=== PATIENT | female | born 1955 | race Caucasian/White ===

== ENCOUNTER → 2017-04-29 09:49 | Outpatient (CLI) | payer OTHER, SELFPAY ==
[2017-04-29 12:02] LABS: Absolute Lymphocyte Count 0.89 X10^3/ul (0.83-4.51); Absolute Neutrophil Count 3.4 X10^3/uL (2.0-7.7); Basophil# 0.03 X10^3/uL; Basophil% 0.6 % (0-1); Eosinophil# 0.04 X10^3/uL; Eosinophils% 0.8 % (0-5); Hematocrit 39.6 % (37-47); Hemoglobin 13.1 g/dl (12.0-15.0); Lymphocyte # 0.89 X10^3/ul (4.0); Lymphocyte % 18.7 % (19-41); Mean Corp Hgb Conc 33.1 g/gl (32-36); Mean Corpuscular Hgb 31.3 pg (27.0-32.0); Mean Corpuscular Volume 94.7 fL (81-99); Mean Platelet Vol. 10.7 fl (6.2-12.0); Monocyte# 0.43 X10^3/uL; Neutrophil # 3.36 X10^3/uL (2.7-7.7); Neutrophil % 70.7 % (47-70); Platelet Count 262 K/mm3 (150-450); Red Blood Count 4.18 M/mm3 (4.2-5.4); White Blood Count 4.8 K/mm3 (4.4-11.0)
[2017-04-29 12:04] LABS: POSITIVE COUNT NO; POSITIVE DIFFERENTIAL NO; POSITIVE MORPHOLOGY NO
[2017-04-29 12:38] LABS: Erythrocyte Sedimentation Rate < 1 mm/hr (0-30)
[2017-04-29 12:41] LABS: ALB/GLOB Ratio 1.3 RATIO (0.9-2.4); AST(SGOT) 13 U/L (15-37); Alanine Aminotransfer ALT/SGPT 24 U/L (13-56); Albumin, Serum 3.9 g/dL (3.2-5.0); Alkaline Phosphatase 55 U/L (45-117); Anion Gap 9 (5-15); BUN 13 mg/dL (7-18); BUN/Creat Ratio 20.6 RATIO (10-20); CRP < 2.90 mg/L (0.0-3.0); Calcium,Total 8.9 mg/dL (8.5-10.1); Chloride 104 mmol/L (98-107); Creatinine, Serum 0.63 mg/dL (0.55-1.02); EST Glomerular Filtration Rate 102 mL/min (>60); Est Glom Filt Rate - Afr Amer 124 mL/min (>60); Glucose 90 mg/dL (70-110); Potassium 3.7 mmol/L (3.5-5.1); Protein, Total 6.9 g/dL (6.4-8.2); Rheumatoid Factor < 10.0 IU/mL (<15); Sodium Level 139 mmol/L (136-145)
[2017-04-30 16:19] LABS: ANTINUCLEAR ANTIBODIES DIRECT Negative (Negative)
[2017-05-03 16:09] LABS: Cytoplasmic Ab (C-ANCA) <1:20 titer (Neg:<1:20); Immunoglobulin E 30 IU/mL (0-100); Immunoglobulin G 732 mg/dL (700-1600)
[2017-05-04 08:59] LABS: CCP IgG Antibodies 2 units (0-19); HEPATITIS B SURFACE AG Negative (Negative); HLA B27 Negative (.); Hep B Surface Antibodies Reactive (.); Hep C Antibodies <0.1 s/co ratio (0.0-0.9); Perinuclear Ab (P-ANCA) <1:20 titer (Neg:<1:20)
== END ==
PROVIDERS: Family Provider Family Medicine; PCP Family Medicine; Visit Provider Internal Medicine Rheumatology
DX: D72.1 Eosinophilia (principal)
CPT/HCPCS: 36415; 80053; 81374; 82784; 82785; 85025; 85652; 86038; 86140; 86200; 86256; 86431; 86706; 86803; 87340

== ENCOUNTER → 2017-06-04 09:55 | Outpatient (CLI) | payer OTHER, SELFPAY ==
--- NOTE | 2017-06-04 09:56 | HPBI_ITS ---
MAMMOGRAPHY - BILATERAL SCREENING REASON FOR EXAM: Female, 61 years old. Routine annual screening examination. PERTINENT HISTORY: Non-contributory. Bilateral nipple inversion. TECHNIQUE: Digital bilateral breast noble (3D mammographic acquisition) in the CC and MLO projections. 2-D mediolateral oblique (MLO) and craniocaudad (CC) views of both breasts were obtained. CAD: Full Field Digital Mammography with Computer Added Detection was performed. COMPARISON: Comparison is made with prior examination dated November 23, 2015. FINDINGS: Breast Composition: The breasts are extremely dense, which lowers the sensitivity of mammography. There are no dominant masses or suspicious calcifications. No other significant abnormalities are identified. There has been no significant change since the prior study. HPBI/SCREENING MAMM (CAD), BILAT IMPRESSION: Stable bilateral screening mammogram. Yearly follow-up mammogram recommended. (A) ASSESSMENT CATEGORY: BIRADS Category 1: Negative. A letter regarding these results will be sent to the patient by the facility within 30 days. Approximately 10% of breast cancers are not detected by mammography. A normal mammogram should not delay biopsy of a clinically suspicious abnormality. [id number] Electronically Signed: Haroon Miller MD at 11:09 EST Tel [phone], Service support ,
== END ==
PROVIDERS: Family Provider Family Medicine; PCP Family Medicine; Visit Provider Nurse Practitioner Women's Health
DX: Z12.31 Encounter for screening mammogram for malignant neoplasm of breast (principal)
CPT/HCPCS: 77063; 77067

== ENCOUNTER → 2018-03-19 08:03 | Outpatient (CLI) | payer OTHER, SELFPAY ==
[2017-05-13 09:57] VITALS: BMI 22.1
[2018-03-19 10:36] LABS: Anion Gap 6 (5-15); BUN 14 mg/dL (7-18); BUN/Creat Ratio 23.2 RATIO (10-20); Calcium,Total 8.7 mg/dL (8.5-10.1); Chloride 107 mmol/L (98-107); Cholesterol 246 mg/dL (200); EST Glomerular Filtration Rate 108 mL/min (>60); Est Glom Filt Rate - Afr Amer 130 mL/min (>60); Glucose 96 mg/dL (74-106); High Density Lipoprotein 120 mg/dL; Potassium 3.8 mmol/L (3.5-5.1); Sodium Level 140 mmol/L (136-145); Triglycerides 80 mg/dL; Very Low Density Lipoprotein 16 mg/dL (5-40)
--- OUTSIDE RECORDS SUMMARY | 2018-06-20 08:33 | XMS RPT_ITS | Summary of Care ---
:1955 Author Organization [facility] Address [address] [place] [address] Phone Care Team Providers Name Role Phone Helena Brantley MD Primary Care Provider Reason for Visit Reason Comments Post Op Visit 12 weeks s/p right knee arthroscopy, PMM, microfracture. The knee is feeling good, no problems or concerns at this time, states she has a bump on the back of her right knee which is not painful today. Still continues to exercsie at home on her own. Encounter Details Date Type Department Care Team Description 03/13/2018 Office Visit Megha Sauer, S/P right knee Orthopedics [employer] [place] arthroscopy ([address] [place] [address] [place] [id number] Allergies Active Allergy Reactions Severity Noted Date Comments Glucosamine Rash High 11/27/2017 Glucosamine and chondroitin as of this encounter Medications Prescription Sig. Disp. Refills Start Date End Date Status meloxicam 15 MG Tab Take 7.5 mg by Active tablet mouth daily. predniSONE 20 MG Tab Take 3 tablets by 15 tablet 0 11/27/2017 Active tabletIndications: mouth daily. Right knee pain, unspecified chronicity CALCIUM PO Take by mouth. 06/11/2005 Active HERBAL PRODUCT 1 drop. CBD herbal Active supplement for anxiety and joint pain hydroCODone-acetamino 1-2 tabs PO q4-6 60 tablet 0 12/19/2017 Active phen 5-325 MG Tab hours PRN pain tabletIndications: S/P arthroscopy of knee Misc Natural Products Take by mouth. Active (TURMERIC CURCUMIN) Cap as of this encounter Active Problems Problem Noted Date Other tear of medial meniscus, current injury, right knee, subsequent 01/02/2018 encounter Chondral lesion 01/02/2018 Social History Tobacco Use Types Packs/Day Years Used Date Never Smoker Smokeless Tobacco: Never Used Alcohol Use Drinks/Week oz/Week Comments Yes wine and beer weekly Sex Assigned at Date Recorded Not on file as of this encounter Last Filed Vital Signs Vital Sign Reading Time Taken Blood Pressure - - Pulse - - Temperature 36.8 ??C (98.2 ??F) 03/13/2018 9:55 AM EST Respiratory Rate - - Oxygen Saturation - - Inhaled Oxygen Concentration - - Weight 57.7 kg (127 lb 2 oz) 03/13/2018 9:55 AM EST Height 157.5 cm (5' 2) 03/13/2018 9:55 AM EST Body Mass Index 23.25 03/13/2018 9:55 AM EST in this encounter Progress Notes Megha Guidry, [facility] - 03/13/2018 10:00 AM ESTFormatting of this note may be different from the original. Chief Complaint Patient presents with ??? Post Op Visit 12 weeks s/p right knee arthroscopy, PMM, microfracture. The knee is feeling good, no problems orconcerns at this time, states she has a bump on the back of her right knee which is not painful today. Still continues to exercsie at home on her own. HPI: She is doing well. She states that the knee feels good. She states that she has minimal pain. Statesthat she has some swelling at the posterior aspect of the knee is painful and some days but today itis not. He continues therapy exercises at home. She states that her knee has improved since last visit. Denies any other issues or concerns. She is happy with her progress overall. PMH: Past medical history, family history, social history, allergies and medications have been reviewed and are documented in the electronic record. ROS: Review of Systems System Neg/Pos Details Constitutional Negative Chills, fatigue, fever and night sweats. ENMT Negative Dysphagia, hearing loss, nasal congestion and vertigo. Eyes Negative Blurred vision and vision loss. Respiratory Negative Chest pain, cough, dyspnea, known TB exposure and wheezing. Cardio Negative Chest pain, cyanosis, heart murmur, irregular heartbeat/palpitations and syncope. GI Negative Abdominal pain, black tarry stools, constipation, diarrhea, heartburn, nausea and vomiting. Negative Dysuria, frequent urination, hematuria, nocturia and urinary incontinence. Endocrine Negative Weight gain and weight loss. Neuro Negative Difficulty walking, headache, paresthesia, poor coordination and seizures. Psych Negative Anxiety, depression and insomnia. Integumentary Negative Frequent skin infections, itching skin, rash and skin lesion. MS Negative Except as noted in HPI and chief complaint and muscle weakness. Ricki/Lymph Negative Bruising and easy bleeding. Allergic/Immuno Negative Contact dermatitis, environmental allergies, food allergies, infections andseasonal allergies. Vitals: 03/13/18 0955 Temp: 98.2 degrees F (36.8 degrees C) Weight: 57.7 kg (127 lb 2 oz) Height: 1.575 m (5' 2) Physical Exam: Exam Findings Details Constitutional Normal No acute distress. Well developed. Head/Face Comments normal cephallic/ Atraumatic, negative spurling's maneuver Head/Face Normal Facial features - Normal. Skull - Normal. Hair and scalp - Normal. Respiratory Normal Cough - Absent. Effort - Normal. Skin * Detailed inspection - Visual lesions: none. Skin Comments other than as noted otherwise below in extremity exam Skin Normal Palpation/texture - Normal. Nails - Normal. Hair - Normal. Psychiatric Normal Orientation - Oriented to time, place, person & situation. Involved Lower Extremity: ROM: 0-140. Quad tone good. Calf supple and non tender. Minimal effusion. Minimal effusion to posterior aspect of knee as well. Nontender with palpation. Incisions healing nicely. No erythema. No drainage. Distally neurovascularly intact with 2+ DP pulse and full sensation in the DP/SP/Tibial nerve distribution. Assessment: 1. S/P right knee arthroscopy Plan: At this time, she is doing well. She is progressing as expected. She'll continue physical therapy exercises to work on strengthening. She'll use meloxicam for pain. We discussed that swelling to the posterior aspect of her knee is a popliteal cyst. We discussed various treatment options. We discussed that if the swelling increases and becomes painful she can possibly have that aspirated under ultrasound in the future. She voices understanding. She'll call the office with any questions or concerns otherwise follow-up as needed for the right knee. We discussed left knee pain today which is likely related to osteoarthritis. She'll make an appointment for 3 weeks from now with Dr. Hurt.in this encounter Plan of Treatment Upcoming Encounters Date Type Specialty Care Team Description 04/07/2018 Office Visit Orthopaedics Roberto Hurt MD [address] [id number] [phone] Health Maintenance Due Date Last Done Comments HEPATITIS C VIRUS SCREENING 1955 HIV SCREENING DISCUSSION 1970 TETANUS 09/26/1975 TDAP (ADULT) 1976 PAP SMEAR DISCUSSION 1978 LIPID SCREENING 1997 MAMMOGRAM SCREENING DISCUSSION 1997 COLON CANCER SCREENING DISCUSSION 09/26/2007 INFLUENZA VACCINE (#1) 2017 as of this encounter Visit Diagnoses Diagnosis S/P right knee arthroscopy - Primary Other postprocedural status
--- OUTSIDE RECORDS SUMMARY | 2018-06-20 08:33 | XMS RPT_ITS ---
:1955 Author Organization OHIP Care Team Providers Name Role Phone Parish Cardoza Attending Unavailable Parish Cardoza Referring Unavailable Helena Brantley Primary Care Unavailable Brittany Means Attending Unavailable HELENA SUAZO Referring Unavailable Helena Brantley Primary Care Unavailable Shasha Manzano Attending Unavailable Fercho Helena Referring Unavailable Jolliff, Helena Primary Care Unavailable Shasha Manzano Attending Unavailable Ramilalliff, Helena Primary Care Unavailable MARY MORE Attending Unavailable MARY MORE Referring Unavailable MARY MORE Attending Unavailable MARY MORE Referring Unavailable ELENA LIAO Attending Unavailable RIEHM, ELENA L Referring Unavailable RIEHM, ELNEA L Attending Unavailable RIEHM, ELENA L Referring Unavailable RIEHM, ELENA L Attending Unavailable RIEHM, ELENA L Referring Unavailable RIEHM, ELENA L Attending Unavailable SELF, SELF Referring Unavailable RIEHM, ELENA L Attending Unavailable RIEHM, ELENA L Referring Unavailable RIEHM, ELENA L Attending Unavailable RIEHM, ELENA L Referring Unavailable MALISSA, LORELEI L Admitting Unavailable MALISSA, LORELEI L Attending Unavailable MALISSA, LORELEI L Referring Unavailable MALISSA, LORELEI L Attending Unavailable MALISSA, LORELEI L Referring Unavailable MALISSA, LORELEI L Attending Unavailable MALISSA, LORELEI L Referring Unavailable MARY MORE Attending Unavailable MALISSA, LORELEI L Referring Unavailable Dr. Shasha Simpson Admitting Unavailable Calvin, Dr. Shasha Thomas Attending Unavailable UNKNOWN Primary Care Unavailable Rubén, Dr. Trang Salguero Attending Unavailable *SELF, REFERRED Referring Unavailable UNKNOWN Primary Care Unavailable PROBLEMS PROBLEMS DATE TYPE CONDITION / CODE ATTENDING STATUS SOURCE 03/13/2018 Admitting Post Op Visit / [facility] 554() [facility] ([place] 12/19/2017 Admitting Other specified LORELEI LEONARDO [facility] postprocedural [place] states / Repository Z98.890(ICD-10) 12/11/2017 Admitting Encounter for other LORELEI LEONARDO [facility] preprocedural [place] examination / Repository Z01.818(ICD-10) 12/11/2017 Admitting Knee Pain / [id number]() LORELEI LEONARDO [facility] [place] 11/27/2017 Admitting Pain in right knee / RIEHM, ELENA [facility] M25.561(ICD-10) [place] 07/01/2017 Admitting Pain in left knee / RIEHM, ELENA [facility] Diagnosis M25.562(ICD-10) [place] 05/13/2017 Unknown Z12.31 - Encounter Freedom Manzano for screening [facility] mammogram for Hospital malignant neoplasm Repository of breast / Z12.31(ICD-10) 05/07/2017 Final diagnosis Eosinophilia / Dr. Calvin [facility] (discharge) D72.1(ICD-10) [facility] Repository 05/10/2017 Unknown D72.1 - Eosinophilia Freedom Means [place] / D72.1(ICD-10) [facility] Repository PROCEDURES PROCEDURES No Procedure Records FoundRESULTS RESULTS BASIC METABOLIC Collected: 03/19/2018 Status: F Source: [place] PROFILE (BMP) 8:08 AM [facility] REPOSITORY TYPE CODE TESTS RESULT OUT OF RANGE REFERENCE UNITS LAB L501.0100 74-106 mg/dL Normal GLU 96 Result Comment: Please note revised GLUCOSE reference range effective 2017. LAB L501.1000 7-18 mg/dL Normal BUN 14 LAB L501.1100 0.55-1.02 mg/dL Normal CREAT,SERUM 0.60 Result Comment: The validity of the calculated GFR AND GFRAA in patients over 70 years has not been determined. Clinical correlation is essential. LAB L501.1110 >60 mL/min Normal EST GFR 108 Result Comment: Non- GFR Calc LAB L501.1115 >60 mL/min Normal EST GFR - AA 130 Result Comment: GFR Calc LAB L501.1300 10-20 RATIO High BUN/CRE 23.2 LAB L501.2200 8.5-10.1 mg/dL CA Normal 8.7 LAB L501.5300 136-145 mmol/L NA Normal 140 LAB L501.5600 3.5-5.1 mmol/L K Normal 3.8 LAB L501.5900 98-107 mmol/L CL Normal 107 LAB L501.6100 21.0-32.0 mmol/L Normal CO2 27.0 LAB L501.6200 5-15 Normal GAP 6 Performed By: #### L500.2500, L500.4100 #### [facility] [address] [place], [place], [id number] LIPID PROFILE Collected: 03/19/2018 Status: F Source: [place] 8:08 AM [facility] REPOSITORY TYPE CODE TESTS RESULT OUT OF RANGE REFERENCE UNITS LAB L501.4900 200 mg/dL High CHOL 246 Result Comment: <200 mg/dL Desirable 200-240 mg/dL Borderline >240 mg/dL High Risk LAB L501.5000 mg/dL Normal TRIG 80 Result Comment: The drugs N-Acetylcysteine and Metamizole may falsely depress this assay. Serum Triglycerides Reference Interval Normal <150 mg/dL Borderline high 150 - 199 mg/dL High 200 - 499 mg/dL Very High > or = 500 mg/dL LAB L501.6400 mg/dL Normal HDL 120 Result Comment: The drugs N-Acetylcysteine and Metamizole may falsely depress this assay. Reference Range HDL <40 mg/dL Low HDL Cholesterol HDL >or= 60 mg/dL High HDL Cholesterol LAB L501.6500 0-130 mg/dL Normal LDL 110 LAB L501.6600 5-40 mg/dL Normal VLDL 16 Performed By: #### L500.2500, L500.4100 #### [facility] [address] [place], [address] SALES AND MERCHANDISING REPRESENTATIVE OFFICE VISIT Observed: 03/05/2018 Status: F Source: [place] REPORT 1:07 PM [facility] REPOSITORY [facility] [address] [place] [address] OFFICE VISIT Date of Service: 05/13/17 MR#: [id number] Acct: [id number] Name: MIRYAM DEMARCO Rep #: [id number] : 1955 Provider: MILO Manzano Age/Sex: 61/F Location: [facility] Status: Signed with Addenda ADDENDUM by MILO Manzano on 03/05/18 at 1307 Addendum entered and electronically signed by CHIQUI Deleon 03/05/18 13:07: Rectal exam was deferred. No masses palpated Assessment AND Plan Problems 1. Encounter for gynecological examination without abnormal finding Z01.419 2. Encounter for screening mammogram for malignant neoplasm of breast Z12.31 Plan - CHIQUI Deleon Completed breast and pelvic exam Reviewed diet and exercise Pap NA Mammogram ordered Contraception NA Colonoscopy up to date RTO 1 year, prn with problems Shasha Manzano DEEP SUBMERGENCE VEHICLE OPERATOR Orders Orders: 03/05/18 1307 <Electronically signed by Shasha FLORIAN> Date Shasha Manzano JANITOR CARETAKER-C cc: * Signed Intake Vital Signs05/13/17 Height 5 ft 3 in 05/13/17 Weight: 125 lb 6 oz 05/13/17 Body Mass Index (BMI) 22.1 05/13/17 Blood Pressure 128/77 Intake Visit Reasons: ANNUAL Chief Complaint: Est annual Retail Worker Required: No Is patient in pain?: No Allergies glucosamine chondroitin Allergy (Mild, Uncoded 05/13/17 09:58) Other Is last menstrual period known: No Post menopausal: Yes Patient : No : No PFSH Surgical History H/O rotator cuff surgery (Acute) History of LAVH (Acute) Family History Mother Hypertension Social History Smoking Status: Never smoker alcohol intake: current details: social substance use type: does not use caffeine: Yes frequency: daily seatbelt use: always do you feel safe at home: Yes 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 DateName GA/Weeks Outcome Route Bth WeighInfant GeLabor LgtAnesthesiDel LocatProvider FOB t n h a n HPI ANNUAL: Details: MIRYAM DEMARCO is a 61 year old who presents for annual exam. Denies concerns History of abnormal PAP: no Last mammogram: 2015 History of abnormal mammogram: no Colon cancer screenin ROS Const Constitutional: Denies fatigue, weight gain or weight loss Cardio Card: Denies chest pain Resp Resp: Denies cough or shortness of breath with activity GI GI: Denies abdominal pain, constipation, change in stools, vomiting or bloating : Reports as per HPI; denies urinary frequency, pelvic pain, urinary urgency, vaginal discharge, vaginal itching, urinary incontinence or difficulty urinating Exam Const General: cooperative, healthy appearing, no acute distress, well developed Orientation: alert, oriented to person, oriented to place HENOK Head: normal to inspection Neck Neck: normal visual inspection Thyroid: thyroid normal Lymphatic: no lymphadenopathy noted Chest Breast inspection: normal inspection of the breasts, normal inspection of the axillae Breast palpation: normal palpation of the breasts, normal palpation of the axillae, no axillary lymphadenopathy Resp Effort AND Inspection: normal respiratory effort Auscultation: clear to auscultation bilaterally Cardio Rate: regular rate Rhythm: regular rhythm GI Palpation: soft, nontender, no masses Rectal Exam: mass, deferred External Female Exam: normal external appearance, normal appearance of the urethra Urethra: normal appearance of the urethra, normal palpation Speculum Exam - Vagina: normal appearance of the vagina, normal vaginal discharge Speculum Exam - Cervix: cervix absent Bimanual Exam- Vagina AND Uterus: normal bimanual exam, uterus absent Bimanual Exam- Adnexa, other: normal adnexae, no adnexal masses, adnexae non-tender, pelvic support normal Pelvic Support: normal Neuro General: alert, oriented x3 Psych Affect: normal affect Assessment AND Plan Problems 1. Encounter for gynecological examination without abnormal finding Z01.419 2. Encounter for screening mammogram for malignant neoplasm of breast Z12.31 Plan Completed breast and pelvic exam Reviewed diet and exercise Pap NA Mammogram ordered Contraception NA Colonoscopy up to date RTO 1 year, prn with problems Shasha Manzano DEEP SUBMERGENCE VEHICLE OPERATOR Orders Orders: Coding Level of Care Code Off vis,est,prev 40-64yrs Diagnoses Encounter for gynecological examination without abnormal finding Z01.419 Gynecological examination findings: abnormal findings ABSENT Encounter for screening mammogram for malignant neoplasm of breast Z12.31 05/13/17 1043 <Electronically signed by Shasha FLORIAN> Date Shasha FLORIAN Cosigner Signature: Date (if applicable) CC: BMP FASTING Collected: 12/11/2017 Status: F Source: [place] 11:35 AM [place] ([place] REPOSITORY TYPE CODE TESTS RESULT OUT OF REFERENCE UNITS RANGE LAB GLF 70-100 MG/DL High GLUCOSE 113 FASTING Result Comment: NORMAL <100 mg/dL PREDIABETES 101-126 mg/dL DIABETES 126 mg/dL or higher LAB BUN 7-20 MG/DL BLOOD UREA 13 NITROGEN LAB CRET 0.52-1.04 MG/DL CREATININE Low SERUM 0.5 LAB NA 136-145 MMOL/L SODIUM 140 LAB K 3.5-5.1 MMOL/L POTASSIUM 4.0 LAB CL 98-107 MMOL/L CHLORIDE 105 LAB CO2 22-30 MMOL/L CO2 26 LAB AGAP 8-16 MMOL/L ANION GAP 9 LAB CA 8.4-10.2 MG/DL CALCIUM 9.3 LAB GFR ml/min/1.73 sq.m EST. GFR,Non >60 LAB GFRB ml/min/1.73 sq.m EST. GFR, >60 [place] LAB GFRCOM GFR Information Average GFR for 60-69 years old = 85. Result Comment: Chronic Kidney disease, GFR = <60. Kidney failure, GFR = <15. The GFR estimate is not adjusted for extreme body surface area or acute process, nor has it been validated for women or ethnic groups other than and . Performed By: #### BMPF #### Testing performed at [facility] [address] [place] [address] MRI KNEE RIGHT Observed: 11/21/2017 Status: F Source: [place] WITHOUT CONTRAST 12:53 PM [facility] [place] REPOSITORY MRI OF THE RIGHT KNEE HISTORY: Knee pain, medial sided after twisting injury 6 weeks ago. TECHNIQUE: Axial STIR, coronal, and sagittal fat-saturated PD, sagittal T1, sagittal T2 sequences of the knee without IV contrast. FINDINGS: There is a large complex radial tear of the posterior horn medial meniscus with tear extending to the undersurface of the body with moderate extrusion. There is a superimposed stress/insufficiency fracture in the medial femoral condyle with intense bone marrow edema throughout the entire medial femoral condyle. The fracture line measures 1.1 cm transversely. Reactive soft tissue edema around the MCL is shown. Superimposed mild medial compartment arthrosis shown. Large joint effusion with a large leaking popliteal cyst with fluid tracking towards the medial calf. There is mild lateral compartment arthrosis without evidence of lateral meniscal tear. The LCL complex is intact. Mild patellofemoral compartment arthrosis is noted. 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 IMPRESSION: 1. There is a large complex radial tear of the posterior horn medial meniscus with tear extending to the undersurface of the body with moderate extrusion. There is a superimposed stress/insufficiency fracture in the medial femoral condyle with intense bone marrow edema throughout the entire medial femoral condyle. The fracture line measures 1.1 cm transversely. Reactive soft tissue edema around the MCL is shown. Superimposed mild medial compartment arthrosis shown. 2. Large joint effusion with a large leaking popliteal cyst tracking into the medial calf. 3. Mild patellofemoral and lateral compartment arthrosis. SCREENING MAMM (CAD), Observed: 06/04/2017 Status: F Source: [place] BIL 9:56 AM [facility] REPOSITORY [facility] Imaging Services [address] [place] [address] SCREENING MAMM (CAD), BILAT MR#: [id number] Acct: [id number] Name: MIRYAM DEMARCO Rep #: [id number] : 1955 F 61 From: Haroon Miller MD PCP: Helena Brantley MD Status: REG CLI Study: SCREENING MAMM (CAD), BILAT Date of Exam: 06/04/17 Exam# [id number] Ordering Dr: Shasha Manzano JANITOR CARETAKER-Liv MAMMOGRAPHY - BILATERAL SCREENING REASON FOR EXAM: Female, 61 years old. Routine annual screening examination. PERTINENT HISTORY: Non-contributory. Bilateral nipple inversion. TECHNIQUE: Digital bilateral breast noble (3D mammographic acquisition) in the CC and MLO projections. 2-D mediolateral oblique (MLO) and craniocaudad (CC) views of both breasts were obtained. CAD: Full Field Digital Mammography with Computer Added Detection was performed. COMPARISON: Comparison is made with prior examination dated November 23, 2015. FINDINGS: Breast Composition: The breasts are extremely dense, which lowers the sensitivity of mammography. There are no dominant masses or suspicious calcifications. No other significant abnormalities are identified. There has been no significant change since the prior study. HPBI/SCREENING MAMM (CAD), BILAT IMPRESSION: Stable bilateral screening mammogram. Yearly follow-up mammogram recommended. (A) ASSESSMENT CATEGORY: BIRADS Category 1: Negative. A letter regarding these results will be sent to the patient by the facility within 30 days. Approximately 10% of breast cancers are not detected by mammography. A normal mammogram should not delay biopsy of a clinically suspicious abnormality. [id number] Electronically Signed: Haroon Miller MD at 11:09 EST Tel [phone], Service support , CC: MILO Manzano; Helena Brantley MD Financial Planning Advisor: Signed CBC W/DIFF, AUTOMATED Collected: 04/29/2017 Status: F Source: [place] 9:58 AM [facility] REPOSITORY TYPE CODE TESTS RESULT OUT OF RANGE REFERENCE UNITS LAB L100.1000 4.4-11.0 K/mm3 Normal WBC 4.8 LAB L100.1200 4.2-5.4 M/mm3 Low RBC 4.18 LAB L100.1300 12.0-15.0 g/dl Normal HGB 13.1 LAB L100.1400 37-47 % Normal HCT 39.6 LAB L100.1500 81-99 fL Normal MCV 94.7 LAB L100.1600 27.0-32.0 pg Normal MCH 31.3 LAB L100.1700 32-36 g/gl Normal MCHC 33.1 LAB L100.1810 11.6-14.6 % Normal RDW CV 13.0 LAB L100.1820 35.1-43.9 fl High RDW SD 44.0 LAB L100.1900 150-450 K/mm3 Normal PLT 262 LAB L100.2000 6.2-12.0 fl Normal MPV 10.7 LAB L100.2100 47-70 % High NEUT% 70.7 LAB L100.2200 19-41 % Low LY% 18.7 LAB L100.2300 0-10 % Normal MONO% 9.0 LAB L100.2400 0-5 % Normal EO% 0.8 LAB L100.2500 0-1 % Normal BASO% 0.6 LAB L100.2550 0.0-0.9 % Normal IM GRAN % 0.200 Result Comment: IG% - Immature Granulocytes (promyelocytes, myelocytes and metamyelocytes) > 1% indicates that a LEFT SHIFT is Present. LAB L100.2620 2.0-7.7 X10 3/uL Normal Absolute Neut 3.4 LAB L100.2720 0.83-4.51 X10 3/ul Normal Absolute Lymph 0.89 Performed By: #### L100.0100, L101.9900 #### [facility] [address] [place], [address] ERYTHROCYTE SED RATE Collected: 04/29/2017 Status: F Source: [place] 9:58 AM [facility] REPOSITORY TYPE CODE TESTS RESULT OUT OF RANGE REFERENCE UNITS LAB L102.0000 0-30 mm/hr Normal SED RATE < 1 Performed By: #### L100.0100, L101.9900 #### [facility] [address] [place], [place], [address] COMPREHENSIVE METABOLIC Collected: 04/29/2017 Status: F Source: [place] PROFIL 9:58 AM [facility] REPOSITORY Order Comment: ORDERED CMP,CBCD,SED,CRP,HEBSAB,HEBSAG,RUSS,RF,CCP,JAGDISH,HLAB,PR3,MPO ORDERED IGG,IGE,ANCA,CMP,CBCD FAX PUT IN FOR TYPE CODE TESTS RESULT OUT OF RANGE REFERENCE UNITS LAB L501.0100 70-110 mg/dL Normal GLU 90 LAB L501.1000 7-18 mg/dL Normal BUN 13 LAB L501.1100 0.55-1.02 mg/dL Normal 0.63 CREAT,SERUM Result Comment: The validity of the calculated GFR AND GFRAA in patients over 70 years has not been determined. Clinical correlation is essential. LAB L501.1110 >60 mL/min Normal EST GFR 102 Result Comment: Non- GFR Calc LAB L501.1115 >60 mL/min Normal EST GFR - AA 124 Result Comment: GFR Calc LAB L501.1300 10-20 RATIO High BUN/CRE 20.6 LAB L501.1500 6.4-8.2 g/dL T Normal PROT 6.9 LAB L501.1800 3.2-5.0 g/dL Normal ALB 3.9 LAB L501.1950 2.2-4.2 g/dL Normal GLOB 3.0 LAB L501.2000 0.9-2.4 RATIO Normal A/G 1.3 LAB L501.2200 8.5-10.1 mg/dL CA Normal 8.9 LAB L501.4100 15-37 U/L Low AST 13 LAB L501.4305 45-117 U/L Normal ALK P 55 LAB L501.4405 13-56 U/L Normal ALT 24 Result Comment: Please note revised ALT reference range effective 2017. LAB L501.4600 0.20-1.00 mg/dL Normal T BILI 0.80 LAB L501.5300 136-145 mmol/L Normal NA 139 LAB L501.5600 3.5-5.1 mmol/L Normal K 3.7 LAB L501.5900 98-107 mmol/L Normal CL 104 LAB L501.6100 21.0-32.0 mmol/L Normal CO2 26.0 LAB L501.6200 5-15 Normal GAP 9 Performed By: #### L500.4050, L501.6710, L505.7010 #### [facility] [address] [place], [place], [id number] CRP Collected: 04/29/2017 Status: F Source: [place] 9:58 AM [facility] REPOSITORY Order Comment: ORDERED CMP,CBCD,SED,CRP,HEBSAB,HEBSAG,RUSS,RF,CCP,JAGDISH,HLAB,PR3,MPO ORDERED IGG,IGE,ANCA,CMP,CBCD FAX PUT IN FOR TYPE CODE TESTS RESULT OUT OF RANGE REFERENCE UNITS LAB L501.6710 0.0-3.0 mg/L Normal < 2.90 C-REACTIVE PROT Result Comment: C-Reactive Protein (CRP) provides useful information for the diagnosis, therapy and monitoring of inflammatory processes and associated diseases. For the evaluation of Relative Risk for Cardiovascular Disease, a High Sensitivity CRP (HSCRP) should be ordered. Performed By: #### L500.4050, L501.6710, L505.7010 #### [facility] [address] [place], [place], [address] RHEUMATOID FACTOR Collected: 04/29/2017 Status: F Source: [place] 9:58 AM [facility] REPOSITORY Order Comment: ORDERED CMP,CBCD,SED,CRP,HEBSAB,HEBSAG,RUSS,RF,CCP,JAGDISH,HLAB,PR3,MPO ORDERED IGG,IGE,ANCA,CMP,CBCD FAX PUT IN FOR TYPE CODE TESTS RESULT OUT OF RANGE REFERENCE UNITS LAB L505.7010 <15 IU/mL Normal RHEUMATOID FAC < 10.0 Performed By: #### L500.4050, L501.6710, L505.7010 #### [facility] [address] [place], [place], [address] ANTINUCLEAR ANTIBODIES Collected: 04/29/2017 Status: F Source: [place] DIRECT 9:58 AM [facility] REPOSITORY TYPE CODE TESTS RESULT OUT OF RANGE REFERENCE UNITS LAB L3100.5475 Negative Normal Negative JAGDISH-DIRECT Result Comment: Performed at: [address] [id number] Asbestos Wire Finisher: Patrick Heaton PhD, Phone: [phone] Performed By: #### L3100.5475 #### [facility] (refer to report for specific site) refer to report for address and phone number MISCELLANEOUS LAB Collected: 04/29/2017 Status: F Source: [place] PROCEDURE 9:58 AM [facility] REPOSITORY Order Comment: Test(s) Ordered: #[id number] PR3 SERUM RT TYPE CODE TESTS RESULT OUT OF RANGE REFERENCE UNITS LAB L801.[address] [facility] LAB TEST Result Comment: TEST RESULT LIMITS Antiproteinase 3 (HI-3) Abs <3.5 U/mL 0.0 - 3.5 TESTING PERFORMED AT [facility]. ORIGINAL REPORT ON FILE IN LAB CONTAINS ADDITIONAL TEST SITE INFORMATION. Performed By: #### L801.1541 #### [facility] [address], [address] MISCELLANEOUS LAB Collected: 04/29/2017 Status: F Source: [place] PROCEDURE 2 9:58 AM [facility] REPOSITORY Order Comment: List Test(s) Ordered by Physician: ISABELL#[id number] MPO SERUM RT TYPE CODE TESTS RESULT OUT OF RANGE REFERENCE UNITS LAB L801.[address] [facility] LAB TEST 2 Result Comment: TEST RESULT LIMITS Antimyeloperoxidase (MPO) Abs <9.0 U/mL 0.0 - 9.0 TESTING PERFORMED AT [facility]. ORIGINAL REPORT ON FILE IN LAB CONTAINS ADDITIONAL TEST SITE INFORMATION. Performed By: #### L801.1543 #### [facility] [address] [place], [place] [address] [place], [place], [address] HEPATITIS B SURFACE Collected: 04/29/2017 Status: F Source: [place] AG 9:58 AM [facility] REPOSITORY TYPE CODE TESTS RESULT OUT OF RANGE REFERENCE UNITS LAB L3100.0400 Negative Normal HB Negative SURF AG Result Comment: Performed at: - [address] [id number] Asbestos Wire Finisher: Patrick Heaton PhD, Phone: [phone] Performed at: - [address] [id number] Asbestos Wire Finisher: Gaetano Koenig MD, Phone: [phone] Performed at: [address] [place] [id number] Asbestos Wire Finisher: Neymar Nelson PhD, Phone: [phone] Performed By: #### L3100.0390, L3100.0528, L3100.0625, L3200.1300, L3200.1600, L3300.1200, L3410.1400, L4600.0100 #### [facility] (refer to report for specific site) refer to report for address and phone number HEP B SURFACE Collected: 04/29/2017 Status: F Source: [place] ANTIBODIES 9:58 AM [facility] REPOSITORY TYPE CODE TESTS RESULT OUT OF RANGE REFERENCE UNITS LAB L3100.0528 . Normal Hep B Reactive [place] AB Result Comment: Non Reactive: Inconsistent with immunity, less than 10 mIU/mL Reactive: Consistent with immunity, greater than 9.9 mIU/mL Performed By: #### L3100.0390, L3100.0528, L3100.0625, L3200.1300, L3200.1600, L3300.1200, L3410.1400, L4600.0100 #### [facility] (refer to report for specific site) refer to report for address and phone number HEPATITIS C ANTIBODIES Collected: 04/29/2017 Status: F Source: [place] 9:58 AM [facility] REPOSITORY TYPE CODE TESTS RESULT OUT OF RANGE REFERENCE UNITS LAB L3100.0650 0.0-0.9 s/co ratio Normal HEP C AB <0.1 Result Comment: Negative: < 0.8 Indeterminate: 0.8 - 0.9 Positive: > 0.9 The CDC recommends that a positive HCV antibody result be followed up with a HCV Nucleic Acid Amplification test ([id number]). Performed By: #### L3100.0390, L3100.0528, L3100.0625, L3200.1300, L3200.1600, L3300.1200, L3410.1400, L4600.0100 #### [facility] (refer to report for specific site) refer to report for address and phone number IMMUNOGLOBULIN G Collected: 04/29/2017 Status: F Source: [place] 9:58 AM [facility] REPOSITORY TYPE CODE TESTS RESULT OUT OF RANGE REFERENCE UNITS LAB L3200.7051 613-5269 mg/dL Normal IMMUNO G 732 Performed By: #### L3100.0390, L3100.0528, L3100.0625, L3200.1300, L3200.1600, L3300.1200, L3410.1400, L4600.0100 #### [facility] (refer to report for specific site) refer to report for address and phone number IMMUNOGLOBULIN E Collected: 04/29/2017 Status: F Source: [place] 9:58 AM [facility] REPOSITORY TYPE CODE TESTS RESULT OUT OF RANGE REFERENCE UNITS LAB L3200.1600 0-100 IU/mL Normal IMMUNO E 30 Performed By: #### L3100.0390, L3100.0528, L3100.0625, L3200.1300, L3200.1600, L3300.1200, L3410.1400, L4600.0100 #### [facility] (refer to report for specific site) refer to report for address and phone number ANCA Collected: 04/29/2017 Status: F Source: [place] 9:58 AM [facility] REPOSITORY TYPE CODE TESTS RESULT OUT OF RANGE REFERENCE UNITS LAB L3300.1225 Neg:<1:20 titer CYTOPLASMIC Normal Ab <1:20 LAB L3300.1250 Neg:<1:20 titer PERINUCLEAR Normal Ab <1:20 Result Comment: The presence of positive fluorescence exhibiting P-ANCA or C-ANCA patterns alone is not specific for the diagnosis of Pasquale's Granulomatosis (WG) or microscopic polyangiitis. Decisions about treatment should not be based solely on ANCA IFA results. The International ANCA Group Consensus recommends follow up testing of positive sera with both HI- 3 and MPO-ANCA enzyme immunoassays. As many as 5% serum samples are positive only by EIA. Ref. AM J Clin Pathol 1999;111:507-513. LAB L3300.1285 Neg:<1:20 titer Normal Atypical pANCA <1:20 Result Comment: The atypical pANCA pattern has been observed in a significant percentage of patients with ulcerative colitis, primary sclerosing cholangitis and autoimmune hepatitis. Performed By: #### L3100.0390, L3100.0528, L3100.0625, L3200.1300, L3200.1600, L3300.1200, L3410.1400, L4600.0100 #### [facility] (refer to report for specific site) refer to report for address and phone number HLA B27 Collected: 04/29/2017 Status: F Source: SARMAD 9:58 AM [facility] REPOSITORY TYPE CODE TESTS RESULT OUT OF RANGE REFERENCE UNITS LAB L3410.1500 . Normal HLA Negative B27 Result Comment: HLA-B*27 Negative B27 allele interpretation for all loci based on IMGT/HLA database version 3.27 This test was developed and its performance characteristics determined by [facility]. It has not been cleared or approved by the Food and Drug Administration. HLA Lab CLIA ID Number [id number] This test was performed using PCR (Polymerase Chain Reaction)/SSOP (Sequence Specific Oligonucleotide Probes) technique. SBT (Sequence Based Typing) and/or SSP (Sequence Specific Primers) may be used as supplemental methods when necessary. Please contact HLA Customer Service at if you have any questions. Director of HLA Laboratory Dr Neymar Nelson, PhD Performed By: #### L3100.0390, L3100.0528, L3100.0625, L3200.1300, L3200.1600, L3300.1200, L3410.1400, L4600.0100 #### [facility] (refer to report for specific site) refer to report for address and phone number CCP IGG ANTIBODIES Collected: 04/29/2017 Status: F Source: DAMASCUS 9:58 [facility] REPOSITORY TYPE CODE TESTS RESULT OUT OF RANGE REFERENCE UNITS LAB L4600.0100 0-19 units Normal ANTI-CCP 2 [id number] Result Comment: Negative <20 Weak positive 20 - 39 Moderate positive 40 - 59 Strong positive >59 Performed By: #### L3100.0390, L3100.0528, L3100.0625, L3200.1300, L3200.1600, L3300.1200, L3410.1400, L4600.0100 #### [facility] (refer to report for specific site) refer to report for address and phone number ALLERGIES ALLERGIES DATE TYPE / CODE NAME / CODE REACTION SEVERITY SOURCE 05/13/2017 Miscellaneous glucosamine Other [facility] Allergy/[id number]( [facility]) Hospital Repository ENCOUNTERS ENCOUNTERS ADMIT/DISCHARGE ACCOUNT NUMBER ADMITTING ENCOUNTER LOCATION SOURCE CLASS 03/19/[id number] [facility] ding:MTLAB Repository 03/13/2018 [id number] Ambulatory [address] [place] [address]) Repository 01/30/2018 [id number] Ambulatory [facility] ([place] 01/02/2018 [id number] [facility] [place] 12/19/2017/12/20/19 [id number] MALISSA Ambulatory [facility] LORELEI L [facility]oom: [facility] ([place] Repository 12/11/2017 [id number] [facility] [place] 12/11/2017 [id number] [facility] [place] 11/27/2017 [id number] [facility] [place] 11/21/2017 [id number] Ambulatory [facility]in [facility] [place] 11/18/2017 [id number] [facility] [place] 11/11/2017 [id number] Ambulatory [facility] [place] 11/11/2017 [id number] [facility] [place] 07/01/2017 [id number] [facility] [place] 06/04/[id number] [facility] ding:BI Repository 05/13/2017/05/13/19 [id number] Ambulatory BMSBuilding: [place] [facility] Repository 05/10/2017 [id number] Ambulatory [address] [place] [address] Repository 05/07/[id number] Calvin Ambulatory [facility] Repository 04/29/[id number] [facility] ding:MTLAB Repository PAYERS PAYERS ENCOUNTER GUARANTOR PAYER SUBSCRIBER SOURCE 03/19/2018 MIA Dewitt Primary Insurance:MED KAISER Bañuelos [id number] [facility] RUN Number: [id number] [id number] Repository [address]Prs: (330) Date:[phone] () [place], [place] [phone]: CHECK WEBSITE 03/19/2018 Secondary NOT GIVENUNK Sarmad Insurance:SELF PAY [facility] Number: Effective Repository Date:2018-03-19 06/04/2017 Mia Dewitt Primary Insurance:MED KAISER Dewitt [place] [id number] Critical access hospital CALLDOB: [facility] [place] Number: [id number] [place], [place] [id number] Repository [address]Cje: (330) Date:3662-00-66[phone] () [address]FH[place], [place] [address]FK: CHECK WEBSITE 06/04/2017 Secondary NOT GIVENUNK Sarmad Insurance:SELF PAY [facility] Number: Effective Repository Date:2017-05-13 05/13/2017 Mia Dewitt Primary Insurance:MED KAISER Dewitt Sarmad [id number] Critical access hospital CALLDOB: [facility] Number: [id number] [place], [place] [id number] Repository [address]Bxk: (330) Date:5898-81-92[phone] () [place], [place] [address]LZ: CHECK WEBSITE 05/13/2017 Secondary NOT GIVENUNK Sarmad Insurance:SELF PAY [facility] Number: Effective Repository Date:2017-03-04 05/10/2017 MIRYAM CALLDOB: Primary MIRYAM CALLDOB: [place] [id number] Insurance:Medical [id number] [facility] 1 [facility] Repository [place] Number: [place] [address]Zyv: [phone]) [id number] [phone]: () Date:Plan Name:[id number] () 05/07/2017 MIRYAM CALLDOB: Primary MIRYAM CALLDOB: [place] [id number] Insurance:Medical [id number] [facility] 1 [facility] Repository [place] Number: [place] [address]Ryj: (891) [id number] [id number]: () Date:Plan Name:[facility] [phone] () 04/29/2017 Mia Dewitt Primary Insurance:ANA Bañuelos [id number] Critical access hospital CALLDOB: [facility] Number: [id number] [place], [place] [id number] Repository [address]Ihe: (330) Date:9104-04-09ET [phone] () [address], [place] [address]MV: CHECK WEBSITE 04/29/2017 Secondary NOT GIVENKRISTIAN Bañuelos Insurance:SELF PAY [facility] Number: Effective Repository Date:2017-04-29
== END ==
PROVIDERS: Family Provider Family Medicine; PCP Family Medicine; Referring Provider Nurse Practitioner Family; Visit Provider Nurse Practitioner Family
DX: Z00.00 Encounter for general adult medical examination without abnormal findings (principal)
CPT/HCPCS: 36415; 80048; 80061

== ENCOUNTER → 2018-06-05 13:16 | Outpatient (CLI) | payer OTHER, SELFPAY ==
[2018-05-26 09:34] VITALS: BMI 22.1
--- NOTE | 2018-06-05 13:22 | BI_ITS ---
MAMMOGRAPHY - BILATERAL SCREENING REASON FOR EXAM: Female, 62 years old. Routine annual screening examination. PERTINENT HISTORY: Non-contributory. TECHNIQUE: Digital bilateral breast yao (3D mammographic acquisition) in the CC and MLO projections. 2-D mediolateral oblique (MLO) and craniocaudad (CC) views of both breasts were obtained. CAD: Full Field Digital Mammography with Computer Added Detection was performed. COMPARISON: Comparison is made with prior study of June 04, 2017. FINDINGS: Breast Composition: The breasts are extremely dense, which lowers the sensitivity of mammography. There are no dominant masses or suspicious calcifications. No other significant abnormalities are identified. There has been no significant change since the prior study. BI/SCREEN MAMM (CAD) W/YAO BILAT IMPRESSION: Stable bilateral screening mammogram. Yearly follow-up mammogram recommended. (A) ASSESSMENT CATEGORY: BIRADS Category 1: Negative. A letter regarding these results will be sent to the patient by the facility within 30 days. Approximately 10% of breast cancers are not detected by mammography. A normal mammogram should not delay biopsy of a clinically suspicious abnormality. [id number] Electronically Signed: Haroon Miller, at 15:20 EST , Service support ,
== END ==
PROVIDERS: Family Provider Family Medicine; PCP Family Medicine; Visit Provider Nurse Practitioner Women's Health
DX: Z12.31 Encounter for screening mammogram for malignant neoplasm of breast (principal)
CPT/HCPCS: 77063; 77067

== ENCOUNTER → 2018-09-01 | Outpatient (CLI) | payer OTHER, SELFPAY ==
[2018-05-26 09:34] VITALS: BMI 22.1
--- NOTE | 2018-09-01 12:10 | RAD_ITS ---
STUDY: X-RAY - LEFT KNEE REASON FOR EXAM: Female, 62 years old. Pain x a few months, worsening in last month with swelling. No known injury. TECHNIQUE: 4 view(s) of the knee on 5 images. COMPARISON: 4 images of the left knee April 18, 2017. FINDINGS: Now evident is a mild, lobulated/irregular cortical defect in the articular surface of the medial femoral condyle with surrounding sclerotic change. Mild increased subarticular sclerosis of the medial tibial plateau. Stable very early periarticular spurring of the medial tibial plateau as well as the tibial spines. Normal visualized proximal fibula. Stable mild periarticular spurring at the base of the toe as well as cortical spurring at the patellar insertion of the quadriceps tendon. 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 Normal lateral femorotibial compartment. Normal patellofemoral articulation. Normal proximal tibiofibular articulation. There is a soft tissue prominence in the suprapatellar region suggesting a small volume joint effusion. The soft tissue structures are unremarkable. RAD/Knee 4 or More Views IMPRESSION: Articular defect with surrounding sclerotic change down the medial femoral condyle as well as mild subarticular sclerosis of the medial tibial plateau. Moderate narrowing of the medial femorotibial compartment and a joint effusion are now present as well. Electronically Signed: Sen Figueroa MD at 13:33 EDT , Service support ,
== END | disposition home or self-care (01) ==
LOC: MTRAD 12:07
PROVIDERS: Family Provider Family Medicine; PCP Family Medicine; Referring Provider Family Medicine; Visit Provider Family Medicine
DX: M25.562 Pain in left knee (principal)
CPT/HCPCS: 73564

== ENCOUNTER → 2019-02-13 12:31 | Outpatient (CLI) | payer OTHER, SELFPAY ==
[2018-05-26 09:34] VITALS: BMI 22.1
[2019-02-13 14:26] LABS: Absolute Lymphocyte Count 1.37 X10^3/uL (0.83-4.51); Absolute Neutrophil Count 2.9 X10^3/uL (2.0-7.7); Basophil# 0.05 X10^3/uL; Basophil% 1.1 % (0-1); Eosinophil# 0.05 X10^3/uL; Eosinophils% 1.1 % (0-5); Hematocrit 38.8 % (37-47); Hemoglobin 12.5 g/dL (12.0-15.0); Lymphocyte # 1.37 X10^3/ul (4.0); Lymphocyte % 29.1 % (19-41); Mean Corp Hgb Conc 32.2 g/dL (32-36); Mean Corpuscular Hgb 31.5 pg (27.0-32.0); Mean Corpuscular Volume 97.7 fL (81-99); Mean Platelet Vol. 10.9 fl (6.2-12.0); Monocyte# 0.35 X10^3/uL; Monocyte% 7.4 % (0-10); NRBC Flagged by Analyzer 0 % (0-5); Neutrophil # 2.87 X10^3/uL (2.7-7.7); Neutrophil % 61.1 % (47-70); Platelet Count 222 K/mm3 (150-450); RBC Distribution Width SD 50.3 fl (35.1-43.9); Red Blood Count 3.97 M/mm3 (4.2-5.4); White Blood Count 4.7 K/mm3 (4.4-11.0)
== END ==
PROVIDERS: Family Provider Family Medicine; PCP Family Medicine; Referring Provider Family Medicine; Visit Provider Family Medicine
DX: R10.9 Unspecified abdominal pain (principal)
CPT/HCPCS: 36415; 85025

== ENCOUNTER → 2019-02-13 16:25 | Outpatient (CLI) | payer OTHER, SELFPAY ==
[2018-05-26 09:34] VITALS: BMI 22.1
--- NOTE | 2019-02-13 16:30 | US_ITS ---
STUDY: ABDOMINAL ULTRASOUND - RIGHT UPPER QUADRANT REASON FOR VISIT: Female, 63 years old abdominal pain TECHNIQUE: Ultrasound evaluation of the right upper quadrant was performed with real-time and static mcclain-scale imaging. TECHNICAL QUALITY: Adequate. COMPARISON: None. FINDINGS: Liver: The liver measures 13.5 cm. There is normal echogenicity of the liver. The bile ducts are within normal limits. There is hepatic color flow. The direction of portal flow is hepatopetal. There is no demonstrated mass lesion. Gallbladder: Normal distended gallbladder. The gallbladder wall measures 1.5 mm. There is a negative sonographic Lopez's sign. There is no pericholecystic fluid. There are no gallstones. Common Bile Duct (C.B.D.): The common bile duct measures 4.3 mm. Pancreas: Normal size of the head, body and tail of the pancreas. There is normal echogenicity of the pancreas. There is no demonstrated pancreatic mass or cyst. Right Kidney: Normal size of the right kidney. The right kidney measures 9.5 x 5.4 x 4.5 cm. Normal renal cortex. The right cortex measures 1.8 cm. There is no demonstrated renal mass or cyst. There is no right hydronephrosis. US/Abdomen Limited IMPRESSION: Normal right upper quadrant ultrasound examination. Electronically Signed: Delores Dowling MD at 17:08 EST , Service support ,
== END ==
PROVIDERS: Family Provider Family Medicine; PCP Family Medicine; Referring Provider Family Medicine; Visit Provider Family Medicine
DX: R10.9 Unspecified abdominal pain (principal)
CPT/HCPCS: 76705

== ENCOUNTER → 2019-06-08 11:59 | Outpatient (CLI) | payer OTHER, SELFPAY ==
[2018-05-26 09:34] VITALS: BMI 22.1
--- NOTE | 2019-06-08 12:02 | BI_ITS ---
MAMMOGRAPHY - BILATERAL SCREENING REASON FOR EXAM: Female, 63 years old. Routine annual screening examination. PERTINENT HISTORY: Non-contributory. TECHNIQUE: Digital bilateral breast yao (3D mammographic acquisition) in the CC and MLO projections. 2-D mediolateral oblique (MLO) and craniocaudad (CC) views of both breasts were obtained. CAD: Full Field Digital Mammography with Computer Added Detection was performed. COMPARISON: Comparison is made with prior study of June 05, 2018. FINDINGS: Breast Composition: The breasts are extremely dense, which lowers the sensitivity of mammography. There are no dominant masses or suspicious calcifications. No other significant abnormalities are identified. There has been no significant change since the prior study. BI/SCREEN MAMM (CAD) W/YAO BILAT IMPRESSION: Stable bilateral screening mammogram. Yearly follow-up mammogram recommended. (A) ASSESSMENT CATEGORY: BIRADS Category 1: Negative. A letter regarding these results will be sent to the patient by the facility within 30 days. Approximately 10% of breast cancers are not detected by mammography. A normal mammogram should not delay biopsy of a clinically suspicious abnormality. [id number] Electronically Signed: Haroon Miller, at 13:02 EDT , Service support ,
== END ==
PROVIDERS: PCP Family Medicine; Referring Provider Family Medicine; Visit Provider Family Medicine
DX: Z12.31 Encounter for screening mammogram for malignant neoplasm of breast (principal)
CPT/HCPCS: 77063; 77067

== ENCOUNTER → 2020-06-07 09:42 | Outpatient (CLI) | payer OTHER, SELFPAY ==
[2020-02-29 15:19] VITALS: BMI 23.5
[2020-06-07 12:32] LABS: Vitamin D,25 Hydroxy 21.4 ng/mL
== END ==
LOC: MTLAB 09:43
PROVIDERS: PCP Family Medicine; Referring Provider Family Medicine; Visit Provider Family Medicine
DX: M81.0 Age-related osteoporosis without current pathological fracture (principal)
CPT/HCPCS: 36415; 82306

== ENCOUNTER → 2020-07-04 10:17 | Outpatient (CLI) | payer OTHER, SELFPAY ==
[2020-02-29 15:19] VITALS: BMI 23.5
--- NOTE | 2020-07-04 10:19 | BI_ITS ---
MAMMOGRAPHY - BILATERAL SCREENING 3-D TOMOSYNTHESIS REASON FOR EXAM: Female, 64 years old. screening PERTINENT HISTORY: No significant family history. TECHNIQUE: 2-D mammograms and 3-D Tomosynthesis of the breast (s) were performed. CAD was performed. COMPARISON: None. FINDINGS: The breasts are heterogeneously dense, which may obscure small masses. Scattered benign calcifications are seen. No dense spiculated masses or suspicious microcalcifications are identified. No architectural distortion is identified. There is no skin thickening or retraction. There has been no significant change since the prior study. BI/SCRN MAMM (CAD)W/YAO BILAT IMPRESSION: No mammographic signs of malignancy. Routine yearly mammograms recommended. ASSESSMENT CATEGORY: BIRADS Category 1: Negative. A letter regarding these results will be sent to the patient by the facility within 30 days. FOLLOW UP RECOMMENDATION: Yearly follow up mammogram recommended. (A) Approximately 10% of breast cancers are not detected by mammography. A normal mammogram should not delay biopsy of a clinically suspicious abnormality. Electronically Signed: Dequan Mcpherson MD at 14:08 EDT Tel , Service support ,
== END ==
PROVIDERS: PCP Family Medicine; Referring Provider Nurse Practitioner Women's Health; Visit Provider Nurse Practitioner Women's Health
DX: Z12.31 Encounter for screening mammogram for malignant neoplasm of breast (principal)
CPT/HCPCS: 77063; 77067

== ENCOUNTER → 2020-10-07 09:40 | Outpatient (CLI) | payer OTHER, SELFPAY ==
[2020-09-13 14:47] VITALS: BMI 23.5
--- NOTE | 2020-10-07 09:43 | RAD_ITS ---
STUDY: X-RAY - RIGHT TIBIA AND FIBULA REASON FOR EXAM: Female, 65 years old. PAIN IN RIGHT BUSTAMANTE TECHNIQUE: 2 view(s) of the tibia and fibula were obtained. COMPARISON: None. FINDINGS: Normal visualized tibia. Normal visualized fibula. The soft tissue structures are unremarkable. RAD/Tibia & Fibula 2 Views IMPRESSION: Normal x-ray examination of the tibia and fibula. Electronically Signed: Haroon Miller MD at 14:56 EDT , Service support ,
== END ==
PROVIDERS: PCP Family Medicine; Referring Provider Family Medicine; Visit Provider Family Medicine
DX: M79.661 Pain in right lower leg (principal)
CPT/HCPCS: 73590

== ENCOUNTER → 2021-08-07 | Outpatient (CLI) | payer OTHER, SELFPAY ==
[2021-08-07 18:05] LABS: Hemoglobin 13.3 g/dL (12.0-15.0); Mean Corp Hgb Conc 33.3 g/dL (32-36); Mean Corpuscular Hgb 32.6 pg (27.0-32.0); Mean Platelet Vol. 9.7 fl (6.2-12.0); Platelet Count 278 K/mm3 (150-450); RBC Distribution Width SD 50.9 fl (35.1-43.9); Red Blood Count 4.08 M/mm3 (4.2-5.4); White Blood Count 4.5 K/mm3 (4.4-11.0)
[2021-08-07 18:37] LABS: AST(SGOT) 19 U/L (15-37); Alanine Aminotransfer ALT/SGPT 37 U/L (13-56); Albumin, Serum 3.7 g/dL (3.2-5.0); Alkaline Phosphatase 36 U/L (45-117); Bilirubin, Direct 0.13 mg/dL (0.00-0.30); Globulin 2.9 g/dL (2.2-4.2); Protein, Total 6.6 g/dL (6.4-8.2)
[2021-08-08 08:25] LABS: HIV - WCH Non-Reactive (Nonreactive); Hepatitis B Surface Antibody Reactive; Hepatitis B Surface Antigen Non-Reactive (Nonreactive); Hepatitis C Antibody Non-Reactive (Nonreactive)
[2021-08-08 14:48] LABS: Absolute Lymphocyte Count 0.83 X10^3/uL (0.83-4.51); Basophil# 0.06 X10^3/uL; Basophil% 1.3 % (0-1); Eosinophil# 0.36 X10^3/uL; Eosinophils% 7.8 % (0-5); Lymphocyte # 0.83 X10^3/ul (0.83-4.51); Lymphocyte % 17.9 % (19-41); Monocyte% 8.6 % (0-10); NRBC Flagged by Analyzer 0 % (0-5); Neutrophil # 2.98 X10^3/uL (2.7-7.7); Neutrophil % 64.2 % (47-70)
[2021-08-10 10:09] LABS: QNTFERON TB Mitogen Value > 10.00 IU/mL (.); QNTFERON TB Nil Value 0 IU/mL (.); QNTFERON TB1+ Ag Value 0 IU/mL (.); QNTFERON TB2+ Ag Value 0.01 IU/mL (.)
[2021-08-10 12:07] LABS: Hepatitis B Core Ab Total Negative (Negative); QNTIFERON TB Positive Criteria Negative (Negative); t-Transglutaminase IgA <2 U/mL (0-3)
[2021-08-10 14:10] LABS: Endomysial Antibody IgA Negative (Negative); Immunoglobulin A 74 mg/dL (87-352)
[2021-08-10 16:03] LABS: t-Transglutaminase IgA <2 U/mL (0-3)
== END | disposition home or self-care (01) ==
LOC: MTLAB 14:39
PROVIDERS: PCP Family Medicine; Referring Provider Dermatology; Visit Provider Dermatology
DX: L40.0 Psoriasis vulgaris (principal); L30.9 Dermatitis, unspecified; Z79.899 Other long term (current) drug therapy
CPT/HCPCS: 36415; 80076; 82784; 83516; 85025; 85027; 86255; 86480; 86703; 86704; 86706; 86803; 87340

== ENCOUNTER → 2021-09-18 | Outpatient (CLI) | payer OTHER, SELFPAY ==
--- NOTE | 2021-09-18 10:22 | BI_ITS ---
MAMMOGRAPHY - BILATERAL SCREENING REASON FOR EXAM: Female, 65 years old. Routine annual screening examination. PERTINENT HISTORY: Non-contributory. TECHNIQUE: Digital bilateral breast yao (3D mammographic acquisition) in the CC and MLO projections. 2-D mediolateral oblique (MLO) and craniocaudad (CC) views of both breasts were obtained. CAD: Full Field Digital Mammography with Computer Added Detection was performed. COMPARISON: Screening mammogram from 07/04/2020, 06/08/2019, 06/05/2018, 06/04/2017 FINDINGS: Breast Composition: The breasts are extremely dense, which lowers the sensitivity of mammography. There are no dominant masses or suspicious calcifications. No other significant abnormalities are identified. There has been no significant change since the prior study. BI/SCRN MAMM (CAD)W/YAO BILAT IMPRESSION: Stable bilateral screening mammogram. Yearly follow-up mammogram recommended. (A) ASSESSMENT CATEGORY: BIRADS Category 1: Negative. A letter regarding these results will be sent to the patient by the facility within 30 days. Approximately 10% of breast cancers are not detected by mammography. A normal mammogram should not delay biopsy of a clinically suspicious abnormality. [id number] Electronically Signed: Timmy Schumacher, at 13:44 EDT ,
== END | disposition home or self-care (01) ==
LOC: OPBI 10:21
PROVIDERS: PCP Family Medicine; Visit Provider Nurse Practitioner Women's Health
DX: Z12.31 Encounter for screening mammogram for malignant neoplasm of breast (principal)
CPT/HCPCS: 77063; 77067

== ENCOUNTER → 2022-08-01 | Outpatient (CLI) | payer OTHER, SELFPAY ==
[2022-08-01 12:36] LABS: Cholesterol 276 mg/dL (200); High Density Lipoprotein 118 mg/dL; Triglycerides 126 mg/dL; Very Low Density Lipoprotein 25 mg/dL (5-40)
[2022-08-01 12:48] LABS: Vitamin D,25 Hydroxy 29.7 ng/mL
== END | disposition home or self-care (01) ==
LOC: MFPLAB 10:31
PROVIDERS: PCP Family Medicine; Visit Provider Family Medicine
DX: Z00.00 Encounter for general adult medical examination without abnormal findings (principal); M81.0 Age-related osteoporosis without current pathological fracture
CPT/HCPCS: 36415; 80061; 82306

== ENCOUNTER → 2022-09-19 | Outpatient (CLI) | payer MEDICARE, OTHER, SELFPAY ==
--- NOTE | 2022-09-19 08:26 | BI_ITS ---
MAMMOGRAPHY - BILATERAL SCREENING REASON FOR EXAM: Female, 66 years old. Routine annual screening examination. PERTINENT HISTORY: Non-contributory. TECHNIQUE: Digital bilateral breast yao (3D mammographic acquisition) in the CC and MLO projections. 2-D mediolateral oblique (MLO) and craniocaudad (CC) views of both breasts were obtained. CAD: Full Field Digital Mammography with Computer Added Detection was performed. COMPARISON: Mammogram from 09/18/2021, 07/04/2020. FINDINGS: Breast Composition: The breasts are extremely dense, which lowers the sensitivity of mammography. There are no dominant masses or suspicious calcifications. No other significant abnormalities are identified. There has been no significant change since the prior study. BI/SCRN MAMM (CAD)W/YAO BILAT IMPRESSION: Stable bilateral screening mammogram. Yearly follow-up mammogram recommended. (A) ASSESSMENT CATEGORY: BIRADS Category 1: Negative. A letter regarding these results will be sent to the patient by the facility within 30 days. Approximately 10% of breast cancers are not detected by mammography. A normal mammogram should not delay biopsy of a clinically suspicious abnormality. Electronically Signed: Timym Schumacher DO at 12:37 EDT ,
--- NOTE | 2022-09-19 08:32 | BD_ITS ---
STUDY: DUAL ENERGY X-RAY ABSORPTIOMETRY / DXA REASON FOR EXAM: Female, 66 years old. Postmenopausal osteoporosis screening. TECHNIQUE: Bone Mineral Density (BMD) measurements of lumbar spine and bilateral hips were obtained. COMPARISON: None. FINDINGS: Lumbar Spine (L1-L4): g/cm2 (0.841) / T-score (-1.9) / Z-score (-0.1) Left Femur Total: g/cm2 (0.783) / T-score (-1.3) / Z-score (-0.1) Left Femoral Neck: g/cm2 (0.610) / T-score (-2.2) / Z-score (-0.6) Right Femur Total: g/cm2 (0.793) / T-score (-1.2) / Z-score (0.0) Right Femoral Neck: g/cm2 (0.631) / T-score (-2.0) / Z-score (-0.5) Patient is considered osteopenic with a moderate fracture risk. Treatment is advised and a repeat DEXA study in 2 years recommended. BD/Dexa Bone Density Study IMPRESSION: The patient is considered osteopenic as outlined below according to World Yared Organization (WHO) criteria with a moderate fracture risk. Treatment is advised a repeat DEXA study in 2 years is recommended.. Reference Information: The T-score is the number of standard deviations above or below the standard which is normal for young adults at their peak bone mineral density. The World Health Organization (WHO) interprets the T-scores as follows: Above -1 Normal bone density Between -1 and -2.5 Osteopenia Equal to / or below -2.5 Osteoporosis As a practical clinical guideline, osteopenia may be graded as follows: Mild -1 through -1.5 Moderate -1.6 through -2.0 Severe -2.1 through -2.4 The Z-score is the number of standard deviations above or below age-matched controls. A Z-score of less than -1.5 would be considered abnormal. References: 1. NIH Osteoporosis and Related Bone Diseases http://www.osteo.org 2. International Society for Clinical Densitometry http://www.iscd.org 3. National Osteoporosis Foundation http://www.nof.org Electronically Signed: Kit Rodriguez MD at 16:01 EDT ,
== END | disposition home or self-care (01) ==
PROVIDERS: PCP Family Medicine; Referring Provider Family Medicine; Visit Provider Nurse Practitioner Women's Health
DX: Z12.31 Encounter for screening mammogram for malignant neoplasm of breast (principal); M81.0 Age-related osteoporosis without current pathological fracture
CPT/HCPCS: 77063; 77067; 77080

== ENCOUNTER → 2022-11-27 | Outpatient (CLI) | payer MEDICARE, SELFPAY | END | disposition home or self-care (01) | LOC: LABSPEC 11:25 | PROVIDERS: PCP Family Medicine; Referring Provider Nurse Practitioner Women's Health; Visit Provider Nurse Practitioner Women's Health | DX: N89.8 Other specified noninflammatory disorders of vagina (principal) | CPT/HCPCS: 87070; 87186; 87205 ==

== ENCOUNTER → 2022-12-20 | Outpatient (CLI) | payer MEDICARE, SELFPAY ==
[2022-12-20 12:13] LABS: Thyroid Stim Hormone (TSH) 1.29 uIU/mL (0.358-3.74)
== END | disposition home or self-care (01) ==
LOC: LAB 11:24
PROVIDERS: PCP Family Medicine; Referring Provider Obstetrics & Gynecology; Visit Provider Obstetrics & Gynecology
DX: Z00.00 Encounter for general adult medical examination without abnormal findings (principal); R61 Generalized hyperhidrosis; M81.0 Age-related osteoporosis without current pathological fracture
CPT/HCPCS: 36415; 84439; 84443

== ENCOUNTER → 2022-12-28 | Outpatient (CLI) | payer MEDICARE, SELFPAY ==
[2022-12-28 12:19] LABS: Erythrocyte Sedimentation Rate < 1 mm/hr (0-30)
[2022-12-28 12:23] LABS: Absolute Lymphocyte Count 1.07 X10^3/uL (0.83-4.51); Absolute Neutrophil Count 3.9 X10^3/uL (2.0-7.7); Basophil# 0.06 X10^3/uL; Basophil% 1.1 % (0-1); Eosinophil# 0.09 X10^3/uL; Eosinophils% 1.7 % (0-5); Hematocrit 41.4 % (37-47); Hemoglobin 13.5 g/dL (12.0-15.0); Lymphocyte # 1.07 X10^3/ul (0.83-4.51); Lymphocyte % 19.7 % (19-41); Mean Corp Hgb Conc 32.6 g/dL (32-36); Mean Corpuscular Volume 98.1 fL (81-99); Mean Platelet Vol. 10.1 fl (6.2-12.0); Monocyte# 0.27 X10^3/uL; NRBC Flagged by Analyzer 0 % (0-5); Neutrophil # 3.92 X10^3/uL (2.7-7.7); Neutrophil % 72.3 % (47-70); Platelet Count 283 K/mm3 (150-450); RBC Distribution Width CV 13.9 % (11.6-14.6); RBC Distribution Width SD 50.1 fl (35.1-43.9); Red Blood Count 4.22 M/mm3 (4.2-5.4); White Blood Count 5.4 K/mm3 (4.4-11.0)
[2022-12-28 12:41] LABS: Vitamin B12 515 pg/mL (211-911)
[2022-12-28 13:02] LABS: ALB/GLOB Ratio 1.3 RATIO (0.9-2.4); AST(SGOT) 16 U/L (15-37); Alanine Aminotransfer ALT/SGPT 23 U/L (13-56); Albumin, Serum 3.6 g/dL (3.2-5.0); Alkaline Phosphatase 42 U/L (45-117); Anion Gap 5 (5-15); BUN 15 mg/dL (7-18); BUN/Creat Ratio 21.3 RATIO (10-20); Calcium,Total 8.5 mg/dL (8.5-10.1); Chloride 110 mmol/L (98-107); EST Glomerular Filtration Rate 89 mL/min (>60); Est Glom Filt Rate - Afr Amer 107 mL/min (>60); Globulin 2.8 g/dL (2.2-4.2); Glucose 95 mg/dL (74-106); Protein, Total 6.4 g/dL (6.4-8.2); Sodium Level 141 mmol/L (136-145)
== END | disposition home or self-care (01) ==
PROVIDERS: PCP Family Medicine; Referring Provider Family Medicine; Visit Provider Family Medicine
DX: R55 Syncope and collapse (principal)
CPT/HCPCS: 36415; 80053; 82607; 85025; 85652

== ENCOUNTER → 2023-01-30 | Outpatient (CLI) | payer MEDICARE, SELFPAY ==
[2023-01-30 11:17] LABS: Color, Urine Yellow (Yellow); Glucose, Dipstick Normal (Normal); Ketone-Dipstick 5 mg/dl (Negative); Leukocyte Esterase-Dipstick 500 /ul (Negative); Nitrite-Dipstick Negative (Negative); Occult Blood-Urine 10 /ul (Negative); Protein-Dipstick 30 mg/dl (Negative); Specific Gravity, Urine 1.015 (1.002-1.030); Urine Clarity Sl. Cloudy (Clear); Urine Urobilinogen 1 mg/dl (Normal)
[2023-01-30 11:26] LABS: Urine Bilirubin Dipstick 1 mg/dL (Negative)
== END | disposition home or self-care (01) ==
LOC: LAB 10:03
PROVIDERS: PCP Family Medicine; Visit Provider Nurse Practitioner Women's Health
DX: R39.15 Urgency of urination (principal)
CPT/HCPCS: 81002

== ENCOUNTER → 2023-03-01 | Outpatient (CLI) | payer MEDICARE, SELFPAY | END | disposition home or self-care (01) | LOC: LABSPEC 10:12 | PROVIDERS: PCP Family Medicine; Referring Provider Physician Assistant Surgical; Visit Provider Physician Assistant Surgical | DX: N39.0 Urinary tract infection, site not specified (principal) | CPT/HCPCS: 87086; 87088; 87186 ==

== ENCOUNTER → 2023-07-08 | Outpatient (CLI) | payer MEDICARE, SELFPAY ==
--- NOTE | 2023-07-08 12:34 | RAD_ITS ---
EXAM: XR RIGHT SHOULDER COMPLETE, 2 OR MORE VIEWS CLINICAL INDICATION: pain/ROTATOR CUFF TENDONITIS TECHNIQUE: Two or more views of the right shoulder. COMPARISON: No relevant prior studies available. FINDINGS: BONES/JOINTS: Minimal degenerative spurring noted about the inferior aspect of the right AC joint. No acute fracture, dislocation or AC joint widening. Preservation of the joint space. No sclerotic or destructive changes observed. SOFT TISSUES: Unremarkable. No soft tissue swelling or gas. No radiopaque foreign body. No soft tissue calcifications are seen to indicate calcific tendinitis/bursitis. OTHER: The visualized right ribs are intact. The visualized right lung is clear except for basilar atelectasis. RAD/Shoulder min 2 Views IMPRESSION: Degenerative spurring about the inferior aspect of the right AC joint, otherwise negative. Electronically Signed: Ted Saavedra MD at 5:14 EDT ,
== END | disposition home or self-care (01) ==
LOC: MTRAD 12:32
PROVIDERS: PCP Family Medicine; Referring Provider Family Medicine; Visit Provider Family Medicine
DX: M75.81 Other shoulder lesions, right shoulder (principal)
CPT/HCPCS: 73030

== ENCOUNTER → 2023-07-31 | Outpatient (CLI) | payer MEDICARE, SELFPAY | END | disposition home or self-care (01) | PROVIDERS: PCP Family Medicine; Referring Provider Physician Assistant; Visit Provider Physician Assistant | DX: R39.15 Urgency of urination (principal); N39.0 Urinary tract infection, site not specified | CPT/HCPCS: 87086; 87088; 87186 ==

== ENCOUNTER → 2023-09-23 | Outpatient (CLI) | payer MEDICARE, SELFPAY ==
--- NOTE | 2023-09-23 09:35 | BI_ITS ---
MAMMOGRAPHY - BILATERAL SCREENING REASON FOR EXAM: Female, 67 years old. Routine annual screening examination. PERTINENT HISTORY: Non-contributory. Chronic bilateral nipple inversion. TECHNIQUE: Digital bilateral breast yao (3D mammographic acquisition) in the CC and MLO projections. 2-D mediolateral oblique (MLO) and craniocaudad (CC) views of both breasts were obtained. CAD: Full Field Digital Mammography with Computer Added Detection was performed. COMPARISON: Comparison is made with prior study dated September 19, 2022 and September 18, 2021. FINDINGS: Breast Composition: The breasts are extremely dense, which lowers the sensitivity of mammography. There are no dominant masses or suspicious calcifications. No other significant abnormalities are identified. There has been no significant change since the prior study. BI/SCRN MAMM (CAD)W/YAO BILAT IMPRESSION: Stable bilateral screening mammogram. Yearly follow-up mammogram recommended. (A) ASSESSMENT CATEGORY: BIRADS Category 1: Negative. A letter regarding these results will be sent to the patient by the facility within 30 days. Approximately 10% of breast cancers are not detected by mammography. A normal mammogram should not delay biopsy of a clinically suspicious abnormality. [id number] Electronically Signed: Haroon Miller MD at 10:48 EDT ,
== END | disposition home or self-care (01) ==
LOC: OPBI 09:35
PROVIDERS: PCP Family Medicine; Referring Provider Nurse Practitioner Women's Health; Visit Provider Nurse Practitioner Women's Health
DX: Z12.31 Encounter for screening mammogram for malignant neoplasm of breast (principal)
CPT/HCPCS: 77063; 77067

== ENCOUNTER → 2023-10-23 | Outpatient (CLI) | payer MEDICARE, SELFPAY ==
[2023-10-23 15:38] LABS: CRP < 2.90 mg/L (0.0-3.0)
[2023-10-25 14:12] LABS: Endomysial Antibody IgA Negative (Negative); Immunoglobulin A 77 mg/dL (87-352); t-Transglutaminase IgA <2 U/mL (0-3)
== END | disposition home or self-care (01) ==
LOC: MTLAB 11:24
PROVIDERS: PCP Family Medicine; Referring Provider Internal Medicine Gastroenterology; Visit Provider Internal Medicine Gastroenterology
DX: R19.7 Diarrhea, unspecified (principal)
CPT/HCPCS: 36415; 82784; 83516; 86140; 86255

== ENCOUNTER → 2023-10-24 | Outpatient (CLI) | payer MEDICARE, SELFPAY ==
[2023-10-28 16:09] LABS: Calprotectin, Stool 39 ug/g (0-120)
== END | disposition home or self-care (01) ==
LOC: LABSPEC 09:23
PROVIDERS: PCP Family Medicine; Referring Provider Internal Medicine Gastroenterology; Visit Provider Internal Medicine Gastroenterology
DX: R19.7 Diarrhea, unspecified (principal)
CPT/HCPCS: 83993

== ENCOUNTER → 2023-11-08 | Outpatient (CLI) | payer MEDICARE, SELFPAY ==
--- NOTE | 2023-11-08 13:57 | US_ITS ---
HISTORY: Urinary tract infection. TECHNIQUE: Vasquez scale and color doppler images were obtained of the kidneys. 71 images. COMPARISON: 02/13/2019. FINDINGS: RIGHT KIDNEY: 8.8 cm in length with a cortical thickness of 1.2 cm. Contour and echogenicity unremarkable. No hydronephrosis. No gross renal mass demonstrated. LEFT KIDNEY: 9.5 cm in length with a cortical thickness of 1.5 cm. Contour and echogenicity unremarkable. No hydronephrosis. No gross renal mass demonstrated. URINARY BLADDER: Unremarkable at 403 cc with a 3 mm wall thickness. 20 mL post void residual. US/Kidney and Bladder IMPRESSION: Unremarkable examination of the kidneys. Mild post void residual in the bladder. Electronically Signed: Eli Harmon MD at 14:43 EDT ,
== END | disposition home or self-care (01) ==
PROVIDERS: PCP Family Medicine; Referring Provider Urology; Visit Provider Urology
DX: N39.0 Urinary tract infection, site not specified (principal)
CPT/HCPCS: 76770

== ENCOUNTER → 2023-12-06 | Outpatient (CLI) | payer MEDICARE, SELFPAY | END | disposition home or self-care (01) | LOC: LABSPEC 13:05 | PROVIDERS: PCP Family Medicine; Referring Provider Physician Assistant Surgical; Visit Provider Physician Assistant Surgical | DX: N39.0 Urinary tract infection, site not specified (principal) | CPT/HCPCS: 87086; 87088; 87186 ==

== ENCOUNTER → 2023-12-24 | Outpatient (CLI) | payer MEDICARE, SELFPAY ==
--- NOTE | 2023-12-24 11:07 | MRI_ITS ---
STUDY: MRI RIGHT SHOULDER REASON FOR EXAM: Female, 68 years old. Pain, assess cuff. TECHNIQUE: Standardized fat and water weighted pulse sequences were obtained in all 3 orthogonal planes. COMPARISON: Right shoulder radiographs dated 07/08/2023. FINDINGS: There is a suspected 4 x 4 mm full-thickness tear of the supraspinatus tendon (coronal T2 series 6 images 12-13). There is infraspinatus tendinosis. Normal subscapularis tendon. Normal teres minor tendon. Normal supraspinatus muscle. Normal infraspinatus muscle. Normal subscapularis muscle. Normal teres minor muscle. There is a nondisplaced avulsion fracture of the greater tuberosity of the humeral head, overall measuring 1.2 x 0.8 x 0.7 cm (axial PD series 3 image 10; sagittal T2 series 7 image 16), with surrounding marrow edema Normal glenohumeral articulation. Normal biceps labral complex. Normal intracapsular long biceps tendon. Normal labrum. Normal capsulo-ligamentous complex. Normal rotator interval. 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 There is a Type II morphology (curved), with a neutral orientation. There is a small amount of subacromial-subdeltoid bursal fluid. Normal visualized coracohumeral and coracoacromial ligaments. Normal quadrilateral space. Normal axillary space. Normal deltoid muscle. Normal trapezius muscle. MRI/Upper Ext Joint Only(Routine) IMPRESSION: Suspected 4 x 4 mm full-thickness tear of the supraspinatus tendon. Infraspinatus tendinosis. 1.2 x 0.8 x 0.7 cm nondisplaced avulsion fracture of the greater tuberosity of the humeral head. Hypertrophic acromioclavicular arthrosis, with inferior osteophyte formation, with mild effacement of the supraspinatus myotendinous junction. Small amount of subacromial-subdeltoid bursal fluid. Electronically Signed: Chad Caba MD at 14:11 EDT ,
== END | disposition home or self-care (01) ==
LOC: MRI 11:06
PROVIDERS: PCP Family Medicine; Referring Provider Orthopaedic Surgery Sports Medicine; Visit Provider Orthopaedic Surgery Sports Medicine
DX: M25.511 Pain in right shoulder (principal)
CPT/HCPCS: 73221

== ENCOUNTER 2024-04-05 08:03 | Emergency (ER) | payer MEDICARE, SELFPAY ==
[2024-04-05 08:04] VITALS: BP 129/81; PULSE 94; RESP 18; TEMP 37.1; O2SAT 100; BMI 22.1
--- NOTE | 2024-04-05 08:28 | RAD_ITS ---
STUDY: X-RAY CHEST REASON FOR EXAM: Female, 68 years old. Atypical chest pain TECHNIQUE: PA and lateral views of the chest. COMPARISON: None. FINDINGS: The lungs are clear and expanded. There is no demonstrated pleural abnormality. Normal size heart. Normal mediastinum and travis. Normal visualized pulmonary arteries. There is atherosclerotic calcification of the aortic arch with tortuosity. There are diffuse degenerative changes of the visualized thoracic spine. Normal visualized ribs, clavicles, and shoulders. There is no demonstrated abnormality of the visualized soft tissue structures of the upper abdomen. RAD/Chest PA and Lateral IMPRESSION: No acute pulmonary process Electronically Signed: Sen Catalan MD at 9:21 EST ,
--- NOTE | 2024-04-05 08:28 | EKG12_ITS ---
Test Reason : GENERAL Blood Pressure : */* mmHG Vent. Rate : 86 BPM Atrial Rate : 86 BPM P-R Int : 154 ms QRS Dur : 90 ms QT Int : 368 ms P-R-T Axes : 44 0 51 degrees QTcB Int : 440 ms Normal sinus rhythm Normal ECG Confirmed by Ziyad Feng ([id number]), television news video editor BOO MAGALLANES ([id number]) on 04/06/2024 9:50:27 AM Referred By: Confirmed By: Ziyad Feng
--- NOTE | 2024-04-05 08:29 | EDS_ITS ---
HPI History of Present Illness Chief Complaint: General Illness Informant: patient Narrative Narrative: Patient is a 68-year-old female with history of psoriasis and arthritis presenting with vague back discomfort. Seems to be localized around her left shoulder blade. She has a hard time describing the characteristic of the discomfort but states it is more of an annoyance than a pain. She states it has been intermittent lasting for about 15-20 minutes every hour since yesterday afternoon. She does not currently have any. She notes that she has had some associated fatigue with it. Has had some increased belching since eating cereal yesterday and had some nausea this morning. Has had a intermittent mild headache as well as mild congestion. Denies any fevers or chills. Denies any chest pain or shortness of breath. Has tried changing positions, stretching with no relief of her symptoms. Did not take any medications prior to arrival due to the mild nausea. Denies any recent travel. Denies any swelling of her legs, history of DVT or PE. Notes that she did do new workout on , 3 days ago that included exercises with upper and lower body was not sure if this is the cause of her discomfort. [facility] Medical History Wears contact lenses Post-menopausal Cancer Anxiety Alcohol use Anemia Easy bruising Non-smoker Leg cramps History of pain when walking History of edema Fracture of greater tuberosity of right humerus Right rotator cuff tear Right shoulder pain Chronic pruritus Arthritis Home Medications ?Medication ?Instructions ?Recorded ?Last Taken ?Type biotin 1 mg capsule 1 mg PO DAILY 09/10/19 Unknown History alendronate 70 mg tablet (Fosamax) 70 mg PO QWEEK 09/13/20 Unknown History cholecalciferol (vitamin D3) 50 50 mcg PO DAILY 09/13/20 Unknown History mcg (2,000 unit) capsule acetaminophen 650 mg 650 mg PO Q12H PRN PRN pain 09/18/21 Unknown History tablet,extended release duloxetine 60 mg capsule,delayed 60 mg PO DAILY 09/18/21 Unknown History release meloxicam 15 mg tablet 15 mg PO DAILY PRN pain 09/18/21 Unknown History dupilumab 300 mg/2 mL subcutaneous 300 mg subcut Q2W 09/19/22 Unknown History pen injector (Sequence Design) ascorbic acid (vitamin C) 500 mg 500 mg PO BID 02/06/24 Unknown History tablet (C-500) estradiol 0.01% (0.1 mg/gram) 1 appful vaginal .EVERY OTHER DAY 02/06/24 Unknown History vaginal cream oxyquinoline 0.025 %-sodium lauryl See Rx Instructions vaginal 02/24/24 Unknown Rx sulfate 0.01 % vaginal gel .COMPLEX #113.4 grams (Trimo-Gordon Jelly) pantoprazole 20 mg tablet,delayed 20 mg PO DAILY #30 tabs 04/05/24 Unknown Rx release Allergy/AdvReac Type Severity Reaction Status Date / Time glucosamine Allergy Mild NEEDS Verified 04/05/24 08:04 FOLLOW-UP Chondroitin Analogues Allergy NEEDS Verified 04/05/24 08:04 FOLLOW-UP Family History Mother Hypertension Grandmother Aneurysm Grandfather Aneurysm Surgical History History of vein stripping Hx of colonoscopy H/O removal of cyst S/P right knee surgery History of LAVH H/O rotator cuff surgery Social History Smoking Status: Never smoker alcohol intake: current details: social substance use type: does not use caffeine: Yes what type of physical activity do you participate in: walking and weight training frequency: 3-4 times per week seatbelt use: always do you feel safe at home: Yes 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 ROS ROS ED Constitutional Constitutional ED: Reports other Details: fatigue ; Denies chills or fever(s) ENT ENT ED: Reports other Details: nasal congestion ; Denies ear pain, rhinorrhea or sore throat Cardiovascular Cardiovascular: Denies chest pain or palpitations Respiratory/Chest Respiratory/Chest: Denies cough or dyspnea Gastrointestinal Gastrointestinal: Reports nausea; Denies abdominal pain, constipation, diarrhea or vomiting Musculoskeletal Musculoskeletal: Reports back pain; Denies arthralgias or myalgias Integumentary Denies rash Neurologic Neurologic: Reports headache(s); Denies paresthesias or weakness Psychiatric Psychiatric: Denies anxiety Hematologic/Lymphatic Hematologic/Lymphatic: Denies easy bleeding or easy bruising EXAM Physical Exam Const Vital Signs: 04/05/24 08:04 04/05/24 08:18 04/05/24 10:24 Temperature 98.8 F Temperature Source Oral Pulse Rate 94 81 Respiratory Rate 18 16 Respiratory Effort Normal Non-Labored Respiratory Pattern Normal Blood Pressure 129/81 H 137/68 H Blood Pressure Mean 97 91 Pulse Ox 100 98 Oxygen Delivery Method Room Air Room Air Positive well nourished and well developed General Appearance ED: well developed and NAD HEENT Reports TM's clear and moist mucous membranes HEENT Narrative: Normal oropharynx. Normal nasal mucosa Tympanic Membrane ED: Yes TM's clear Eyes PERRL Neck no lymphadenopathy, supple and no JVD Chest Wall inspection of chest normal and palpation of chest normal Resp normal respiratory effort and clear to auscultation bilaterally Auscultation: Negative for rales, rhonchi or wheezes Cardio regular rate, regular rhythm and no murmurs Cardio Narrative: 2+ radial and DP pulses present GI normal to inspection, nondistended, normoactive bowel sounds and non-tender Palpation: soft; Negative for tender or guarding Back/Spine no CVA tenderness Back/Spine Narrative: No reproducible tenderness on palpation of the back with special attention to the left shoulder blade Thoracic Spine / Upper Back: Negative for thoracic spinal tenderness or paraspinal muscle tenderness Lumbar Spine / Lower Back: Negative for lumbar spinal tenderness Neuro oriented x3 Sensorium / Orientation: alert Motor Exam: Negative for general weakness Psych mental status grossly normal Skin no rashes or lesions noted and no wounds MDM MDM MDM Narrative Medical decision making narrative: Patient is evaluated for left scapular/back pain. Vital signs are normal. She has had intermittent pain. She did a new exercise a couple days ago and I suspect is muscle skeletal but given her age I am concerned for possible atypical cardiac symptoms. workup including CBC, CMP, high-sensitivity troponin, lipase, EKG and chest x-ray as well as COVID, flu and RSV swab is obtained. Chest x-ray viewed by myself as well as radiology does not show any acute process. EKG is normal sinus rhythm with no ischemic changes. High sensitive troponin is 6 and I have a very low suspicion for ACS at this point. Patient is reevaluated she states she did start to have the pain again. She no jie is worse when she bends her head forward. This leads me to think that it is more muscle skeletal. She will be started on Tylenol. She does take meloxicam and last year had to stop it for a month due to GI bleeding. She is not on any antacid at this time and notes she has been belching more. Because of this we will also start her on omeprazole. Patient given 1 month supply instructed to kiki coffey-up with her primary care doctor, loss be given a referral to GI. Is given return precautions. Patient verbalized agreement or standing with this plan. Patient discharged home in stable condition. Instructed to use Tylenol and heat for her pain. Lab Data Attestation: I reviewed the patient's lab results. Labs: Laboratory Results - last 24 hr 04/05/24 08:56 WBC 6.8 RBC 4.06 L Hgb 12.9 Hct 38.6 MCV 95.1 MCH 31.8 MCHC 33.4 RDW Std Deviation 48.6 H RDW Coeff of Evangelina 13.8 Plt Count 225 MPV 9.7 Immature Gran % (Auto) 0.300 Neut % (Auto) 85.1 H Lymph % (Auto) 6.6 L Hampton % (Auto) 6.9 Eos % (Auto) 0.7 Baso % (Auto) 0.4 Absolute Neuts (auto) 5.8 Absolute Lymphs (auto) 0.45 L Nucleated RBC % 0 Sodium 139 Potassium 3.8 Chloride 110 H Carbon Dioxide 24.0 Anion Gap 5 BUN 15 Creatinine 0.62 Estim Creat Clear Calc 57.22 Est GFR (MDRD) Af Amer 124 Est GFR (MDRD) Non-Af 103 BUN/Creatinine Ratio 24.3 H Glucose 110 H Calcium 8.1 L Total Bilirubin 0.70 AST 20 ALT 25 Alkaline Phosphatase 41 L Troponin I High Sens 6 Total Protein 6.3 L Albumin 3.2 Globulin 3.1 Albumin/Globulin Ratio 1.0 Lipase 32 Radiography Diagnostic Testing: Clinical Impression(s) from Imaging Studies Chest X-Ray 04/05/24 08:28 IMPRESSION: No acute pulmonary process Electronically Signed: Sen Catalan MD at 9:21 EST , Rhythm Strip Rhythm Strip: Sinus Rhythm Rate: 86 Ectopy: None EKG Initial EKG: Attestation: I personally reviewed and interpreted this EKG as follows: Interpretation: Sinus Rhythm Comments: Normal sinus rhythm at a rate of 86 bpm Normal axis Normal intervals No ST segment Discharge Plan Triage Chief Complaint: General Illness ED Provider: Shelia Bourne Dx/Rx/DC Orders Clinical Impression: Strain of muscle and tendon of back wall of thorax, initial encounter Prescriptions: New pantoprazole 20 mg tablet,delayed release (DR/EC) 20 mg PO DAILY Qty: 30 0RF No Action meloxicam 15 mg tablet 15 mg PO DAILY PRN (Reason: pain) biotin 1 mg capsule 1 mg PO DAILY cholecalciferol (vitamin D3) 50 mcg (2,000 unit) capsule 50 mcg PO DAILY alendronate [Fosamax] 70 mg tablet 70 mg PO QWEEK duloxetine 60 mg capsule,delayed release(DR/EC) 60 mg PO DAILY acetaminophen 650 mg tablet extended release 650 mg PO Q12H PRN PRN (Reason: pain) Dupixent Pen 300 mg/2 mL pen injector 300 mg subcut Q2W ascorbic acid (vitamin C) [C-500] 500 mg tablet 500 mg PO BID estradiol 0.01 % (0.1 mg/gram) cream 1 appful VAGINAL .EVERY OTHER DAY Rx Instructions: use fingertip amount at vaginal opening every other night. Trimo-Gordon Jelly 0.025-0.01 % gel See Rx Instructions vaginal .COMPLEX Qty: 113.4 3RF Rx Instructions: 1 application VAGINAL once a week; Primary Care Provider: Helena Brantley Referrals: Helena Brantley MD [Primary Care Provider] - Friend,DO Dajuan [Med Staff - Active Staff] - As soon as possible Activity Restrictions/Additional Instructions: Take Tylenol for pain. Use heat and gentle stretching to your back. Follow-up with your primary care doctor. Your workup today overall is very reassuring and I suspect this is more muscular pain and not anything more serious such as having to do with your heart or your lungs. We have started you on an antacid given your increased belching and your use of meloxicam. If you develop black stools please come to the emergency room or follow-up with your primary care doctor for evaluation and stop taking the meloxicam. You have been given referral for GI doctor as well for this. Print Language: Mongolian Disposition Disposition: Home, Self Care
[2024-04-05 09:01] LABS: Absolute Lymphocyte Count 0.45 X10^3/uL (0.83-4.51); Absolute Neutrophil Count 5.8 X10^3/uL (2.0-7.7); Basophil# 0.03 X10^3/uL; Basophil% 0.4 % (0-1); Eosinophil# 0.05 X10^3/uL; Eosinophils% 0.7 % (0-5); Hematocrit 38.6 % (37-47); Hemoglobin 12.9 g/dL (12.0-15.0); Lymphocyte # 0.45 X10^3/ul (0.83-4.51); Lymphocyte % 6.6 % (19-41); Mean Corp Hgb Conc 33.4 g/dL (32-36); Mean Corpuscular Hgb 31.8 pg (27.0-32.0); Mean Corpuscular Volume 95.1 fL (81-99); Mean Platelet Vol. 9.7 fl (6.2-12.0); Monocyte# 0.47 X10^3/uL; Monocyte% 6.9 % (0-10); NRBC Flagged by Analyzer 0 % (0-5); Neutrophil # 5.77 X10^3/uL (2.7-7.7); Neutrophil % 85.1 % (47-70); POSITIVE DIFFERENTIAL YES; Platelet Count 225 K/mm3 (150-450); RBC Distribution Width CV 13.8 % (11.6-14.6); RBC Distribution Width SD 48.6 fl (35.1-43.9); Red Blood Count 4.06 M/mm3 (4.2-5.4); White Blood Count 6.8 K/mm3 (4.4-11.0)
[2024-04-05 09:19] LABS: AST(SGOT) 20 U/L (15-37); Alanine Aminotransfer ALT/SGPT 25 U/L (13-56); Albumin, Serum 3.2 g/dL (3.2-5.0); Alkaline Phosphatase 41 U/L (45-117); Anion Gap 5 (5-15); BUN 15 mg/dL (7-18); BUN/Creat Ratio 24.3 RATIO (10-20); Calcium,Total 8.1 mg/dL (8.5-10.1); Chloride 110 mmol/L (98-107); Creatinine, Serum 0.62 mg/dL (0.55-1.02); EST Glomerular Filtration Rate 103 mL/min (>60); Est Glom Filt Rate - Afr Amer 124 mL/min (>60); Estimated Creatinine Clearance 57.22 ml/min; Globulin 3.1 g/dL (2.2-4.2); Glucose 110 mg/dL (74-106); Lipase 32 U/L (13-75); Potassium 3.8 mmol/L (3.5-5.1); Protein, Total 6.3 g/dL (6.4-8.2); Sodium Level 139 mmol/L (136-145); Troponin-I HS 6 pg/mL (3.0-54.0)
[2024-04-05 10:24] VITALS: BP 137/68; PULSE 81; RESP 16; O2SAT 98
[2024-04-05] MEDS: Pantoprazole Sodium 20 MG Tablet PO (11:26)
[2024-04-05] MEDS: Acetaminophen 325 MG Tablet 650 MG PO (11:26)
[2024-04-05 11:30] VITALS: BP 127/85; PULSE 76; RESP 15; TEMP 36.2; O2SAT 99
== END 2024-04-05 11:31 | disposition home or self-care (01) ==
PROVIDERS: Emergency Provider Emergency Medicine; PCP Family Medicine; Visit Provider Emergency Medicine
DX: S29.012A Strain of muscle and tendon of back wall of thorax, initial encounter (principal); R14.2 Eructation; F41.9 Anxiety disorder, unspecified; Z79.899 Other long term (current) drug therapy
CPT/HCPCS: 71046; 80053; 83690; 84484; 85025; 87631; 93005; 99284; A4216

== ENCOUNTER → 2024-05-25 | Outpatient (CLI) | payer MEDICARE, SELFPAY | END | disposition home or self-care (01) | LOC: LABSPEC 12:51 | PROVIDERS: PCP Family Medicine; Visit Provider Nurse Practitioner Family | DX: R82.90 Unspecified abnormal findings in urine (principal) | CPT/HCPCS: 87086; 87088; 87186 ==

== ENCOUNTER → 2024-08-20 | Outpatient (CLI) | payer MEDICARE, SELFPAY ==
[2024-08-20 12:41] LABS: Cholesterol 278 mg/dL (<=200); High Density Lipoprotein 114 mg/dL; Low Density Lipoprotein Calc. 151 mg/dL; Triglycerides 64 mg/dL; Very Low Density Lipoprotein 13 mg/dL (5-40); cholesterol:hdl ratio screen 2.44
[2024-08-20 12:57] LABS: Hemoglobin A1c 5.9 % (<=5.6)
== END | disposition home or self-care (01) ==
LOC: MTLAB 10:12
PROVIDERS: PCP Family Medicine
DX: Z13.1 Encounter for screening for diabetes mellitus (principal); Z13.220 Encounter for screening for lipoid disorders
CPT/HCPCS: 36415; 80061; 83036

== ENCOUNTER → 2024-09-10 | Outpatient (CLI) | payer MEDICARE, SELFPAY ==
--- OUTSIDE RECORDS SUMMARY | 2024-09-10 21:26 | XMS RPT_ITS | CCD ---
Author Organization [facility] Care Team Providers Care Solar Panel Technician Name Role Phone UNKNOWN, PROVIDER Unavailable Unavailable UNKNOWN Unavailable Unavailable Nedorost, Omar Jose M Unavailable Unavailable *SELF, REFERRED Unavailable Unavailable UNKNOWN Unavailable Unavailable Nedorost, Omar Jose M Unavailable Unavailable *SELF, REFERRED Unavailable Unavailable UNKNOWN Unavailable Unavailable *SELF, REFERRED Unavailable Unavailable UNKNOWN Unavailable Unavailable TOMAS FORD Unavailable Unavailable Nedorost, Omar Jose M Unavailable Unavailable *SELF, REFERRED Unavailable Unavailable UNKNOWN Unavailable Unavailable Honda, Kord Shuji Unavailable Unavailable Nedorost, Omar Jose M Unavailable Unavailable UNKNOWN Unavailable Unavailable Herve Boss Unavailable Unavailable Nannette Marjelda Beal Unavailable Unavailable UNKNOWN Unavailable Unavailable UNKNOWN Unavailable Unavailable Nedorost, Omar Jose M Unavailable Unavailable UNKNOWN, PCP Unavailable Unavailable UNKNOWN Unavailable Unavailable Nedorost, Omar Jose M Unavailable Unavailable *SELF, REFERRED Unavailable Unavailable UNKNOWN Unavailable Unavailable Simpson, Rey Martha Unavailable Unavailable UNKNOWN Unavailable Unavailable Simpson, Rey Martha Unavailable Unavailable Simpson, Rey Martha Unavailable Unavailable Simpson, Rey Martha Unavailable Unavailable UNKNOWN Unavailable Unavailable Simpson, Rey Martha Unavailable Unavailable Simpson, Rey Martha Unavailable Unavailable Simpson, Rey Martha Unavailable Unavailable UNKNOWN Unavailable Unavailable Nedorost, Omar Jose M Unavailable Unavailable *SELF, REFERRED Unavailable Unavailable UNKNOWN Unavailable Unavailable Honda, Kord Shuji Unavailable Unavailable Herve Boss Unavailable Unavailable UNKNOWN Unavailable Unavailable MOROCCO, GATITO Unavailable Unavailable RIEHM, ELENA L Unavailable Unavailable RIEHM, ELENA L Unavailable Unavailable RIEHM, ELENA Admitting Unavailable RIEHM, ELENA Attending Unavailable NONE, NONE Primary Care Unavailable Workman [phone], [place] [phone] Consult ing Unavailable NONE, NONE Consulting Unavailable KESHAWN, ELENA Consulting Unavailable Helena Brantley MD Primary Care Provider Dr. Helena Brantley Primary Care Provider Dr. Helena Brantley Referring Provider [place] WELDING MACHINE OPERATOR THERMIT, WELDING MACHINE OPERATOR THERMIT-C Rey Attending Provider Dr. Helena Brantley Primary Care Provider Dr. Helena Brantley Referring Provider Natacha WELDING MACHINE OPERATOR THERMIT, WELDING MACHINE OPERATOR THERMIT-C Rey Attending Provider Dr. Helena Brantley Primary Care Provider Dr. Helena Brantley Referring Provider Natacha WELDING MACHINE OPERATOR THERMIT, WELDING MACHINE OPERATOR THERMIT-C Rey Attending Provider BUBBA Singh Attending Provider Dr. Helena Brantley Primary Care Provider Dr. Helena Brantely Referring Provider BUBBA Woody Attending Provider Dr. Helena Brantley MD Primary Care Provider Dr. Shelia Bourne DO Attending Provider Dr. Shelia Bourne DO Emergency Provider Dr. Helena Brantley MD Referring Provider Roof WELDING MACHINE OPERATOR THERMIT-C, Nando Lamar Attending Provider Natacha WELDING MACHINE OPERATOR THERMIT-C, Rey Attending Provider Dr. Helena Brantley MD Primary Care Provider Dr. Helena Brantley MD Referring Provider Roof WELDING MACHINE OPERATOR THERMIT-C, Nando Lamar Attending Provider Natacha WELDING MACHINE OPERATOR THERMIT-C, Rey Attending Provider Heladio Swanson MD Attending Provider [place] WELDING MACHINE OPERATOR THERMIT-C, Rey Referring Provider McMorrow WELDING MACHINE OPERATOR THERMIT-CFabiano Attending Provider [place] WELDING MACHINE OPERATOR THERMIT-CFabiano Referring Provider Jolliff, Helena S Referring Unavailable [place], Rey Attending Unavailable Jolliff, Helena S Primary Care Unavailable Jolliff, Helena S Referring Unavailable Roof WELDING MACHINE OPERATOR THERMIT, Nando Lamar Attending Unavailable Jolliff, Helena S Primary Care Unavailable Jolliff, Helena S Referring Unavailable [place], Rey Attending Unavailable Jolliff, Helena S Primary Care Unavailable Heladio Swanson Attending Unavailable Jolliff, Helena S Primary Care Unavailable Jolliff, Helena S Referring Unavailable Jolliff, Helena S Referring Unavailable Frankie Singh Attending Unavailable Jolliff, Helena S Primary Care Unavailable Jolliff, Helena S Referring Unavailable Jolliff, Helena S Primary Care Unavailable Heladio Swanson Attending Unavailable Jolliff, Helena S Referring Unavailable Jolliff, Helena S Primary Care Unavailable Heladio Swanson Attending Unavailable Jolliff, Helena S Referring Unavailable [place], Rey Attending Unavailable Jolliff, Helena S Primary Care Unavailable Ulysses MAC, Frankie Referring Unavailable Ulysses MAC, Frankie Attending Unavailable Jolliff, Helena S Primary Care Unavailable Roof WELDING MACHINE OPERATOR THERMIT, Nando Lamar Attending Unavailable Jolliff, Helena S Primary Care Unavailable WyneskiTracy Attending Unavailable Jolliff, Helena S Primary Care Unavailable Jabour, Vincent Referring Unavailable Jabour, Patrick Attending Unavailable Jolliff, Helena S Primary Care Unavailable Natacha, Rey Referring Unavailable [place], Rey Attending Unavailable Jolliff, Helena S Primary Care Unavailable Jabour, Vincent Referring Unavailable Jabour, Vincent Attending Unavailable Jolliff, Helena S Primary Care Unavailable [place] WELDING MACHINE OPERATOR THERMIT, Fabiano Referring Unavailable [place] WELDING MACHINE OPERATOR THERMIT, Fabiano Attending Unavailable Jolliff, Helena S Primary Care Unavailable Shelia Bourne Attending Unavailable Jolliff, Helena S Primary Care Unavailable WyneskiTracy Referring Unavailable WyneskiTracy Attending Unavailable Jolliff, Helena S Primary Care Unavailable Natacha, Rey Referring Unavailable [place], Rey Attending Unavailable Jolliff, Helena S Primary Care Unavailable Heladio Swanson Referring Unavailable Jolliff, Helena S Primary Care Unavailable Heladio Swanson Attending Unavailable [place] WELDING MACHINE OPERATOR THERMIT-CeRy Referring Provider Frankie Singh Attending Provider [phone] Allergies Allergy Classification Reported Allergen(s) Allergy Type Date of Onset Reaction(s) Facility (12 sources) Glucosamine Drug Allergy 8 [facility] (2 sources) mosquito allergenic extract Drug Allergy 1 Swelling [facility] (10 sources) Chondroitin Analogues Allergy to substance 3 NEEDS FOLLOW-UP [facility] (1 source) Glucosamine Drug Allergy 5 [facility] (1 source) Chondroitin Analogues Drug allergy (disorder) 5 [facility] Medications Current Medications Medication Drug Class(es) Dates Sig (Normalized) Sig (Original) 8 hr acetaminophen 650 mg extended release oral tablet (10 sources) Start: 09-18-2021 take 1 tablet by mouth every twelve hours as needed for pain Acetaminophen 650 mg tablet extended release Active 650 mg PO EVERY 12 HOURS NEEDED as needed for pain September 18, 2021 12:00am acetaminophen 325 mg / HYDROcodone bitartrate 5 mg oral tablet (1 source) Opioid Agonist Start: 12-19-2017 take 1-2 tablets by mouth every four to six hours as needed for pain hydroCODone-acetami nophen 5-325 MG Tab tablet Indications: S/P arthroscopy of knee 1-2 tabs PO q4-6 hours PRN pain 60 tablet 0 12/19/2017 Active alendronic acid 70 mg oral tablet (13 sources) Bisphosphonate Start: 09-13-2020 take 1 tablet by mouth every week Alendronate (Fosamax) 70 mg tablet Active 70 mg PO EVERY WEEK September 13, 2020 12:00am ascorbic acid 500 mg oral tablet (3 sources) Vitamin C Start: 02-06-2024 take 1 tablet by mouth twice daily Ascorbic Acid (Vitamin C) (C-500) 500 mg tablet Active 500 mg PO TWICE A DAY February 06, 2024 1:00am biotin 1 mg oral capsule (11 sources) Start: 09-10-2019 take 1 capsule by mouth once daily Biotin 1 mg capsule Active 1 mg PO DAILY September 10, 2019 12:00am Calcium (2 sources) Phosphate Binder, Calcium Start: 06-11-2005 CALCIUM PO Take by mouth. 0 06/11/2005 Active cholecalciferol 0.05 mg oral capsule (11 sources) Vitamin D Start: 09-13-2020 take 1 capsule by mouth once daily Cholecalciferol (Vitamin D3) 50 mcg (2,000 unit) capsule Active 50 ug PO DAILY September 13, 2020 12:00am clobetasol propionate 0.5 mg/ml topical cream (2 sources) Corticosteroid Start: 10-17-2020 clobetasol 0.05 % Cream oxyquinoline sulfate 0.14715 mg/mg / sodium dodecyl sulfate 0.0001 mg/mg vaginal gel (12 sources) Start: 10-03-2022 End: 02-24-2024 Oxyquinoline-Sod.La uryl Sulfat (Trimo-Gordon Jelly) 0.025-0.01 % gel Active 0 VAGINAL .COMPLEX 113.4 February 24, 2024 8:20pm 1 application VAGINAL once a week; Start: 10-03-2022 Oxyquinoline-S od.Lauryl Sulfat (Trimo-Gordon Jelly) 0.025-0.01 % gel Active 0 VAGINAL .COMPLEX 113.4 October 03, 2022 12:00am 1 application VAGINAL once a week; DULoxetine 60 mg delayed release oral capsule (10 sources) Serotonin and Norepinephrine Reuptake Inhibitor Start: 09-18-2021 take 1 capsule by mouth once daily Duloxetine 60 mg capsule,delayed release(DR/EC) Active 60 mg PO DAILY September 18, 2021 12:00am 2 ml dupilumab 150 mg/ml auto-injector (10 sources) Interleukin-4 Receptor alpha Antagonist Start: 09-19-2022 Dupilumab (Dupixent Pen) 300 mg/2 mL pen injector Active 300 mg SC every 2 weeks September 19, 2022 12:00am estradiol 0.1 mg/ml vaginal cream (20 sources) Estrogen Start: 02-06-2024 Estradiol 0.01 % (0.1 mg/gram) cream Active 1 NMA VAGINAL .EVERY OTHER DAY February 06, 2024 1:00am use fingertip amount at vaginal opening every other night. Start: 03-06-2023 End: 02-06-2024 Estradiol 0.01 % (0.1 mg/gra m) cream Discontinued 0 VAGINAL .COMPLEX 42.5 March 06, 2023 10:05am February 06, 2024 9:50am use fingertip amount at vaginal opening every other night. Start: 03-06-2023 Estradiol Acti ve 0 VAGINAL .COMPLEX 42.5 March 06, 2023 10:05am use fingertip amount at vaginal opening every other night. Start: 09-18-2021 End: 03-06-2023 Estradiol 0.01 % (0.1 mg/gra m) cream Discontinued 0 VAGINAL .COMPLEX 42.5 September 18, 2021 11:18am March 06, 2023 10:06am small amount as directed vaginal then twice a week; Start: 09-18-2021 End: 03-06-2023 Estradiol Discontinued 0 VAG INAL .COMPLEX 42.5 September 18, 2021 11:18am March 06, 2023 10:06am small amount as directed vaginal then twice a week; Start: 03-02-2020 End: 09-18-2021 Estradiol 0.01 % (0.1 mg/gra m) cream Discontinued 0 VAGINAL .COMPLEX 42.5 March 02, 2020 1:00am September 18, 2021 11:19am small amount as directed vaginal every other day X 4 weeks then twice a week; Start: 03-02-2020 End: 09-18-2021 Estradiol Discontinued 0 VAG INAL .COMPLEX 42.5 March 02, 2020 1:00am September 18, 2021 11:19am small amount as directed vaginal every other day X 4 weeks then twice a week; HERBAL PRODUCT (2 sources) HERBAL PRODUCT 1 drop. CBD herbal supplement for anxiety and joint pain 0 Active meloxicam 15 mg oral tablet (20 sources) Nonsteroidal Anti-inflammatory Drug Start: 05-26-2018 End: 09-18-2021 take 1 tablet by mouth once daily as needed for pain Meloxicam 15 mg tablet Active 15 mg PO DAILY as needed for pain September 18, 2021 11:04am take 7.5 mg by mouth once daily meloxicam 15 MG Tab tablet Take 7.5 mg by mouth daily. 0 Active Misc Natural Products (TURMERIC CURCUMIN) Cap (2 sources) Misc Natural Pro ducts (TURMERIC CURCUMIN) Cap Take by mouth. 0 Active pantoprazole 20 mg delayed release oral tablet (3 sources) Proton Pump Inhibitor Start: 5 take 1 tablet by mouth once daily Pantoprazole 20 mg tablet,delayed release (DR/EC) Active 20 mg PO DAILY April 05, 2024 1:00am predniSONE 20 mg oral tablet (2 sources) Start: 8 take 3 tablets by mouth once daily predniSONE 20 MG Tab tablet Indications: Right knee pain, unspecified chronicity Take 3 tablets by mouth daily. 15 tablet 0 11/27/2017 Active same (11 sources) Start: same Active PO September 13, 2020 2:47pm Start: 09-13-2020 End: 09-18-2021 same Discontinued PO September 122020 11:00pm September 18, 2021 10:04am Start: 09-13-2020 End: 09-18-2021 same Discontinued PO September 132020 12:00am September 18, 2021 11:04am Completed/Discontinued Medications Medication Drug Class(es) Dates Sig (Normalized) Sig (Original) amoxicillin 875 mg / clavulanate 125 mg oral tablet (10 sources) Penicillin-class Antibacterial Start: 09-24-2021 End: 09-19-2022 Amoxicillin-Pot Clavulanate 875-125 mg tablet Discontinued 1 {tbl} PO TWICE A DAY September 24, 2021 12:00am September 19, 2022 10:08am take with food Start: 09-24-2021 End: 09-19-2022 take 1 tablet by mouth twice daily at mealtime Amoxicillin-Pot Clavulanate Discontinued 1 TABLET PO TWICE A DAY September 24, 2021 12:00am September 19, 2022 10:08am take with food cefdinir 300 mg oral capsule (9 sources) Cephalosporin Antibacterial Start: 10-16-2022 End: 01-30-2023 take 1 capsule by mouth twice daily Cefdinir 300 mg capsule Discontinued 300 mg PO TWICE A DAY October 16, 2022 12:00am January 30, 2023 12:18pm [id number] for ear ache fluconazole 150 mg oral tablet (9 sources) Azole Antifungal Start: 12-03-2022 End: 09-23-2023 Fluconazole 150 mg tablet Discontinued 150 mg PO .COMPLEX 2 December 03, 2022 12:00am September 23, 2023 9:38am 150 mg PO take one po now and repeat in 3 days 1 ml guselkumab 100 mg/ml auto-injector (10 sources) Interleukin-23 Antagonist Start: 09-18-2021 End: 09-19-2022 Guselkumab (Tremfya) 100 mg/mL auto-injector Discontinued 100 mg SC every 8 weeks September 18, 2021 12:00am September 19, 2022 10:08am metroNIDAZOLE (6 sources) Nitroimidazole Antimicrobial Start: 06-02-2024 End: 06-07-2024 Metronidazole 0.75 % (37.5mg/5 gram) gel Discontinued 1 NMA VAGINAL DAILY 70 5 June 02, 2024 1:00am June 06, 2024 1:00am June 07, 2024 1:14am Start: 06-02-2024 Metronidazole 0.75 % (37.5mg/5 gram) gel Active 1 NMA VAGINAL DAILY 70 June 02, 2024 12:00am June 06, 2024 12:00am Start: 09-23-2023 End: 09-28-2023 Metronidazole 0.75 % (37.5mg /5 gram) gel Discontinued 1 NMA VAGINAL DAILY 70 5 September 23, 2023 12:00am September 27, 2023 12:00am September 28, 2023 12:12am Start: 09-23-2023 End: 09-28-2023 Metronidazole 0.75 % (37.5mg /5 gram) gel Discontinued 1 NMA VAGINAL DAILY 70 5 September 22, 2023 11:00pm September 26, 2023 11:00pm September 27, 2023 11:12pm nitrofurantoin, macrocrystals 25 mg / nitrofurantoin, monohydrate 75 mg oral capsule (20 sources) Nitrofuran Antibacterial Start: 05-24-2024 End: 05-31-2024 take 1 capsule by mouth every twelve hours at mealtime Nitrofurantoin Monohyd/M-Cryst 100 mg capsule Discontinued 1 NMA PO Q12H 14 7 May 24, 2024 9:46am May 30, 2024 1:00am May 31, 2024 1:13am administer with a meal/food; swallow whole; do not open, crush, dissolve , or chew Start: 12-06-2023 End: 12-13-2023 take 1 capsule by mouth every twelve hours at mealtime Nitrofurantoin Monohyd/M-Cryst 100 mg capsule Discontinued 1 NMA PO Q12H 14 7 December 06, 2023 12:00am December 12, 2023 12:00am December 13, 2023 12:05am administer with a meal/food; swallow whole; do not open, crush, dissolve , or chew Start: 07-31-2023 End: 05-06-2024 take 1 capsule by mouth every twelve hours at mealtime Nitrofurantoin Monohyd/M-Cryst (Macrobid) 100 mg capsule Discontinued 100 mg PO Q12H 10 July 31, 2023 12:00am August 04, 2023 12:00am August 05, 2023 12:05am must administer with a meal/food Start: 03-01-2023 End: 03-08-2023 take 1 capsule by mouth every twelve hours at mealtime Nitrofurantoin Monohyd/M-Cryst 100 mg capsule Discontinued 1 NMA PO Q12H 14 March 01, 2023 1:00am March 07, 2023 1:00am March 08, 2023 1:05am administer with a meal/food; swallow whole; do not open, crush, dissolve , or chew Start: 01-30-2023 End: 02-06-2023 take 1 capsule by mouth twice daily at mealtime Nitrofurantoin Monohyd/M-Cryst (Macrobid) 100 mg capsule Discontinued 100 mg PO TWICE A DAY 14 January 30, 2023 12:00am February 05, 2023 1:00am February 06, 2023 1:04am must administer with a meal/food Problems Active Problems Problem Classification Problem Date Documented Da te Episodic/Chronic Abdominal hernia (20 sources) Vaginal enterocele; Translations: [Unspecified abdominal hernia without obstruction or gangrene] 09-19-2022 Episodic Fracture of upper limb (6 sources) Fracture of greater tuberosity of humerus; Translations: [Displaced fracture of greater tuberosity of right humerus, initial encounter for closed fracture] Onset: 06-22-2024 01-02-2024 Episodic Menopausal disorders (20 sources) Atrophic vaginitis; Translations: [Postmenopausal atrophic vaginitis] 09-19-2022 Chronic Osteoarthritis (11 sources) Arthritis; Translations: [Unspecified osteoarthritis, unspecified site] 05-26-2018 Chronic Other connective tissue disease (5 sources) Tear of right rotator cuff; Translations: [Unspecified rotator cuff tear or rupture of right shoulder, not specified as traumatic] 01-02-2024 Episodic Other connective tissue disease (1 source) Unspecified rotator cuff tear or rupture of right shoulder, not specified as traumatic; Translations: [Unspecified rotator cuff tear or rupture of right shoulder, not specified as traumatic] Onset: 06-22-2024 Episodic Other inflammatory condition of skin (10 sources) Psoriasis; Translations: [Psoriasis, unspecified] 09-18-2021 Chronic Comment on above: manage per Dr Dhaliwal Other injuries and conditions due to external causes (2 sources) Unspecified injury of right lower leg, initial encounter; Translations: [UNS INJURY RT LOWER LEG INITIAL ENC] Onset: 11-15-2020 Episodic Other injuries and conditions due to external causes (3 sources) Excoriation of skin; Translations: [Other injury of unspecified body region, initial encounter] 06-02-2024 Episodic Other non-traumatic joint disorders (2 sources) Pain in right knee; Translations: [Pain in right knee] Onset: 11-21-2017 Episodic Other non-traumatic joint disorders (6 sources) Pain in right shoulder; Translations: [Right shoulder pain] Onset: 06-22-2024 11-28-2023 Episodic Other screening for suspected conditions (not mental disorders or infectious disease) (2 sources) Encounter for screening for diabetes mellitus; Translations: [Encounter for screening mammogram for malignant neoplasm of breast] Onset: 10-02-2023 Episodic Prolapse of female genital organs (20 sources) Cystocele; Translations: [Cystocele, unspecified] Onset: 06-02-2024 09-13-2020 Chronic Comment on above: #4 ring with support pessary. Rx estradiol cream and trimosan gel Rehabilitation care; fitting of prostheses; and adjustment of devices (20 sources) Patient encounter status; Translations: [Encounter for fitting and adjustment of other specified devices] 10-16-2022 Chronic Residual codes; unclassified (7 sources) Acute pain; Translations: [Pain, unspecified] 09-24-2021 Episodic Skin and subcutaneous tissue infections (10 sources) Cellulitis of finger; Translations: [Cellulitis of left finger] 09-24-2021 Episodic Sprains and strains (4 sources) Strain of muscle of chest wall; Translations: [Strain of muscle and tendon of back wall of thorax, initial encounter] Onset: 04-30-2024 04-13-2024 Episodic Unclassified (1 source) Eosinophilia / D72.1(ICD-10) Onset: 05-07-2017 Unclassified (2 sources) Cystocele with rectocele; Translations: [N81.10 - Cystocele, unspecified,N81.6 - Rectocele] Urinary tract infections (16 sources) Recurrent urinary tract infection; Translations: [Urinary tract infection, site not specified] Onset: 12-26-2023 03-06-2023 Episodic Comment on above: Vaginal estrogen to urethra, kegels, PFPT Past or Other Problems Problem Classification Problem Date Documented Da te Episodic/Chronic Genitourinary symptoms and ill-defined conditions (2 sources) Unspecified abnormal findings in urine; Translations: [Urgency of urination] Onset: 05-24-2024 Episodic Joint disorders and dislocations; trauma-related (2 sources) Tear of medial meniscus of knee; Translations: [Other tear of medial meniscus, current injury, right knee, subsequent encounter] Onset: 01-02-2018 01-02-2018 Episodic Other bone disease and musculoskeletal deformities (2 sources) Cartilage disorder; Translations: [Disorder of cartilage, unspecified] Onset: 01-02-2018 01-02-2018 Episodic Other connective tissue disease (2 sources) Pain in right lower limb; Translations: [Pain in right leg] Episodic Other gastrointestinal disorders (1 source) Diarrhea, unspecified; Translations: [Diarrhea, unspecified] Onset: 11-15-2023 Episodic Results Test Name Value Interpretation Reference Range Facility Calculated very low density lipoprotein (VLDL) cholesterol measurementOrdered By: Fabiano Reese on 08-20-2024 Calculated very low density lipoprotein (VLDL) cholesterol measurement 13 mg/dL 5-40 [facility] Hemoglobin A1con 08-20-2024 HbA1c (Bld) [Mass fraction] 5.9 % High <=5.6 [facility] Comment on above: Order Comment: Order Date: 08/17/24 Order Info: [id number] - A1C Result Comment: Norm al < 5.7 % Prediabetic 5.7 - 6.4 % Diabetic >or= 6.5 % Please note range changes. Performed By: #### L 501.9984 #### [facility] [place], [address] Hemoglobin A1c percentageOrd ered By: Fabiano Reese on 08-20-2024 HbA1c (Bld) [Mass fraction] 5.9 % High <5.7 [facility] Comment on above: Normal < 5.7 % Predi abetic 5.7 - 6.4 % Diabetic >or= 6.5 % Please note range changes. LDL calc ser/plasOrdered By: Fabiano Reese on 08-20-2024 Cholesterol in LDL [Mass/Vol] 151 mg/dL [facility] Comment on above: Denltywbca=864-383 m g/dL & Higher Mmpx=952 mg/dL or greater Lipid Profileon 08-20-2024 CHOL:HDL 2.44 Normal [facility] Comment on above: Order Comment: Order Date: 08/17/24Order Info: [id number] - LIPID Performed By: #### L 500.4100 ####[facility] [address] [place], [place], [id number] Cholesterol [Mass/Vol] 278 mg/dL High <=200 [facility] Comment on above: Order Comment: Order Date: 08/17/24Order Info: [id number] - LIPID Result Comment: Chol esterol level, Desirable <200 mg/dL Borderline high cholesterol 200-239 mg/dL High cholesterol >=240 mg/dL Recommendations of the NCEP Adult Treatment Panel for the following risk-cutoff thresholds for the [place] population. Performed By: #### L 500.4100 ####[facility] [address] [place], [place], [phone] Cholesterol in HDL [Mass/Vol] 114 mg/dL Normal [facility] Comment on above: Order Comment: Order Date: 08/17/24Order Info: [id number] - LIPID Result Comment: [place]ley onal Cholesterol Education Program (NCEP) guidelines: <40 mg/dL: Low HDL-cholesterol (major risk factor for CHD) >= 60 mg/dL: High HDL-cholesterol (negative risk factor for CHD) HDL-cholesterol is affected by a number of factors, e.g. smoking, exercise, hormones, sex and age. Performed By: #### L 500.4100 ####[facility] [address] [place], [place], [phone] Cholesterol in LDL [Mass/Vol] 151 mg/dL Normal [facility] Comment on above: Order Comment: Order Date: 08/17/24Order Info: [id number] - LIPID Result Comment: Bord yyyehx=960-507 mg/dL Higher Haun=072 mg/dL or greater Performed By: #### L 500.4100 ####[facility] [address] [place], [place], [address] Cholesterol in VLDL [Mass/Vol] 13 mg/dL Normal 5-40 [facility] Comment on above: Order Comment: Order Date: 08/17/24Order Info: [id number] - LIPID Performed By: #### L 500.4100 ####[facility] [address] [place], [place], [address] Triglyceride [Mass/Vol] 64 mg/dL Normal [facility] Comment on above: Order Comment: Order Date: 08/17/24Order Info: [id number] - LIPID Result Comment: The drugs N-Acetylcysteine and Metamizole may falsely depress this assay. Normal range: <150 mg/dL Borderline High: 150-199 mg/dL High: 200-499 mg/dL Very High: >500 mg/dL Performed By: #### L 500.4100 ####[facility] [address] [place], [place], [address] Screening total cholesterol/ high density lipoprotein (HDL) cholesterol ratioOrdered By: Fabiano Reese on 08-20-2024 Cholesterol.total/Chol esterol in HDL [Mass ratio] 2.44 {ratio} [facility] Serum or plasma cholesterol in HDL measurement (mass/volume)Ordered By: Fabinao Reese on 08-20-2024 Cholesterol in HDL [Mass/Vol] 114 mg/dL >40 [facility] Comment on above: National Cholesterol Education Program (NCEP) guidelines:<40 mg/dL: Low HDL-cholesterol (major risk factor for CHD)>= 60 mg/dL: High HDL-cholesterol (negative risk factor for CHD)HDL-cholesterol is affected by a number of factors, e.g. smoking, exercise, hormones, sex and age. Serum or plasma cholesterol measurement (mass/volume)Ordered By: Fabiano Reese on 08-20-2024 Cholesterol [Mass/Vol] 278 mg/dL High <201 [facility] Comment on above: Cholesterol level, D esirable <200 mg/dLBorderline high cholesterol 200-239 mg/dLHigh cholesterol >=240 mg/dLRecommendations of the NCEP Adult Treatment Panel for the following risk-cutoff thresholds for the [place] population. Triglycerides measurementOrd ered By: Fabiano Reese on 08-20-2024 Triglyceride [Mass/Vol] 64 mg/dL <199 [facility] Comment on above: The drugs N-Acetylcy steine and Metamizole may falsely depress this assay. Normal range: <150 mg/dLBorderline High: 150-199 mg/dLHigh: 200-499 mg/dLVery High: >500 mg/dL Inital Evaluation (1) - PTon 07-16-2024 Inital Evaluation (1) - PT [facility] Physical Therapy [facility] [place] [address] / REHABILITATION SERVICES INITIAL EVALUATION MR#: [id number] Acct: [id number] Name: JEN DEMARCO Rep #: [id number] : 1955 68 From: Aundrea Robbins Referring Dr.: CHIQUI Deleon Status: REG RCR Insurance: O MEDICARE SELF PAY INSURANCE Patient's Visit Information Visit Information Visit Information: JEN DEMARCO is a 68 year old F referred to Physical Therapy by CHIQUI Deleon with a diagnosis of Uterovaginal Prolapse, Unspecified. Date of Evaluation: 07/16/24 Physical Therapist: Aundrea Robbins Visit Plan Frequency: 1x/Week Duration: 2 Months Plan: Will continue pelvic floor releases another 1-2 sessions to address mild tightness, Add week 2 (she is currently doing quick flicks, holding kegel 5 seconds and working on breathing into her belly). Subjective Subjective: She is coming in for a prolapse. She has had this prolapse for 2 years this summer. She has used a pessary for a couple of years. She uses estrogen cream 3 x week. She has been doing kegels on the alicia provided by her insurance company. She is doing the exercises 4 x week. She saw Dr. Lopez and they did a lot of bladder testing. She had US on bladder and kidneys and everything was fine. She doesn't want to do surgery at this point as she is concerned that she won't be able to really limit her activities or lifestyle after with lifting especially. Pessary doesn't bother her. She never had UTIs before the pessary She had 3-4 UTIs this past year. Occasional bleeding. Her goal is to address the urine leakage and would be nice to not have to use the pessary. She feels ok for a while without the pessary. She gets bulgy and uncomfortable eventually though later in the day if she doesn't have it in. She has leaking more with urgency. Not as much leaking with a cough or sneeze. Song in the door, running water is a trigger. She hasn't had to wear pads much for leaking lately. At night she wakes up 1-2 x night to urinate. No low back pain or complaints. No pain with intercourse. No pelvic pain. Bike, hike for exercise. She is not working. 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 Objective Objective: Rectocele 2 Cystocele 1 LAYCOCK 06/04/2/3 Mild pelvic floor tightness layer 2-3 - especially left side Breathing not as much into her belly but more in her chest- clenches abdominals Incontinence impact questionnaire 4, Urogenital distress inventory 10 Did not evaluate low back today Goals Goal 1:: Jen will be able to delay using the restroom by 5 minutes when she experiences urgency to avoid any incontinence episodes. Goal Time Frame: 6-8 Weeks Goal 2:: Jen will be have her hands under running water with doing dishes without leaking/urgency. Goal Time Frame: 6-8 Weeks Goal 3:: Jen will only need to get up at most 1 x night to urinate. Goal Time Frame: 6-8 Weeks Goal 4:: Improve her urogenital distress inventory score to less than 5 to allow for less disruption during day to day activities regarding her leaking. Rehabilitation Potential Physical Therapy Diagnosis: Urge incontinence, Rectocele, Cystocele Rehabilitation Potential: Good Anticipated Interventions Patient/Client Instruction: Educate patient on: Condition and Plan of Care For the Purpose of:: To improve health and function Therapeutic Exercise to Include: Strength training, Coordination, Neuromotor development and Relaxation training For the Purpose of:: To improve health and function Manual Therapy Techniques to Include: Trigger point massage and Soft tissue mobilization For the Purpose of:: To improve muscle performance and motor function and To decrease soft tissue restriction Text: Thank you for the opportunity to evaluate your patient. For Medicare and Medicare HMO plans, please review the plan of care and approve it. It will need to be FAXED BACK to us at [phone] for Medicare purposes. For Medicare only, by signing this I certify the plan of care. Please let me know if there are questions or concerns regarding this plan of care. Physician Signature: Date: ____ 07/16/24 1133 CC: CHIQUI Manzano; Dr. Helena Brantley MD MG Signed [facility] Orthopedic Visit Reporton Orthopedic Visit Report [facility] [address] [place] [id number] OFFICE VISIT Date of Service: 06/22/24 MR#: [id number] Acct: [id number] Name: JEN DEMARCO Rep #: [id number] : 1955 Provider: Dr. Heladio ford MD Age/Sex: 68/F Location: [facility] Status: Signed with Addenda ADDENDUM by Suni Wilks on 06/22/24 at 1041 Office Procedure Documentation entered by Suni Wilks 06/22/24 10:41: Ortho Injections Injections Is this a patient provided medication?: No Details: Obtained consent for injection. Under sterile conditions, injected the patients right shoulder with 2mL Kenalog and 4mL of Bupivacaine. The patient tolerated the injection well without any noted complication. Patient should call our office if redness develops, pain worsens or if they have any concerns. Office Meds Kenalog 40 mg/mL suspension for injection Performing Provider: Heladio Swanson MD Performing Location: [facility] Administered by: Heladio Swanson MD on 06/22/24 10:38 Dose Route Admin Location Dispensed Lot Number Expiration Date [facility] Edmundo ufacturer 80 mg intra-articular Right shoulder 2 mL [id number] 06/30/25 6771-3261-40 [facility] Comments: Bupivacaine 0.25% lot # [id number] exp 02/28/2025 [facility] 8557-7921-39 Date cc: * Signed Intake Vital Signs 06/08/24 11:42 Height 5 ft 3 in Intake Visit Reasons: RIGHT SHOULDER Allergies glucosamine Allergy (Mild, Verified 06/22/24 09:43) NEEDS FOLLOW-UP Chondroitin Analogues Allergy (Verified 06/22/24 09:43) NEEDS FOLLOW-UP Medications ???Medication ???Instructions ???Recorded ???Confirmed ???Type biotin 1 mg capsule 1 mg PO DAILY 09/10/19 06/22/24 Hi story alendronate 70 mg tablet (Fosamax) 70 mg PO QWEEK 09/13/20 06/22/24 History cholecalciferol (vitamin D3) 50 50 mcg PO DAILY 09/13/20 06/22/24 History mcg (2,000 unit) capsule acetaminophen 650 mg 650 mg PO Q12H PRN PRN pain 06/22/24 History tablet,extended release duloxetine 60 mg capsule,delayed 60 mg PO DAILY 09/18/21 06/22/24 H istory release meloxicam 15 mg tablet 15 mg PO DAILY PRN pain 09/18/21 0 06/22/24 History dupilumab 300 mg/2 mL subcutaneous 300 mg subcut Q2W 09/19/2206/22 History pen injector (Dupixent) ascorbic acid (vitamin C) 500 mg 500 mg PO BID 02/06/24 06/22/24 Hi story tablet (C-500) estradiol 0.01% (0.1 mg/gram) 1 appful vaginal .EVERY OTHER DAY 02/06/24 06/22/24 History vaginal cream oxyquinoline 0.025 %-sodium lauryl See Rx Instructions vaginal 01/3106/22/24 Rx sulfate 0.01 % vaginal gel .COMPLEX #113.4 grams (Trimo-Gordon Jelly) pantoprazole 20 mg tablet,delayed 20 mg PO DAILY #30 tabs 04/05/24 06/22/24 Rx release Have you fallen in the past year?: No PFSH Medical History Wears contact lenses Post-menopausal Cancer Anxiety Alcohol use Anemia Easy bruising Non-smoker Leg cramps History of pain when walking History of edema Fracture of greater tuberosity of right humerus Right rotator cuff tear Right shoulder pain Chronic pruritus Arthritis Surgical History History of vein stripping Hx of colonoscopy H/O removal of cyst S/P right knee surgery History of LAVH H/O rotator cuff surgery Family History Mother Hypertension Grandmother Aneurysm Grandfather Aneurysm Social History Smoking Status: Never smoker alcohol intake: current details: social substance use type: does not use caffeine: Yes what type of physical activity do you participate in: walking and weight training frequency: 3-4 times per week seatbelt use: always do you feel safe at home: Yes 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 Heladio Swanson MD 06/22/24 0922. Part of today???s visit was documented by [ ], acting as scribe. JEN DEMARCO is a 68 year old F here today for 6 months follow-up right shoulder pain nondisplaced greater tuberosity avulsion fracture and small 4 x 4 millimeter supraspinatus tendon tear. Patient also had a cortisone injection at last visit. They are desiring a repeat steroid shot Last injection was effective. It wore off about a month ago. The patient has laterally based shoulder pain and worse at night. Supplemental Info STUDY: MRI RIGHT SHOULDER REASON FOR EXAM: Female, 68 years old. Pain, assess cuff. TECHNIQUE: Standardized fat and water (more content not included)... [facility] Bath Tester Office Visit Reporton 06-08-2024 Bath Tester Office Visit Report [facility] [address], [address] [place] [address] OFFICE VISIT Date of Service: 06/08/24 MR#: [id number] Acct: [id number] Name: JEN DEMARCO Rep #: [id number] : 1955 Provider: CHIQUI sunshine Age/Sex: 68/F Location: [facility] Status: Signed Intake Vital Signs 06/02/24 11:44 06/08/24 11:38 06/08/24 11:42 Height 5 ft 3 in 5 ft 3 in 5 ft 3 in Weight: 134 lb 8 oz BMI 23.8 BP 130/78 H Intake Visit Reasons: Pessary Check Chief Complaint: pessary check Director Fixed Income Required: No Is patient in pain?: No Allergies glucosamine Allergy (Mild, Verified 06/08/24 11:37) NEEDS FOLLOW-UP Chondroitin Analogues Allergy (Verified 06/08/24 11:37) NEEDS FOLLOW-UP Medications ???Medication ???Instructions ???Recorded ???Confirmed ???Type biotin 1 mg capsule 1 mg PO DAILY 09/10/19 06/08/24 Hi story alendronate 70 mg tablet (Fosamax) 70 mg PO QWEEK 09/13/20 06/08/24 History cholecalciferol (vitamin D3) 50 50 mcg PO DAILY 09/13/20 06/08/24 History mcg (2,000 unit) capsule acetaminophen 650 mg 650 mg PO Q12H PRN PRN pain 06/08/24 History tablet,extended release duloxetine 60 mg capsule,delayed 60 mg PO DAILY 09/18/21 06/08/24 H istory release meloxicam 15 mg tablet 15 mg PO DAILY PRN pain 09/18/21 0 06/08/24 History dupilumab 300 mg/2 mL subcutaneous 300 mg subcut Q2W 09/19/2206/08 History pen injector (Dupixent) ascorbic acid (vitamin C) 500 mg 500 mg PO BID 02/06/24 06/08/24 Hi story tablet (C-500) estradiol 0.01% (0.1 mg/gram) 1 appful vaginal .EVERY OTHER DAY 02/06/24 06/08/24 History vaginal cream oxyquinoline 0.025 %-sodium lauryl See Rx Instructions vaginal 01/3106/08/24 Rx sulfate 0.01 % vaginal gel .COMPLEX #113.4 grams (Trimo-Gordon Darshanlly) pantoprazole 20 mg tablet,delayed 20 mg PO DAILY #30 tabs 04/05/24 06/08/24 Rx release Is last menstrual period known: No Post menopausal: Yes Patient : No : No PFSH Medical History Wears contact lenses Post-menopausal Cancer Anxiety Alcohol use Anemia Easy bruising Non-smoker Leg cramps History of pain when walking History of edema Fracture of greater tuberosity of right humerus Right rotator cuff tear Right shoulder pain Chronic pruritus Arthritis Surgical History History of vein stripping Hx of colonoscopy H/O removal of cyst S/P right knee surgery History of LAVH H/O rotator cuff surgery Family History Mother Hypertension Grandmother Aneurysm Grandfather Aneurysm Social History Smoking Status: Never smoker alcohol intake: current details: social substance use type: does not use caffeine: Yes what type of physical activity do you participate in: walking and weight training frequency: 3-4 times per week seatbelt use: always do you feel safe at home: Yes 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 Was noted last week, used metronidazole gel. No further bleeding. History 4 Elective abortions Hx Para 3 Spontaneous abortions Hx # Term Pregnancies Ectopic pregnancies Hx # Pregnancies Multiple births # of living children Past Pregnancies Del. Date Name GA/Weeks Outcome Route Bth Weight Gen Labor Lgth Anesthesia Del Locatn Provider FOB Unknown 1984 Gume Unknown 1987 Mike Unknown 1989 Amanuel CHAVIRA Const Constitutional: Reports system reviewed and no additional complaints, except as documented Eyes Eyes: Reports system reviewed and no additional complaints, except as documented GI GI: Denies abdominal pain or change in bowel habits : Reports as per HPI Exam Const General: cooperative, healthy appearing, no acute distress and well groomed Nutritional Appearance: well nourished Orientation: oriented x3 Resp Effort Inspection: normal respiratory effort External Female Exam: other (pale, atrophy around urethra) Urethra: other (slightly dilated) Speculum Exam - Vagina: abnormal vaginal discharge bloody and vagina atrophic Speculum Exam - Cervix: absent Bimanual Exam- Vagina Uterus: uterus absent Bimanual Exam- Adnexa, other: enterocele and cystocele Pelvic Support: cystocele and enterocele Other: Vaginal excoriation now healed. Pessary replaced with trimosan gel Coding Level of Care Code Off vis,est,level 3 Diagnoses Pessary maintenance Z46.89 Atrophic v (more content not included)... [facility] Bath Tester Office Visit Reporton 06-02-2024 Bath Tester Office Visit Report [facility] [address] [place] [address], [address] [place] [address] OFFICE VISIT Date of Service: 06/02/24 MR#: [id number] Acct: [id number] Name: JEN DEMARCO Rep #: [id number] : 1955 Provider: CHIQUI sunshine Age/Sex: 68/F Location: [facility] Status: Signed Intake Vital Signs 04/05/24 08:04 06/02/24 11:40 06/02/24 11:44 Height 5 ft 3 in 5 ft 3 in 5 ft 3 in Weight: 135 lb 2 oz BMI 23.9 BP 122/82 H Intake Visit Reasons: recurrent UTI Chief Complaint: Recurrent UTI Director Fixed Income Required: No Is patient in pain?: No Allergies glucosamine Allergy (Mild, Verified 06/02/24 12:10) NEEDS FOLLOW-UP Chondroitin Analogues Allergy (Verified 06/02/24 12:10) NEEDS FOLLOW-UP Medications ???Medication ???Instructions ???Recorded ???Confirmed ???Type biotin 1 mg capsule 1 mg PO DAILY 09/10/19 06/02/24 Hi story alendronate 70 mg tablet (Fosamax) 70 mg PO QWEEK 09/13/20 06/02/24 History cholecalciferol (vitamin D3) 50 50 mcg PO DAILY 09/13/20 06/02/24 History mcg (2,000 unit) capsule acetaminophen 650 mg 650 mg PO Q12H PRN PRN pain 06/02/24 History tablet,extended release duloxetine 60 mg capsule,delayed 60 mg PO DAILY 09/18/21 06/02/24 H istory release meloxicam 15 mg tablet 15 mg PO DAILY PRN pain 09/18/21 0 06/02/24 History dupilumab 300 mg/2 mL subcutaneous 300 mg subcut Q2W 09/19/2206/02 History pen injector (Dupixent) ascorbic acid (vitamin C) 500 mg 500 mg PO BID 02/06/24 06/02/24 Hi story tablet (C-500) estradiol 0.01% (0.1 mg/gram) 1 appful vaginal .EVERY OTHER DAY 02/06/24 06/02/24 History vaginal cream oxyquinoline 0.025 %-sodium lauryl See Rx Instructions vaginal 01/3106/02/24 Rx sulfate 0.01 % vaginal gel .COMPLEX #113.4 grams (Trimo-Gordon Jelly) pantoprazole 20 mg tablet,delayed 20 mg PO DAILY #30 tabs 04/05/24 06/02/24 Rx release metronidazole 0.75 % (37.5 mg/5 1 appful vaginal DAILY 5 days #70 06/02/24 06/02/24 Rx gram) vaginal gel grams Is last menstrual period known: No Post menopausal: Yes Patient : No : No PFSH Medical History Wears contact lenses Post-menopausal Cancer Anxiety Alcohol use Anemia Easy bruising Non-smoker Leg cramps History of pain when walking History of edema Fracture of greater tuberosity of right humerus Right rotator cuff tear Right shoulder pain Chronic pruritus Arthritis Surgical History History of vein stripping Hx of colonoscopy H/O removal of cyst S/P right knee surgery History of LAVH H/O rotator cuff surgery Family History Mother Hypertension Grandmother Aneurysm Grandfather Aneurysm Social History Smoking Status: Never smoker alcohol intake: current details: social substance use type: does not use caffeine: Yes what type of physical activity do you participate in: walking and weight training frequency: 3-4 times per week seatbelt use: always do you feel safe at home: Yes 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 States she seems to get them every 3 months. She has a pessary. Is noting increased discharge that is sometimes bloody. She removes and cleans pessary once a week. Inserts with trimosan gel and does use vaginal estrogen 3 nights per week. She has had hysterectomy. She has consulted with Dr Lopez for prolapse surgical options but prefers to continue with pessary currently. History 4 Elective abortions Hx Para 3 Spontaneous abortions Hx # Term Pregnancies Ectopic pregnancies Hx # Pregnancies Multiple births # of living children Past Pregnancies Del. Date Name GA/Weeks Outcome Route Bth Weight Gen Labor Lgth Anesthesia Del Locatn Provider FOB Unknown 1984 Gume Unknown 1987 Mike Unknown 1989 Amanuel ROS Const Constitutional: Reports system reviewed and no additional complaints, except as documented Eyes Eyes: Reports system reviewed and no additional complaints, except as documented GI GI: Denies abdominal pain or change in bowel habits : Reports as per HPI Exam Const General: cooperative, healthy appearing, no acute distress and well groomed Nutritional Appearance: well nourished Orientation: oriented x3 Resp Effort Inspection: normal respiratory effort External Female Exam: other (pale, atrophy around urethra) Urethra: other (slightly dilated) Speculum Exam (more content not included)... [facility] Urine Cultureon 05-27-2024 [facility] Presumptive E. coli [place] Count 11,000-25,000 Presumptive E. coli: REACTION Ampicillin Islt EDD >=32 Ampicillin+Sulbac Islt EDD 16 I Cefepime Islt EDD <=0.12 S cefTRIAXone Islt EDD <=0.25 S Ciprofloxacin Islt EDD <=0.06 S B-Lactamase Extended Susc Islt NEG Gentamicin Islt EDD <=1 S levoFLOXacin Islt EDD <=0.12 S Meropenem Islt EDD <=0.25 S Nitrofurantoin Islt EDD <=16 S Pip+Tazo Islt EDD <=4 S TMP SMX Islt EDD <=20 S Normal [facility] Comment on above: Performed By: #### M [id number] ####[facility] [id number] [place], [address] Urine cultureOrdered By: Eduardo Granda on 05-25-2024 Bacteria identified Cx Nom (U) Presumptive E. coli Abnormal [facility] Bacteria identified Cx Nom (U) Presumptive E. coli Abnormal [facility] Urgent Care Visit Reporton 0 05-24-2024 Urgent Care Visit Report [facility] [address], [address] [place] [address] OFFICE VISIT Date of Service: 05/24/24 MR#: [id number] Acct: [id number] Name: JEN DEMARCO Rep #: [id number] : 1955 Provider: CHIQUI swanson Age/Sex: 68/F Location: [facility] Status: Signed Intake Vital Signs 04/05/24 08:04 05/24/24 08:18 Height 5 ft 3 in BP 124/74 H Blood Pressure Location Lt brachial Position Sitting Respiration 15 Pulse 89 Pulse Source NIBP Temp 98.9 F Temp Source Oral Pulse Oximetry (%) 98 Oxygen Delivery Method room air Intake Visit Reasons: Urinary tract infection Chief Complaint: urinary urgency and decreased output Director Fixed Income Required: No Is patient in pain?: No Allergies glucosamine Allergy (Mild, Verified 05/24/24 08:19) NEEDS FOLLOW-UP Chondroitin Analogues Allergy (Verified 05/24/24 08:19) NEEDS FOLLOW-UP Is last menstrual period known: No Post menopausal: Yes Patient : No Have you fallen in the past year?: No Nurse's Note: urinary urgency and decreased output x 2 days. denies abd pain/ back pain/ fever. concern for UTI PFSH Medical History Wears contact lenses Post-menopausal Cancer Anxiety Alcohol use Anemia Easy bruising Non-smoker Leg cramps History of pain when walking History of edema Fracture of greater tuberosity of right humerus Right rotator cuff tear Right shoulder pain Chronic pruritus Arthritis Surgical History History of vein stripping Hx of colonoscopy H/O removal of cyst S/P right knee surgery History of LAVH H/O rotator cuff surgery Family History Mother Hypertension Grandmother Aneurysm Grandfather Aneurysm Social History Smoking Status: Never smoker alcohol intake: current details: social substance use type: does not use caffeine: Yes what type of physical activity do you participate in: walking and weight training frequency: 3-4 times per week seatbelt use: always do you feel safe at home: Yes 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 She states urinary urgency and decrease urinary output. She denies dysuria. ROS Const Constitutional: No body ache, chills, fatigue, fever(s) (no fever greater than 99.9 F), malaise, night sweats or other (rigors) Resp Respiratory: No shortness of breath Cardio Cardiology: No chest pain at rest or chest pain with exertion Gastro GI: No abdominal pain Genitourinary-Female: Positive for urinary urgency and other (decreased output); No burning urination, painful urination, urinary frequency, blood in urine, suprapubic fullness or side pain Endo Endocrine: No fatigue Exam Const General: cooperative, healthy appearing, comfortable and no acute distress Orientation: alert, awake and oriented x3 Chest Chest palpation inspection: normal inspection of the chest Resp Effort Inspection: normal respiratory effort Auscultation: Bilateral: Clear to Auscultation Cardio Rhythm: other (Normal) Heart Sounds: S1 normal, S2 normal and no murmurs GI Inspection: normal to inspection and non-distended Auscultation: normal bowel sounds Palpation: soft and nontender General: No CVA tenderness Skin General: no rashes or lesions noted Coding Level of Care Code Off vis,est,level 3 Diagnoses Acute cystitis with hematuria N30.01 Urinary tract infection type: acute cystitis Hematuria presence: with hematuria Assessment and Plan Assessment and Plan (1) Urinary tract infection: Qualifiers: Urinary tract infection type: acute cystitis Hematuria presence: with hematuria Qualified Code(s): N30.01 - Acute cystitis with hematuria Plan: Based on urine dip will treat. She has appointment with OBGYN to rediscuss reoccurring UTI. Encouraged to get plenty of rest, drink lots of clear liquids, and use Tylenol or Ibuprofen (unless contraindicated) for fever and comfort. Patient also educated on other symptomatic management techniques. To be seen in 7-10 days if no improvement; sooner if worsening of symptoms.??? Patient advised of potential red flags and when appropriate to report to the ED.??? Patient verbalized understanding and agreement with all the above. Orders: Orders POC Urinalysis Dip (Clinic) Today R39.15 - Urgency of urination Culture, Urine Today R82.90 - Unspecified abnormal findings in urine Medications: Refilled nitrofurantoin mo (more content not included)... Normal [facility] 12 Lead EKGon 04-05-2024 12 Lead EKG [facility] Cardiovascular Services [address] [place] [address] 12 Lead EKG 04/05/24 0838 MR#: [id number] Acct: [id number] Name: JEN DEMRACO Rep #: [id number] : 1955 68 From: Ziyad Feng MD Attending Dr: Status: DEP ER Ordering Dr: Shelia Bourne DO Date: 04/05/24 Location: ED Sex: F C Admitted: Test Reason : GENERAL Blood Pressure : */* mmHG Vent. Rate : 86 BPM Atrial Rate : 86 BPM P-R Int : 154 ms QRS Dur : 90 ms QT Int : 368 ms P-R-T Axes : 44 0 51 degrees QTcB Int : 440 ms Normal sinus rhythm Normal ECG Confirmed by Ziyad Feng ([id number]), editor city [place] ([id number]) on 04/06/2024 9:50:27 AM Referred By: Confirmed By: Ziyad Feng 04/06/24 0950 Date Ziyad Feng MD CC: Dr. Helena Brantley MD; Dr. Shelia Bourne DO Signed Normal [facility] Absolute neutrophil countOrd ered By: Shelia Bourne on 04-05-2024 Neutrophils (Bld) [#/Vol] 5.8 10*3/uL 2.0-7.7 [facility] Albumin to globulin ratioOrd ered By: Shelia Bourne on 04-05-2024 Albumin/Globulin [Mass ratio] 1.0 {ratio} 0.9-2.4 [facility] Basophil percentageOrdered B y: Shelia Bourne on 04-05-2024 Basophils/100 WBC (Bld) 0.4 % 0-1 [facility] Bilirubin, totalOrdered By: Shelia Bourne on 04-05-2024 Bilirubin [Mass/Vol] 0.70 mg/dL 0.20-1.00 [facility] Comment on above: For patients on eltr ombopag therapy, use of Dimension [place] TBIL is not recommended. Blood urea nitrogen (BUN)/cr eatinine ratioOrdered By: Shelia Bourne on 04-05-2024 Urea nitrogen/Creatinine [Mass ratio] 24.3 mg/mg High 10-20 [facility] CBC W/Diff, Automatedon Absolute Lymph 0.45 X10 3/uL Low 0.83-4.51 [facility] Comment on above: Performed By: #### L 100.0100, L500.4050, L501.2450, L501.4020 ####[facility] [address] [place], [address] Absolute Neut 5.8 X10 3/uL Normal 2.0-7.7 [facility] Comment on above: Performed By: #### L 100.0100, L500.4050, L501.2450, L501.4020 ####[facility] [address] [place], [address] Basophils/100 WBC (Bld) 0.4 % Normal 0-1 [facility] Comment on above: Performed By: #### L 100.0100, L500.4050, L501.2450, L501.4020 ####[facility] [address] [place], [address] Eosinophils/100 WBC (Bld) 0.7 % Normal 0-5 [facility] Comment on above: Performed By: #### L 100.0100, L500.4050, L501.2450, L501.4020 ####[facility] [address] [place], [address] Erythrocyte distribution width (RBC) [Ratio] 13.8 % Normal 11.6-14.6 [facility] Comment on above: Performed By: #### L 100.0100, L500.4050, L501.2450, L501.4020 ####[facility] [address] [place], [address] Hematocrit (Bld) [Volume fraction] 38.6 % Normal 37-47 [facility] Comment on above: Performed By: #### L 100.0100, L500.4050, L501.2450, L501.4020 ####[facility] [address] [place], [address] Hemoglobin (Bld) [Mass/Vol] 12.9 g/dL Normal 12.0-15.0 [facility] Comment on above: Performed By: #### L 100.0100, L500.4050, L501.2450, L501.4020 ####[facility] [address] [place], [address] IG% 0.300 Normal 0.0-0.9 [facility] Comment on above: Result Comment: IG% - Immature Granulocytes (promyelocytes, myelocytes and metamyelocytes) > 1% indicates that a LEFT SHIFT is Present. Performed By: #### L 100.0100, L500.4050, L501.2450, L501.4020 ####[facility] [address] [place], [address] Lymphocytes/100 WBC (Bld) 6.6 % Low 19-41 [facility] Comment on above: Performed By: #### L 100.0100, L500.4050, L501.2450, L501.4020 ####[facility] [address] [place], [address] MCH (RBC) [Entitic mass] 31.8 pg Normal 27.0-32.0 [facility] Comment on above: Performed By: #### L 100.0100, L500.4050, L501.2450, L501.4020 ####[facility] [address] [place], [address] MCHC (RBC) [Mass/Vol] 33.4 g/dL Normal 32-36 [facility] Comment on above: Performed By: #### L 100.0100, L500.4050, L501.2450, L501.4020 ####[facility] [address] [place], [address] MCV (RBC) [Entitic vol] 95.1 fL Normal 81-99 [facility] Comment on above: Performed By: #### L 100.0100, L500.4050, L501.2450, L501.4020 ####[facility] [address] [place], [address] Monocytes/100 WBC (Bld) 6.9 % Normal 0-10 [facility] Comment on above: Performed By: #### L 100.0100, L500.4050, L501.2450, L501.4020 ####[facility] [address] [place], [address] Neutrophils/100 WBC (Bld) 85.1 % High 47-70 [facility] Comment on above: Performed By: #### L 100.0100, L500.4050, L501.2450, L501.4020 ####[facility] [address] [place], [address] Nucleated RBC (Bld) [#/Vol] 0 10*3/uL Normal 0-5 [facility] Comment on above: Performed By: #### L 100.0100, L500.4050, L501.2450, L501.4020 ####[facility] [address] [place], [address] Platelet mean volume (Bld) [Entitic vol] 9.7 fL Normal 6.2-12.0 [facility] Comment on above: Performed By: #### L 100.0100, L500.4050, L501.2450, L501.4020 ####[facility] [address] [place], [address] Platelets (Bld) [#/Vol] 225 10*3/uL Normal 150-450 [facility] Comment on above: Performed By: #### L 100.0100, L500.4050, L501.2450, L501.4020 ####[facility] [address] [place], [address] RBC (Bld) [#/Vol] 4.06 10*6/uL Low 4.2-5.4 [facility] Comment on above: Performed By: #### L 100.0100, L500.4050, L501.2450, L501.4020 ####[facility] [address] [place], [address] RDW SD 48.6 fl High 35.1-43.9 [facility] Comment on above: Performed By: #### L 100.0100, L500.4050, L501.2450, L501.4020 ####[facility] [address] [place], [address] WBC (Bld) [#/Vol] 6.8 10*3/uL Normal 4.4-11.0 [facility] Comment on above: Performed By: #### L 100.0100, L500.4050, L501.2450, L501.4020 ####[facility] [address] [place], [address] Carbon dioxide measurementOr dered By: Shelia Bourne on 04-05-2024 CO2 [Moles/Vol] 24.0 mmol/L 21.0-32.0 [facility] Chest PA and Lateralon 04-05 Chest PA and Lateral [facility] Imaging Services [address] [place] [address] Chest PA and Lateral MR#: [id number] Acct: [id number] Name: JEN DEMARCO Rep #: [id number] : 1955 F 68 From: Abdoulaye Catalan MD PCP: Dr. Helena Brantley MD Status: REG ER Study: Chest PA and Lateral Date of Exam: 04/05/24 Exam# [id number] Ordering Dr: Shelia Bourne DO [id number] STUDY: X-RAY CHEST REASON FOR EXAM: Female, 68 years old. Atypical chest pain TECHNIQUE: PA and lateral views of the chest. COMPARISON: None. FINDINGS: The lungs are clear and expanded. There is no demonstrated pleural abnormality. Normal size heart. Normal mediastinum and travis. Normal visualized pulmonary arteries. There is atherosclerotic calcification of the aortic arch with tortuosity. There are diffuse degenerative changes of the visualized thoracic spine. Normal visualized ribs, clavicles, and shoulders. There is no demonstrated abnormality of the visualized soft tissue structures of the upper abdomen. RAD/Chest PA and Lateral IMPRESSION: No acute pulmonary process Electronically Signed: Sen Catalan MD at 9:21 EST , CC: Dr. Helena Brantley MD; Dr. Shelia Bourne DO [employer]: Signed Normal [facility] Chloride measurementOrdered By: Shelia Bourne on 04-05-2024 Chloride [Moles/Vol] 110 mmol/L High 98-107 [facility] Comprehensive Metabolic Prof ilon 04-05-2024 Albumin [Mass/Vol] 3.2 g/dL Normal 3.2-5.0 [facility] Comment on above: Order Comment: 'TROP ' Serial specimen #1, #2 or #3: 1 Performed By: #### L 100.0100, L500.4050, L501.2450, L501.4020 ####[facility] [address] [place], [address] Albumin/Globulin [Mass ratio] 1.0 {ratio} Normal 0.9-2.4 [facility] Comment on above: Order Comment: 'TROP ' Serial specimen #1, #2 or #3: 1 Performed By: #### L 100.0100, L500.4050, L501.2450, L501.4020 ####[facility] [address] [place], [address] ALK P 41 U/L Low 45-117 [facility] Comment on above: Order Comment: 'TROP ' Serial specimen #1, #2 or #3: 1 Performed By: #### L 100.0100, L500.4050, L501.2450, L501.4020 ####[facility] [address] [place], [address] ALT [Catalytic activity/Vol] 25 U/L Normal 13-56 [facility] Comment on above: Order Comment: 'TROP ' Serial specimen #1, #2 or #3: 1 Performed By: #### L 100.0100, L500.4050, L501.2450, L501.4020 ####[facility] [address] [place], [address] AST [Catalytic activity/Vol] 20 U/L Normal 15-37 [facility] Comment on above: Order Comment: 'TROP ' Serial specimen #1, #2 or #3: 1 Performed By: #### L 100.0100, L500.4050, L501.2450, L501.4020 ####[facility] [address] [place], [address] Bilirubin [Mass/Vol] 0.70 mg/dL Normal 0.20-1.00 [facility] Comment on above: Order Comment: 'TROP ' Serial specimen #1, #2 or #3: 1 Result Comment: For patients on eltrombopag therapy, use of Dimension [place] TBIL is not recommended. Performed By: #### L 100.0100, L500.4050, L501.2450, L501.4020 ####[facility] [address] [place], [address] BUN/CRE 24.3 RATIO High 10-20 [facility] Comment on above: Order Comment: 'TROP ' Serial specimen #1, #2 or #3: 1 Performed By: #### L 100.0100, L500.4050, L501.2450, L501.4020 ####[facility] [address] [place], [address] CA,Total 8.1 mg/dL Low 8.5-10.1 [facility] Comment on above: Order Comment: 'TROP ' Serial specimen #1, #2 or #3: 1 Performed By: #### L 100.0100, L500.4050, L501.2450, L501.4020 ####[facility] [address] [place], [address] Chloride [Moles/Vol] 110 mmol/L High 98-107 [facility] Comment on above: Order Comment: 'TROP ' Serial specimen #1, #2 or #3: 1 Performed By: #### L 100.0100, L500.4050, L501.2450, L501.4020 ####[facility] [address] [place], [address] CO2 [Moles/Vol] 24.0 mmol/L Normal 21.0-32.0 [facility] Comment on above: Order Comment: 'TROP ' Serial specimen #1, #2 or #3: 1 Performed By: #### L 100.0100, L500.4050, L501.2450, L501.4020 ####[facility] [address] [place], [address] Creatinine [Mass/Vol] 0.62 mg/dL Normal 0.55-1.02 [facility] Comment on above: Order Comment: 'TROP ' Serial specimen #1, #2 or #3: 1 Result Comment: The validity of the calculated GFR GFRAA in patients over 70 years has not been determined. Clinical correlation is essential. Performed By: #### L 100.0100, L500.4050, L501.2450, L501.4020 ####[facility] [address] [place], [address] ECRCL 57.22 ml/min Normal [facility] Comment on above: Order Comment: 'TROP ' Serial specimen #1, #2 or #3: 1 Performed By: #### L 100.0100, L500.4050, L501.2450, L501.4020 ####[facility] [address] [place], [address] EST GFR - AA 124 mL/min Normal >60 [facility] Comment on above: Order Comment: 'TROP ' Serial specimen #1, #2 or #3: 1 Result Comment: Afri can [place] GFR Calc Performed By: #### L 100.0100, L500.4050, L501.2450, L501.4020 ####[facility] [address] [place], [address] GAP 5 Normal 5-15 [facility] Comment on above: Order Comment: 'TROP ' Serial specimen #1, #2 or #3: 1 Performed By: #### L 100.0100, L500.4050, L501.2450, L501.4020 ####[facility] [address] [place], [address] GFR/1.73 sq M.predicted among non-blacks MDRD (S/P/Bld) [Vol rate/Area] 103 mL/min/{1.73_m2} Normal >60 [facility] Comment on above: Order Comment: 'TROP ' Serial specimen #1, #2 or #3: 1 Result Comment: Non- GFR Calc Performed By: #### L 100.0100, L500.4050, L501.2450, L501.4020 ####[facility] [address] [place], [address] Globulin (S) [Mass/Vol] 3.1 g/dL Normal 2.2-4.2 [facility] Comment on above: Order Comment: 'TROP ' Serial specimen #1, #2 or #3: 1 Performed By: #### L 100.0100, L500.4050, L501.2450, L501.4020 ####[facility] [address] [place], [address] Glucose [Mass/Vol] 110 mg/dL High 74-106 [facility] Comment on above: Order Comment: 'TROP ' Serial specimen #1, #2 or #3: 1 Result Comment: Fast ing Glucose result from 100 to 125 mg/dL suggests IMPAIRED HOMEOSTASIS per A.D.A. criteria. Performed By: #### L 100.0100, L500.4050, L501.2450, L501.4020 ####[facility] [address] [place], [address] Potassium [Moles/Vol] 3.8 mmol/L Normal 3.5-5.1 [facility] Comment on above: Order Comment: 'TROP ' Serial specimen #1, #2 or #3: 1 Performed By: #### L 100.0100, L500.4050, L501.2450, L501.4020 ####[facility] [address] [place], [address] Sodium [Moles/Vol] 139 mmol/L Normal 136-145 [facility] Comment on above: Order Comment: 'TROP ' Serial specimen #1, #2 or #3: 1 Performed By: #### L 100.0100, L500.4050, L501.2450, L501.4020 ####[facility] [address] [place], [address] T PROT 6.3 g/dL Low 6.4-8.2 [facility] Comment on above: Order Comment: 'TROP ' Serial specimen #1, #2 or #3: 1 Performed By: #### L 100.0100, L500.4050, L501.2450, L501.4020 ####[facility] [address] [place], [address] Urea nitrogen [Mass/Vol] 15 mg/dL Normal 7-18 [facility] Comment on above: Order Comment: 'TROP ' Serial specimen #1, #2 or #3: 1 Performed By: #### L 100.0100, L500.4050, L501.2450, L501.4020 ####[facility] [address] [place], [address] Emergency Department Summary on 04-05-2024 Emergency Department Summary [facility] Medical Records Department [address] [place] [address] Emergency Department Summary 04/05/24 MR#: [id number] Acct: [id number] Name: JEN DEMARCO Rep #: [id number] : 1955 68 From: Shelia Bourne DO PCP: Dr. Helena Brantley MD Status:REG ER Location: ED HPI History of Present Illness Chief Complaint: General Illness Informant: patient Narrative Narrative: Patient is a 68-year-old female with history of psoriasis and arthritis presenting with vague back discomfort. Seems to be localized around her left shoulder blade. She has a hard time describing the characteristic of the discomfort but states it is more of an annoyance than a pain. She states it has been intermittent lasting for about 15-20 minutes every hour since yesterday afternoon. She does not currently have any. She notes that she has had some associated fatigue with it. Has had some increased belching since eating cereal yesterday and had some nausea this morning. Has had a intermittent mild headache as well as mild congestion. Denies any fevers or chills. Denies any chest pain or shortness of breath. Has tried changing positions, stretching with no relief of her symptoms. Did not take any medications prior to arrival due to the mild nausea. Denies any recent travel. Denies any swelling of her legs, history of DVT or PE. Notes that she did do new workout on , 3 days ago that included exercises with upper and lower body was not sure if this is the cause of her discomfort. [facility] Medical History Wears contact lenses Post-menopausal Cancer Anxiety Alcohol use Anemia Easy bruising Non-smoker Leg cramps History of pain when walking History of edema Fracture of greater tuberosity of right humerus Right rotator cuff tear Right shoulder pain Chronic pruritus Arthritis Home Medications ???Medication ???Instructions ???Recorded ???Last Taken ???Type biotin 1 mg capsule 1 mg PO DAILY 09/10/19 Unknown History alendronate 70 mg tablet (Fosamax) 70 mg PO QWEEK 09/13/20 Unknown History cholecalciferol (vitamin D3) 50 50 mcg PO DAILY 09/13/20 Unknown History mcg (2,000 unit) capsule acetaminophen 650 mg 650 mg PO Q12H PRN PRN pain 09/18/21 Unknown History tablet,extended release duloxetine 60 mg capsule,delayed 60 mg PO DAILY 09/18/21 Unknown History release meloxicam 15 mg tablet 15 mg PO DAILY PRN pain 09/18/21 Unknown History dupilumab 300 mg/2 mL subcutaneous 300 mg subcut Q2W 09/19/22 Unknown History pen injector (Dupixent) ascorbic acid (vitamin C) 500 mg 500 mg PO BID 02/06/24 Unknown History tablet (C-500) estradiol 0.01% (0.1 mg/gram) 1 appful vaginal .EVERY OTHER DAY 02/06/24 Unknown History vaginal cream oxyquinoline 0.025 %-sodium lauryl See Rx Instructions vaginal 02/24/24 Unknown Rx sulfate 0.01 % vaginal gel .COMPLEX #113.4 grams (Trimo-Gordon Jelly) pantoprazole 20 mg tablet,delayed 20 mg PO DAILY #30 tabs 04/05/24 Unknown Rx release Allergy/AdvReac Type Severity Reaction Status Date / Time glucosamine Allergy Mild NEEDS Verified 04/05/24 08:04 FOLLOW-UP Chondroitin Analogues Allergy NEEDS Verified 04/05/24 08:04 FOLLOW-UP Family History Mother Hypertension Grandmother Aneurysm Grandfather Aneurysm Surgical History History of vein stripping Hx of colonoscopy H/O removal of cyst S/P right knee surgery History of LAVH H/O rotator cuff surgery Social History Smoking Status: Never smoker alcohol intake: current details: social substance use type: does not use caffeine: Yes what type of physical activity do you participate in: walking and weight training frequency: 3-4 times per week seatbelt use: always do you feel safe at home: Yes 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 ROS ROS ED Constitutional Constitutional ED: Reports other Details: fatigue ; Denies chills or fever(s) ENT ENT ED: Reports other Details: nasal congestion ; Denies ear pain, rhinorrhea or sore throat Cardiovascular Cardiovascular: Denies chest pain or palpitations Respiratory/Chest Respiratory/Chest: Denies cough or dyspnea Gastrointestinal Gastrointestinal: Reports nausea; Denies abdominal pain, constipation, diarrhea or vomiting Musculoskeletal Musculoskeletal: Reports back pain; Denies arthralgias or myalgias Integumentary Denies rash Neurologic Neurologic: Reports headache(s); Denies paresthesias or weakness Psychiatric Psychiatric: Denies anxiety Hematologic/Lymphatic Hematologic/Lymphatic: Denies easy bleeding or easy bruising E (more content not included)... Normal [facility] Eosinophil percentageOrdered By: Shelia Bourne on 04-05-2024 Eosinophils/100 WBC (Bld) 0.7 % 0-5 [facility] Erythrocyte distribution wid th ratioOrdered By: Shelia Bourne on 04-05-2024 Erythrocyte distribution width (RBC) [Ratio] 13.8 % 11.6-14.6 [facility] Erythrocyte distribution wid th standard deviationOrdered By: Shelia Bourne on 04-05-2024 Erythrocyte distribution width (RBC) [Entitic vol] 48.6 fL High 35.1-43.9 [facility] Estimated glomerular filtrat ion rate (GFR) AmericanOrdered By: Shelia Bourne on 04-05-2024 Estimated GFR (MDRD) Amer 124 mL/min >60 [facility] Comment on above: GFR Calc Estimation of creatinine bettye aranceOrdered By: Shelia Bourne on 04-05-2024 Estimated Creatinine Clearance Calc 57.22 ml/min [facility] Glomerular filtration rate ( GFR) estimationOrdered By: Shelia Bourne on 04-05-2024 Estimated GFR (MDRD) Non-Af Amer 103 mL/min >60 [facility] Comment on above: Non- GFR Calc Glucose measurementOrdered B y: Shelia Bourne on 04-05-2024 Glucose [Mass/Vol] 110 mg/dL High 74-106 [facility] Comment on above: Fasting Glucose resu lt from 100 to 125 mg/dL suggests IMPAIRED HOMEOSTASIS per A.D.A. criteria. Hematocrit Auto (Bld) [Volum e fraction]Ordered By: Shelia Bourne on 04-05-2024 Hematocrit (Bld) [Volume fraction] 38.6 % 37-47 [facility] Hemoglobin measurementOrdere d By: Shelia Bourne on 04-05-2024 Hemoglobin (Bld) [Mass/Vol] 12.9 g/dL 12.0-15.0 [facility] Immature granulocytes/100 WB C Auto (Bld)Ordered By: Shelia Bourne on 04-05-2024 Immature granulocytes/100 WBC (Bld) 0.300 % 0.0-0.9 [facility] Comment on above: IG% - Immature Granu locytes (promyelocytes, myelocytes and metamyelocytes) > 1% indicates that a LEFT SHIFT is Present. Influenza virus A and B and SARS-CoV-2 (COVID-19) and Respiratory syncytial virus RNAOrdered By: Shelia Bourne on 04-05-2024 SARS-CoV-2 (COVID-19) RNA VARSHA+probe Ql (Unsp spec) [facility] L501.4020on 04-05-2024 TROPONIN-I HS 6 pg/mL Normal 3.0-54.0 [facility] Comment on above: Order Comment: 'TROP ' Serial specimen #1, #2 or #3: 1 Result Comment: Plea se Note: New Test Units and Gender Specific Reference Ranges. For more information see Policy Stat Procedure [place] High Sensitivity Troponin (TNIH) and attachments. Performed By: #### L 100.0100, L500.4050, L501.2450, L501.4020 ####[facility] [address] [place], [place], [id number] Laboratory - Chemistry and C hemistry - challengeOrdered By: Shelia Bourne on 04-05-2024 AST [Catalytic activity/Vol] 20 U/L 15-37 [facility] Lipaseon 04-05-2024 Lipase [Catalytic activity/Vol] 32 U/L Normal 13-75 [facility] Comment on above: Order Comment: 'TROP ' Serial specimen #1, #2 or #3: 1 Result Comment: Plea se note: LIPASE revised reference range effective 22. New Lipase methodology. Expected to produce lower values than the previous assay method. NEW Reference Range: 13 - 75 U/L Performed By: #### L 100.0100, L500.4050, L501.2450, L501.4020 ####[facility] [address] [place], [address] Lipase measurementOrdered By : Shelia Bourne on 04-05-2024 Lipase [Catalytic activity/Vol] 32 U/L 13-75 [facility] Comment on above: Please note:LIPASE r evised reference range effective 22. New Lipase methodology. Expected to produce lower values than the previous assay method. NEW Reference Range: 13 - 75 U/L Lymphocytes Auto (Unsp spec) [#/Vol]Ordered By: Shelia Bourne on 04-05-2024 Lymphocytes (Bld) [#/Vol] 0.45 10*3/uL Low 0.83-4.51 [facility] Lymphocytes/100 WBC Auto (Un sp spec)Ordered By: Shelia Bourne on 04-05-2024 Lymphocytes/100 WBC (Bld) 6.6 % Low 19-41 [facility] M100.678on 04-05-2024 M100.678 Pending SARS-CoV-2 (COVID 19) Negative INFLUENZA A Negative INFLUENZA B Negative RSV PCR Negative Normal [facility] Comment on above: Performed By: #### M 100.678 #### [facility] [address] [place], [address] MCV (mean corpuscular volume ) determinationOrdered By: Shelia Bourne on 04-05-2024 MCV (RBC) [Entitic vol] 95.1 fL 81-99 [facility] Mean corpuscular hemoglobin (MCH) determinationOrdered By: Shelia Bourne on 04-05-2024 MCH (RBC) [Entitic mass] 31.8 pg 27.0-32.0 [facility] Mean corpuscular hemoglobin concentration (MCHC) determinationOrdered By: Shelia Bourne on 04-05-2024 MCHC (RBC) [Mass/Vol] 33.4 g/dL 32-36 [facility] Mean platelet volume determi nationOrdered By: Shelia Bourne on 04-05-2024 Platelet mean volume (Bld) [Entitic vol] 9.7 fL 6.2-12.0 [facility] Monocyte percentageOrdered B y: Shelia Bourne on 04-05-2024 Monocytes/100 WBC (Bld) 6.9 % 0-10 [facility] Neutrophil percentageOrdered By: Shelia Bourne on 04-05-2024 Neutrophils/100 WBC (Bld) 85.1 % High 47-70 [facility] Nucleated red blood cell per centageOrdered By: Shelia Bourne on 04-05-2024 Nucleated RBC/100 WBC (Bld) [Ratio] 0 % 0-5 [facility] Platelet countOrdered By: Regis oBurne on 04-05-2024 Platelets (Bld) [#/Vol] 225 10*3/uL 150-450 [facility] Potassium measurementOrdered By: Shelia Bourne on 04-05-2024 Potassium [Moles/Vol] 3.8 mmol/L 3.5-5.1 [facility] RBC Auto (Bld) [#/Vol]Ordere d By: Shelia Bourne on 04-05-2024 RBC (Bld) [#/Vol] 4.06 10*6/uL Low 4.2-5.4 [facility] Serum anion gap measurementO rdered By: Shelia Bourne on 04-05-2024 Anion gap [Moles/Vol] 5 mmol/L 5-15 [facility] Serum globulin measurementOr dered By: Shelia Bourne on 04-05-2024 Globulin (S) [Mass/Vol] 3.1 g/dL 2.2-4.2 [facility] Serum or plasma alanine chance otransferase (ALT) measurementOrdered By: Shelia Bourne on 04-05-2024 ALT [Catalytic activity/Vol] 25 U/L 13-56 [facility] Serum or plasma albumin perdo urement (mass/volume)Ordered By: Shelia Bourne on 04-05-2024 Albumin [Mass/Vol] 3.2 g/dL 3.2-5.0 [facility] Serum or plasma alkaline isaac sphatase measurementOrdered By: Shelia Bourne on 04-05-2024 ALP [Catalytic activity/Vol] 41 U/L Low 45-117 [facility] Serum or plasma calcium pedro urement (mass/volume)Ordered By: Shelia Bourne on 04-05-2024 Calcium [Mass/Vol] 8.1 mg/dL Low 8.5-10.1 [facility] Serum or plasma creatinine m easurement (mass/volume)Ordered By: Shelia Bourne on 04-05-2024 Creatinine [Mass/Vol] 0.62 mg/dL 0.55-1.02 [facility] Comment on above: The validity of the calculated GFR & GFRAA in patients over 70 years has not been determined. Clinical correlation is essential. Serum or plasma urea nitroge n measurement (mass/volume)Ordered By: Shelia Bourne on 04-05-2024 Urea nitrogen [Mass/Vol] 15 mg/dL 7-18 [facility] Sodium levelOrdered By: Jaron Bourne on 04-05-2024 Sodium [Moles/Vol] 139 mmol/L 136-145 [facility] Total proteinOrdered By: Eva Bourne on 04-05-2024 Protein [Mass/Vol] 6.3 g/dL Low 6.4-8.2 [facility] Troponin IOrdered By: Shelia Bourne on 04-05-2024 Troponin I High Sensitivity 6 pg/mL 3.0-54.0 [facility] Comment on above: Please Note: New Anabel t Units and Gender Specific Reference Ranges. For more information see Policy Stat Procedure [place] High Sensitivity Troponin (TNIH) and attachments. White blood cell (WBC) count Ordered By: Shelia Bourne on 04-05-2024 WBC (Bld) [#/Vol] 6.8 10*3/uL 4.4-11.0 [facility] Orthopedic Visit Reporton Orthopedic Visit Report [facility] [address] [place] [address] OFFICE VISIT Date of Service: 01/02/24 MR#: [id number] Acct: [id number] Name: JEN DEMARCO Rep #: [id number] : 1955 Provider: Dr. Heladio ford MD Age/Sex: 68/F Location: [facility] Status: Signed Intake Vital Signs 11/28/23 13:30 Height 5 ft 3 in Intake Visit Reasons: RIGHT SHOULDER Accompanied by: Self Is patient in pain?: No Allergies glucosamine Allergy (Mild, Verified 01/02/24 10:10) NEEDS FOLLOW-UP Chondroitin Analogues Allergy (Verified 01/02/24 10:10) NEEDS FOLLOW-UP Medications ???Medication ???Instructions ???Recorded ???Confirmed ???Type biotin 1 mg capsule 1 mg PO DAILY 09/10/19 01/02/24 History alendronate 70 mg tablet (Fosamax) 70 mg PO QWEEK 09/13/20 01/02/24 History cholecalciferol (vitamin D3) 50 50 mcg PO DAILY 09/13/20 01/02/24 History mcg (2,000 unit) capsule acetaminophen 650 mg 650 mg PO Q12H 09/18/21 01/02/24 History tablet,extended release duloxetine 60 mg capsule,delayed 60 mg PO DAILY 09/18/21 01/02/24 History release meloxicam 15 mg tablet 15 mg PO DAILY PRN 09/18/21 01/02/24 History dupilumab 300 mg/2 mL subcutaneous 300 mg subcut Q2W 09/19/22 01/02/24 History pen injector ([facility] [employer]) oxyquinoline 0.025 %-sodium lauryl See Rx Instructions vaginal 10/03/22 01/02/24 Rx sulfate 0.01 % vaginal gel .COMPLEX #113.4 grams (Trimo-Gordon Jelly) estradiol 0.01% (0.1 mg/gram) See Rx Instructions vaginal 03/06/23 01/02/24 Rx vaginal cream .COMPLEX #42.5 grams Have you fallen in the past year?: Yes PFSH Medical History (Updated 01/02/24 @ 10:27 by Heladio Swanson MD) Fracture of greater tuberosity of right humerus Right rotator cuff tear Right shoulder pain Chronic pruritus Arthritis Surgical History H/O removal of cyst S/P right knee surgery [facility] Family History Mother Hypertension Grandmother Aneurysm Grandfather Aneurysm Social History Smoking Status: Never smoker alcohol intake: current details: social substance use type: does not use caffeine: Yes what type of physical activity do you participate in: walking and weight training frequency: 3-4 times per week seatbelt use: always do you feel safe at home: Yes 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 Heladio Swanson MD 01/02/24 0836. Part of today???s visit was documented by [ ], acting as scribe. JEN DEMARCO is a 68 year old F here today for FU R shoulder MRI. Still painful, worse at night. Going to [facility] in a couple weeks to visit family. Office Procedures Ortho Injections Injections Yes Subacromial Injection Right Is this a patient provided medication?: No Details: Obtained consent for injection. Under sterile conditions, injected the patients Right Shoulder with 2ml Kenalog and 4ml Bupivacaine. The patient tolerated the injection well without any noted complication. Patient should call our office if redness develops, pain worsens or if they have any concerns. Office Meds Kenalog 40 mg/mL suspension for injection Performing Provider: Heladio Swanson MD Performing Location: [facility] Administered by: Heladio Swanson MD on 01/02/24 10:28 Dose Route Admin Location Dispensed Lot Number Expiration Date [facility] Man ufacturer 80 mg intra-articular Right Shoulder 2 mL [id number] 06/30/25 7443-5786-02 [facility] Supplemental Info [facility] Imaging Services [address] [place] [id number] Upper Ext Joint Only(Routine) MR#: [id number] Acct: [id number] Name: JEN DEMARCO Rep #: [id number] : 1955 F 68 From: Chad Caba MD PCP: Dr. Helena Brantley MD Status: REG CLI Study: Upper Ext Joint Only(Routine) Date of Exam: 12/24/23 Exam# [id number] Ordering Dr: Heladio Swanson MD [id number] STUDY: MRI RIGHT SHOULDER REASON FOR EXAM: Female, 68 years old. Pain, assess cuff. TECHNIQUE: Standardized fat and water weighted pulse sequences were obtained in all 3 orthogonal planes. COMPARISON: Right shoulder radiographs dated 07/08/2023. FINDINGS: There is a suspected 4 x 4 mm full-thickness tear of the supraspinatus tendon (coronal T2 series 6 images 12-13). There is i (more content not included)... Normal [facility] Upper Ext Joint Only(Routine )on 12-24-2023 Upper Ext Joint Only(Routine) [facility] Imaging Services [address] [place] [address] Upper Ext Joint Only(Routine) MR#: [id number] Acct: [id number] Name: JEN DEMARCO Rep #: [id number] : 1955 F 68 From: Chad Caba MD PCP: Dr. Helena Brantley MD Status: REG CLI Study: Upper Ext Joint Only(Routine) Date of Exam: 0 12/24/23 Exam# [id number] Ordering Dr: Heladio Swanson MD [id number] STUDY: MRI RIGHT SHOULDER REASON FOR EXAM: Female, 68 years old. Pain, assess cuff. TECHNIQUE: Standardized fat and water weighted pulse sequences were obtained in all 3 orthogonal planes. COMPARISON: Right shoulder radiographs dated 07/08/2023. FINDINGS: There is a suspected 4 x 4 mm full-thickness tear of the supraspinatus tendon (coronal T2 series 6 images 12-13). There is infraspinatus tendinosis. Normal subscapularis tendon. Normal teres minor tendon. Normal supraspinatus muscle. Normal infraspinatus muscle. Normal subscapularis muscle. Normal teres minor muscle. There is a nondisplaced avulsion fracture of the greater tuberosity of the humeral head, overall measuring 1.2 x 0.8 x 0.7 cm (axial PD series 3 image 10; sagittal T2 series 7 image 16), with surrounding marrow edema Normal glenohumeral articulation. Normal biceps labral complex. Normal intracapsular long biceps tendon. Normal labrum. Normal capsulo-ligamentous complex. Normal rotator interval. 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 There is a Type II morphology (curved), with a neutral orientation. There is a small amount of subacromial-subdeltoid bursal fluid. Normal visualized coracohumeral and coracoacromial ligaments. Normal quadrilateral space. Normal axillary space. Normal deltoid muscle. Normal trapezius muscle. MRI/Upper Ext Joint Only(Routine) IMPRESSION: Suspected 4 x 4 mm full-thickness tear of the supraspinatus tendon. Infraspinatus tendinosis. 1.2 x 0.8 x 0.7 cm nondisplaced avulsion fracture of the greater tuberosity of the humeral head. Hypertrophic acromioclavicular arthrosis, with inferior osteophyte formation, with mild effacement of the supraspinatus myotendinous junction. Small amount of subacromial-subdeltoid bursal fluid. Electronically Signed: Chad Caba MD at 14:11 EDT , CC: Dr. Helena Brantley MD; Dr. Heladio Swanson MD [employer] Roboticist: Signed Normal [facility] Urine Cultureon 12-08-2023 [facility] Presumptive E. coli [place] Count >100,000 Presumptive E. coli: REACTION Ampicillin Islt EDD >=32 R Ampicillin+Sulbac Islt EDD 16 I ceFAZolin Islt EDD <=4 S Cefepime Islt EDD <=0.12 S cefTRIAXone Islt EDD <=0.25 S Ciprofloxacin Islt EDD <=0.25 S Ertapenem Islt EDD <=0.12 S B-Lactamase Extended Susc Islt NEG Gentamicin Islt EDD <=1 S Imipenem Islt EDD <=0.25 S levoFLOXacin Islt EDD <=0.12 S Nitrofurantoin Islt EDD <=16 S Pip+Tazo Islt EDD <=4 S Tobramycin Islt EDD <=1 S TMP SMX Islt EDD <=20 S Normal [facility] Comment on above: Performed By: #### M 100.2678 #### [facility] [address] [place], [address] Urgent Care Visit Reporton 0 12-06-2023 Urgent Care Visit Report [facility] [address] , [address] [place] [address] OFFICE VISIT Date of Service: 12/06/23 MR#: [id number] Acct: [id number] Name: JEN DEMARCO Rep #: [id number] : 1955 Provider: BUBBA Brock Age/Sex: 68/F Location: [facility] Status: Signed Intake Vital Signs 11/28/23 13:30 12/06/23 10:07 Height 5 ft 3 in Weight: 125 lb BMI 22.1 BP 152/78 H Blood Pressure Location Rt brachial Position Sitting Respiration 16 Pulse 48 L Pulse Source NIBP Temp 98.0 F Temp Source Temporal Pulse Oximetry (%) 97 Oxygen Delivery Method room air Intake Visit Reasons: Urinary tract infection Chief Complaint: urinary urgency and decreased output Director Fixed Income Required: No Is patient in pain?: No Allergies glucosamine Allergy (Mild, Verified 12/06/23 10:08) NEEDS FOLLOW-UP Chondroitin Analogues Allergy (Verified 12/06/23 10:08) NEEDS FOLLOW-UP Is last menstrual period known: No Post menopausal: Yes Patient : No Have you fallen in the past year?: No Nurse's Note: urinary urgency and decreased output x 3-[address] Lopez for frequent UTI but testing has not been completed at this time. denies abd pain/back pain/fever. 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 Patient denies fever, chills, sweats. No nausea, vomiting or diarrhea. No pelvic or abdominal pain. No other associated symptoms or alleviating/aggravating factors. ROS Const Constitutional: Positive for other (see HPI, otherwise normal ROS) Exam Const General: cooperative and healthy appearing Resp Effort Inspection: normal respiratory effort Auscultation: Bilateral: Clear to Auscultation Cardio Rate: regular rate Rhythm: regular rhythm GI Auscultation: normal bowel sounds General: No CVA tenderness Psych Appearance: grossly normal Mental Status: mental status grossly normal Results POC Urinalysis Dip (Clinic) Office Urine Color Dk Yellow Last Edit by Romy Lawrence on 12/06/23 10:21 Office Urine Clarity Cloudy Last Edit by Romy Lawrence on 12/06/23 10:21 Office Urine Glucose Negative Last Edit by Romy Lawrence on 12/06/23 10:21 Office Urine Ketones Negative Last Edit by Romy Lawrence on 12/06/23 10:21 Off Ur Spec [place] 1.015 Last Edit by Romy Lawrence on 12/06/23 10:21 Office Urine pH 7.0 Last Edit by Romy Lawrence on 12/06/23 10:21 Office Urine Bilirubin Last Edit by Romy Lawrence on 12/06/23 10:21 Office Urine Urobilinogen Negative Last Edit by Romy Lawrence on 12/06/23 10:21 Office Urine Blood Moderate Last Edit by Romy Lawrence on 12/06/23 10:21 Office Urine Blood Hemolyzed NA Last Edit by Romy Lawrence on 12/06/23 10:21 Office Urine Protein 3+ Last Edit by Romy Lawrence on 12/06/23 10:21 Office Urine Nitrate Negative Last Edit by Romy Lawrence on 12/06/23 10:21 Off Ur Leukocytes Positive Last Edit by Romy Lawrence on 12/06/23 10:21 Coding Level of Care Code Off vis,est,level 3 Diagnoses Urinary tract infection N39.0 Assessment and Plan Assessment and Plan (1) Urinary tract infection: Plan: Macrobid as prescribed today. Encouraged to get plenty of rest, drink lots of clear liquids, and use Tylenol or Ibuprofen (unless contraindicated) for fever and comfort. Patient also educated on other symptomatic management techniques. To be seen in 7-10 days if no improvement; sooner if worsening of symptoms. Patient advised of potential red flags and when appropriate to report to the ED. Patient verbalized understanding and agreement with all the above. Orders: Orders POC Urinalysis Dip (Clinic) Today R39.15 - Urgency of urination Medications: New nitrofurantoin monohyd/m-cryst 100 mg administer with a m (more content not included)... Normal [facility] Orthopedic Visit Reporton Orthopedic Visit Report [facility] [address] [place] [address] OFFICE VISIT Date of Service: 11/28/23 MR#: [id number] Acct: [id number] Name: JEN DEMARCO Rep #: [id number] : 1955 Provider: Dr. Heladio ford MD Age/Sex: 68/F Location: [facility] Status: Signed Intake Vital Signs 09/23/23 09:09 11/28/23 13:30 Height 5 ft 3 in 5 ft 3 in Weight: 125 lb BMI 22.1 Intake Visit Reasons: RIGHT SHOULDER Accompanied by: Self Is patient in pain?: Yes Pain scale (1-10): 7 Allergies glucosamine Allergy (Mild, Verified 11/28/23 13:31) NEEDS FOLLOW-UP Chondroitin Analogues Allergy (Verified 11/28/23 13:31) NEEDS FOLLOW-UP Medications ???Medication ???Instructions ???Recorded ???Confirmed ???Type biotin 1 mg capsule 1 mg PO DAILY 09/10/19 11/28/23 History alendronate 70 mg tablet (Fosamax) 70 mg PO QWEEK 09/13/20 11/28/23 History cholecalciferol (vitamin D3) 50 50 mcg PO DAILY 09/13/20 11/28/23 History mcg (2,000 unit) capsule acetaminophen 650 mg 650 mg PO Q12H 09/18/21 11/28/23 History tablet,extended release duloxetine 60 mg capsule,delayed 60 mg PO DAILY 09/18/21 11/28/23 History release meloxicam 15 mg tablet 15 mg PO DAILY PRN 09/18/21 11/28/23 History dupilumab 300 mg/2 mL subcutaneous 300 mg subcut Q2W 09/19/22 11/28/23 History pen injector (Dupixent) oxyquinoline 0.025 %-sodium lauryl See Rx Instructions vaginal 10/03/22 11/28/23 Rx sulfate 0.01 % vaginal gel .COMPLEX #113.4 grams (Trimo-Gordon Jelly) estradiol 0.01% (0.1 mg/gram) See Rx Instructions vaginal 03/06/23 11/28/23 Rx vaginal cream .COMPLEX #42.5 grams Have you fallen in the past year?: Yes PFSH Medical History Right shoulder pain Chronic pruritus Arthritis Surgical History H/O removal of cyst S/P right knee surgery History of [facility] H/O rotator cuff surgery Family History Mother Hypertension Grandmother Aneurysm Grandfather Aneurysm Social History Smoking Status: Never smoker alcohol intake: current details: social substance use type: does not use caffeine: Yes what type of physical activity do you participate in: walking and weight training frequency: 3-4 times per week seatbelt use: always do you feel safe at home: Yes 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 Heladio Swanson MD 11/28/23 0844. Part of today???s visit was documented by [ ], acting as scribe. JEN DEMARCO is a 68 year old F here today for R shoulder pain. vipin lateral, six months, at rest no pain, worse with doing activities, lifting or at night, level of the pain 7-8/10. RHD. no injury. had it before in the other shoulder. had a surgery. long time ago. [place] - PT at [facility] july and august. ice. taking meloxicam. no cortisone injection or surgery. Supplemental Info [facility] Imaging Services [address] [place] [address] Shoulder min 2 Views MR#: [id number] Acct: [id number] Name: JEN DEMARCO Rep #: [id number] : 1955 F 67 From: Ted Saavedra MD PCP: Dr. Helena Brantley MD Status: REG CLI Study: Shoulder min 2 Views Date of Exam: 07/08/23 Exam# [id number] Ordering Dr: Helena Brantley MD [id number] EXAM: XR RIGHT SHOULDER COMPLETE, 2 OR MORE VIEWS CLINICAL INDICATION: pain/ROTATOR CUFF TENDONITIS TECHNIQUE: Two or more views of the right shoulder. COMPARISON: No relevant prior studies available. FINDINGS: BONES/JOINTS: Minimal degenerative spurring noted about the inferior aspect of the right AC joint. No acute fracture, dislocation or AC joint widening. Preservation of the joint space. No sclerotic or destructive changes observed. SOFT TISSUES: Unremarkable. No soft tissue swelling or gas. No radiopaque foreign body. No soft tissue calcifications are seen to indicate calcific tendinitis/bursitis. OTHER: The visualized right ribs are intact. The visualized right lung is clear except for basilar atelectasis. RAD/Shoulder min 2 Views IMPRESSION: Degenerative spurring about the inferior aspect of the right AC joint, otherwise negative. Electronically Signed: Ted Saavedra MD at 5:14 EDT Reading Location ID and State: [id number] / [place] Tel , Service russo (more content not included)... Normal [facility] Kidney and Bladderon 024 Kidney and Bladder [facility] Imaging Services [address] [place], [place] [address] Kidney and Bladder MR#: [id number] Acct: [id number] Name: JEN DEMARCO Rep #: [id number] : 1955 F 68 From: Eli blum MD PCP: Dr. Helena Brantley MD Status: REG CLI Study: Kidney and Bladder Date of Exam: 11/08/23 Exam# [id number] Ordering Dr: Tracy Lopez MD [id number] HISTORY: Urinary tract infection. TECHNIQUE: Vasquez scale and color doppler images were obtained of the kidneys. 71 images. COMPARISON: 02/13/2019. FINDINGS: RIGHT KIDNEY: 8.8 cm in length with a cortical thickness of 1.2 cm. Contour and echogenicity unremarkable. No hydronephrosis. No gross renal mass demonstrated. LEFT KIDNEY: 9.5 cm in length with a cortical thickness of 1.5 cm. Contour and echogenicity unremarkable. No hydronephrosis. No gross renal mass demonstrated. URINARY BLADDER: Unremarkable at 403 cc with a 3 mm wall thickness. 20 mL post void residual. US/Kidney and Bladder IMPRESSION: Unremarkable examination of the kidneys. Mild post void residual in the bladder. Electronically Signed: Eli Harmon MD at 14:43 EDT , CC: Dr. Helena Brantley MD; Dr. Tracy Lopez MD [employer] Rob[employer]ist: Signed Normal [facility] Calprotectin, Stoolon [address] 39 ug/g Normal 0-120 [facility] Comment on above: Result Comment: Conc entration Interpretation Follow-Up < 5 - 50 ug/g Normal None >50 -120 ug/g Borderline Re-evaluate in 4-6 weeks >120 ug/g Abnormal Repeat as clinically indicated Performed at: [facility] [address] [id number] Ball Warper Tender: Alex Martinez MD, Phone: [phone] Performed By: #### L 7000.0700 #### [facility] [address] [place], [place], [address] Celiac Disease Profileon ENDOMYSIAL IGA Negative Normal Negative [facility] Comment on above: Performed By: #### L 3410.2400, L501.6710 #### [facility] [address] [place], [address] IMMUNOGLOB A QN 77 mg/dL Low 87-352 [facility] Comment on above: Performed By: #### L 3410.2400, L501.6710 #### [facility] [address] [place], [place], [id number] tTG IGA <2 Normal 0-3 [facility] Comment on above: Result Comment: Nega tive 0 - 3 Weak Positive 4 - 10 Positive >10 Tissue Transglutaminase (tTG) has been identified as the endomysial antigen. Studies have demonstr- ated that endomysial IgA antibodies have over 99% specificity for gluten sensitive enteropathy. Performed By: #### L 3410.2400, L501.6710 #### [facility] [address] [place], [place], [id number] tTG IGG 2 U/mL Normal 0-5 [facility] Comment on above: Result Comment: Nega tive 0 - 5 Weak Positive 6 - 9 Positive >9 Performed at: [facility] [address] [id number] Ball Warper Tender: Patrick Heaton PhD, Phone: [phone] Performed By: #### L 3410.2400, L501.6710 #### [facility] [address] [place], [place], [id number] CRPon 10-23-2023 C-REACTIVE PROT < 2.90 Normal 0.0-3.0 [facility] Comment on above: Result Comment: C-Re active Protein (CRP) provides useful information for the diagnosis, therapy and monitoring of inflammatory processes and associated diseases. For the evaluation of Relative Risk for Cardiovascular Disease, a High Sensitivity CRP (HSCRP) should be ordered. Performed By: #### L 3410.2400, L501.6710 #### [facility] [address] [place], [address] Bath Tester Office Visit Reporton 09-23-2023 Bath Tester Office Visit Report [facility] [address] [place] [address] OFFICE VISIT Date of Service: 09/23/23 MR#: [id number] Acct: [id number] Name: JEN DEMARCO Rep #: [id number] : 1955 Provider: CHIQUI sunshine Age/Sex: 67/F Location: [facility] Status: Signed Intake Vital Signs 03/06/23 08:37 09/23/23 09:00 09/23/23 09:09 Height 5 ft 3 in 5 ft 3 in 5 ft 3 in Weight: 128 lb 6 oz BMI 22.7 BP 124/78 H Intake Visit Reasons: Annual (TIPPLE BOSS) Chief Complaint: Annual Director Fixed Income Required: No Is patient in pain?: No Allergies glucosamine Allergy (Mild, Verified 09/23/23 09:00) NEEDS FOLLOW-UP Chondroitin Analogues Allergy (Verified 09/23/23 09:00) NEEDS FOLLOW-UP Medications ???Medication ???Instructions ???Recorded ???Confirmed ???Type biotin 1 mg capsule 1 mg PO DAILY 09/10/19 09/23/23 History alendronate 70 mg tablet (Fosamax) 70 mg PO QWEEK 09/13/20 09/23/23 History cholecalciferol (vitamin D3) 50 50 mcg PO DAILY 09/13/20 09/23/23 History mcg (2,000 unit) capsule acetaminophen 650 mg 650 mg PO Q12H 09/18/21 09/23/23 History tablet,extended release duloxetine 60 mg capsule,delayed 60 mg PO DAILY 09/18/21 09/23/23 History release meloxicam 15 mg tablet 15 mg PO DAILY PRN 09/18/21 09/23/23 History dupilumab 300 mg/2 mL subcutaneous 300 mg subcut Q2W 09/19/22 09/23/23 History pen injector (Dupixent) oxyquinoline 0.025 %-sodium lauryl See Rx Instructions vaginal 10/03/22 09/23/23 Rx sulfate 0.01 % vaginal gel .COMPLEX #113.4 grams (Trimo-Gordon Jelly) estradiol 0.01% (0.1 mg/gram) See Rx Instructions vaginal 03/06/23 09/23/23 Rx vaginal cream .COMPLEX #42.5 grams metronidazole 0.75 % (37.5 mg/5 1 appful vaginal DAILY 5 days #70 09/23/23 09/23/23 Rx gram) vaginal gel grams Is last menstrual period known: No Post menopausal: Yes Patient : No : No PFSH Medical History Chronic pruritus Arthritis Surgical History H/O removal of cyst S/P right knee surgery History of LAVH H/O rotator cuff surgery Family History Mother Hypertension Grandmother Aneurysm Grandfather Aneurysm Social History Smoking Status: Never smoker alcohol intake: current details: social substance use type: does not use caffeine: Yes what type of physical activity do you participate in: walking and weight training frequency: 3-4 times per week seatbelt use: always do you feel safe at home: Yes 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 Date Name GA/Weeks Outcome Route Bth Weight Infant Gen Labor Lgth Anesthesia Del Locatn Provider FOB Unknown 1984 Gume Unknown 1987 Mike Unknown 1989 [facility] Encounter for routine gynecological examination Details: JEN DEMARCO is a 67 year old who presents for annual exam. Off and on vaginal odor and sometimes noting blood with pessary removal X 6 months. Cleans pessary weekly, using trimosan gel with pessary insertion and not every week, estradiol cream 3 nights Last PAP: LAVH History of abnormal PAP: no Last mammogram: 08/2022 History of abnormal mammogram: no Colon cancer screenin Other preventative health care screenings: [facility] Female Reproductive History Questions: metorrhagia: No, sexually active: Yes, dyspareunia: No and PCB: No ROS Const Constitutional: Denies fatigue, weight gain or weight loss Cardio Card: Denies chest pain Resp Resp: Denies cough or dyspnea on exertion GI GI: Denies abdominal pain, bloating, change in stool character, constipation or vomiting : Reports as per HPI; Denies difficulty voiding, pelvic pain, urinary frequency, urinary incontinence, urinary urgency, vaginal discharge or vaginal pruritus Exam Const General: cooperative, healthy appearing, no acute distress and well developed Orientation: alert, oriented to person and oriented to place HENSD Head: normal to inspection Neck Neck: normal visual inspection Thyroid: thyroid normal Lymphatic: no lymphadenopathy noted Chest Breast inspection: normal inspection of the breasts and normal inspection of the axillae Breast palpation: normal palpation of the breasts, normal palpation of the axillae and no axillary lymphadenopathy Resp Effort Inspection: normal respiratory effort GI Palpation: soft, no masses (more content not included)... Normal [facility] SCRN MAMM (CAD)W/YAO BILATo n 09-23-2023 SCRN MAMM (CAD)W/YAO BILAT [facility] Imaging Services [address] [place] [address] SCRN MAMM (CAD)W/YAO BILAT MR#: [id number] Acct: [id number] Name: JEN DEMARCO Rep #: [id number] : 1955 F 67 From: Haroon worrell MD PCP: Dr. Helena Brantley MD Status: REG CLI Study: SCRN MAMM (CAD)W/YAO BILAT Date of Exam: 08/31 07/23 Exam# [id number] Ordering Dr: Rey Manzano WELDING MACHINE OPERATOR THERMIT WELDING MACHINE OPERATOR THERMIT -[id number] MAMMOGRAPHY - BILATERAL SCREENING REASON FOR EXAM: Female, 67 years old. Routine annual screening examination. PERTINENT HISTORY: Non-contributory. Chronic bilateral nipple inversion. TECHNIQUE: Digital bilateral breast yao (3D mammographic acquisition) in the CC and MLO projections. 2-D mediolateral oblique (MLO) and craniocaudad (CC) views of both breasts were obtained. CAD: Full Field Digital Mammography with Computer Added Detection was performed. COMPARISON: Comparison is made with prior study dated September 19, 2022 and September 18, 2021. FINDINGS: Breast Composition: The breasts are extremely dense, which lowers the sensitivity of mammography. There are no dominant masses or suspicious calcifications. No other significant abnormalities are identified. There has been no significant change since the prior study. BI/SCRN MAMM (CAD)W/YAO BILAT IMPRESSION: Stable bilateral screening mammogram. Yearly follow-up mammogram recommended. (A) ASSESSMENT CATEGORY: BIRADS Category 1: Negative. A letter regarding these results will be sent to the patient by the facility within 30 days. Approximately 10% of breast cancers are not detected by mammography. A normal mammogram should not delay biopsy of a clinically suspicious abnormality. [id number] Electronically Signed: Haroon Miller MD at 10:48 EDT , CC: CHIQUI Manzano; Dr. Helena Brantley MD [employer]: Signed Normal [facility] Culture, urineOrdered By: St agapito Salgado on 07-31-2023 Bacteria identified Cx Nom (U) Escherichia coli [facility] Laboratory - Chemistry and C hemistry - challengeon 07-31-2023 Bilirubin Ql (U) Negative [facility] Glucose Ql (U) Negative [facility] Ketones Ql (U) Negative [facility] pH (U) 6.5 [pH] [facility] Specific gravity (U) [Rel density] 1.020 [facility] Urobilinogen (U) [Mass/Vol] Negative [facility] Laboratory - Hematology and Cell countson 07-31-2023 Hemoglobin Ql (U) Large [facility] - Specimen inform ationon 07-31-2023 Clarity (U) Cloudy [facility] Color (U) Yellow [facility] Laboratory - Urinalysison Nitrite Ql (U) Negative [facility] Protein Ql (U) 2+ [facility] No Panel Informationon 07-30 Urine Leukocytes Positive [facility] Urine Non-Hemolyzed Blood [facility] Culture, urineOrdered By: Nely Arora on 03-01-2023 Bacteria identified Cx Nom (U) Presumptive E. coli [facility] Laboratory - Chemistry and C hemistry - challengeon 03-01-2023 Bilirubin Ql (U) Negative [facility] Glucose Ql (U) Negative [facility] Ketones Ql (U) Trace (5) [facility] pH (U) 6.0 [pH] [facility] Specific gravity (U) [Rel density] 1.030 [facility] Urobilinogen (U) [Mass/Vol] Negative [facility] Laboratory - Hematology and Cell countson 03-01-2023 Hemoglobin Ql (U) Large [facility] - Specimen inform ationon 03-01-2023 Clarity (U) Cloudy [facility] Color (U) Red [facility] Laboratory - Urinalysison Nitrite Ql (U) Negative [facility] Protein Ql (U) Negative [facility] No Panel Informationon 03-01 Urine Leukocytes Positive [facility] Urine Non-Hemolyzed Blood [facility] Bilirubin Test strip Ql (U)O rdered By: Rey Manzano on 01-30-2023 Bilirubin Ql (U) 1 mg/dL Negative [facility] Comment on above: COLOR OF URINE MAY A FFECT DIPSTICK RESULTS. Ketones Test strip Ql (U)Ord ered By: Rey Manzano on 01-30-2023 Ketones Ql (U) 5 mg/dl Negative [facility] Nitrite Test strip Ql (U)Ord ered By: Rey Manzano on 01-30-2023 Nitrite Ql (U) Negative Negative [facility] Protein Test strip Ql (U)Ord ered By: Rey Manzano on 01-30-2023 Protein Ql (U) 30 mg/dl Negative [facility] Urine blood detectionOrdered By: Rey Manzano on 01-30-2023 RBC Ql (U) 10 /ul Negative [facility] Urine clarityOrdered By: Jeana Manzano on 01-30-2023 Clarity (U) Sl. Cloudy Clear [facility] Urine color determinationOrd ered By: Rey Manzano on 01-30-2023 Color (U) Yellow Yellow [facility] Urine glucose detectionOrder ed By: Rey Manzano on 01-30-2023 Glucose Ql (U) Normal mg/dl Normal [facility] Urine leukocyte esterase det ection by dipstickOrdered By: Rey Manzano on 01-30-2023 Leukocyte esterase Test strip Ql (U) 500 /ul Negative [facility] Urine pHOrdered By: Rey rivero on 01-30-2023 pH (U) 6.0 [pH] 5.0 - 8.0 [facility] Urine specific gravity measu rementOrdered By: Rey Maznano on 01-30-2023 Specific gravity (U) [Rel density] 1.015 1.002-1.030 [facility] Urobilinogen Auto test strip Ql (U)Ordered By: Rey Manzano on 01-30-2023 Urobilinogen Ql (U) 1 mg/dl Normal [facility] Absolute lymphocyte countOrd ered By: Helena Brantley on 12-28-2022 Lymphocytes Auto (Unsp spec) [#/Vol] 1.07 10*3/uL 0.83-4.51 [facility] Basophil percentageOrdered B y: Helena Brantley on 12-28-2022 Basophils/100 WBC (Bld) 1.1 % 0-1 [facility] Bilirubin [Mass/Vol] 0.80 mg/dL 0.20-1.00 [facility] Comment on above: For patients on eltr ombopag therapy, use of Dimension [place] TBIL is not recommended. Chloride [Moles/Vol] 110 mmol/L 98-107 [facility] Eosinophils/100 WBC (Bld) 1.7 % 0-5 [facility] Glucose [Mass/Vol] 95 mg/dL 74-106 [facility] Neutrophils (Bld) [#/Vol] 3.9 10*3/uL 2.0-7.7 [facility] Neutrophils/100 WBC (Bld) 72.3 % 47-70 [facility] Potassium [Moles/Vol] 4.0 mmol/L 3.5-5.1 [facility] Protein [Mass/Vol] 6.4 g/dL 6.4-8.2 [facility] Sodium [Moles/Vol] 141 mmol/L 136-145 [facility] WBC (Bld) [#/Vol] 5.4 10*3/uL 4.4-11.0 [facility] Blood erythrocytes count (nu mber/volume)Ordered By: Helena Brantley on 12-28-2022 RBC (Bld) [#/Vol] 4.22 10*6/uL 4.2-5.4 [facility] Blood hemoglobin measurement (mass/volume)Ordered By: Helena Brantley on 12-28-2022 Hemoglobin (Bld) [Mass/Vol] 13.5 g/dL 12.0-15.0 [facility] Blood lymphocytes/100 leukoc ytesOrdered By: Helena Brantley on 12-28-2022 Lymphocytes/100 WBC (Bld) 19.7 % 19-41 [facility] Blood monocytes/100 leukocyt esOrdered By: Helena Brantley on 12-28-2022 Monocytes/100 WBC (Bld) 5.0 % 0-10 [facility] Blood platelet mean volumeOr dered By: Helena Brantley on 12-28-2022 Platelet mean volume (Bld) [Entitic vol] 10.1 fL 6.2-12.0 [facility] Determination of erythrocyte mean corpuscular volume (MCV)Ordered By: Helena Brantley on 12-28-2022 MCV (RBC) [Entitic vol] 98.1 fL 81-99 [facility] Erythrocyte sedimentation ra teOrdered By: Helena Brantley on 12-28-2022 ESR (Bld) [Velocity] mm/h 0-30 [facility] Hematocrit Auto (Bld) [Volum e fraction]Ordered By: Helena Brantley on 12-28-2022 Hematocrit (Bld) [Volume fraction] 41.4 % 37-47 [facility] Laboratory - Chemistry and C hemistry - challengeOrdered By: Helena Brantley on 12-28-2022 ALP [Catalytic activity/Vol] 42 U/L 45-117 [facility] ALT [Catalytic activity/Vol] 23 U/L 13-56 [facility] CO2 [Moles/Vol] 26.0 mmol/L 21.0-32.0 [facility] Cobalamin (Vitamin B12) [Mass/Vol] 515 pg/mL 211-911 [facility] Globulin (S) [Mass/Vol] 2.8 g/dL 2.2-4.2 [facility] Urea nitrogen/Creatinine [Mass ratio] 21.3 mg/mg 10-20 [facility] Laboratory - Hematology and Cell countsOrdered By: Helena Brantley on 12-28-2022 Erythrocyte distribution width (RBC) [Entitic vol] 50.1 fL 35.1-43.9 [facility] Erythrocyte distribution width (RBC) [Ratio] 13.9 % 11.6-14.6 [facility] Immature granulocytes/100 WBC (Bld) 0.200 % 0.0-0.9 [facility] Comment on above: IG% - Immature Granu locytes (promyelocytes, myelocytes and metamyelocytes) > 1% indicates that a LEFT SHIFT is Present. MCH (RBC) [Entitic mass] 32.0 pg 27.0-32.0 [facility] Nucleated RBC/100 WBC (Bld) [Ratio] 0 % 0-5 [facility] MCHC Auto (RBC) [Mass/Vol]Or dered By: Helena Brantley on 12-28-2022 MCHC (RBC) [Mass/Vol] 32.6 g/dL 32-36 [facility] No Panel InformationOrdered By: Helena Brantley on 12-28-2022 Estimated GFR (MDRD) Amer 107 mL/min >60 [facility] Comment on above: GFR Calc Estimated GFR (MDRD) Non-Af Amer 89 mL/min >60 [facility] Comment on above: Non- GFR Calc Platelets bldOrdered By: Helena Brantley on 12-28-2022 Platelets (Bld) [#/Vol] 283 10*3/uL 150-450 [facility] Serum or plasma albumin pedro urement (mass/volume)Ordered By: Helena Brantley on 12-28-2022 Albumin [Mass/Vol] 3.6 g/dL 3.2-5.0 [facility] Serum or plasma albumin/glob ulin mass ratioOrdered By: Helena Brantley on 12-28-2022 Albumin/Globulin [Mass ratio] 1.3 {ratio} 0.9-2.4 [facility] Serum or plasma calcium pedro urement (mass/volume)Ordered By: Helena Brantley on 12-28-2022 Calcium [Mass/Vol] 8.5 mg/dL 8.5-10.1 [facility] Serum or plasma creatinine m easurement (mass/volume)Ordered By: Helena Brantley on 12-28-2022 Creatinine [Mass/Vol] 0.70 mg/dL 0.55-1.02 [facility] Comment on above: The validity of the calculated GFR & GFRAA in patients over 70 years has not been determined. Clinical correlation is essential. Serum or plasma urea nitroge n measurement (mass/volume)Ordered By: Helena Brantley on 12-28-2022 Urea nitrogen [Mass/Vol] 15 mg/dL 7-18 [facility] Thin prep Papanicolaou smear with manual screeningOrdered By: Helena Brantley on 12-28-2022 Thin prep Papanicolaou smear with manual screening 16 U/L 15-37 [facility] Thin prep Papanicolaou smear with manual screening 5 5-15 [facility] Laboratory - Chemistry and C hemistry - challengeOrdered By: Janine Chin on 12-20-2022 Free T4 [Mass/Vol] 0.70 ng/dL 0.76-1.46 [facility] No Panel InformationOrdered By: Janine Chin on 09-21-2023 Thyroid Stimulating Hormone (TSH) 1.29 uIU/mL 0.358-3.74 [facility] Gram stain for investigation of transfusion reactionOrdered By: Rey Manzano on 11-27-2022 Microscopic observation Gram stain Nom (Unsp spec) [facility] Microscopic observation Gram stain Nom (Unsp spec) [facility] Thin prep Papanicolaou smear with manual screeningOrdered By: Rey Manzano on 11-27-2022 Genital Culture Presumptive E. coli [facility] Genital Culture Yeast [facility] Genital Culture Presumptive E. coli [facility] Genital Culture Yeast [facility] Basophil percentageOrdered B y: Dr. Brantley on 08-01-2022 Cholesterol [Mass/Vol] 276 mg/dL <200 [facility] Comment on above: <200 mg/dL Desirable 200-240 mg/dL Borderline >240 mg/dL High Risk Triglyceride [Mass/Vol] 126 mg/dL <199 [facility] Comment on above: The drugs N-Acetylcy steine and Metamizole may falsely depress this assay.Serum Triglycerides Reference Interval Normal <150 mg/dL Borderline high 150 - 199 mg/dL High 200 - 499 mg/dL Very High > or = 500 mg/dL No Panel InformationOrdered By: Dr. Brantley on 08-01-2022 Vitamin D 25-Hydroxy 29.7 ng/mL [facility] Comment on above: Vitamin D 25(OH) Sta tus Range Deficiency <20 ng/mL (50nmol/L) Insufficiency 20 - 30 ng/mL (50 - 75 nmol/L) Sufficiency 30 - 100 ng/mL (75 - 250 nmol/L) Toxicity >100 ng/mL (>250 nmol/L) Serum or plasma cholesterol in HDL measurement (mass/volume)Ordered By: Dr. Brantley on 08-01-2022 Cholesterol in HDL [Mass/Vol] 118 mg/dL >40 [facility] Comment on above: The drugs N-Acetylcy steine and Metamizole may falsely depress this assay. Reference Range HDL <40 mg/dL Low HDL Cholesterol HDL >or= 60 mg/dL High HDL Cholesterol Serum or plasma cholesterol in VLDL measurement (mass/volume)Ordered By: Dr. Brantley on 08-01-2022 Cholesterol in VLDL [Mass/Vol] 25 mg/dL 5-40 [facility] Serum or plasma low density lipoprotein (LDL) cholesterol measurement (mass/volume)Ordered By: Dr. Brantley on 08-01-2022 Cholesterol in LDL [Mass/Vol] 133 mg/dL 0-130 [facility] Absolute lymphocyte counton 08-07-2021 Lymphocytes Auto (Unsp spec) [#/Vol] 0.83 10*3/uL 0.83-4.51 [facility] Work Phone: Basophil percentageon 2021 Basophils/100 WBC (Bld) 1.3 % 0-1 [facility] Work Phone: Bilirubin [Mass/Vol] 0.70 mg/dL 0.20-1.00 [facility] Work Phone: Comment on above: For patients on eltr ombopag therapy, use of Dimension [place] TBIL is not recommended. Eosinophils/100 WBC (Bld) 7.8 % 0-5 [facility] Work Phone: Neutrophils (Bld) [#/Vol] 3.0 10*3/uL 2.0-7.7 [facility] Work Phone: Neutrophils/100 WBC (Bld) 64.2 % 47-70 [facility] Work Phone: Protein [Mass/Vol] 6.6 g/dL 6.4-8.2 [facility] Work Phone: WBC (Bld) [#/Vol] 4.5 10*3/uL 4.4-11.0 [facility] Work Phone: Blood erythrocytes count (nu mber/volume)on 08-07-2021 RBC (Bld) [#/Vol] 4.08 10*6/uL 4.2-5.4 [facility] Work Phone: Blood hemoglobin measurement (mass/volume)on 08-07-2021 Hemoglobin (Bld) [Mass/Vol] 13.3 g/dL 12.0-15.0 [facility] Work Phone: [phone] Blood lymphocytes/100 leukoc yteson 08-07-2021 Lymphocytes/100 WBC (Bld) 17.9 % 19-41 [facility] Work Phone: Blood monocytes/100 leukocyt eson 08-07-2021 Monocytes/100 WBC (Bld) 8.6 % 0-10 [facility] Work Phone: Blood platelet mean volumeon 08-07-2021 Platelet mean volume (Bld) [Entitic vol] 9.7 fL 6.2-12.0 [facility] Work Phone: Determination of erythrocyte mean corpuscular volume (MCV)on 08-07-2021 MCV (RBC) [Entitic vol] 98.0 fL 81-99 [facility] Work Phone: Direct bilirubinon 2 Bilirubin.direct [Mass/Vol] 0.13 mg/dL 0.00-0.30 [facility] Work Phone: HIV 1 and HIV-2 antibody ass ay with HIV-1 p24 antigen detectionon 08-07-2021 HIV 1+2 Ab+HIV1 p24 Ag IA Ql Non-Reactive Nonreactive [facility] Work Phone: Hematocrit Auto (Bld) [Volum e fraction]on 08-07-2021 Hematocrit (Bld) [Volume fraction] 40.0 % 37-47 [facility] Work Phone: Laboratory - Chemistry and C hemistry - challengeon 08-07-2021 ALP [Catalytic activity/Vol] 36 U/L 45-117 [facility] Work Phone: ALT [Catalytic activity/Vol] 37 U/L 13-56 [facility] Work Phone: Globulin (S) [Mass/Vol] 2.9 g/dL 2.2-4.2 [facility] Work Phone: Laboratory - Hematology and Cell countson 08-07-2021 Erythrocyte distribution width (RBC) [Entitic vol] 50.9 fL 35.1-43.9 [facility] Work Phone: Erythrocyte distribution width (RBC) [Ratio] 14.0 % 11.6-14.6 [facility] Work Phone: Immature granulocytes/100 WBC (Bld) 0.200 % 0.0-0.9 [facility] Work Phone: Comment on above: IG% - Immature Granu locytes (promyelocytes, myelocytes and metamyelocytes) > 1% indicates that a LEFT SHIFT is Present. MCH (RBC) [Entitic mass] 32.6 pg 27.0-32.0 [facility] Work Phone: Nucleated RBC/100 WBC (Bld) [Ratio] 0 % 0-5 [facility] Work Phone: MCHC Auto (RBC) [Mass/Vol]on 08-07-2021 MCHC (RBC) [Mass/Vol] 33.3 g/dL 32-36 [facility] Work Phone: No Panel Informationon 08-07 Endomysial IgA Antibody Negative Negative [facility] Work Phone: Hepatitis B Surface Antigen Non-Reactive Nonreactive [facility] Work Phone: Hepatitis C Antibody Non-Reactive Nonreactive [facility] Work Phone: Comment on above: Non Reactive: < 0.8 Equivocal: >/= 0.8 to < 1.0 Reactive: >/= 1.0The CDC recommends that a reactive/equivocal HCV antibody result be followed up by the HCV Nucleic Acid Amplificationtest (507336) Platelets bldon 08-07-2021 Platelets (Bld) [#/Vol] 278 10*3/uL 150-450 [facility] Work Phone: Qualitative QuantiFERON-TB g old in tube teston 08-07-2021 M. tuberculosis tuberculin stim IFN-g Ql (Bld) 0 IU/mL [facility] Work Phone: Serum hepatitis B virus core antibody detectionon 08-07-2021 HBV core Ab Ql (S) Negative Negative [facility] Work Phone: Comment on above: Performed at: [facility], [place] [id number] Director: Patrick Heaton PhD, Phone: [phone] Serum hepatitis B virus surf curt antibody IgG detectionon 08-07-2021 HBV surface IgG Ql (S) Reactive [facility] Work Phone: Comment on above: Non Reactive: Incons istent with immunity less than <10 mIU/mL Reactive: Consistent with immunity greater than or equal to 10 mIU/mL Serum or plasma IgA measurem ent (mass/volume)on 08-07-2021 IgA [Mass/Vol] 74 mg/dL [facility] Work Phone: Serum or plasma albumin pedro urement (mass/volume)on 08-07-2021 Albumin [Mass/Vol] 3.7 g/dL 3.2-5.0 [facility] Work Phone: Serum tissue transglutaminas e IgA antibody assay (units/volume)on 08-07-2021 tTG IgA Qn (S) <2 U/mL [facility] Work Phone: Comment on above: Negative 0 - 3 Weak Positive 4 - 10 Positive >10 Tissue Transglutaminase (tTG) has been identified as the endomysial antigen. Studies have demonstr- ated that endomysial IgA antibodies have over 99% specificity for gluten sensitive enteropathy. Thin prep Papanicolaou smear with manual screeningon 08-07-2021 Thin prep Papanicolaou smear with manual screening 19 U/L 15-37 [facility] Work Phone: Thin prep Papanicolaou smear with manual screening Comment [facility] Work Phone: Comment on above: The QuantiFERON-TB G old Plus result is determined bysubtracting the Nil value from either TB antigen (Ag) tube.The mitogen tube serves as a control for the test. Thin prep Papanicolaou smear with manual screening 0.01 IU/mL [facility] Work Phone: Thin prep Papanicolaou smear with manual screening 0 IU/mL [facility] Work Phone: Thin prep Papanicolaou smear with manual screening > 10.00 IU/mL [facility] Work Phone: Thin prep Papanicolaou smear with manual screening Negative Negative [facility] Work Phone: Comment on above: The specimen receive d for QuantiFERON testing was incubatedby the ordering institution. Specific procedures outlinedin our Directory of Services and in the package insert forthe QuantiFERON Gold (In Tube) test must be followed toenable for proper stimulation of cells for the productionof interferon gamma. Chemiluminescence immunoassaymethodology MRI LOWER EXTREMITY NO JOINT RT W/Oon 11-16-2020 MRI LOWER EXTREMITY NO JOINT RT W/O EXAM: MRI LOWER EXTREMITY NO JOINT RT W/O HISTORY: stress injury right tib/fib COMPARISON: None. TECHNIQUE: Multiplanar, multisequence MRI right tibia/fibula was performed without contrast. This included axial T1, axial STIR, coronal STIR, coronal T1 and sagittal STIR imaging. FINDINGS: There is a marker along the anteromedial aspect of the mid to distal tibial diaphysis, at the site of the patient's symptoms. There is intramedullary and periosteal edema along the mid to distal diaphysis of the tibia with patchy areas of decreased T1 signal change. A well-defined fracture line is not identified. The fibula is intact. Muscular structures of the lower leg are preserved. No signs of muscular strain or muscle herniation is identified. Tendons at the ankle appear preserved. Joint space narrowing marginal spur is prominent at the medial tibiofemoral compartment. IMPRESSION: 1. Grade 3 stress response involving the mid to distal tibial diaphysis at the site of the patient's symptoms. No fracture line is identified. 2. No signs of muscle strain. 2 Normal [facility] BONE DENSITY AXIAL (HIP, PEL VIS, SPINE)on 05-23-2020 BONE DENSITY AXIAL (HIP, PELVIS, SPINE) DEXA scan 05/23/2020 COMPARISON EXAMINATION: Baseline CLINICAL HISTORY: Postmenopausal EQUIPMENT: Modlar. RESULTS: LUMBAR SPINE: Average bone mineral density: 0.980 g/sq cm Bone mineral density as a result of young adult reference: 83% Bone mineral density percentage of age-matched reference population: 100% T score: -1.7 Z score: 0.0 Left HIP: Average bone mineral density: 0.761 g/sq cm Bone mineral density as a percentage of young adult reference population: 76% Bone mineral density as a percentage of age-matched reference population: 90% T score: -2.0 Z score: -0.7 Left Femoral neck T score: -2.5, Z score -1.0 CONCLUSION: The T score of the left femoral neck is consistent with osteoporosis. FOLLOWUP RECOMMENDED: Two years Normal [facility] MRI KNEE RIGHT WITHOUT CONTR Luis 11-21-2017 MRI KNEE RIGHT WITHOUT CONTRAST MRI OF THE RIGHT KNEEHISTORY: Knee pain, medial sided after twisting injury 6 weeks ago.TECHNIQUE: Axial STIR, coronal, and sagittal fat-saturated PD, sagittal T1, sagittal T2 sequences of the knee without IV contrast.FINDINGS: There is a large complex radial tear [...] is shown. Superimposed mild medial compartment arthrosis shown.Large joint effusion with a large leaking popliteal cyst with fluid tracking towards the medial calf.There is mild lateral compartment arthrosis without evidence of lateral meniscal tear. The LCL complex is intact.Mild patellofemoral compartment arthrosis is noted. Diffuse intermediate grade chondromalacia within the patella and portions of the central trochlea shown.IMPRESSION:1. There is a large complex radial tear [...] is shown. Superimposed mild medial compartment arthrosis shown.2. Large joint effusion with a large leaking popliteal cyst tracking into the medial calf.3. Mild patellofemoral and lateral compartment arthrosis. Normal [facility] SURF MARKERS >15,PATH REVon 04-19-2017 PATH REV. >15 MARKERS SANDY Normal [facility] Comment on above: Result Comment: By h er/his signature above, the Pathologist listed as making the final interpretation certifies that she/he has personally reviewed this case. Performed By: #### U A ####[facility] [place] [address] SURFACE MARKERS ACUTE PANELo n 04-19-2017 CD19 11 % of Lymph Normal [facility] Comment on above: Result Comment: Poly clonalKappa/Lambda= 7:5 Performed By: #### U A ####[facility] [place] [address] COMMENT see below Normal [facility] Comment on above: Result Comment: No i mmunophenotypic abnormality was detected. Performed By: #### U A ####[facility] [place] [address] DIAGNOSIS SEE BELOW Normal [facility] Comment on above: Result Comment: No i mmunophenotypic evidence of a lymphoproliferative disorder.No increased or abnormal blast population identified.No abnormality of red cells, granulocytes or monocytes noted. Performed By: #### U A ####[facility] [place] [address] NOTE SEE BELOW Normal [facility] Comment on above: Result Comment: Clin ical and morphologic correlation is suggested. Performed By: #### U A ####[facility] [place] [address] SURFACE MARKERS ACUTE PANELo n 04-17-2017 CD4 35 % of Lymph Normal [facility] Comment on above: Performed By: #### U A ####[facility] [place] [address] CD8 30 % of Lymph Normal [facility] Comment on above: Performed By: #### U A ####[facility] [place] [address] CELL COUNT 14.09 x10E9/L Normal [facility] Comment on above: Performed By: #### U A ####[facility] [place] [address] Granulocytes/100 WBC (Bld) 64 % Normal [facility] Comment on above: Performed By: #### U A ####[facility] [place] [address] Lymphocytes/100 leukocytes 7 % Normal [facility] Comment on above: Performed By: #### U A ####[facility] [place] [address] Monocytes/100 leukocytes 4 % Normal [facility] Comment on above: Performed By: #### U A ####[facility] [place] [address] MYELOBLAST CD34+CD117+ % 0.70 % Normal [facility] Comment on above: Performed By: #### U A ####[facility] [place] [address] NK 23 % of Lymph Normal [facility] Comment on above: Performed By: #### U A ####[facility] [place] [address] NUMBER OF CELLS COLLECTED 100,000 per tube Normal [facility] Comment on above: Performed By: #### U A ####[facility] [place] [address] SPECIMEN SITE Bone Marrow Normal [facility] Comment on above: Result Comment: 1972 Performed By: #### U A ####[facility] [place] [address] SURFACE MARKERS ACUTE PANELo n 04-16-2017 METHOD SEE BELOW Normal [facility] Comment on above: Result Comment: This test is a multicolor, whole blood lysis assay. It wasdeveloped and its performance characteristics determined by theDepartment of Pathology, [facility], andhas not been cleared or approved by the U.S. Food and DrugAdministration. The laboratory is regulated under CLIA asqualified to perform high complexity testing. This test is usedfor clinical purposes. It should not be regarded asinvestigational or for research.Immunophenotypic analysis was performed using the followingantibodies: CD45, CD71, CD1c, CD304, CD34, CD14, CD20, CD10,CD38, CD19, CD15, CD117, CD33, HLADR, CD8, CD7, CD4, CD3,CDC56, CD13, CD5, CD2, CD177, CD163, CD11b, CD16, [place],Lambda, CD9, CD22.Additional Antibodies:Glycophorin-A, CD105, CD36 Performed By: #### U A ####[facility] [place] [address] SPECIMEN VIABILITY Acceptable Normal [facility] Comment on above: Performed By: #### U A ####[facility] [place] [address] [facility] Surgical Pathology Depar tmenton 04-16-2017 [facility] Surgical Pathology Department Name JEN DEMARCO Pathologist: LUPE JUARES, MDDate of Procedure: 04/16/2017Date Received: 04/16/2017Date Reported 04/17/2017Submitting Physician: REY VILLAVICENCIO MDLocation: [facility] Other External # Addendum Present FINAL DIAGNOSISA AND B: BONE MARROW, ASPIRATE WITH CLOT AND CORE BIOPSY WITH TOUCH IMPRINT,RIGHT ILIAC CREST:--HYPOCELLULAR BONE MARROW (20%) WITH NORMAL TRILINEAGE HEMATOPOIESIS ANDSLIGHT EOSINOPHILIA (5%).--ABSENT IRON STORES.NOTE:Pending Genetic/Molecular testing per Hematopathology protocol: -Chromosome analysis-FISH: MDS FISH, PDGFRa, PDGFRb, and FGFR1 translocations, t(9;22)-Molecular: Myeloid NGS.The results will be reported separately.Differential: (Normal) % Promyelocytes (1-5) 4.5Myelocytes (5-10) 5.5Metamyelocytes (10-25) 5.5Bands (10-20) 11.0Segmented forms (5-30) 9.5Eosinophils (2-4) 5Basophils (0-1) 1.0 Lymphocytes (5-25) 12.0Monocytes (0-2) 3.5Plasma Cells (0-2) 3.5 Blasts (0-1) 1.0 Total Erythroid (17-35) 38.0 Number of cells counted: 200Cellularity: Cellular M:E Ratio: 1.2:1The gross and/or microscopic findings were reviewed in conjunction withpathology resident, Soto Geller MD. Electronically Signed Out By LUPE JUARES MD/Ham the signature on this report, the individual or group listed as making theFinal Interpretation/Diagnosis certifies that they have reviewed this case. Addendum/Procedures:Adde ndum Date Ordered: 04/19/2017 Status: Signed Out Date Complete: 04/19/2017 Date Reported: 04/28/2017 Addendum DiagnosisNo cytogenetic or molecular abmormality was identified. There is no evidence ofa clonal myeloid process.Addendum CommentNOTABLE CYTOGENETIC/MOLECULAR RESULTS: KARYOTYPE (See separate cytogenetic report for complete details): >46,XX[20] FISH (See separate cytogenetic report for complete details): >negative for CHIC2 deletion or 4q12 rearrangement, deletion 5q,monosomy 7, deletion 7q, FGFR1 rearrangement, trisomy 8 , t(9;22), deletion 17pand deletion 20q MOLECULAR (See molecular report addendum for details): >No pathogenic variants detected. Electronically Signed Out By LUPE JUARES MD/Ham the signature on this report, the individual or group listed as making theFinal Interpretation/Diagnosis certifies that they have reviewed this case. Special Oncology Report Date Ordered: 04/24/2017 Status: Signed Out Date Complete: 04/24/2017 Date Reported: 04/24/2017 Addendum DiagnosisTEST: Myeloid NGS AssaySPECIMEN: Bone MarrowDATE OF COLLECTION: 04/16/2017DATE OF RECEIVED: 04/18/2017REPORT DATE: 04/24/2017RESULT:No pathogenic variants detected.INTERPRETATION: No pathogenic variants are detected in the listed gene regions. This findingdoes not exclude the presence of genetic alterations present in gene regionsnot tested or occurring at a frequency below the limit of detection of 5%.DISCLAIMER: A negative result (mutation not identified) using this panel does not precludethe presence of a mutation below the sensitivity of this assay due to lowneoplastic cell content, tumor heterogeneity, or the presence of additionalmutations in the listed genes which are outside of the target regions in thisassay. Gene amplification, deletion, rearrangements, and structural variantsare not detected. Identification or absence of cancer-associated mutations doesnot necessarily indicate disease or a response to therapy. A small subset ofgene mutations associated with myeloid neoplasms have been detected inhematopoietic cells with advancing age in some individuals without evidence ofhematologic malignancy and these alterations may not be distinguishable fortumor-associated mutations. Correlation with clinical, histopathologic,cytogene tic, and other laboratory findings is required for final interpretationof these results and to adequately inform diagnosis and treatment. This assaydoes not distinguish between somatic and germ-line alterations in analyzedregions. The report includes information from public sources (scientific andmedical literature) to establish clinical significance of mutations detected. Variants of uncertain significance may be identified and may represent lowfrequency polymorphisms. The significance of these mutations on prognosis andtherapy is by its nature uncertain.The following regions showed coverage of less than 300X. A false negativeresult cannot be excluded in these regions, especially in samples of lowneoplastic cell content: TET2: Exon3,EZH2: Exon18,JAK2: Exon12,ETV6:Exon7,KRAS: Exon4,SRSF2: Exon1,ASXL1: Exon12,U2AF1: Exon2,PHF6: [id number]: DNA is extracted from the peripheral blood or bone marrow sample, followingamplicon library preparation, is subjected to next-generation sequencing usingMainstream Data sequencer with post-sequencing analysis of tumor-associatedmutation s using [employer] Variant Caller software.Performance characteristics of NGS Panel:Single base substitutions: accuracy >99%; reproducibility 98%; sensitivity 5%variant allele fraction with minimum depth of coverage of 300X.Insertion/deletion events: accuracy >99%; reproducibility >99%; sensitivity 10%variant allele fraction with minimum depth of coverage of 300X.Laboratory developed test: the assay performance characteristics were validatedby the [facility]. This test has not been cleared or approvedby the FDA; however, the FDA has determined that such approval is notnecessary. The [facility] is certified under the Clinical Laboratory ImprovementAmendments of 1988 (CLIA-88) as qualified to perform high complexity testing.PANEL GENE LIST: ASXL1(NM_015338) exons 11-12; BRAF(NM_004333) exon 15; CALR(NM_004343) exon 9;CBL(NM_005188) exon 7-9; CSF3R(NM_000760) exon 14-17; DNMT3A(NM_022552) exons8-11 and 18-23; ETV6(NM_001987) exons 2-8; EZH2(NM_004456) exons 15-19;FLT3(NM_004119) exons 14 and 20; GATA2(NM_032638) exons 3-6; IDH1(NM_005896)exon 4; IDH2(NM_002168) exon 4; JAK2(NM_004972) exon 12 and 14; JAK3(NM_000215)exons 4, 13 and 16; KIT(NM_000222) exon 17; KRAS(NM_033360) exon 2-3;MPL(NM_005373) exons 3 and 10; MYD88(NM_002468) exon 5; NPM1(NM_002520) exon12; NRAS(NM_002524) exons 2-3; PHF6(NM_001015877) exons 2-10; PTPN11(NM_002834)exons 3 and 13; RUNX1(NM_001001890) exons 4-9; SETBP1(NM_015559) exon 4;SF3B1(NM_012433) exons 14-16 and 18 ; SRSF2(NM_003016) exon 1;TET2(NM_001127208) exons 3-11; TP53(NM_000546) exons 2, 4-8, and 10;U2AF1(NM_001025203) exons 2 and 6; WT1(NM_024426) exons 7 and 9;ZRSR2(NM_005089) exons 1-4. Not all exons are not sequenced in their entirety.Genome assembly (hg19) was used for alignment and variant calling. Electronically Signed Out By FARNAZ HACKETT MD, PhD/NVSBy the signature on this report, the individual or group listed as making theFinal Interpretation/Diagnosis certifies that they have reviewed this case. Microscopic Description:CBC (03/22/2017): WBC 5.3 x 10E9/L, RBC 4.35 x 10E12/L, Hgb 13.9 g/dl, Hct42.3%, MCV 97 fL, RDW 12.8%, platelets 271 x 10E9/L.A 100 cell manual differential count reveals: polys 57%, bands 4%, iemtdrcjjbv94%, monocytes 8%, eosinophils 5%, basophils 1%.PERIPHERAL SMEAR: Submitted Red cells: Normal. White cells: Normal. Platelets: Normal, adequate.ASPIRATE SMEAR: Submitted Specimen: Spicular. Erythropoiesis: slight erythroid hyperplasia. Granulopoiesis: Normal. Megakaryocytes: Slightly increased. Morphology: Normal.TOUCH PREP: Submitted Specimen: Cellular. Comments: Similar to aspirate smear.ASPIRATE CLOT: Submitted Specimen: Spicular. Cellularity: 40%. Estimated M:E ratio: Consistent with aspirate smear. Megakaryocytes: Adequate. Morphology: Normal. Granulomas: Absent. Lymphoid aggregates: Absent. Comments: Similar to core biopsy.CORE BIOPSY: Submitted Specimen: Adequate. Cellularity: 20%. Estimated M:E ratio: Consistent with aspirate smear. Bony trabeculae: Normal. Megakaryocytes: Adequate. Morphology: Normal. Granulomas: Absent. Lymphoid aggregates: Absent.SPECIAL STAINS: Iron: Storage iron absent; no ring sideroblasts identified.IMMUNOHISTOCH EMISTRY: Not performed.FLOW CYTOMETRY: Performed, see separate report. Clinical History:Specimens Submitted As:A: BONE MARROW ASPIRATE RIGHT ILIAC CREST B: BONE MARROW BIOPSY RIGHT ILIAC CREST Gross Description:A: Received in formalin, labeled with the patient's name and hospital number,is an irregular fragment of blood clot measuring 1.7 x 0.5 x 0.2 cm. Thespecimen is submitted in toto in one cassette. AFMB: Received in B-plus fixative, labeled with the patient's name and hospitalnumber, is a cylindrical L-shaped segment of bone measuring 0.7 x 0.6 x 0.1 cm.The specimen also contains fragments of blood. The specimen is submitted intoto in one cassette following decalcification. AFMafm/04/16/2017 Normal [facility] Comment on above: Performed By: #### U A ####[facility] [place] [address] CBC AND DIFFERENTIALon 04-09 % AUTOMATED IMMATURE GRAN Canceled Normal 0.0 - 0.9 [facility] Comment on above: Order Comment: TEST CBC AND DIFFERENTIAL WAS CANCELLED, 04/09/2017 12:49 ?Cancel Reason:Cancelled. Result Comment: Perc ent differential counts (%) should be interpreted in the context of the absolute cell counts (cells/L). Performed By: #### U A ####[facility] [place] [address] % NEUTROPHIL Canceled Normal [facility] Comment on above: Order Comment: TEST CBC AND DIFFERENTIAL WAS CANCELLED, 04/09/2017 12:49 ?Cancel Reason:Cancelled. Performed By: #### U A ####[facility] [place] [address] AUTOMATED IMMATURE GRAN Canceled Normal 0.00 - 0.70 [facility] Comment on above: Order Comment: TEST CBC AND DIFFERENTIAL WAS CANCELLED, 04/09/2017 12:49 ?Cancel Reason:Cancelled. Performed By: #### U A ####[facility] [place] [address] Basophils/100 WBC Auto (Bld) Canceled Normal [facility] Comment on above: Order Comment: TEST CBC AND DIFFERENTIAL WAS CANCELLED, 04/09/2017 12:49 ?Cancel Reason:Cancelled. Performed By: #### U A ####[facility] [place] [address] DIFFERENTIAL Canceled Normal [facility] Comment on above: Order Comment: TEST CBC AND DIFFERENTIAL WAS CANCELLED, 04/09/2017 12:49 ?Cancel Reason:Cancelled. Performed By: #### U A ####[facility] [place] [address] Eosinophils Canceled Normal [facility] Comment on above: Order Comment: TEST CBC AND DIFFERENTIAL WAS CANCELLED, 04/09/2017 12:49 ?Cancel Reason:Cancelled. Performed By: #### U A ####[facility] [place] [address] Eosinophils/100 leukocytes Canceled Normal [facility] Comment on above: Order Comment: TEST CBC AND DIFFERENTIAL WAS CANCELLED, 04/09/2017 12:49 ?Cancel Reason:Cancelled. Performed By: #### U A ####[facility] [place] [address] Erythrocyte distribution width Auto Ratio (RBC) Canceled Normal [facility] Comment on above: Order Comment: TEST CBC AND DIFFERENTIAL WAS CANCELLED, 04/09/2017 12:49 ?Cancel Reason:Cancelled. Performed By: #### U A ####[facility] [place] [address] Erythrocytes (RBC) Canceled Normal [facility] Comment on above: Order Comment: TEST CBC AND DIFFERENTIAL WAS CANCELLED, 04/09/2017 12:49 ?Cancel Reason:Cancelled. Performed By: #### U A ####[facility] [place] [address] Hematocrit (HCT) Canceled Normal [facility] Comment on above: Order Comment: TEST CBC AND DIFFERENTIAL WAS CANCELLED, 04/09/2017 12:49 ?Cancel Reason:Cancelled. Performed By: #### U A ####[facility] [place] [address] Hemoglobin mass conc (Bld) Canceled Normal [facility] Comment on above: Order Comment: TEST CBC AND DIFFERENTIAL WAS CANCELLED, 04/09/2017 12:49 ?Cancel Reason:Cancelled. Performed By: #### U A ####[facility] [place] [address] Lymphocytes Canceled Normal [facility] Comment on above: Order Comment: TEST CBC AND DIFFERENTIAL WAS CANCELLED, 04/09/2017 12:49 ?Cancel Reason:Cancelled. Performed By: #### U A ####[facility] [place] [address] Lymphocytes/100 leukocytes Canceled Normal [facility] Comment on above: Order Comment: TEST CBC AND DIFFERENTIAL WAS CANCELLED, 04/09/2017 12:49 ?Cancel Reason:Cancelled. Performed By: #### U A ####[facility] [place] [address] MCHC mass conc (RBC) Canceled Normal [facility] Comment on above: Order Comment: TEST CBC AND DIFFERENTIAL WAS CANCELLED, 04/09/2017 12:49 ?Cancel Reason:Cancelled. Performed By: #### U A ####[facility] [place] [address] MCV Canceled Normal [facility] Comment on above: Order Comment: TEST CBC AND DIFFERENTIAL WAS CANCELLED, 04/09/2017 12:49 ?Cancel Reason:Cancelled. Performed By: #### U A ####[facility] [place] [address] Monocytes Canceled Normal [facility] Comment on above: Order Comment: TEST CBC AND DIFFERENTIAL WAS CANCELLED, 04/09/2017 12:49 ?Cancel Reason:Cancelled. Performed By: #### U A ####[facility] [place] [address] Neutrophils Canceled Normal [facility] Comment on above: Order Comment: TEST CBC AND DIFFERENTIAL WAS CANCELLED, 04/09/2017 12:49 ?Cancel Reason:Cancelled. Result Comment: Perc ent differential counts (%) should be interpreted in the context of the absolute cell counts (cells/L). Performed By: #### U A ####[facility] [place] [address] Platelets Canceled Normal [facility] Comment on above: Order Comment: TEST CBC AND DIFFERENTIAL WAS CANCELLED, 04/09/2017 12:49 ?Cancel Reason:Cancelled. Performed By: #### U A ####[facility] [place] [address] WBC (Leukocytes) Canceled Normal [facility] Comment on above: Order Comment: TEST CBC AND DIFFERENTIAL WAS CANCELLED, 04/09/2017 12:49 ?Cancel Reason:Cancelled. Performed By: #### U A ####[facility] [place] [address] COMPREHENSIVE PANELon 2017 Alanine aminotransferase (ALT) Canceled Normal [facility] Comment on above: Order Comment: TEST COMPREHENSIVE PANEL WAS CANCELLED, 04/09/2017 12:49 ?Cancel Reason:Cancelled. Result Comment: Lori ents treated with Sulfasalazine may generate falsely decreased results for ALT. Performed By: #### U A ####[facility] [place] [address] Albumin Canceled Normal [facility] Comment on above: Order Comment: TEST COMPREHENSIVE PANEL WAS CANCELLED, 04/09/2017 12:49 ?Cancel Reason:Cancelled. Performed By: #### U A ####[facility] [place] [address] Alkaline phosphatase (ALP) Canceled Normal [facility] Comment on above: Order Comment: TEST COMPREHENSIVE PANEL WAS CANCELLED, 04/09/2017 12:49 ?Cancel Reason:Cancelled. Performed By: #### U A ####[facility] [place] [address] Anion gap Canceled Normal [facility] Comment on above: Order Comment: TEST COMPREHENSIVE PANEL WAS CANCELLED, 04/09/2017 12:49 ?Cancel Reason:Cancelled. Performed By: #### U A ####[facility] [place] [address] Aspartate aminotransferase (AST) Canceled Normal [facility] Comment on above: Order Comment: TEST COMPREHENSIVE PANEL WAS CANCELLED, 04/09/2017 12:49 ?Cancel Reason:Cancelled. Performed By: #### U A ####[facility] [place] [address] Bicarbonate (HCO3) Canceled Normal [facility] Comment on above: Order Comment: TEST COMPREHENSIVE PANEL WAS CANCELLED, 04/09/2017 12:49 ?Cancel Reason:Cancelled. Performed By: #### U A ####[facility] [place] [address] Bilirubin (total) Canceled Normal [facility] Comment on above: Order Comment: TEST COMPREHENSIVE PANEL WAS CANCELLED, 04/09/2017 12:49 ?Cancel Reason:Cancelled. Performed By: #### U A ####[facility] [place] [address] Calcium Canceled Normal [facility] Comment on above: Order Comment: TEST COMPREHENSIVE PANEL WAS CANCELLED, 04/09/2017 12:49 ?Cancel Reason:Cancelled. Performed By: #### U A ####[facility] [place] [address] Chloride Canceled Normal [facility] Comment on above: Order Comment: TEST COMPREHENSIVE PANEL WAS CANCELLED, 04/09/2017 12:49 ?Cancel Reason:Cancelled. Performed By: #### U A ####[facility] [place] [address] Creatinine Canceled Normal [facility] Comment on above: Order Comment: TEST COMPREHENSIVE PANEL WAS CANCELLED, 04/09/2017 12:49 ?Cancel Reason:Cancelled. Performed By: #### U A ####[facility] [place] [address] eGFR (non-black) Canceled Normal [facility] Comment on above: Order Comment: TEST COMPREHENSIVE PANEL WAS CANCELLED, 04/09/2017 12:49 ?Cancel Reason:Cancelled. Performed By: #### U A ####[facility] [place] [address] Result Comment: CALC ULATIONS OF ESTIMATED GFR ARE PERFORMED USING THE MDRD STUDY EQUATION FOR THE IDMS-TRACEABLE CREATININE METHODS. CLIN CHEM 2007;53:766-72 Glucose mass conc Canceled Normal [facility] Comment on above: Order Comment: TEST COMPREHENSIVE PANEL WAS CANCELLED, 04/09/2017 12:49 ?Cancel Reason:Cancelled. Performed By: #### U A ####[facility] [place] [address] Potassium molar conc Canceled Normal [facility] Comment on above: Order Comment: TEST COMPREHENSIVE PANEL WAS CANCELLED, 04/09/2017 12:49 ?Cancel Reason:Cancelled. Performed By: #### U A ####[facility] [place] [address] Protein Canceled Normal [facility] Comment on above: Order Comment: TEST COMPREHENSIVE PANEL WAS CANCELLED, 04/09/2017 12:49 ?Cancel Reason:Cancelled. Performed By: #### U A ####[facility] [place] [address] Sodium Canceled Normal [facility] Comment on above: Order Comment: TEST COMPREHENSIVE PANEL WAS CANCELLED, 04/09/2017 12:49 ?Cancel Reason:Cancelled. Performed By: #### U A ####[facility] [place] [address] Urea nitrogen Canceled Normal [facility] Comment on above: Order Comment: TEST COMPREHENSIVE PANEL WAS CANCELLED, 04/09/2017 12:49 ?Cancel Reason:Cancelled. Performed By: #### U A ####[facility] [place] [address] IGEon 04-09-2017 IgE Canceled Normal [facility] Comment on above: Order Comment: TEST IGE WAS CANCELLED, 04/09/2017 12:49 ?Cancel Reason: Cancelled. Performed By: #### U A ####[facility] [place] [address] IGGon 04-09-2017 IgG Canceled Normal [facility] Comment on above: Order Comment: TEST IGG WAS CANCELLED, 04/09/2017 12:49 ?Cancel Reason: Cancelled. Result Comment: MONO CLONAL PROTEINS MAY CAUSE FALSELY LOWRESULTS IN THIS ASSAY. SERUM PROTEINELECTROPHORESIS SHOULD BE DONE THEFIRST TEST TO EVALUATE MONOCLONAL GAMMOPATHY. Performed By: #### U A ####[facility] [place] [address] TRYPTASEon 03-26-2017 TRYPTASE 3 ng/mL Normal <11 [facility] Comment on above: Result Comment: The Tryptase test, fluorescent enzyme immunoassay(FEIA), measures both the Alpha and Beta forms ofTryptase. Measuring both forms of Tryptase increasessensitivity for the diagnosis of mastocytosis, andmast cell degranulation as a cause of anaphylaxis. Performed By: #### C MP ####[facility] [place] [address] CBC AND DIFFERENTIALon 03-22 % AUTOMATED IMMATURE GRAN 0.8 % Normal 0.0 - 0.9 [facility] Comment on above: Result Comment: Perc ent differential counts (%) should be interpreted in the context of the absolute cell counts (cells/L). Performed By: #### C MP ####[facility] [place] [address] % NEUTROPHIL 58.0 % Normal 40.0 - 80.0 [facility] Comment on above: Performed By: #### C MP ####[facility] [place] [address] Basophils/100 WBC Auto (Bld) 0.11 x10E9/L High 0.00 - 0.10 [facility] Comment on above: Performed By: #### C MP ####[facility] [place] [address] Basophils/100 WBC Auto (Bld) 2.1 % High 0.0 - 2.0 [facility] Comment on above: Performed By: #### C MP ####[facility] [place] [address] Eosinophils 0.33 10*3/uL Normal 0.00 - 0.70 [facility] Comment on above: Performed By: #### C MP ####[facility] [place] [address] Eosinophils/100 leukocytes 6.2 % High 0.0 - 6.0 [facility] Comment on above: Performed By: #### C MP ####[facility] [place] [address] Erythrocyte distribution width Auto Ratio (RBC) 12.8 % Normal 11.5 - 14.5 [facility] Comment on above: Performed By: #### C MP ####[facility] [place] [address] Erythrocytes (RBC) 4.35 x10E12/L Normal 4.00 - 5.20 [facility] Comment on above: Performed By: #### C MP ####[facility] [place] [address] Hematocrit (HCT) 42.3 % Normal 36.0 - 46.0 [facility] Comment on above: Performed By: #### C MP ####[facility] [place] [address] Hemoglobin mass conc (Bld) 13.9 g/dL Normal 12.0 - 16.0 [facility] Comment on above: Performed By: #### C MP ####[facility] [place] [address] Lymphocytes 1.23 10*3/uL Normal 1.20 - 4.80 [facility] Comment on above: Performed By: #### C MP ####[facility] [place] [address] Lymphocytes/100 leukocytes 23.1 % Normal 13.0 - 44.0 [facility] Comment on above: Performed By: #### C MP ####[facility] [place] [address] MCHC mass conc (RBC) 32.9 g/dL Normal 32.0 - 36.0 [facility] Comment on above: Performed By: #### C MP ####[facility] [place] [address] MCV 97 fL Normal 80 - 100 [facility] Comment on above: Performed By: #### C MP ####[facility] [place] [address] Monocytes 0.52 10*3/uL Normal 0.10 - 1.00 [facility] Comment on above: Performed By: #### C MP ####[facility] [place] [address] Monocytes/100 leukocytes 9.8 % Normal 2.0 - 10.0 [facility] Comment on above: Performed By: #### C MP ####[facility] [place] [address] Neutrophils 3.10 10*3/uL Normal 1.20 - 7.70 [facility] Comment on above: Performed By: #### C MP ####[facility] [place] [address] Nucleated erythrocytes 0.0 /100 WBC Normal 0.0-0.0 [facility] Comment on above: Performed By: #### C MP ####[facility] [place] [address] Platelets 271 10*3/uL Normal 150 - 450 [facility] Comment on above: Performed By: #### C MP ####[facility] [place] [address] WBC (Leukocytes) 5.3 10*3/uL Normal 4.4 - 11.3 [facility] Comment on above: Performed By: #### C MP ####[facility] [place] [address] VITAMIN B12on 03-22-2017 Cobalamins (Vitamin B12) 625 pg/mL Normal 211 - 911 [facility] Comment on above: Performed By: #### C MP ####[facility] [place] [address] ANTINUCLEAR ANTIBODYon 03-11 ANTINUCLEAR ANTIBODY Negative Normal NEGATIVE [facility] Comment on above: Performed By: #### C MP ####[facility] [place] [address] KACI PANELon 03-11-2017 ANTI-CENTROMERE 0.2 AI Normal [facility] Comment on above: Result Comment: REF VALUES< 1.0 = NEGATIVE>=1.0 = POSITIVE Performed By: #### C MP ####[facility] [place] [address] ANTI-CHROMATIN <0.2 Normal [facility] Comment on above: Result Comment: REF VALUES< 1.0 = NEGATIVE>=1.0 = POSITIVE Performed By: #### C MP ####[facility] [place] [address] ANTI-DNA [DS] <1.0 Normal [facility] Comment on above: Result Comment: REF VALUESNEGATIVE: <= 4 IU/MLEQUIVOCAL: 5- 9 IU/MLPOSITIVE: >=10 IU/ML Performed By: #### C MP ####[facility] [place] [address] ANTI-MEL-1 <0.2 Normal [facility] Comment on above: Result Comment: REF VALUES< 1.0 = NEGATIVE>=1.0 = POSITIVE Performed By: #### C MP ####[facility] [place] [address] ANTI-RIBOSOMAL P <0.2 Normal [facility] Comment on above: Result Comment: REF VALUES< 1.0 = NEGATIVE>=1.0 = POSITIVE Performed By: #### C MP ####[facility] [place] [address] ANTI-USED CAR SALESPERSON <0.2 Normal [facility] Comment on above: Result Comment: REF VALUES< 1.0 = NEGATIVE>=1.0 = POSITIVE Performed By: #### C MP ####[facility] [place] [address] ANTI-SCL-70 <0.2 Normal [facility] Comment on above: Result Comment: REF VALUES< 1.0 = NEGATIVE>=1.0 = POSITIVE Performed By: #### C MP ####[facility] [place] [address] ANTI-SM <0.2 Normal [facility] Comment on above: Result Comment: REF VALUES< 1.0 = NEGATIVE>=1.0 = POSITIVE Performed By: #### C MP ####[facility] [place] [address] ANTI-SM/USED CAR SALESPERSON <0.2 Normal [facility] Comment on above: Result Comment: REF VALUES< 1.0 = NEGATIVE>=1.0 = POSITIVE Performed By: #### C MP ####[facility] [place] [address] ANTI-SSA <0.2 Normal [facility] Comment on above: Result Comment: REF VALUES< 1.0 = NEGATIVE>=1.0 = POSITIVE Performed By: #### C MP ####[facility] [place] [address] ANTI-SSB <0.2 Normal [facility] Comment on above: Result Comment: REF VALUES< 1.0 = NEGATIVE>=1.0 = POSITIVE Performed By: #### C MP ####[facility] [place] [address] ESR-WESTERGRENon 03-08-2017 ESR-WESTERGREN 3 mm/h Normal 0 - 30 [facility] Comment on above: Performed By: #### C MP ####[facility] [place] [address] Dermatopathologyon 7 Dermatopathology 90 Pathologist: ENDER SILVERMANate of Procedure: 02/15/2017Date Received: 02/18/2017Date Reported 02/19/2017Submitting Physician: OMAR MONTANA MDLocation: ADERM Copy To/Referring/Attending:Demetra SHAW MD FINAL DIAGNOSISSKIN, RIGHT POSTERIOR PARIETAL SCALP, PUNCH BIOPSY:MILD SPONGIOSIS AND A MILD SUPERFICIAL LYMPHOCYTIC INFILTRATE, SEE NOTE.Note: Microscopic examination reveals a specimen that extends into thesubcutaneous fat. There is patchy parakeratosis with mild spongiosis of theepidermis and a mild superficial perivascular lymphocytic infiltrate. 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 The differentialdiagnosis includes atopic dermatitis, nummular dermatitis, allergic contactdermatitis, id reaction, and eczematous drug reaction, and seborrheicdermatitis. Electronically Signed Out by LUCILA SMALL M.D. Electronically SignedOut By LUCILA SMALL MD/[facility] Clinical History:61 y/o female with pruritic scaly rash on the scalp and erythematous patches onthe upper extremities AND trunk. R/O dermatomyositis. Punch Biopsy. ([facility]) Specimens Submitted As:A: SKIN, RIGHT POSTERIOR PARIETAL SCALP Gross Description:Received in formalin is a can-yellow, cylindrical piece of skin [id number]. The specimen is inked and embedded in toto.ink/02/18/2017 Normal [facility] Comment on above: Performed By: #### C MP ####[facility] [place] [address] SURF MARKERS >15,PATH REVon 01-17-2017 PATH REV. >15 MARKERS CHANELLE Normal [facility] Comment on above: Result Comment: By h er/his signature above, the Pathologist listed as making the final interpretation certifies that she/he has personally reviewed this case. Performed By: #### C MP ####[facility] [place] [address] SURFACE MARKERS LOW GRADE PA NELon 01-17-2017 CD19 18 % of Lymph Normal [facility] Comment on above: Result Comment: The B-cells are polytypic. Performed By: #### C MP ####[facility] [place] [address] DIAGNOSIS SEE BELOW Normal [facility] Comment on above: Result Comment: - No immunophenotypic evidence of a monotypic B-cell or abnormal T-cellpopulation.- No discrete blast population identified. Performed By: #### C MP ####[facility] [place] [address] Granulocytes/100 WBC (Bld) 79 % Normal [facility] Comment on above: Performed By: #### C MP ####[facility] [place] [address] NOTE SEE BELOW Normal [facility] Comment on above: Result Comment: Thes e results should be correlated with the morphologic and other findings. Performed By: #### C MP ####[facility] [place] [address] FLOW CYTOMETRY TESTon 2016 FLOW TEST ORDERED LOW GRADE PANEL Normal [facility] Comment on above: Performed By: #### C MP ####[facility] [place] [address] SURFACE MARKERS LOW GRADE PA NELon 01-15-2017 CD4 45 % of Lymph Normal [facility] Comment on above: Performed By: #### C MP ####[facility] [place] [address] CD8 22 % of Lymph Normal [facility] Comment on above: Performed By: #### C MP ####[facility] [place] [address] CELL COUNT 10.2 x10E9/L Normal [facility] Comment on above: Performed By: #### C MP ####[facility] [place] [address] Lymphocytes/100 leukocytes 9 % Normal [facility] Comment on above: Performed By: #### C MP ####[facility] [place] [address] Monocytes/100 leukocytes 3 % Normal [facility] Comment on above: Performed By: #### C MP ####[facility] [place] [address] NK 13 % of Lymph Normal [facility] Comment on above: Performed By: #### C MP ####[facility] [place] [address] NUMBER OF CELLS COLLECTED 100,000 per tube Normal [facility] Comment on above: Performed By: #### C MP ####[facility] [place] [address] SPECIMEN SITE Peripheral Blood Normal [facility] Comment on above: Performed By: #### C MP ####[facility] [place] [address] CBC AND DIFFERENTIALon 01-11 % AUTOMATED IMMATURE GRAN 0.9 % Normal 0.0 - 0.9 [facility] Comment on above: Result Comment: Perc ent differential counts (%) should be interpreted in the context of the absolute cell counts (cells/L). Performed By: #### C BCDF ####[facility] [place] [address] % NEUTROPHIL 90.4 % Normal 40.0 - 80.0 [facility] Comment on above: Performed By: #### C BCDF ####[facility] [place] [address] Basophils/100 WBC Auto (Bld) 0.3 % Normal 0.0 - 2.0 [facility] Comment on above: Performed By: #### C BCDF ####[facility] [place] [address] Basophils/100 WBC Auto (Bld) 0.03 x10E9/L Normal 0.00 - 0.10 [facility] Comment on above: Performed By: #### C BCDF ####[facility] [place] [address] Eosinophils 0.07 10*3/uL Normal 0.00 - 0.70 [facility] Comment on above: Performed By: #### C BCDF ####[facility] [place] [address] Eosinophils/100 leukocytes 0.7 % Normal 0.0 - 6.0 [facility] Comment on above: Performed By: #### C BCDF ####[facility] [place] [address] Erythrocyte distribution width Auto Ratio (RBC) 14.3 % Normal 11.5 - 14.5 [facility] Comment on above: Performed By: #### C BCDF ####[facility] [place] [address] Erythrocytes (RBC) 4.34 x10E12/L Normal 4.00 - 5.20 [facility] Comment on above: Performed By: #### C BCDF ####[facility] [place] [address] Hematocrit (HCT) 44.1 % Normal 36.0 - 46.0 [facility] Comment on above: Performed By: #### C BCDF ####[facility] [place] [address] Hemoglobin mass conc (Bld) 14.3 g/dL Normal 12.0 - 16.0 [facility] Comment on above: Performed By: #### C BCDF ####[facility] [place] [address] Lymphocytes 0.47 10*3/uL Low 1.20 - 4.80 [facility] Comment on above: Performed By: #### C BCDF ####[facility] [place] [address] Lymphocytes/100 leukocytes 4.6 % Low 13.0 - 44.0 [facility] Comment on above: Performed By: #### C BCDF ####[facility] [place] [address] MCHC mass conc (RBC) 32.4 g/dL Normal 32.0 - 36.0 [facility] Comment on above: Performed By: #### C BCDF ####[facility] [place] [address] MCV 102 fL High 80 - 100 [facility] Comment on above: Performed By: #### C BCDF ####[facility] [place] [address] Monocytes 0.32 10*3/uL Normal 0.10 - 1.00 [facility] Comment on above: Performed By: #### C BCDF ####[facility] [place] [address] Monocytes/100 leukocytes 3.1 % Normal 2.0 - 10.0 [facility] Comment on above: Performed By: #### C BCDF ####[facility] [place] [address] Neutrophils 9.22 10*3/uL High 1.20 - 7.70 [facility] Comment on above: Performed By: #### C BCDF ####[facility] [place] [address] Nucleated erythrocytes 0.0 /100 WBC Normal 0.0-0.0 [facility] Comment on above: Performed By: #### C BCDF ####[facility] [place] [address] Platelets 256 10*3/uL Normal 150 - 450 [facility] Comment on above: Performed By: #### C BCDF ####[facility] [place] [address] WBC (Leukocytes) 10.2 10*3/uL Normal 4.4 - 11.3 [facility] Comment on above: Performed By: #### C BCDF ####[facility] [place] [address] CD4 AND CD8 (T4T8 SCREEN)on 01-11-2017 CD3+CD4+ % 34 % Normal 29 - 57 [facility] Comment on above: Performed By: #### C D4/8 ####[facility] [place] [address] CD3+CD4+ ABSOLUTE 0.160 X10E9/L Low 0.350 - 2.740 U [facility] Comment on above: Performed By: #### C D4/8 ####[facility] [place] [address] CD3+CD8+ % 29 % Normal 7 - 31 [facility] Comment on above: Performed By: #### C D4/8 ####[facility] [place] [address] CD3+CD8+ ABSOLUTE 0.136 X10E9/L Normal 0.080 - 1.490 U [facility] Comment on above: Performed By: #### C D4/8 ####[facility] [place] [address] CD4/CD8 RATIO 1.17 Normal 1.00 - 3.50 [facility] Comment on above: Performed By: #### C D4/8 ####[facility] [place] [address] CD45 % 100 % Normal [facility] Comment on above: Performed By: #### C D4/8 ####[facility] [place] [address] FLOW CYTOMETRY TESTon 2016 SOURCE WHOLE BLD-EDTA Normal [facility] Comment on above: Performed By: #### C MP ####[facility] [place] [address] FLOW TEST ORDERED Canceled Normal [facility] Comment on above: Order Comment: TEST FLOW CYTOMETRY TEST WAS CANCELLED, 01/11/2017 20:26 PRACTICAL NURSING FACULTY ERROR.. Performed By: #### F CTST ####[facility] [place] [address] SOURCE Canceled Normal [facility] Comment on above: Order Comment: TEST FLOW CYTOMETRY TEST WAS CANCELLED, 01/11/2017 20:26 PRACTICAL NURSING FACULTY ERROR.. Performed By: #### F CTST ####[facility] [place] [address] SURFACE MARKERS LOW GRADE PA NELon 01-11-2017 METHOD SEE BELOW Normal [facility] Comment on above: Result Comment: This test is a multicolor, whole blood lysis assay. It wasdeveloped and its performance characteristics determined by theDepartment of Pathology, [facility], andhas not been cleared or approved by the U.S. Food and DrugAdministration. The laboratory is regulated under CLIA asqualified to perform high complexity testing. This test is usedfor clinical purposes. It should not be regarded asinvestigational or for research.Immunophenotypic analysis was performed using the followingantibodies: CD45, CD71, CD13, CD200, CD14, HLADR, CD2, CD7,CD4, CD5, CD3, CD16, CD56, CD8, CD10, CD20, CD38, CD19, CD43,CD23, CD1c, CD25, CD180, CD11c, CD79b, [place], Lambda, IgD. Performed By: #### C MP ####[facility] [place] [address] SPECIMEN VIABILITY Acceptable Normal [facility] Comment on above: Performed By: #### C MP ####[facility] [place] [address] CD4 AND CD8 (T4T8 SCREEN)on 01-10-2017 METHOD SEE BELOW Normal [facility] Comment on above: Result Comment: This test is a multicolor, whole blood lysis assay. It wasdeveloped and its performance characteristics determined bythe Department of Pathology, [facility], and has not been cleared or approved by the U.S.Food and Drug Administration. The laboratory is regulatedunder CLIA as qualified to perform high complexity testing.This test is used for clinical purposes. It should not beregarded as investigational or for research. Performed By: #### C D4/8 ####[facility] [place] [address] SITE BLOOD Normal [facility] Comment on above: Performed By: #### C D4/8 ####[facility] [place] [address] FLOW CYTOMETRY TESTon 2016 Lab Specimen Source Normal [facility] Comment on above: Order Comment: TEST FLOW CYTOMETRY TEST WAS CANCELLED, 01/11/2017 20:26 PRACTICAL NURSING FACULTY ERROR.. Performed By: #### F CTST ####[facility] [place] [address] Performed By: #### C D4/8 ####[facility] [place] [address] CBC AND DIFFERENTIALon 12-19 % AUTOMATED IMMATURE GRAN 0.5 % Normal 0.0 - 0.9 [facility] Comment on above: Result Comment: Perc ent differential counts (%) should be interpreted in the context of the absolute cell counts (cells/L). Performed By: #### C BCDF ####[facility] [place] [address] % NEUTROPHIL 60.9 % Normal 40.0 - 80.0 [facility] Comment on above: Performed By: #### C BCDF ####[facility] [place] [address] Basophils/100 WBC Auto (Bld) 0.5 % Normal 0.0 - 2.0 [facility] Comment on above: Performed By: #### C BCDF ####[facility] [place] [address] Basophils/100 WBC Auto (Bld) 0.04 x10E9/L Normal 0.00 - 0.10 [facility] Comment on above: Performed By: #### C BCDF ####[facility] [place] [address] Eosinophils 1.91 10*3/uL High 0.00 - 0.70 [facility] Comment on above: Performed By: #### C BCDF ####[facility] [place] [address] Eosinophils/100 leukocytes 22.8 % High 0.0 - 6.0 [facility] Comment on above: Performed By: #### C BCDF ####[facility] [place] [address] Erythrocyte distribution width Auto Ratio (RBC) 14.2 % Normal 11.5 - 14.5 [facility] Comment on above: Performed By: #### C BCDF ####[facility] [place] [address] Erythrocytes (RBC) 4.19 x10E12/L Normal 4.00 - 5.20 [facility] Comment on above: Performed By: #### C BCDF ####[facility] [place] [address] Hematocrit (HCT) 41.3 % Normal 36.0 - 46.0 [facility] Comment on above: Performed By: #### C BCDF ####[facility] [place] [address] Hemoglobin mass conc (Bld) 13.6 g/dL Normal 12.0 - 16.0 [facility] Comment on above: Performed By: #### C BCDF ####[facility] [place] [address] Lymphocytes 0.68 10*3/uL Low 1.20 - 4.80 [facility] Comment on above: Performed By: #### C BCDF ####[facility] [place] [address] Lymphocytes/100 leukocytes 8.1 % Low 13.0 - 44.0 [facility] Comment on above: Performed By: #### C BCDF ####[facility] [place] [address] MCHC mass conc (RBC) 32.9 g/dL Normal 32.0 - 36.0 [facility] Comment on above: Performed By: #### C BCDF ####[facility] [place] [address] MCV 99 fL Normal 80 - 100 [facility] Comment on above: Performed By: #### C BCDF ####[facility] [place] [address] Monocytes 0.60 10*3/uL Normal 0.10 - 1.00 [facility] Comment on above: Performed By: #### C BCDF ####[facility] [place] [address] Monocytes/100 leukocytes 7.2 % Normal 2.0 - 10.0 [facility] Comment on above: Performed By: #### C BCDF ####[facility] [place] [address] Neutrophils 5.09 10*3/uL Normal 1.20 - 7.70 [facility] Comment on above: Performed By: #### C BCDF ####[facility] [place] [address] Nucleated erythrocytes 0.0 /100 WBC Normal 0.0-0.0 [facility] Comment on above: Performed By: #### C BCDF ####[facility] [place] [address] Platelets 253 10*3/uL Normal 150 - 450 [facility] Comment on above: Performed By: #### C BCDF ####[facility] [place] [address] WBC (Leukocytes) 8.4 10*3/uL Normal 4.4 - 11.3 [facility] Comment on above: Performed By: #### C BCDF ####[facility] [place] [address] COMPREHENSIVE PANELon 2016 Alanine aminotransferase (ALT) 22 U/L Normal 7 - 45 [facility] Comment on above: Result Comment: Lori ents treated with Sulfasalazine may generate falsely decreased results for ALT. Performed By: #### C MP ####[facility] [place] [address] Albumin 3.8 g/dL Normal 3.4 - 5.0 [facility] Comment on above: Performed By: #### C MP ####[facility] [place] [address] Alkaline phosphatase (ALP) 45 U/L Normal 33 - 110 [facility] Comment on above: Performed By: #### C MP ####[facility] [place] [address] Anion gap 10 mmol/L Normal 10 - 20 [facility] Comment on above: Performed By: #### C MP ####[facility] [place] [address] Aspartate aminotransferase (AST) 19 U/L Normal 9 - 39 [facility] Comment on above: Performed By: #### C MP ####[facility] [place] [address] Bicarbonate (HCO3) 29 mmol/L Normal 21 - 32 [facility] Comment on above: Performed By: #### C MP ####[facility] [place] [address] Bilirubin (total) 0.6 mg/dL Normal 0.0 - 1.2 [facility] Comment on above: Performed By: #### C MP ####[facility] [place] [address] Calcium 8.9 mg/dL Normal 8.6 - 10.6 [facility] Comment on above: Performed By: #### C MP ####[facility] [place] [address] Chloride 107 mmol/L Normal 98 - 107 [facility] Comment on above: Performed By: #### C MP ####[facility] [place] [address] Creatinine 0.56 mg/dL Normal 0.50 - 1.05 [facility] Comment on above: Performed By: #### C MP ####[facility] [place] [address] eGFR (non-black) mL/min/{1.73_m2} Normal >60 [facility] Comment on above: Result Comment: CALC ULATIONS OF ESTIMATED GFR ARE PERFORMED USING THE MDRD STUDY EQUATION FOR THE IDMS-TRACEABLE CREATININE METHODS. CLIN CHEM 2007;53:766-72 Performed By: #### C MP ####[facility] [place] [address] Result Comment: >60 Glucose mass conc 82 mg/dL Normal 74 - 99 [facility] Comment on above: Performed By: #### C MP ####[facility] [place] [address] Potassium molar conc 4.1 mmol/L Normal 3.5 - 5.3 [facility] Comment on above: Performed By: #### C MP ####[facility] [place] [address] Protein 6.0 g/dL Low 6.4 - 8.2 [facility] Comment on above: Performed By: #### C MP ####[facility] [place] [address] Sodium 142 mmol/L Normal 136 - 145 [facility] Comment on above: Performed By: #### C MP ####[facility] [place] [address] Urea nitrogen 14 mg/dL Normal 6 - 23 [facility] Comment on above: Performed By: #### C MP ####[facility] [place] [address] Dermatopathologyon 7 BMI (Body Mass Index) 5447 Pathologist: TOMAS FORD, MDDate of Procedure: 12/19/2016Date Received: 12/20/2016Date Reported Submitting Physician: HERVE BOSS MDLocation: ADERM Copy To/Referring/Attending:Esdras LEYVA MD FINAL DIAGNOSIS Addendum/Procedures:Immu nofluorescence Date Ordered: 12/19/2016 Status: Signed Out Date Complete: 12/25/2016 Date Reported: 12/25/2016 InterpretationNEGATIVE DIRECT IMMUNOFLUORESCENCE TO ALL REACTANTS USED.Results-CommentsMul tiple cryostat-cut sections are stained with FITC-conjugated antiseraspecific for IgG, IgM,IgA, C3, and fibrinogen. Electronically Signed Out By TOMAS FORD MD/Prosper the signature on this report, the individual or group listed as making theFinal Interpretation/Diagnosis certifies that they have reviewed this case. Clinical History:R/O BP. Fresh tissue. Specimens Submitted As:A: SKIN, LT. ABDOMEN Gross Description:{Not Entered}ink/12/25/2016 Normal [facility] Comment on above: Performed By: #### D ####Dermatopathology Dermatopathology 70 Pathologist: ENDER SILVERMANate of Procedure: 12/19/2016Date Received: 12/20/2016Date Reported 12/21/2016Submitting Physician: HERVE BOSS MDLocation: ADERM Copy To/Referring/Attending:Esdras LEYVA MD FINAL DIAGNOSISSKIN, R FOREARM, BIOPSY:EOSINOPHILIC SPONGIOSIS, SEE NOTE.Note: Microscopic examination reveals a specimen that extends into thesubcutaneous fat. There is orthokeratosis with intraepidermal vesicles withneutrophils and eosinophils and there is neutrophil and eosinophil exocytosiswith moderate spongiosis. There is moderate papillary dermal edema and there spencer superficial and mid infiltrate of lymphocytes, neutrophils and eosinophils. A PAS stain is negative for fungus. All control slides stain appropriately.These findings may be seen in an arthropod assault, an autoimmune blisteringdisease such as bullous pemphigoid, contact dermatitis or a drug eruption. Ifan autoimmune subepidermal blistering disease is suspected, a biopsy ofclinically normal adjacent skin for direct immunofluorescence is recommended. Electronically Signed Out by LUCILA SMALL M.D. Electronically SignedOut By LUCILA SMALL MD/[facility] Clinical History:Vesicle w/ erythematous base. Contact Derm vs. BP (urticarial). Biopsy.([facility]). Specimens Submitted As:A: SKIN, R FOREARM Gross Description:Received in formalin is a can, cylindrical piece of skin measuring [id number]. Thespecimen is inked and embedded in toto.dcp/12/20/2016 Normal [facility] Comment on above: Performed By: #### D ####Dermatopathology Dermatopathology 48 Pathologist: ENDER EVANSate of Procedure: 12/19/2016Date Received: 12/20/2016Date Reported Submitting Physician: HERVE BOSS MDLocation: ADERM Copy To/Referring/Attending:Esdras LEYVA MD FINAL DIAGNOSIS Addendum/Procedures:Immu nofluorescence Date Ordered: 12/19/2016 Status: Signed Out Date Complete: 12/28/2016 Date Reported: 12/28/2016 InterpretationNEGATIVE INDIRECT IMMUNOFLUORESCENCE OF SUBMITTED SERUM FOR BOTH IgG AND IgAANTIBODIES AT ALL DILUTIONS TESTED. Results-CommentsIndirect immunofluorescence studies were performed to search for the presenceof circulating IgG and IgA antibodies. The submitted serum, along with knownpositive-control bullous pemphigoid, mucous membrane pemphigoid, epidermolysisbullosa acquisita, and linear IgA disease sera, as well as normal human sera,were tested on one molar sodium chloride-split human epithelium at 1:2.5, 1:5,1:10, 1:20, 1:40, and 1:80 dilutions. Electronically Signed Out By NEILJ. LOGAN MD/Prosper the signature on this report, the individual or group listed as making theFinal Interpretation/Diagnosis certifies that they have reviewed this case. Clinical History:{Not Provided}Specimens Submitted As:A: BLOOD Gross Description:{Not Entered} Normal [facility] Comment on above: Performed By: #### D ####Dermatopathology UA MICROSCOPICon 12-19-2016 CA OXALATE CRYSTAL 1+ /HPF Normal [facility] Comment on above: Result Comment: 1+ Performed By: #### U AMIC ####[facility] [place] [address] Erythrocytes (RBC) 10*6/uL Normal 0-5 [facility] Comment on above: Result Comment: <1 Performed By: #### U AMIC ####[facility] [place] [address] SQUAMOUS EPITH. CELLS <1 Normal [facility] Comment on above: Result Comment: <1 Performed By: #### U AMIC ####[facility] [place] [address] TRANSITIONAL EPITH.CELLS <1 Normal [facility] Comment on above: Result Comment: <1 Performed By: #### U AMIC ####[facility] [place] [address] Urine, mucus presence in sediment 1+ /LPF Normal [facility] Comment on above: Result Comment: 1+ Performed By: #### U AMIC ####[facility] [place] [address] WBC (Leukocytes) 3 /HPF Normal 0-5 [facility] Comment on above: Performed By: #### U AMIC ####[facility] [place] [address] URINALYSISon 12-19-2016 Bilirubin (total) Negative Normal NEGATIVE [facility] Comment on above: Result Comment: NEGA TIVE Performed By: #### U A ####[facility] [place] [address] BLOOD Negative Normal NEGATIVE [facility] Comment on above: Result Comment: NEGA TIVE Performed By: #### U A ####[facility] [place] [address] Glucose mass conc Negative Normal NEGATIVE [facility] Comment on above: Result Comment: NEGA TIVE Performed By: #### U A ####[facility] [place] [address] pH of blood 5.0 [pH] Normal 5.0 - 8.0 [facility] Comment on above: Performed By: #### U A ####[facility] [place] [address] Protein Negative Normal NEGATIVE [facility] Comment on above: Result Comment: NEGA TIVE Performed By: #### U A ####[facility] [place] [address] Urine, appearance HAZY Normal CLEAR [facility] Comment on above: Result Comment: HAZY Performed By: #### U A ####[facility] [place] [address] Urine, color YELLOW Normal STRAW,YELLOW [facility] Comment on above: Result Comment: YELL OW Performed By: #### U A ####[facility] [place] [address] Urine, ketones presence 5 (TRACE) Abnormal NEGATIVE [facility] Comment on above: Result Comment: 5 (T RACE) Performed By: #### U A ####[facility] [place] [address] Urine, leukocyte esterase presence SMALL (1+) Abnormal NEGATIVE [facility] Comment on above: Result Comment: SMAL L (1+) Performed By: #### U A ####[facility] [place] [address] Urine, nitrite presence Negative Normal NEGATIVE [facility] Comment on above: Result Comment: NEGA TIVE Performed By: #### U A ####[facility] [place] [address] Urine, specific gravity 1.025 Normal 1.005 - 1.035 [facility] Comment on above: Performed By: #### U A ####[facility] [place] [address] Urine, urobilinogen <2.0 Normal 0.0 - 1.9 [facility] Comment on above: Result Comment: <2.0 Performed By: #### U A ####[facility] [place] [address] Vital Signs Date Time Vital Sign Value Performing Clinician Facility 09-10-2024 16:23-0400 Body temperature 98.2 [degF] Dr. Helena Brantley MD Work Phone: [facility] 09-10-2024 16:23-0400 Diastolic blood pressure 78 mm[Hg] Dr. Helena Brantley MD Work Phone: 6(255)390-610449 [place] [address] 09-10-2024 16:23-0400 Heart rate 84 /min Dr. Helena Brantley MD Work Phone: 5(552)545-117990 [place] [address] 09-10-2024 16:23-0400 Respiratory rate 16 /min Dr. Helena Brantley MD Work Phone: 4(253)786-710690 [place] [address] 09-10-2024 16:23-0400 SaO2% (BldA) [Mass fraction] 98 % Dr. Helena Brantley MD Work Phone: 4(363)302-493690 [place] [address] 09-10-2024 16:23-0400 Systolic blood pressure 150 mm[Hg] Dr. Helena Brantley MD Work Phone: 8(570)980-405890 [place] [address] 06-08-2024 11:42-0400 Body height 160.[address] Helena Brantley MD Work Phone: 9(795)661-287190 [place] [address] 06-08-2024 11:38-0400 Body mass index (BMI) [Ratio] 23.8 kg/m2 Dr. Helena Brantley MD Work Phone: 8(482)943-997290 [place] [address] 06-08-2024 11:38-0400 Body weight [address] Helena Brantley MD Work Phone: 4(688)373-556990 [place] [address] 06-08-2024 11:38-0400 Diastolic blood pressure 78 mm[Hg] Dr. Helena Brantley MD Work Phone: 6(855)902-822590 [place] [address] 06-08-2024 11:38-0400 Systolic blood pressure 130 mm[Hg] Dr. Helena Brantley MD Work Phone: 5(969)248-603490 [place] [address] 06-02-2024 11:44-0500 Body height 160.[address] Helena Brantley MD Work Phone: 7(909)618-749290 [place] [address] 06-02-2024 11:40-0500 Body mass index (BMI) [Ratio] 23.9 kg/m2 Dr. Helena Brantley MD Work Phone: 4(161)333-767890 [place] [address] 06-02-2024 11:40-0500 Body weight 61.[address] Helena Brantley MD Work Phone: 9(343)691-784949 [place] [address] 06-02-2024 11:40-0500 Diastolic blood pressure 82 mm[Hg] Dr. Helena Brantley MD Work Phone: 6(482)416-352590 [place] [address] 06-02-2024 11:40-0500 Systolic blood pressure 122 mm[Hg] Dr. Helena Brantley MD Work Phone: 0(085)163-166390 [place] [address] 05-24-2024 08:18-0500 Body temperature 98.9 [degF] Dr. Helena Brantley MD Work Phone: 7(082)097-122090 [place] [address] 05-24-2024 08:18-0500 Diastolic blood pressure 74 mm[Hg] Dr. Helena Brantley MD Work Phone: 5(631)919-378790 [place] [address] 05-24-2024 08:18-0500 Heart rate 89 /min Dr. Helena Brantley MD Work Phone: 3(658)004-776890 [place] [address] 05-24-2024 08:18-0500 Respiratory rate 15 /min Dr. Helena Brantley MD Work Phone: 9(657)384-056290 [place] [address] 05-24-2024 08:18-0500 SaO2% (BldA) [Mass fraction] 98 % Dr. Helena Brantley MD Work Phone: 3(895)196-708290 [place] [address] 05-24-2024 08:18-0500 Systolic blood pressure 124 mm[Hg] Dr. Helena Brantley MD Work Phone: 1(069)835-410949 [place] [address] 04-05-2024 11:30-0500 Body temperature 97.2 [degF] Dr. Helena Brantley MD Work Phone: 5(260)911-444790 [place] [address] 04-05-2024 11:30-0500 Diastolic blood pressure 85 mm[Hg] Dr. Helena Brantley MD Work Phone: 4(774)851-867586 [address] 04-05-2024 11:30-0500 Heart rate 76 /min Dr. Helena Brantley MD Work Phone: 2(952)702-371786 [address] 04-05-2024 11:30-0500 Respiratory rate 15 /min Dr. Helena Brantley MD Work Phone: [facility] 04-05-2024 11:30-0500 SaO2% (BldA) [Mass fraction] 99 % Dr. Helena Brantley MD Work Phone: [facility] 04-05-2024 11:30-0500 Systolic blood pressure 127 mm[Hg] Dr. Helena Brantley MD Work Phone: 3(927)695-506749 [place] [address] 04-05-2024 08:04-0500 Body mass index (BMI) [Ratio] 22.1 kg/m2 Dr. Helena Brantley MD Work Phone: 8(398)407-790790 [place] [address] 04-05-2024 08:04-0500 Body weight 56.[address] Helena Brantley MD Work Phone: 4(134)276-797586 [address] 07-31-2023 13:20-0400 Body temperature 98.3 [degF] Dr. Helena Brantley Work Phone: 4(028)882-696049 [place] [address] 07-31-2023 13:20-0400 Diastolic blood pressure 80 mm[Hg] Dr. Helena Brantley Work Phone: 6(402)466-224086 [address] 07-31-2023 13:20-0400 Heart rate 78 /min Dr. Helena Brantley Work Phone: 8(609)163-531849 [place] [address] 07-31-2023 13:20-0400 Respiratory rate 15 /min Dr. Helena Brantley Work Phone: 7(842)135-464349 [place] [address] 07-31-2023 13:20-0400 SaO2% (BldA) [Mass fraction] 98 % Dr. Helena Brantley Work Phone: 4(973)332-120249 [place] [address] 07-31-2023 13:20-0400 Systolic blood pressure 132 mm[Hg] Dr. Helena Brantley Work Phone: 9(481)120-361149 [place] [address] 03-06-2023 08:37-0500 Body height 160.[address] Helena Brantley Work Phone: 0(821)316-918449 [place] [address] 03-06-2023 08:33-0500 Body mass index (BMI) [Ratio] 22.7 kg/m2 Dr. Helena Brantley Work Phone: [facility] 03-06-2023 08:33-0500 Body weight 58.[address] Helena Brantley Work Phone: [facility] 03-06-2023 08:33-0500 Diastolic blood pressure 74 mm[Hg] Dr. Helena Brantley Work Phone: [facility] 03-06-2023 08:33-0500 Systolic blood pressure 122 mm[Hg] Dr. Helena Brantley Work Phone: [facility] 03-01-2023 09:08-0500 Body mass index (BMI) [Ratio] 5 kg/m2 Dr. Helena Brantley Work Phone: 6(702)876-125949 [place] [address] 03-01-2023 09:08-0500 Body temperature 98 [degF] Dr. Helena Brantley Work Phone: [facility] 03-01-2023 09:08-0500 Body weight 12.[address] Helena Brantley Work Phone: [facility] 03-01-2023 09:08-0500 Diastolic blood pressure 75 mm[Hg] Dr. Helena Brantley Work Phone: [facility] 03-01-2023 09:08-0500 Heart rate 86 /min Dr. Helena Brantley Work Phone: [facility] 03-01-2023 09:08-0500 Respiratory rate 17 /min Dr. Helena Brantley Work Phone: [facility] 03-01-2023 09:08-0500 SaO2% (BldA) [Mass fraction] 97 % Dr. Helena Brantley Work Phone: [facility] 03-01-2023 09:08-0500 Systolic blood pressure 163 mm[Hg] Dr. Helena Brantley Work Phone: [facility] 11-27-2022 08:36-0400 Body height 160.[address] Helena Brantley Work Phone: [facility] 11-27-2022 08:29-0400 Body mass index (BMI) [Ratio] 22.7 kg/m2 Dr. Helena Brantley Work Phone: [facility] 11-27-2022 08:29-0400 Body weight 58.[address] Helena Brantley Work Phone: [facility] 11-27-2022 08:29-0400 Diastolic blood pressure 84 mm[Hg] Dr. Helena Brantley Work Phone: [facility] 11-27-2022 08:29-0400 Systolic blood pressure 126 mm[Hg] Dr. Helena Brantley Work Phone: 6(164)207-861149 [place] [address] 10-16-2022 10:22-0400 Body mass index (BMI) [Ratio] 22.7 kg/m2 Dr. Helena Brantley Work Phone: [facility] 10-16-2022 10:22-0400 Body weight 58.[address] Helena Brantley Work Phone: [facility] 10-16-2022 10:22-0400 Diastolic blood pressure 78 mm[Hg] Dr. Helena Brantley Work Phone: [facility] 10-16-2022 10:22-0400 Systolic blood pressure 132 mm[Hg] Dr. Helena Brantley Work Phone: [facility] 10-03-2022 09:18-0400 Body mass index (BMI) [Ratio] 22.8 kg/m2 Dr. Helena Brantley Work Phone: [facility] 10-03-2022 09:18-0400 Body weight 58.[address] Helena Brantley Work Phone: [facility] 10-03-2022 09:18-0400 Diastolic blood pressure 72 mm[Hg] Dr. Helena Brantley Work Phone: [facility] 10-03-2022 09:18-0400 Systolic blood pressure 120 mm[Hg] Dr. Helena Brantley Work Phone: [facility] 09-19-2022 10:09-0400 Body height 160.[address] Helena Brantley Work Phone: [facility] 09-19-2022 10:02-0400 Body mass index (BMI) [Ratio] 22.7 kg/m2 Dr. Helena Brantley Work Phone: [facility] 09-19-2022 10:02-0400 Body weight 58.[address] Helena Brantley Work Phone: [facility] 09-19-2022 10:02-0400 Diastolic blood pressure 78 mm[Hg] Dr. Helena Brantley Work Phone: [facility] 09-19-2022 10:02-0400 Systolic blood pressure 140 mm[Hg] Dr. Helena Brantley Work Phone: [facility] 11-08-2020 13:22-0400 Body height 157.5 cm Elena Liao DO Work Phone: [facility] 11-08-2020 13:22-0400 Body mass index (BMI) [Ratio] 23.34 kg/m2 Elenamary ann Liao Work Phone: [facility] 11-08-2020 13:22-0400 Body temperature 98.49 [degF] Elena Liao DO Work Phone: [facility] 11-08-2020 13:22-0400 Body weight 57.88 kg Elena Liao DO Work Phone: [facility] Comment on above: wearing CAM walking boot. Encounters Encounter Date Encounter Type Care Provider Facility Start: 09-10-2024 End: 09-10-[address] Helena Brantley MD Work Phone: [facility] Work Phone: Start: 09-10-2024 End: 09-10-2024 Patient encounter procedure Frankie Ulysses [facility] -[facility] Work Phone: Start: 09-03-2024 ambulatory Rey Manzano Facility :[facility] Start: 09-03-2024 Registered Recurring Rey [place] WELDING MACHINE OPERATOR THERMIT-C -Physical Therapy Work Phone: Start: 08-20-2024 End: 08-20-[address] Helena Brantley MD Work Phone: [facility] Work Phone: Start: 08-20-2024 End: 08-20-2024 Patient encounter procedure Fabiano Omarnirmal WELDING MACHINE OPERATOR THERMIT-C -[facility] [place] Work Phone: Start: 08-20-2024 Registered Recurring Rey [place] WELDING MACHINE OPERATOR THERMIT-C -Physical Therapy Work Phone: Start: 08-20-2024 End: 08-20-2024 ambulatory Fabiano Loaizaleanne WELDING MACHINE OPERATOR THERMIT Facility:[facility] Start: 06-22-2024 End: 06-22-[address] Heladio Swanson MD -[facility] Work Phone: Start: 06-22-2024 End: 06-22-2024 ambulatory Heladio Swanson Facility:[facility] Start: 06-08-2024 End: 06-08-2024 Patient encounter procedure Rey Natacha WELDING MACHINE OPERATOR THERMIT-C -[facility] Work Phone: Start: 06-08-2024 End: 06-08-2024 ambulatory Helena Brantley Facility:[facility] Start: 06-02-2024 End: 06-02-2024 Patient encounter procedure Rey Manzano WELDING MACHINE OPERATOR THERMIT-C -[facility] Work Phone: Start: 06-02-2024 End: 06-02-2024 ambulatory Helena Brantley Facility:[facility] Start: 05-25-2024 End: 05-25-[address] Helena Brantley MD Work Phone: [facility] Work Phone: Start: 05-25-2024 End: 05-25-2024 Patient encounter procedure Nando Granda WELDING MACHINE OPERATOR THERMIT-C -[facility] Work Phone: Start: 05-24-2024 End: 05-24-2024 Patient encounter procedure Nando Brianda Kalee WELDING MACHINE OPERATOR THERMIT-C -[facility] Work Phone: Start: 05-24-2024 End: 05-25-2024 ambulatory Nando Granda WELDING MACHINE OPERATOR THERMIT Facility:[facility] Start: 04-05-2024 End: 04-05-2024 Emergency department patient visit Dr. Shelia Bourne DO -Emergency Department Work Phone: Start: 02-13-2024 Encounter for other preprocedural examination [facility] [facility] Start: 02-06-2024 ambulatory Tracyadam Lopez Facility: [facility] Start: 01-02-2024 End: 01-02-2024 ambulatory Helena Brantley Facility:[facility] Start: 12-24-2023 End: 12-24-2023 ambulatory Heladio Swanson Facility:[facility] Start: 12-06-2023 End: 12-06-2023 ambulatory Helena Brantley Facility:[facility] Start: 12-06-2023 End: 12-06-2023 ambulatory Frankie MAC Facility:[facility] Start: 11-28-2023 End: 11-28-2023 ambulatory Helena Brantley Facility:[facility] Start: 11-08-2023 End: 11-08-2023 ambulatory Tracyadam Lopez Facility:[facility] Start: 10-24-2023 End: 10-24-2023 [facility]ulatory [facility] Facility:[facility] Start: 10-23-2023 End: 10-23-2023 ambulatory Patrick Montesinos Facility:[facility] Start: 09-23-2023 End: 09-23-2023 ambulatory Helena S Fercho Facility:[facility] Start: 09-23-2023 End: 09-23-2023 ambulatory Rey Manzano Facility:[facility] Start: 07-31-2023 End: 07-31-[address] Helena Brantley Work Phone: [facility] Work Phone: Start: 07-31-2023 End: 07-31-[address] [facility] Work Phone: Start: 07-31-2023 End: 07-31-[address] Helena Brantley Work Phone: [facility] Work Phone: Start: 07-08-2023 End: 07-08-2023 ambulatory [facility] Work Phone: Start: 07-08-2023 End: 07-08-2023 Patient encounter procedure [facility] Work Phone: Start: 03-06-2023 End: 03-06-[address] Heelna Brantley Work Phone: [facility] Work Phone: Start: 03-01-2023 End: 03-01-[address] Helena Brantley Work Phone: [facility] Work Phone: Start: 03-01-2023 End: 03-01-[address] Hel[facility]ant[facility] Work [facility]: Start: 03-01-2023 End: 03-01-[address] Helena Brantley Work Phone: [facility] Work Phone: Start: 01-30-2023 End: 01-30-[address] Helena Brantley Work Phone: [facility] Work Phone: Start: 01-30-2023 End: 01-30-[address] Hel[facility] Start: 12-28-2022 End: 12-28-[address] Hel[facility] Brant[facility] [place] Work Phone: Start: 12-20-2022 End: 12-20-[address] Helena Brantley Work Phone: [facility] Work Phone: Start: 12-20-2022 End: 12-20-[address] Hel[facility]ant[facility] Start: 11-27-2022 End: 11-27-[address] Helena Brantley Work Phone: [facility] Work Phone: Start: 11-27-2022 End: 11-27-[address] Heelna Brantley Work Phone: [facility] Work Phone: Start: 11-27-2022 End: 11-27-[address] Helena Brantley Work Phone: [facility] Work Phone: Start: 10-16-2022 End: 10-16-[address] Helena Brantley Work Phone: [facility] Work Phone: Start: 10-03-2022 End: 10-03-[address] Helena Brantley Work Phone: [facility] Work Phone: Start: 09-19-2022 End: 09-19-[address] Helena Brantley Work Phone: [facility] Start: 09-19-2022 End: 09-19-[address] Helena Brantley Work Phone: [facility] Work Phone: Start: 09-19-2022 End: 09-19-[address] Helena Brantley Work Phone: [facility] Start: 08-01-2022 End: 08-01-[address] Helena Brantley Work Phone: [facility] Start: 08-07-2021 End: 08-07-2021 Patient encounter procedure [facility] Start: 11-15-2020 End: 11-16-2020 ambulatory ELENA LIAO Facility:[facility] Start: 11-08-2020 End: 11-08-2020 Subsequent hospital visit by physician Elena Liao DO Work Phone: [facility] Start: 11-08-2020 End: 11-08-2020 Office outpatient visit 25 minutes Elena Liao DO Work Phone: [facility] Comment on above: Right leg pain (Prim phillip Dx) Start: 11-21-2017 Patient encounter ELENA LIAO [facility] Start: 05-10-2017 Ambulatory Omar Montana Fac ility:[id number] Start: 05-07-2017 Ambulatory Reyadam Pateln Simpson Faci lity:[facility]rita Start: 04-16-2017 Ambulatory Rey Martha Simpson Faci lity:[facility] Amriat Start: 04-09-2017 Ambulatory Reyadam Pateln Simpson Faci lity:[facility]rit[facility] Start: 03-22-2017 Ambulatory Omar Quigleyrost Fac ility:[id number] Start: 02-26-2017 Ambulatory Omar Quigleyrost Fac ility:[id number] Start: 02-15-2017 Ambulatory Omar Quigleyrost Fac ility:[id number] Start: 02-15-2017 Ambulatory Lucila Small Facili ty:[id number] Start: 02-12-2017 Ambulatory REFERRED *SELF Facility :[id number] Start: 02-08-2017 Ambulatory Omar Montana Fac ility:[id number] Start: 01-25-2017 Ambulatory Omar Montana Fac ility:[id number] Start: 01-10-2017 Ambulatory PROVIDER UNKNOWN Facili ty:[facility] Start: 12-19-2016 Ambulatory UNKNOWN Facility:[facility] Start: 12-19-2016 Ambulatory Herve Boss Fac ility:[id number] Start: 12-19-2016 Ambulatory Lucila Small Facili ty:[id number] Start: 11-09-2016 Ambulatory [facility] Procedures Date Procedure Procedure Detail Performing Clinician Start: 05-25-[address] Helena alvarado MD Work Phone: Start: 04-05-2024 SARS-CoV-2, Influenz a & RSV (PCR) Dr. Helena Brantley MD Work Phone: Start: 04-05-2024 X-ray of chest, PA a nd lateral views Dr. Helena Brantley MD Work Phone: Start: 07-31-[address] Helena alvarado Work Phone: Start: 07-08-2023 Plain X-ray of shoulder Start: 03-01-[address] Helena alvarado Work Phone: Start: 11-27-2022 Cytopathology proced ure, preparation of smear, genital source Dr. Helena Brantley Work Phone: Start: 11-27-2022 Investigation of transfusion reaction Dr. Helena Brantley Work Phone: Start: 09-19-2022 Dual energy X-ray absorptiometry Dr. Helena Brantley Work Phone: Start: 09-19-2022 Screening mammography Nola Brantley Work Phone: Plan of Treatment Date Care Activity Detail Author Start: 06-02-2024 Patient referral [facility] Work Phone: Start: 04-05-2024 [facility] Start: 09-19-2022 Patient referral [facility] Work Phone: Start: 09-19-2022 Dual energy X-ray absorptiometry Dexa Bone Density Study [facility] Start: 12-20-2020 End: 12-20-2020 Patient encounter procedure 12/20/2020 Office Visit Orthopaedics Elena Liao DO [address] [id number] [facility] Start: 11-30-2020 Influenza vaccination INFLUENZA VACC INE (#1) [facility] Start: 09-26-2007 Zoster vaccine hzv l falguni for subcutaneous use ZOSTER (SHINGLES) VACCINE (1 of 2) [facility] Start: 2002 Colonoscopy COLORECTAL CAN CER SCREENING DISCUSSION [facility] Start: 1997 Fasting lipid profile LIPID SCREENIN G [facility] Start: 1997 Screening mammography MAMMOGRA M SCREENING DISCUSSION [facility] Start: 1978 Screening for malign ant neoplasm of cervix CERVICAL CANCER SCREENING DISCUSSION [facility] Start: 1976 Third diphtheria, tetanus and acellular pertussis (DTaP) vaccination TDAP (ADULT) [facility] Start: 09-26-1975 Tetanus vaccination TETANUS [facility] Start: 1972 HIV screening HIV SCREENING DISCUSSION [facility] Start: 1957 Hepatitis C antibody , confirmatory test HEPATITIS C VIRUS SCREENING [facility] Patient referral [facility] Work Phone: End: 11-08-2020 Tibia and/or fibula X-ray [facility] Work Phone: Comment on above: 1 Occurrences starti ng 11/08/2020 until 11/08/2020 [facility] Immunizations Immunization Date Immunization Notes Care Provider Bibiana nagy 06-06-2020 SARS-COV-2 (COVID-19 ), AD26, 0.5 ML Dose SOFIYA Liao DO Work Phone: [facility] Payers Date Payer Category Payer Self-pay [id number] 2023 Medicare [id number] 2017 Unknown [id number] 2017 Unknown [employer] [place] [employer] [id number] 2017-Present [address] [address] [place] [address] [id number] 2015 Unknown [id number] 1957 Unknown [id number] Medicare MEDICARE PART A B [id number] Unknown [id number] Unknown [id number] [id number] Unknown [id number] [id number] Unknown [id number] [id number] Unknown [id number] [id number] Unknown [id number] [id number] Unknown [id number] [id number] Unknown [id number] [id number] Unknown [id number] 2.16.840.1.267507.3.579.2.462 Unknown [id number] 2.16.840.1.189785.3.579.2.462 Unknown [id number] [id number] Unknown [id number] [id number] Unknown [id number] [id number] Unknown [id number] [id number] Unknown [id number] [id number] Unknown [id number] [id number] Unknown [id number] [id number] Unknown [id number] [id number] Unknown [id number] Social History Date Type Detail Facility Start: 07-01-2017 End: 04-05-2024 Tobacco smoking status NHIS Never smoker [facility] Start: 07-01-2017 Tobacco use and exposure Never used [facility] Start: 11-08-2020 Alcohol intake Current drinke r of alcohol (finding) [facility] Start: 12-11-2017 Alcohol Comment wine and beer weekly [facility] Start: 1955 Sex Assigned At Not on file A [facility] Start: 09-13-2020 End: 03-06-2023 Tobacco smoking status WIIS Unknown if ever smoked [facility] Start: 1955 Sex Assigned At Female [facility] Start: 06-04-2024 Sex Female (finding) [facility] Mental Status Date Assessment Result Facility 04-05-2024 Cognitive function Level Of Cons ciousness Awake;Alert;Appropriate;Follow s Commands [facility] Work Phone: Clinical Notes 11-08-2020 to 05-24-2024 Note Date & Type Note Facility 05-24-2024 Evaluation note Diagnosis Onset Date Resolution Urinary tract infection noneactive F ebruary 2024 8:07am Atrophic vaginitis acute June 02, 2024 11:37am Cystocele with rectocele acute June 02, 2024 11:37am Enterocele acute June 02 11:37am Pessary maintenance acute June 02, 2024 11:37am Recurrent UTI resolved June 02, 2024 11:37am Excoriation noneactive June 02 11:37am [facility] Work Phone: 1(395) 723-671502-23-2025 Evaluation note* Diagnosis Onset Date Resolution Status Admit Date Urinary tract infection noneactive F ebruary 2024 8:07am Atrophic vaginitis acute June 02, 2024 11:37am Cystocele with rectocele acute June 02, 2024 11:37am Enterocele acute June 02 11:37am Pessary maintenance acute June 02, 2024 11:37am Recurrent UTI resolved June 02, 2024 11:37am Excoriation noneactive June 02 11:37am Atrophic vaginitis acute June 08, 2024 11:34am Cystocele with rectocele acute June 08, 2024 11:34am Pessary maintenance acute June 08, 2024 11:34am Fracture of greater tuberosity of right humerus acute Stephen h 2024 9:39am Right rotator cuff tear acute M arch 2024 9:39am Right shoulder pain acute June 22, 2024 9:39am [facility] Work Phone: 1(285) 310-176008-10-2021 History of Present illness Narrative* Elena Liao DO - 11/08/2020 1:30 PM EDT (Incomplete)This note is in progress. Chief Complaint Patient presents with Right Lower Leg - Pain Pain Radiation To: lower leg near ankle Pain Duration: 1 mo. NKI Pain Frequency: frequent Pain Quality: shooting, throbbing Factors That Aggravate Pain: activity Factors That Relieve Pain: rest Dictation on: 11/08/2020 3:45 PM by: ELENA LIAO [[id number]] Bilateral foot and ankle examined today. INSPECTION: No swelling. No ecchymosis. No deformity. GAIT: Non-antalgic. PALPATION: Right anterior tibia tenderness. No other tenderness. ROM: Full AROM in DF, PF, eversion, inversion. STRENGTH: 5/5 Campos test: Neg. Anterior drawer: Neg. Talar tilt: Neg. Squeeze test: Neg. Klieger's test: Neg. Hop test: Pos.-RT Visit Vitals Temp 98.5 F (36.9 C) (Temporal) Ht 1.575 m (5' 2) Wt 57.9 kg (127 lb 9.6 oz) Comment: wearing CAM walking boot. BMI 23.34 kg/m *Portions of this note may have been created with [employer] or other software which leads to grammatical and typographical errors which are not airport representative of the intent with my spoken words. Clinical medical office assistant/AT/MA was acting as a scribe today for this note. I have performed all essentialcomponents of the history, and physical exam. I have confirmed the diagnosis and developed a plan of care at this visit. I have reviewed the note following the visit and have made edits as appropriate to my evaluation and plan of care. Elena Liao DO * Zoe Vanegas - 11/08/2020 1:30 PM EDT Chief Complaint Patient presents with Right Lower Leg - Pain Pain Radiation To: lower leg near ankle Pain Duration: 1 mo. NKI Pain Frequency: frequent Pain Quality: shooting, throbbing Factors That Aggravate Pain: activity Factors That Relieve Pain: rest Bilateral foot and ankle examined today. INSPECTION: No swelling. No ecchymosis. No deformity. GAIT: Non-antalgic. PALPATION: Right anterior tibia tenderness. No other tenderness. ROM: Full AROM in DF, PF, eversion, inversion. STRENGTH: 5/5 Campos test: Neg. Anterior drawer: Neg. Talar tilt: Neg. Squeeze test: Neg. Klieger's test: Neg. Hop test: Pos.-RT Visit Vitals Temp 98.5 F (36.9 C) (Temporal) Ht 1.575 m (5' 2) Wt 57.9 kg (127 lb 9.6 oz) Comment: wearing CAM walking boot. BMI 23.34 kg/m *Portions of this note may have been created with [employer] or other software which leads to grammatical and typographical errors which are not airport representative of the intent with my spoken words. [facility]* Diagnosis Right leg pain- Primary Pain in limb documented [facility] Diagnosis Right leg pain Pain in limb documented in this [facility] noteNo assessment information availableW[facility] Work Phone: Evaluation note* Diagnosis Onset Date Resolution Status Atrophic vaginitis acute Cystocele with rectocele acu te Enterocele acute Encounter for routine gynecological examination noneactive [facility] Work Phone: Evaluation note* Diagnosis Onset Date Resolution Status Atrophic vaginitis acute Cystocele with rectocele acu te Enterocele acute Encounter for routine gynecological examination noneactive Atrophic vaginitis acute Cystocele with rectocele acu te Enterocele acute Fitting and adjustment of pessary noneactive Atrophic vaginitis acute Cystocele with rectocele acu te Enterocele acute Pessary maintenance acute Atrophic vaginitis acute Cystocele with rectocele acu te Enterocele acute Pessary maintenance acute [facility] Work Phone: Evaluation note* Diagnosis Onset Date Resolution Status Atrophic vaginitis acute Cystocele with rectocele acu te Enterocele acute Pessary maintenance acute Atrophic vaginitis acute Cystocele with rectocele acu te Enterocele acute Pessary maintenance acute [facility] Work Phone: Evaluation note* Diagnosis Onset Date Resolution Status Atrophic vaginitis acute Cystocele with rectocele acu te Enterocele acute Pessary maintenance acute Urinary tract infection none active Atrophic vaginitis acute Cystocele with rectocele acu te Enterocele acute Pessary maintenance acute Recurrent UTI acute [facility] Work Phone: Hospital Discharge instructionsAmbulatory Orders* PT Referral Location: None Selected [facility] Work Phone: Reason for referral (narrative)No reason for referral information availableWChildren[facility] Work Phone: Summary Purpose Family History Relationship Condition Age at Onset Recorded Date/T tatum mother Hypertension Unknown grandmother Aneurysm Unknown grandfather Aneurysm Unknown Advance Directives Advance Directive Response Recorded Date/ Time Living Will No April 05 8:19am Power of Cycle Analyst No April 05, 2 025 8:19am Chief Complaint and Reason for Visit Chief Complaint SCREENING Annual (TIPPLE BOSS) Reason for Visit Atrophic vaginitis Cystocele with rectocele Enterocele Encounter for routine gynecological examination Chief Complaint SCREENING Annual (TIPPLE BOSS) pessary fitting 2 WK PESSARY F/U PESSARY PROBLEMS Reason for Visit Atrophic vaginitis Cystocele with rectocele Enterocele Encounter for routine gynecological examination Atrophic vaginitis Cystocele with rectocele Enterocele Fitting and adjustment of pessary Atrophic vaginitis Cystocele with rectocele Enterocele Pessary maintenance Atrophic vaginitis Cystocele with rectocele Enterocele 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 Complaint SCREENING Annual (TIPPLE BOSS) pessary fitting 2 WK PESSARY F/U PESSARY PROBLEMS E-ORDER Reason for Visit Atrophic vaginitis Cystocele with rectocele Enterocele Encounter for routine gynecological examination Atrophic vaginitis Cystocele with rectocele Enterocele Fitting and adjustment of pessary Atrophic vaginitis Cystocele with rectocele Enterocele Pessary maintenance Atrophic vaginitis Cystocele with rectocele Enterocele 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 Complaint 2 WK PESSARY F/U PESSARY PROBLEMS E-ORDER EORDER Reason for Visit Atrophic vaginitis Cystocele with rectocele Enterocele Pessary maintenance Atrophic vaginitis Cystocele with rectocele Enterocele 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 Complaint PESSARY PROBLEMS E-ORDER EORDER Urinary tract infection Follow up UTI, follow up pessary Reason for Visit Atrophic vaginitis Cystocele with rectocele Enterocele Pessary maintenance Urinary tract infection Atrophic vaginitis Cystocele with rectocele Enterocele Pessary maintenance Recurrent UTI Chief Complaint CONCERN FOR UTI Chief Complaint Admit Date general illness April 05, 2024 8: 03am Urinary tract infection May 24, 2 025 8:07am recurrent UTI June 02, 2024 11:3 7am Reason for Visit Admit Date Urinary tract infection May 24 2 025 8:07am Atrophic vaginitis June 02, 2024 11:3 7am Cystocele with rectocele June 02, 2024 11:37am Enterocele June 02, 2024 11:3 7am Pessary maintenance June 02, 2024 11:3 7am Recurrent UTI June 02, 2024 11:3 7am Excoriation June 02, 2024 11:3 7am Chief Complaint Admit Date Urinary tract infection May 24, 2 025 8:07am recurrent UTI June 02, 2024 11:3 7am Pessary Check June 08, 2024 11: 34am RIGHT SHOULDER June 22, 2024 9:3 9am CYSTOCELE RX HERE August 20, 2024 9:30a m E-ORDER August 20, 2024 10:11 am Reason for Visit Admit Date Urinary tract infection May 24, 2 025 8:07am Atrophic vaginitis June 02, 2024 11:3 7am Cystocele with rectocele June 02, 2024 11:37am Enterocele June 02, 2024 11:3 7am Pessary maintenance June 02, 2024 11:3 7am Recurrent UTI June 02, 2024 11:3 7am Excoriation June 02, 2024 11:3 7am Atrophic vaginitis June 08, 2024 11: 34am Cystocele with rectocele June 08 11:34am Pessary maintenance June 08, 2024 11: 34am Fracture of greater tuberosity of right humerus June 22, 2024 9:39am Right rotator cuff tear June 22, 2024 9:39am Right shoulder pain June 22, 2024 9:3 9am Chief Complaint Admit Date Urinary tract infection May 24, 2 025 8:07am recurrent UTI June 02, 2024 11:3 7am Pessary Check June 08, 2024 11: 34am RIGHT SHOULDER June 22, 2024 9:3 9am E-ORDER August 20, 2024 10:11 am CYSTOCELE RX HERE September 03, 2024 8:30a m CONCERN FOR UTI September 10, 2024 4:16 pm Additional Source Comments INFORMATION SOURCE (unrecogn ized section and content) DATE CREATED AUTHOR 09/19/2017 [facility] DATE CREATED AUTHOR AUTHOR'S ORGANIZ ATION 2017 [facility] DATE CREATED AUTHOR AUTHOR'S ORGANIZ ATION 11/23/2017 [facility] DATE CREATED AUTHOR AUTHOR'S ORGANIZ ATION 11/19/2020 [facility] DATE CREATED AUTHOR AUTHOR'S ORGANIZ ATION 12/23/2020 [facility] DATE CREATED AUTHOR AUTHOR'S ORGANIZ ATION 09/04/2024 [facility] Reason for Visit (unrecogniz ed section and content) Reason Comments Pain Care Teams (unrecognized sec tion and content) Solar Panel Technician Relationship Specialty Start Date End Date Helena Brantley MD [address] [place] [id number] PCP - General Family Medicine 07/01/17 Solar Panel Technician Relationship Specialty Start Date End Date Helena Brantley MD [address] [place] [phone] PCP - General Family Medicine 07/01/17 Team Status: Active Member Role Status Dates Dr. Helena Brantley MD Family Provider Active Dr. Helena Brantley MD Primary Care Provider Active Team Status: Inactive Member Role Status Dates Dr. Helena Brantley MD Primary Care Provider, Referrin g Provider Active Rey Manzano WELDING MACHINE OPERATOR THERMIT, WELDING MACHINE OPERATOR THERMIT-C Attending Provider Active Team Status: Inactive Member Role Status Dates Dr. Helena Brantley MD Primary Care Provider, Attendin g Provider Active Team Status: Inactive Member Role Status Dates Dr. Helena Brantley MD Primary Care Provider Active Rey Manzano WELDING MACHINE OPERATOR THERMIT, WELDING MACHINE OPERATOR THERMIT-C Attending Provider, Referring Provider Active Team Status: Inactive Member Role Status Dates Dr. Helena Brantley MD Primary Care Provider Active Dr. Janine Baer DO Attending Provider, Refe rring Provider Active Team Status: Inactive Member Role Status Dates Dr. Helena Brantley MD Primary Care Prov ider, Attending Provider, Referring Provider Active Team Status: Inactive Member Role Status Dates Dr. Helena Brantley MD Primary Care Provider Active Rey Manzano WELDING MACHINE OPERATOR THERMIT, WELDING MACHINE OPERATOR THERMIT-C Attending Provider Active Team Status: Inactive Member Role Status Dates Dr. Helena Brantley MD Primary Care Provider, Referrin g Provider Active Frankie Arora PA, PA Attending Provider Active Team Status: Inactive Member Role Status Dates Dr. Helena Brantley MD Primary Care Provider Active Frankie MAC, PA Attending Provider, Referring Provi leelee Active Team Status: Inactive Member Role Status Dates Dr. Helena Brantley MD Primary Care Provider, Referrin g Provider Active Alex Salgado PA, PA Attending Provider Active Team Status: Inactive Member Role Status Dates Dr. Helena Brantley MD Primary Care Provider Active Alex Salgado PA, PA Attending Provider, Referring Pr ovider Active Team Status: Inactive Member Role Status Dates Dr. Helena Brantley MD Primary Care Provider Active Start: April 05, 2024 End: April 05, 2024 Dr. Shelia Bourne DO Attending Provider Active Start: April 05, 2024 End: April 05, 2024 Dr. Shelia Bourne DO Emergency Provider Active Start: April 05, 2024 End: April 05, 2024 Team Status: Inactive Member Role Status Dates Dr. Helena Brantley MD Primary Care Provider Active Start: May 24, 2024 End: May 24, 2024 Dr. Helena Brantley MD Referring Provider Active Start: May 24, 2024 End: May 24, 2024 Nando Granda WELDING MACHINE OPERATOR THERMIT, WELDING MACHINE OPERATOR THERMIT-C Attending Provider Active S tart: May 24, 2024 End: May 24, 2024 Team Status: Inactive Member Role Status Dates Dr. Helena Brantley MD Primary Care Provider Active Start: May 25, 2024 End: May 25, 2024 Nando Granda WELDING MACHINE OPERATOR THERMIT, WELDING MACHINE OPERATOR THERMIT-C Attending Provider Active S tart: May 25, 2024 End: May 25, 2024 Team Status: Inactive Member Role Status Dates Dr. Helena Brantley MD Primary Care Provider Active Start: June 02, 2024 End: June 02, 2024 Dr. Helena Brantley MD Referring Provider Active Start: June 02, 2024 End: June 02, 2024 Rey Manzano NP, WELDING MACHINE OPERATOR THERMIT-C Attending Provider Active Start: June 02, 2024 End: June 02, 2024 Team Status: Active Member Role Status Dates Dr. Helena Brantley MD Primary Care Provider Active Team Status: Inactive Member Role Status Dates Dr. Helena Brantley MD Primary Care Provider Active Start: June 08, 2024 End: June 08, 2024 Dr. Helena Brantley MD Referring Provider Active Start: June 08, 2024 End: June 08, 2024 Rey Manzano NP, WELDING MACHINE OPERATOR THERMIT-C Attending Provider Active Start: June 08, 2024 End: June 08, 2024 Team Status: Inactive Member Role Status Dates Dr. Helena Brantley MD Primary Care Provider Active Start: June 22, 2024 End: June 22, 2024 Dr. Helena Brantley MD Referring Provider Active Start: June 22, 2024 End: June 22, 2024 Heladio Swanson MD Attending Provider Active St art: June 22, 2024 End: June 22, 2024 Team Status: Active Member Role Status Dates Dr. Helena Brantley MD Primary Care Provider Active Start: August 20, 2024 Rey Manzano WELDING MACHINE OPERATOR THERMIT, WELDING MACHINE OPERATOR THERMIT-C Attending Provider Active Start: August 20, 2024 Rey Manzano WELDING MACHINE OPERATOR THERMIT, WELDING MACHINE OPERATOR THERMIT-C Referring Provider Active Start: August 20, 2024 Team Status: Inactive Member Role Status Dates Dr. Helena Brantley MD Primary Care Provider Active Start: August 20, 2024 End: August 20, 2024 Fabiano Reese WELDING MACHINE OPERATOR THERMIT, WELDING MACHINE OPERATOR THERMIT-C Attending Provider Active Start: August 20, 2024 End: August 20, 2024 Fabiano Reese WELDING MACHINE OPERATOR THERMIT, WELDING MACHINE OPERATOR THERMIT-C Referring Provider Active Start: August 20, 2024 End: August 20, 2024 Team Status: Active Member Role Status Dates Dr. Helena Brantley MD Primary Care Provider Active Start: September 03, 2024 Rey Manzano WELDING MACHINE OPERATOR THERMIT, WELDING MACHINE OPERATOR THERMIT-C Attending Provider Active Start: September 03, 2024 Rey Manzano WELDING MACHINE OPERATOR THERMIT, WELDING MACHINE OPERATOR THERMIT-C Referring Provider Active Start: September 03, 2024 Team Status: Inactive Member Role Status Dates Dr. Helena Brantley MD Primary Care Provider Active Start: September 10, 2024 End: September 10, 2024 Dr. Helena Brantley MD Referring Provider Active Start: September 10, 2024 End: September 10, 2024 BUBBA Finch Attending Provider Active Sta rt: September 10, 2024 End: September 10, 2024 Goals (unrecognized section and content) Goals may be documented in a n alternate sectionGoals may be documented in an alternate sectionGoals may be documented in an alternate sectionGoals may be documented in an alternate sectionGoals may be documented in an alternate sectionGoals may be documented in an alternate sectionGoals may be documented in an alternate sectionGoals may be documented in an alternate sectionGoals may be documented in an alternate sectionGoals may be documented in an alternate sectionGoals may be documented in an alternate section FOR RECORDS PERTAINING TO PATIENTS WHO ARE OR HAVE BEEN ENROLLED IN A CHEMICAL DEPENDENCY/SUBSTANCEABUSE PROGRAM, SOME INFORMATION MAY BE OMITTED. This clinical summary was aggregated from multiple sources. Caution should be exercised in using it in the provision of clinical care. This summary normalizes information from multiple sources, and as a consequence, information in this document may materially change the coding, format and clinical context of patient data. In addition, data may be omitted in some cases. CLINICAL DECISIONS SHOULD BE BASED ON THE PRIMARY CLINICAL RECORDS. [facility]. provides no warranty or guarantee of the accuracy or completeness of information in this document.
== END | disposition home or self-care (01) ==
LOC: LABSPEC 16:40
PROVIDERS: PCP Family Medicine; Visit Provider Physician Assistant Surgical
DX: R82.90 Unspecified abnormal findings in urine (principal)
CPT/HCPCS: 87086

== ENCOUNTER → 2024-09-23 | Outpatient (CLI) | payer MEDICARE, SELFPAY ==
--- NOTE | 2024-09-23 10:00 | BI_ITS ---
EXAM: SCRN MAMM (CAD)W/YAO BILAT DATE: 09/23/2024 CLINICAL HISTORY: F, Age 68 y/o , SCREENING FOR BREAST CANCER TECHNIQUE: SCRN MAMM (CAD)W/YAO BILAT COMPARISON: Prior exam(s) dated 09/23/2023, 09/19/2022, 09/18/2021, 07/04/2020. FINDINGS: TISSUE DENSITY: The breast tissue is extremely dense which lowers the sensitivity of mammography. The mammogram demonstrates that the patient has dense breasts. Supplemental screening with whole breast ultrasound or MRI may be considered for further evaluation. Bilateral Breast Mammographic Findings: No significant masses, calcifications or other abnormalities are identified. BI/SCRN MAMM (CAD)W/YAO BILAT IMPRESSION: There is no mammographic evidence of malignancy. OVERALL FINAL ASSESSMENT BI-RADS 1: NEGATIVE. RECOMMEND ANNUAL MAMMOGRAPHIC SCREENING. RECOMMENDATION: Routine annual follow-up in 1 Year A letter with findings and recommendations will be mailed to the patient. Reading Location: [id number]
--- NOTE | 2024-09-23 10:11 | BD_ITS ---
PROCEDURE: DEXA BONE DENSITY STUDY 09/23/2024 REASON FOR EXAM: F, age 68 y/o . Postmenopausal. TECHNIQUE: DEXA BONE DENSITY STUDY COMPARISON: Prior study dated September 19, 2022. FINDINGS: BMD and T-SCORES Lumbar spine: 0.878 g/cm2, T-score -1.5 Levels: L1 through L4 Change from prior: Improvement of 4.4%. Left femoral neck: 0.557 g/cm2, T-score -2.6 Femoral neck comparison data not recommended for monitoring change. Left total hip: 0.750 g/cm2, T-score -1.6 Change from prior: Loss of 4.3%. Right femoral neck: 0.621 g/cm2, T-score -2.1 Femoral neck comparison data not recommended for monitoring change. Right total hip: 0.792 g/cm2, T-score -1.2 Change from prior: Loss of 0.1%. The World Health Organization has defined the following categories based on bone density: Normal bone density: T-score equal to or greater than -1.0 Osteopenia: T-score between -1.0 and -2.5 Osteoporosis: T-score equal to or less than -2.5 The patient does meet the pharmacological treatment recommendations for prevention of osteoporosis. BD/Dexa Bone Density Study IMPRESSION: OSTEOPOROSIS. Recommend follow-up as clinically warranted. Reading Location: [id number]
--- OUTSIDE RECORDS SUMMARY | 2024-09-23 20:44 | XMS RPT_ITS | CCD ---
Author Organization [facility] Care Team Providers Care Cook Fry Name Role Phone UNKNOWN, PROVIDER Unavailable Unavailable [...] Unavailable NONE, NONE Primary Care Unavailable Workman [phone], [place] [phone] Consult ing Unavailable NONE, NONE Consulting Unavailable KESHAWN, ELENA Consulting Unavailable Helena Brantley MD Primary Care Provider Dr. Helena Brantley Primary Care Provider [phone] Dr. Helena Brantley Referring Provider [employer] [place] RADIO ELECTRICIAN, RADIO ELECTRICIAN-C Rey Attending Provider Dr. Helena Brantley Primary Care Provider Dr. Helena Brantley Referring Provider Natacha RADIO ELECTRICIAN, RADIO ELECTRICIAN-C Rey Attending Provider Dr. Helena Brantley Primary Care Provider Dr. Helena Brantley Referring Provider Natacha RADIO ELECTRICIAN, RADIO ELECTRICIAN-C Rey Attending Provider BUBBA Singh Attending Provider Dr. Helena Brantley Primary Care Provider Dr. Helena Brantley Referring Provider BUBBA Woody Attending Provider Dr. Helena Brantley MD Primary Care Provider Dr. Shelia Bourne DO Attending Provider Dr. Shelia Bourne DO Emergency Provider Dr. Helena Brantley MD Referring Provider Roof RADIO ELECTRICIAN-C, Nando Lamar Attending Provider Natacha RADIO ELECTRICIAN-C, Rey Attending Provider Dr. Helena Brantley MD Primary Care Provider Dr. Helena Brantley MD Referring Provider Roof RADIO ELECTRICIAN-C, Nando H Attending Provider Natacha RADIO ELECTRICIAN-C, Rey Attending Provider Heladio Swanson MD Attending Provider [employer] [place] RADIO ELECTRICIAN-C, Rey Referring Provider McMorrow RADIO ELECTRICIAN-C, Fabiano Attending Provider [place] RADIO ELECTRICIAN-C, Fabiano Referring Provider [employer] [place] RADIO ELECTRICIAN-C, Rey Referring Provider Frankie Singh Attending Provider [phone] Tracy Lopez Attending Unavailable Jolliff, Helena S Primary Care Unavailable Tracy Lopez Referring Unavailable WyneskiTracy Attending Unavailable Jolliff, Helena S Primary Care Unavailable Shelia Bourne Attending Unavailable Jolliff, Helena S Primary Care Unavailable [employer] [place] RADIO ELECTRICIAN, Rey Attending Unavailable Jolliff, Helena S Referring Unavailable Jolliff, Helena S Primary Care Unavailable Jolliff, Helena S Primary Care Unavailable Jolliff, Helena S Referring Unavailable [employer] [place] RADIO ELECTRICIAN, Rey Attending Unavailable MollisonHeladio Attending Unavailable Jolliff, Helena S Referring Unavailable Jolliff, Helena S Primary Care Unavailable Jabour, Vincent Referring Unavailable JabourPatrick Attending Unavailable Jolliff, Helena S Primary Care Unavailable Jabour, Vincent Referring Unavailable JabourPatrick Attending Unavailable Jolliff, Helena S Primary Care Unavailable Jolliff, Helena S Primary Care Unavailable Frankie iSngh Attending Unavailable Natacha RADIO ELECTRICIAN, Rey Referring Unavailable Natacha RADIO ELECTRICIAN, Rey Attending Unavailable Jolliff, Helena S Primary Care Unavailable Heladio Swanson Referring Unavailable Heladio Swanson Attending Unavailable Jolliff, Helena S Primary Care Unavailable Frankie Singh Referring Unavailable Jolliff, Helena S Primary Care Unavailable Frankie Singh Attending Unavailable Natacha RADIO ELECTRICIAN, Rey Referring Unavailable Natacha RADIO ELECTRICIAN, Rey Attending Unavailable Jolliff, Helena S Primary Care Unavailable Jolliff, Helena S Primary Care Unavailable Roof RADIO ELECTRICIAN, Nando Lamar Attending Unavailable [place] RADIO ELECTRICIAN, Fabiano Referring Unavailable [place] RADIO ELECTRICIANFabiano Attending Unavailable Jolliff, Helena S Primary Care Unavailable MollisonHeladio Attending Unavailable Jolliff, Helena S Referring Unavailable Jolliff, Helena S Primary Care Unavailable Jolliff, Helena S Referring Unavailable Jolliff, Helena S Primary Care Unavailable Frankie Singh Attending Unavailable Heladio Swanson Attending Unavailable Jolliff, Helena S Referring Unavailable Jolliff, Helena S Primary Care Unavailable Jolliff, Helena S Referring Unavailable Roof RADIO ELECTRICIAN, Nando Lamar Attending Unavailable Jolliff, Helena S Primary Care Unavailable Jolliff, Helena S Primary Care Unavailable Jolliff, Helena S Referring Unavailable Natacha RADIO ELECTRICIAN, Rey Attending Unavailable Frankie Singh Attending Unavailable Jolliff, Helena S Primary Care Unavailable Jolliff, Helena S Referring Unavailable Dr. Helena Brantley MD Primary Care Provider Dr. Helena Brantley MD Referring Provider Allergies Allergy Classification Reported Allergen(s) Allergy Type Date of Onset Reaction(s) Facility (14 sources) Glucosamine Drug Allergy 8 Rash [facility] (2 sources) mosquito allergenic extract Drug Allergy 1 Swelling [facility] (12 sources) Chondroitin Analogues Allergy to substance 3 NEEDS FOLLOW-UP [facility] (1 source) Glucosamine Drug Allergy 5 [facility] (1 source) Chondroitin Analogues Drug allergy (disorder) 5 [facility] Medications Current Medications Medication Drug Class(es) Dates Sig (Normalized) Sig (Original) 8 hr acetaminophen 650 mg extended release oral tablet (12 sources) Start: 09-18-2021 take 1 tablet by [...] Active alendronic acid 70 mg oral tablet (15 sources) Bisphosphonate Start: 09-13-2020 take 1 tablet by mouth every week Alendronate (Fosamax) 70 mg tablet Active 70 mg PO EVERY WEEK September 13, 2020 12:00am ascorbic acid 500 mg oral tablet (5 sources) Vitamin C Start: 02-06-2024 take 1 tablet by mouth twice daily Ascorbic Acid (Vitamin C) (C-500) 500 mg tablet Active 500 mg PO TWICE A DAY February 06, 2024 1:00am biotin 1 mg oral capsule (13 sources) Start: 09-10-2019 take 1 capsule by mouth once daily Biotin 1 mg capsule Active 1 mg PO DAILY September 10, 2019 12:00am Calcium (2 sources) Phosphate Binder, Calcium Start: 06-11-2005 CALCIUM PO Take by mouth. 0 06/11/2005 Active cholecalciferol 0.05 mg oral capsule (13 sources) Vitamin D Start: 09-13-2020 take 1 capsule by mouth once daily Cholecalciferol (Vitamin D3) 50 mcg (2,000 unit) capsule Active 50 ug PO DAILY September 13, 2020 12:00am clobetasol propionate 0.5 mg/ml topical cream (2 sources) Corticosteroid Start: 10-17-2020 clobetasol 0.05 % Cream oxyquinoline sulfate 0.98605 mg/mg / sodium dodecyl sulfate 0.0001 mg/mg vaginal gel (16 sources) Start: 10-03-2022 End: 02-24-2024 Oxyquinoline-Sod.La uryl Sulfat (Trimo-Gordon Jelly) 0.025-0.01 % gel Active 0 VAGINAL .COMPLEX 113.4 February 24, 2024 8:20pm 1 application VAGINAL once a week; Start: 10-03-2022 Oxyquinoline-S od.Lauryl Sulfat (Trimo-Gordon Jelly) 0.025-0.01 % gel Active 0 VAGINAL .COMPLEX 113.4 October 03, 2022 12:00am 1 application VAGINAL once a week; DULoxetine 60 mg delayed release oral capsule (12 sources) Serotonin and Norepinephrine Reuptake Inhibitor Start: 09-18-2021 take 1 capsule by mouth once daily Duloxetine 60 mg capsule,delayed release(DR/EC) Active 60 mg PO DAILY September 18, 2021 12:00am 2 ml dupilumab 150 mg/ml auto-injector (12 sources) Interleukin-4 Receptor alpha Antagonist Start: 09-19-2022 [...] mg/gra m) cream Discontinued 0 VAGINAL .COMPLEX 42.September 18, 2021 11:18am March 06, 2023 10:06am small amount as directed vaginal then twice a week; Start: 09-18-2021 End: 03-06-2023 Estradiol Discontinued 0 VAG INAL .COMPLEX 42.September 18, 2021 11:18am March 06, 2023 10:06am small amount as directed vaginal then twice a week; Start: 03-02-2020 End: 09-18-2021 Estradiol 0.01 % (0.1 mg/gra m) cream Discontinued 0 VAGINAL .COMPLEX 42.March 02, 2020 1:00am September 18, 2021 11:19am [...] pantoprazole 20 mg delayed release oral tablet (5 sources) Proton Pump Inhibitor Start: 5 take [...] daily. 15 tablet 0 11/27/2017 Active same (13 sources) Start: same Active PO September 13, 2020 2:47pm Start: 09-13-2020 End: 09-18-2021 same Discontinued PO September 122020 11:00pm September 18, 2021 10:04am Start: 09-13-2020 End: 09-18-2021 same Discontinued PO September 132020 12:00am September 18, 2021 11:04am Completed/Discontinued Medications Medication Drug Class(es) Dates Sig (Normalized) Sig (Original) amoxicillin 875 mg / clavulanate 125 mg oral tablet (12 sources) Penicillin-class Antibacterial Start: 09-24-2021 End: 09-19-2022 [...] with food cefdinir 300 mg oral capsule (11 sources) Cephalosporin Antibacterial Start: 10-16-2022 End: 01-30-2023 take 1 capsule by mouth twice daily Cefdinir 300 mg capsule Discontinued 300 mg PO TWICE A DAY October 16, 2022 12:00am January 30, 2023 12:18pm [id number] for ear ache fluconazole 150 mg oral tablet (11 sources) Azole Antifungal Start: 12-03-2022 End: 09-23-2023 Fluconazole 150 mg tablet Discontinued 150 mg PO .COMPLEX 2 December 03, 2022 12:00am September 23, 2023 9:38am 150 mg PO take one po now and repeat in 3 days 1 ml guselkumab 100 mg/ml auto-injector (12 sources) Interleukin-23 Antagonist Start: 09-18-2021 End: 09-19-2022 Guselkumab (Tremfya) 100 mg/mL auto-injector Discontinued 100 mg SC every 8 weeks September 18, 2021 12:00am September 19, 2022 10:08am metroNIDAZOLE (10 sources) Nitroimidazole Antimicrobial Start: 06-02-2024 End: 06-07-2024 Metronidazole 0.75 % (37.5mg/5 gram) gel Discontinued 1 NMA VAGINAL DAILY 70 5 June 02, 2024 1:00am June 06, 2024 1:00am June 07, 2024 1:14am Start: 06-02-2024 Metronidazole 0.75 % (37.5mg/5 gram) gel Active 1 NMA VAGINAL DAILY 70 5 June 02, 2024 12:00am June 06, 2024 [...] oral capsule (20 sources) Nitrofuran Antibacterial Start: 09-10-2024 End: 09-17-2024 take 1 capsule by mouth every twelve hours at mealtime Nitrofurantoin Monohyd/M-Cryst 100 mg capsule Discontinued 1 NMA PO Q12H 14 7 September 10, 2024 12:00am September 16, 2024 12:00am September 17, 2024 12:08am administer with a meal/food; swallow whole; do not open, crush, dissolve , or chew Start: 05-24-2024 End: 05-31-2024 take 1 capsule [...] capsule Discontinued 1 NMA PO Q12H 14 December 06, 2023 12:00am December 12, 2023 12:00am December 13, 2023 12:05am administer with a meal/food; swallow whole; do not open, crush, dissolve , or chew Start: 07-31-2023 End: 08-05-2023 take 1 capsule by mouth every twelve [...] gangrene] 09-19-2022 Episodic Fracture of upper limb (10 sources) Fracture of greater tuberosity of humerus; Translations: [Displaced fracture of greater tuberosity of right humerus, initial encounter for closed fracture] Onset: 06-22-2024 01-02-2024 Episodic Genitourinary symptoms and ill-defined conditions (3 sources) Unspecified abnormal findings in urine; Translations: [Frequency of micturition] Onset: 05-24-2024 Episodic Menopausal disorders (20 sources) Atrophic vaginitis; Translations: [Postmenopausal atrophic vaginitis] 09-19-2022 Chronic Osteoarthritis (13 sources) Arthritis; Translations: [Unspecified osteoarthritis, unspecified site] 05-26-2018 Chronic Other connective tissue disease (9 sources) Tear of right rotator cuff; Translations: [Unspecified rotator cuff tear or rupture of right shoulder, not specified as traumatic] 01-02-2024 Episodic Other inflammatory condition of skin (12 sources) Psoriasis; Translations: [Psoriasis, unspecified] 09-18-2021 Chronic Comment on above: manage per Dr Dhaliwal Other injuries and conditions due to external causes (2 sources) Unspecified injury of right lower leg, initial encounter; Translations: [UNS INJURY RT LOWER LEG INITIAL ENC] Onset: 11-15-2020 Episodic Other injuries and conditions due to external causes (5 sources) Excoriation of skin; Translations: [Other injury of unspecified body region, initial encounter] 06-02-2024 Episodic Other non-traumatic joint disorders (2 sources) Pain in right knee; Translations: [Pain in right knee] Onset: 11-21-2017 Episodic Other non-traumatic joint disorders (10 sources) Pain in right shoulder; Translations: [Right shoulder pain] Onset: 06-22-2024 11-28-2023 Episodic Other screening for suspected conditions (not mental disorders or infectious disease) (2 sources) Encounter for screening mammogram for malignant neoplasm of breast; Translations: [Encounter for screening for diabetes mellitus] Onset: 08-26-2024 Episodic Prolapse of female genital organs (20 [...] 09-24-2021 Episodic Skin and subcutaneous tissue infections (12 sources) Cellulitis of finger; Translations: [Cellulitis of left finger] 09-24-2021 Episodic Sprains and strains (6 sources) Strain of muscle of chest wall; Translations: [Strain of muscle and tendon of back wall of thorax, initial encounter] Onset: 04-30-2024 04-13-2024 Episodic Unclassified (1 source) Eosinophilia / D72.1(ICD-10) Onset: 05-07-2017 Unclassified (2 sources) Cystocele with rectocele; Translations: [N81.10 - Cystocele, unspecified,N81.6 - Rectocele] Urinary tract infections (20 sources) Recurrent urinary tract infection; Translations: [Urinary tract infection, site not specified] Onset: 12-26-2023 03-06-2023 Episodic Comment on above: Vaginal estrogen to urethra, kegels, PFPT Past or Other Problems Problem Classification Problem Date Documented Da te Episodic/Chronic Joint disorders and dislocations; trauma-related (2 sources) [...] Translations: [Pain in right leg] Episodic Other connective tissue disease (1 source) Unspecified rotator cuff tear or rupture of right shoulder, not specified as traumatic; Translations: [Unspecified rotator cuff tear or rupture of right shoulder, not specified as traumatic] Onset: 06-22-2024 Episodic Other gastrointestinal disorders (1 source) Diarrhea, unspecified; Translations: [Diarrhea, unspecified] Onset: 11-15-2023 Episodic Results Test Name Value Interpretation Reference Range Facility Urine Cultureon 09-12-2024 URC Culture exhibits no growth. Normal [facility] Comment on above: Performed By: #### L 3410.2400, L501.6710 #### [facility] [address], [address] Laboratory - Chemistry and C hemistry - challengeOrdered By: Frankie Arora on 09-10-2024 Bilirubin Ql (U) Negative [facility] Glucose Ql (U) Negative [facility] Ketones Ql (U) Negative [facility] pH (U) 5.0 [pH] [facility] Specific gravity (U) [Rel density] 1.030 [facility] Urobilinogen (U) [Mass/Vol] Negative [facility] - Hematology and Cell countsOrdered By: Frankie Arora on 09-10-2024 Hemoglobin Ql (U) Moderate [facility] - Specimen inform ationOrdered By: Frankie Arora on 09-10-2024 Clarity (U) Clear [facility] Color (U) Yellow [facility] - UrinalysisOrder ed By: Frankie Arora on 09-10-2024 Nitrite Ql (U) Negative [facility] Protein Ql (U) Trace [facility] No Panel InformationOrdered By: Frankie Arora on 09-10-2024 Urine Leukocytes Positive [facility] Urine Non-Hemolyzed Blood Negative [facility] Urgent Care Visit Reporton 0 09-10-2024 Urgent Care Visit Report [facility] [address], [address] [place] [address] OFFICE VISIT Date of Service: 09/10/24 MR#: [id number] Acct: [id number] Name: JEN DEMARCO Rep #: [id number] : 1955 Provider: BUBBA Brock Age/Sex: 68/F Location: 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 denies abd pain, back pain, dysuria, fever. concern for UTI PFSH Medical History [...] is retired HPI HPI Chief Complaint: urinary frequency Details: JEN DEMARCO, is a 68 F who presents to the office today for complaint of increased urinary urgency and output for the past 24 hours. She denies dysuria or hematuria. No pelvic or abdominal pain. No fever, chills, sweats. No other associated symptoms or alleviating/aggravating factors. [...] POC Urinalysis Dip (Clinic) Office Urine Color Yellow Last Edit by Romy Lawrence on 09/10/24 16:28 Office Urine Clarity Clear Last Edit by Romy Lawrence on 09/10/24 16:28 Office Urine Glucose Negative Last Edit by Romy Lawrence on 09/10/24 16:28 Office Urine Ketones Negative Last Edit by Romy Lawrence on 09/10/24 16:28 Off Ur Spec Orwell 1.030 Last Edit by Romy Lawrence on 09/10/24 16:28 Office Urine pH 5.0 Last Edit by Romy Lawrence on 09/10/24 16:28 Office Urine Bilirubin Negative Last Edit by Romy Lawrence on 09/10/24 16:28 Office Urine Urobilinogen Negative Last Edit by Romy Lawrence on 09/10/24 16:28 Office Urine Blood Moderate Last Edit by Romy Lawrence on 09/10/24 16:28 Office Urine Blood Hemolyzed Negative Last Edit by Romy Lawrence on 09/10/24 16:28 Office Urine Protein Trace Last Edit by Romy Lawrence on 09/10/24 16:28 Office Urine Nitrate Negative Last Edit by Romy Lawrence on 09/10/24 16:28 Off Ur Leukocytes Positive Last Edit by Romy Lawrence on 09/10/24 16:28 Coding Level of Care Code Off vis,est,level 3 Diagnoses Cystitis N30.90 Assessment and Plan Assessment and Plan (1) Cystitis: Status: Acute Plan: Macrobid as prescribed today. Encouraged to [...] Orders: Orders POC Urinalysis Dip (Clinic) Today R35.0 - Frequency of (more content not included)... Normal [facility] Urine cultureOrdered By: Jamar Arora on 09-10-2024 Bacteria identified Cx Nom (U) Culture exhibits no growth. [facility] Calculated very low density lipoprotein (VLDL) cholesterol measurementOrdered By: Fabiano Reese on 08-20-2024 Calculated very low density lipoprotein (VLDL) cholesterol measurement 13 mg/dL 5-40 [facility] Hemoglobin A1con 08-20-2024 HbA1c (Bld) [Mass fraction] 5.9 % High <=5.6 [facility] Comment on above: Order Comment: Order Date: 08/17/24Order Info: [id number] - A1C Result Comment: Norm al < 5.7 % Prediabetic 5.7 - 6.4 % Diabetic >or= 6.5 % Please note range changes. Performed By: #### L 3410.2400, L501.6710 #### [facility] [address] [place], [place], [address] Hemoglobin A1c percentageOrd ered By: Fabiano Reese on 08-20-2024 HbA1c (Bld) [Mass fraction] 5.9 % High <5.7 [facility] Comment on above: Normal < 5.7 % Predi abetic 5.7 - 6.4 % Diabetic >or= 6.5 % Please note range changes. LDL calc ser/plasOrdered By: Fabiano Reese on 08-20-2024 Cholesterol in LDL [Mass/Vol] 151 mg/dL [facility] Comment on above: Ysodjiijfq=313-547 m g/dL & Higher Rcnu=466 mg/dL or greater Lipid Profileon 08-20-2024 CHOL:HDL 2.44 Normal [facility] Comment on above: Order Comment: Order Date: 08/17/24 Order Info: [id number] - LIPID Performed By: #### L 500.4100 #### [facility] [address] [place], [place], [address] Cholesterol [Mass/Vol] 278 mg/dL High <=200 [facility] Comment on above: Order Comment: Order Date: 08/17/24 Order Info: [id number] - LIPID Result Comment: Chol esterol level, Desirable <200 mg/dL Borderline high cholesterol 200-239 mg/dL High cholesterol >=240 mg/dL Recommendations of the NCEP Adult Treatment Panel for the following risk-cutoff thresholds for the [place] population. Performed By: #### L 500.4100 #### [facility] [address] [place], [address] Cholesterol in HDL [Mass/Vol] 114 mg/dL Normal [facility] Comment on above: Order Comment: Order Date: 08/17/24 Order Info: [id number] - LIPID Result Comment: Beverley onal Cholesterol Education Program (NCEP) guidelines: <40 mg/dL: Low HDL-cholesterol (major risk factor for CHD) >= 60 mg/dL: High HDL-cholesterol (negative risk factor for CHD) HDL-cholesterol is affected by a number of factors, e.g. smoking, exercise, hormones, sex and age. Performed By: #### L 500.4100 #### [facility] [address] [place], [address] Cholesterol in LDL [Mass/Vol] 151 mg/dL Normal [facility] Comment on above: Order Comment: Order Date: 08/17/24 Order Info: [id number] - LIPID Result Comment: Bord czympa=978-971 mg/dL Higher Vwch=715 mg/dL or greater Performed By: #### L 500.4100 #### [facility] [address] [place], [address] Cholesterol in VLDL [Mass/Vol] 13 mg/dL Normal 5-40 [facility] Comment on above: Order Comment: Order Date: 08/17/24 Order Info: [id number] - LIPID Performed By: #### L 500.4100 #### [facility] [address] [place], [address] Triglyceride [Mass/Vol] 64 mg/dL Normal [facility] Comment on above: Order Comment: Order Date: 08/17/24 Order Info: [id number] - LIPID Result Comment: The drugs N-Acetylcysteine and Metamizole may falsely depress this assay. Normal range: <150 mg/dL Borderline High: 150-199 mg/dL High: 200-499 mg/dL Very High: >500 mg/dL Performed By: #### L 500.4100 #### [facility] [address] [place], [address] Screening total cholesterol/ high density lipoprotein (HDL) cholesterol ratioOrdered By: Fabiano Reese on 08-20-2024 Cholesterol.total/Chol esterol in HDL [Mass ratio] 2.44 {ratio} [facility] Serum or plasma cholesterol in HDL measurement (mass/volume)Ordered By: Fabiano Reese on 08-20-2024 Cholesterol in HDL [Mass/Vol] 114 mg/dL >40 [facility] Comment on above: National Cholesterol Education Program (NCEP) guidelines:<40 mg/dL: Low HDL-cholesterol (major risk factor for CHD)>= 60 mg/dL: High HDL-cholesterol (negative risk factor for CHD)HDL-cholesterol is affected by a number of factors, e.g. smoking, exercise, hormones, sex and age. Serum or plasma cholesterol measurement (mass/volume)Ordered By: Fabiano Reese on 08-20-2024 Cholesterol [Mass/Vol] 278 mg/dL High <201 [facility] Comment on above: Cholesterol level, D esirable <200 mg/dLBorderline high cholesterol 200-239 mg/dLHigh cholesterol >=240 mg/dLRecommendations of the NCEP Adult Treatment Panel for the following risk-cutoff thresholds for the [place] population. Triglycerides measurementOrd ered By: Fabiano Reese on 08-20-2024 Triglyceride [Mass/Vol] 64 mg/dL <199 [facility] Comment on above: The drugs N-Acetylcy steine and Metamizole may falsely depress this assay. Normal range: <150 mg/dLBorderline High: 150-199 mg/dLHigh: 200-499 mg/dLVery High: >500 mg/dL Inital Evaluation (1) - PTon 07-16-2024 Inital Evaluation (1) - PT [facility] [place] [address] [place] [address] / REHABILITATION SERVICES INITIAL EVALUATION MR#: [id number] Acct: [id number] Name: JEN DEMARCO Rep #: [id number] : 1955 68 From: Aundrea Robbins Referring DrRosa Isela: CHIQUI Deleon Status: REG RCR Insurance: MMO MEDICARE SELF PAY INSURANCE Patient's Visit Information [...] She is not working. 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 Objective Objective: Rectocele 2 Cystocele 1 LAYCOCK [...] to be FAXED BACK to us at [phone] for Medicare purposes. For Medicare only, by signing this I certify the plan of care. Please let me know if there are questions or concerns regarding this plan of care. Physician Signature: Date: ____ 07/16/24 1133 CC: CHIQUI Manzano; Dr. Helena Brantley MD MG Signed Normal [facility] Orthopedic Visit Reporton Orthopedic Visit Report [facility] [address] [place] [address] OFFICE VISIT Date of Service: 06/22/24 MR#: [id number] Acct: [id number] Name: JEN DEMARCO Rep #: [id number] : 1955 Provider: Dr. Heladio ford MD Age/Sex: 68/F Location: [facility] [place] Status: Signed with Addenda ADDENDUM by Suni [...] Performing Provider: Heladio Swanson MD Performing Location: [facility] Administered by: Heladio Swanson MD on 06/22/24 10:38 Dose Route Admin Location Dispensed Lot Number Expiration Date [facility] Man ufacturer 80 mg intra-articular Right shoulder 2 mL [id number] 06/30/25 [id number] [facility] Comments: Bupivacaine 0.25% lot # [id number] exp 02/28/2025 [facility] [id number] Date cc: * Signed Intake Vital Signs [...] by me, Dr. Heladio Swanson MD 06/22/24 0970. Part of today???s visit was documented by [...] and water (more content not included)... Normal [facility] [facility] Visit Reporton 06-08-2024 [facility] Visit Report [facility] [address], [address] [place] [address] OFFICE VISIT Date of Service: 06/08/24 MR#: [id number] Acct: [id number] Name: JEN DEMARCO Rep #: [id number] : 1955 Provider: CHIQUI sunshine Age/Sex: 68/F [place] [facility] [place] Status: Signed Intake Vital Signs 06/02/24 11:44 06/08/24 11:38 06/08/24 11:42 Height 5 ft 3 in 5 ft 3 in 5 ft 3 in Weight: 134 lb 8 oz BMI 23.8 BP 130/78 H Intake Visit Reasons: Pessary Check Chief Complaint: pessary check 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 Normal [facility] Visit Reporton 06-02-2024 [facility] Visit Report [facility] [address], [address] [place] [address] OFFICE VISIT Date of Service: 06/02/24 MR#: [id number] Acct: [id number] Name: JEN DEMARCO Rep #: [id number] : 1955 Provider: CHIQUI sunshine Age/Sex: 68/F Location[place] [facility] [place] Status: Signed Intake Vital Signs 04/05/24 08:04 03/04/25 11:40 06/02/24 11:44 Height 5 ft 3 in 5 ft 3 in 5 ft 3 in Weight: 135 lb 2 oz BMI 23.9 BP 122/82 H Intake Visit Reasons: recurrent UTI Chief Complaint: Recurrent UTI Lightning Protection Installer Required: No Is patient in pain?: No [...] 1 appful vaginal DAILY 5 days #70 03/04/25 03/04/25 Rx gram) vaginal gel grams Is last [...] Speculum Exam (more content not included)... Normal [facility] Urine Cultureon 05-27-2024 [facility] Presumptive E. coli [place] Count 11,000-25,000 Presumptive E. coli: REACTION Ampicillin [...] TMP SMX Islt EDD <=20 S Normal [facility] Comment on above: Performed By: #### L 3410.2400, L501.6710 #### [facility] Laboratory [address] [place] [address]. [place], [place], [address] Urine cultureOrdered By: Eduardo Granda on 05-25-2024 Bacteria identified Cx Nom (U) Presumptive E. coli Abnormal [facility] Bacteria identified Cx Nom (U) Presumptive E. coli Abnormal [facility] Urgent Care Visit Reporton 0 05-24-2024 Urgent Care Visit Report [facility] [address], [address] [place], [place] [address] OFFICE VISIT Date of Service: 05/24/24 MR#: [id number] Acct: [id number] Name: JEN DEMARCO Rep #: [id number] : 1955 Provider: CHIQUI swanson Age/Sex: 68/F Location: [facility] Status: Signed Intake Vital Signs 04/05/24 08:04 05/24/24 08:18 Height 5 ft 3 in BP 124/74 H Blood Pressure Location Lt brachial Position Sitting Respiration 15 Pulse 89 Pulse Source NIBP Temp 98.9 F Temp Source Oral Pulse Oximetry (%) 98 Oxygen Delivery Method room air Intake Visit Reasons: Urinary tract infection Chief Complaint: urinary urgency and decreased output Lightning Protection Installer Required: No Is patient in pain?: No [...] nitrofurantoin mo (more content not included)... Normal [facility] 12 Lead EKGon 04-05-2024 12 Lead EKG [facility] Cardiovascular Services [address] [place] [address] 12 Lead EKG 04/05/24 0838 MR#: [id number] Acct: [id number] Name: JEN DEMARCO Rep #: [id number] : 1955 68 From: Ziyad Feng MD [...] rhythm Normal ECG Confirmed by Ziyad Feng ([id number]), map editor BOO MAGALLANES ([id number]) on 04/06/2024 9:50:27 AM Referred By: Confirmed By: Ziyad Feng 04/06/24 0950 Date Ziyad Feng MD CC: Dr. Helena Brantley MD; Dr. Shelia Bourne DO Signed Normal [facility] Absolute neutrophil countOrd ered By: Shelia Bourne on 04-05-2024 Neutrophils (Bld) [#/Vol] 5.8 10*3/uL 2.0-7.7 [facility] Albumin to globulin ratioOrd ered By: Shelia Bourne on 04-05-2024 Albumin/Globulin [Mass ratio] 1.0 {ratio} 0.9-2.4 [facility] Basophil percentageOrdered B y: Shelia Bourne on 04-05-2024 Basophils/100 WBC (Bld) 0.4 % 0-1 [facility] Bilirubin, totalOrdered By: Shelia Bourne on 04-05-2024 Bilirubin [Mass/Vol] 0.70 mg/dL 0.20-1.00 [facility] Comment on above: For patients on eltr ombopag therapy, use of Dimension Bovina TBIL is not recommended. Blood urea nitrogen (BUN)/cr eatinine ratioOrdered By: Shelia Bourne on 04-05-2024 Urea nitrogen/Creatinine [Mass ratio] 24.3 mg/mg High 10-20 [facility] CBC W/Diff, Automatedon Absolute Lymph 0.45 X10 3/uL Low 0.83-4.51 [facility] Comment on above: Performed By: #### L 3410.2400, L501.6710 #### [facility] [address] [place], [address] Absolute Neut 5.8 X10 3/uL Normal 2.0-7.7 [facility] Comment on above: Performed By: #### L 3410.2400, L501.6710 #### [facility] [address] [place], [address] Basophils/100 WBC (Bld) 0.4 % Normal 0-1 [facility] Comment on above: Performed By: #### L 3410.2400, L501.6710 #### [facility] [address] [place], [address] Eosinophils/100 WBC (Bld) 0.7 % Normal 0-5 [facility] Comment on above: Performed By: #### L 3410.2400, L501.6710 #### [facility] [address] [place], [address] Erythrocyte distribution width (RBC) [Ratio] 13.8 % Normal 11.6-14.6 [facility] Comment on above: Performed By: #### L 3410.2400, L501.6710 #### [facility] [address] [place], [address] Hematocrit (Bld) [Volume fraction] 38.6 % Normal 37-47 [facility] Comment on above: Performed By: #### L 3410.2400, L501.6710 #### [facility] [address] [place], [address] Hemoglobin (Bld) [Mass/Vol] 12.9 g/dL Normal 12.0-15.0 [facility] Comment on above: Performed By: #### L 3410.2400, L501.6710 #### [facility] [address] [place], [address] IG% 0.300 Normal 0.0-0.9 [facility] Comment on above: Result Comment: IG% - Immature Granulocytes (promyelocytes, myelocytes and metamyelocytes) > 1% indicates that a LEFT SHIFT is Present. Performed By: #### L 3410.2400, L501.6710 #### [facility] [address] [place], [address] Lymphocytes/100 WBC (Bld) 6.6 % Low 19-41 [facility] Comment on above: Performed By: #### L 3410.2400, L501.6710 #### [facility] [address] [place], [address] MCH (RBC) [Entitic mass] 31.8 pg Normal 27.0-32.0 [facility] Comment on above: Performed By: #### L 3410.2400, L501.6710 #### [facility] [address] [place], [address] MCHC (RBC) [Mass/Vol] 33.4 g/dL Normal 32-36 [facility] Comment on above: Performed By: #### L 3410.2400, L501.6710 #### [facility] [address] [place], [address] MCV (RBC) [Entitic vol] 95.1 fL Normal 81-99 [facility] Comment on above: Performed By: #### L 3410.2400, L501.6710 #### [facility] [address] [place], [address] Monocytes/100 WBC (Bld) 6.9 % Normal 0-10 [facility] Comment on above: Performed By: #### L 3410.2400, L501.6710 #### [facility] [address] [place], [address] Neutrophils/100 WBC (Bld) 85.1 % High 47-70 [facility] Comment on above: Performed By: #### L 3410.2400, L501.6710 #### [facility] [address] [place], [address] Nucleated RBC (Bld) [#/Vol] 0 10*3/uL Normal 0-5 [facility] Comment on above: Performed By: #### L 3410.2400, L501.6710 #### [facility] [address] [place], [address] Platelet mean volume (Bld) [Entitic vol] 9.7 fL Normal 6.2-12.0 [facility] Comment on above: Performed By: #### L 3410.2400, L501.6710 #### [facility] [address] [place], [address] Platelets (Bld) [#/Vol] 225 10*3/uL Normal 150-450 [facility] Comment on above: Performed By: #### L 3410.2400, L501.6710 #### [facility] [address] [place], [address] RBC (Bld) [#/Vol] 4.06 10*6/uL Low 4.2-5.4 [facility] Comment on above: Performed By: #### L 3410.2400, L501.6710 #### [facility] [address] [place], [address] RDW SD 48.6 fl High 35.1-43.9 [facility] Comment on above: Performed By: #### L 3410.2400, L501.6710 #### [facility] [address] [place], [address] WBC (Bld) [#/Vol] 6.8 10*3/uL Normal 4.4-11.0 [facility] Comment on above: Performed By: #### L 3410.2400, L501.6710 #### [facility] [address] [place], [address] Carbon dioxide measurementOr dered By: Shelia Bourne on 04-05-2024 CO2 [Moles/Vol] 24.0 mmol/L 21.0-32.0 [facility] Chest PA and Lateralon 04-05 Chest PA and Lateral [facility] Imaging Services [address] [place] [address] Chest PA and Lateral MR#: [id number] Acct: [id number] Name: JEN DEMARCO Rep #: [id number] : 1955 F 68 From: Abdoulaye Catalan MD PCP: Dr. Helena Brantley MD Status: REG ER Study: Chest PA and Lateral Date of Exam: 04/05/24 Exam# [id number] Ordering Dr: Shelia Bourne DO [id number] STUDY: X-RAY CHEST REASON FOR EXAM: Female, [...] Signed: Sen Catalan MD at 9:21 EST Reading Location ID and State: [facility] / [place] , Service support , CC: Dr. Helena Brantley MD; Dr. Shelia Bourne DO Wheel Adjuster: Signed Normal [facility] Chloride measurementOrdered By: Shelia Bourne on 04-05-2024 Chloride [Moles/Vol] 110 mmol/L High 98-107 [facility] Comprehensive Metabolic Prof ilon 04-05-2024 Albumin [Mass/Vol] 3.2 g/dL Normal 3.2-5.0 [facility] Comment on above: Order Comment: 'TROP ' Serial specimen #1, #2 or #3: 1 Performed By: #### L 3410.2400, L501.6710 #### [facility] [address] [place], [address] Albumin/Globulin [Mass ratio] 1.0 {ratio} Normal 0.9-2.4 [facility] Comment on above: Order Comment: 'TROP ' Serial specimen #1, #2 or #3: 1 Performed By: #### L 3410.2400, L501.6710 #### [facility] [address] [place], [address] ALK P 41 U/L Low 45-117 [facility] Comment on above: Order Comment: 'TROP ' Serial specimen #1, #2 or #3: 1 Performed By: #### L 3410.2400, L501.6710 #### [facility] [address] [place], [address] ALT [Catalytic activity/Vol] 25 U/L Normal 13-56 [facility] Comment on above: Order Comment: 'TROP ' Serial specimen #1, #2 or #3: 1 Performed By: #### L 3410.2400, L501.6710 #### [facility] [address] [place], [address] AST [Catalytic activity/Vol] 20 U/L Normal 15-37 [facility] Comment on above: Order Comment: 'TROP ' Serial specimen #1, #2 or #3: 1 Performed By: #### L 3410.2400, L501.6710 #### [facility] [address] [place], [address] Bilirubin [Mass/Vol] 0.70 mg/dL Normal 0.20-1.00 [facility] Comment on above: Order Comment: 'TROP ' Serial specimen #1, #2 or #3: 1 Result Comment: For patients on eltrombopag therapy, use of Dimension Bovina TBIL is not recommended. Performed By: #### L 3410.2400, L501.6710 #### [facility] [address] [place], [address] BUN/CRE 24.3 RATIO High 10-20 [facility] Comment on above: Order Comment: 'TROP ' Serial specimen #1, #2 or #3: 1 Performed By: #### L 3410.2400, L501.6710 #### [facility] [address] [place], [address] CA,Total 8.1 mg/dL Low 8.5-10.1 [facility] Comment on above: Order Comment: 'TROP ' Serial specimen #1, #2 or #3: 1 Performed By: #### L 3410.2400, L501.6710 #### [facility] [address] [place], [address] Chloride [Moles/Vol] 110 mmol/L High 98-107 [facility] Comment on above: Order Comment: 'TROP ' Serial specimen #1, #2 or #3: 1 Performed By: #### L 3410.2400, L501.6710 #### [facility] [address] [place], [address] CO2 [Moles/Vol] 24.0 mmol/L Normal 21.0-32.0 [facility] Comment on above: Order Comment: 'TROP ' Serial specimen #1, #2 or #3: 1 Performed By: #### L 3410.2400, L501.6710 #### [facility] [address] [place], [address] Creatinine [Mass/Vol] 0.62 mg/dL Normal 0.55-1.02 [facility] Comment on above: Order Comment: 'TROP ' Serial specimen #1, #2 or #3: 1 Result Comment: The validity of the calculated GFR GFRAA in patients over 70 years has not been determined. Clinical correlation is essential. Performed By: #### L 3410.2400, L501.6710 #### [facility] [address] [place], [address] ECRCL 57.22 ml/min Normal [facility] Comment on above: Order Comment: 'TROP ' Serial specimen #1, #2 or #3: 1 Performed By: #### L 3410.2400, L501.6710 #### [facility] [address] [place], [address] EST GFR - AA 124 mL/min Normal >60 [facility] Comment on above: Order Comment: 'TROP ' Serial specimen #1, #2 or #3: 1 Result Comment: Afri can Gabonese GFR Calc Performed By: #### L 3410.2400, L501.6710 #### [facility] [address] [place], [address] GAP 5 Normal 5-15 [facility] Comment on above: Order Comment: 'TROP ' Serial specimen #1, #2 or #3: 1 Performed By: #### L 3410.2400, L501.6710 #### [facility] [address] [place], [address] GFR/1.73 sq M.predicted among non-blacks MDRD (S/P/Bld) [Vol rate/Area] 103 mL/min/{1.73_m2} Normal >60 [facility] Comment on above: Order Comment: 'TROP ' Serial specimen #1, #2 or #3: 1 Result Comment: Non- GFR Calc Performed By: #### L 3410.2400, L501.6710 #### [facility] [address] [place], [address] Globulin (S) [Mass/Vol] 3.1 g/dL Normal 2.2-4.2 [facility] Comment on above: Order Comment: 'TROP ' Serial specimen #1, #2 or #3: 1 Performed By: #### L 3410.2400, L501.6710 #### [facility] [address] [place], [address] Glucose [Mass/Vol] 110 mg/dL High 74-106 [facility] Comment on above: Order Comment: 'TROP ' Serial specimen #1, #2 or #3: 1 Result Comment: Fast ing Glucose result from 100 to 125 mg/dL suggests IMPAIRED HOMEOSTASIS per A.D.A. criteria. Performed By: #### L 3410.2400, L501.6710 #### [facility] [address] [place], [address] Potassium [Moles/Vol] 3.8 mmol/L Normal 3.5-5.1 [facility] Comment on above: Order Comment: 'TROP ' Serial specimen #1, #2 or #3: 1 Performed By: #### L 3410.2400, L501.6710 #### [facility] [address] [place], [address] Sodium [Moles/Vol] 139 mmol/L Normal 136-145 [facility] Comment on above: Order Comment: 'TROP ' Serial specimen #1, #2 or #3: 1 Performed By: #### L 3410.2400, L501.6710 #### [facility] [address] [place], [address] T PROT 6.3 g/dL Low 6.4-8.2 [facility] Comment on above: Order Comment: 'TROP ' Serial specimen #1, #2 or #3: 1 Performed By: #### L 3410.2400, L501.6710 #### [facility] [address] [place], [place], [address] Urea nitrogen [Mass/Vol] 15 mg/dL Normal 7-18 [facility] Comment on above: Order Comment: 'TROP ' Serial specimen #1, #2 or #3: 1 Performed By: #### L 3410.2400, L539.6710 #### [facility] [address] [place], [address] Emergency Department Summary on 04-05-2024 Emergency Department Summary [facility] Medical Records Department [address] [place] [address] Emergency Department Summary 04/05/24 MR#: [id number] Acct: [id number] Name: JEN DEMARCO Rep #: [id number] : 1955 68 From: Shelia Bourne DO [...] this is the cause of her discomfort. [facility] Medical History Wears contact lenses Post-menopausal [...] bruising E (more content not included)... Normal [facility] Eosinophil percentageOrdered By: Shelia Bourne on 04-05-2024 Eosinophils/100 WBC (Bld) 0.7 % 0-5 [facility] Erythrocyte distribution wid th ratioOrdered By: Shelia Bourne on 04-05-2024 Erythrocyte distribution width (RBC) [Ratio] 13.8 % 11.6-14.6 [facility] Erythrocyte distribution wid th standard deviationOrdered By: Shelia Bourne on 04-05-2024 Erythrocyte distribution width (RBC) [Entitic vol] 48.6 fL High 35.1-43.9 [facility] Estimated glomerular filtrat ion rate (GFR) AmericanOrdered By: Shelia Bourne on 04-05-2024 Estimated GFR (MDRD) Amer 124 mL/min >60 [facility] Comment on above: GFR Calc Estimation of creatinine bettye aranceOrdered By: Shelia Bourne on 04-05-2024 Estimated Creatinine Clearance Calc 57.22 ml/min [facility] Glomerular filtration rate ( GFR) estimationOrdered By: Shelia Bourne on 04-05-2024 Estimated GFR (MDRD) Non-Af Amer 103 mL/min >60 [facility] Comment on above: Non- GFR Calc Glucose measurementOrdered B y: Shelia Bourne on 04-05-2024 Glucose [Mass/Vol] 110 mg/dL High 74-106 [facility] Comment on above: Fasting Glucose resu lt from 100 to 125 mg/dL suggests IMPAIRED HOMEOSTASIS per A.D.A. criteria. Hematocrit Auto (Bld) [Volum e fraction]Ordered By: Shelia Bourne on 04-05-2024 Hematocrit (Bld) [Volume fraction] 38.6 % 37-47 [facility] Hemoglobin measurementOrdere d By: Shelia Bourne on 04-05-2024 Hemoglobin (Bld) [Mass/Vol] 12.9 g/dL 12.0-15.0 [facility] Immature granulocytes/100 WB C Auto (Bld)Ordered By: Shelia Bourne on 04-05-2024 Immature granulocytes/100 WBC (Bld) 0.300 % 0.0-0.9 [facility] Comment on above: IG% - Immature Granu locytes (promyelocytes, myelocytes and metamyelocytes) > 1% indicates that a LEFT SHIFT is Present. Influenza virus A and B and SARS-CoV-2 (COVID-19) and Respiratory syncytial virus RNAOrdered By: Shelia Bourne on 04-05-2024 SARS-CoV-2 (COVID-19) RNA VARSHA+probe Ql (Unsp spec) [facility] L501.4020on 04-05-2024 TROPONIN-I HS 6 pg/mL Normal 3.0-54.0 [facility] Comment on above: Order Comment: 'TROP ' Serial specimen #1, #2 or #3: 1 Result Comment: Zuri nayak Note: New Test Units and Gender Specific Reference Ranges. For more information see Policy Stat Procedure Bovina High Sensitivity Troponin (TNIH) and attachments. Performed By: #### L 3410.2400, L501.6710 #### [facility] [address] [place], [address] Laboratory - Chemistry and C hemistry - challengeOrdered By: Shelia Bourne on 04-05-2024 AST [Catalytic activity/Vol] 20 U/L 15-37 [facility] Lipaseon 04-05-2024 Lipase [Catalytic activity/Vol] 32 U/L Normal 13-75 [facility] Comment on above: Order Comment: 'TROP ' Serial specimen #1, #2 or #3: 1 Result Comment: Zuri se note: LIPASE revised reference range effective 22. New Lipase methodology. Expected to produce lower values than the previous assay method. NEW Reference Range: 13 - 75 U/L Performed By: #### L 3410.2400, L501.6710 #### [facility] [address] [place], [place], [address] Lipase measurementOrdered By : Shelia Bourne on 04-05-2024 Lipase [Catalytic activity/Vol] 32 U/L 13-75 [facility] Comment on above: Please note:LIPASE r evised reference range effective 22. New Lipase methodology. Expected to produce lower values than the previous assay method. NEW Reference Range: 13 - 75 U/L Lymphocytes Auto (Unsp spec) [#/Vol]Ordered By: Shelia Bourne on 04-05-2024 Lymphocytes (Bld) [#/Vol] 0.45 10*3/uL Low 0.83-4.51 [facility] Lymphocytes/100 WBC Auto (Un sp spec)Ordered By: Shelia Bourne on 04-05-2024 Lymphocytes/100 WBC (Bld) 6.6 % Low 19-41 [facility] M100.678on 04-05-2024 M100.678 Pending SARS-CoV-2 (COVID 19) Negative INFLUENZA A Negative INFLUENZA B Negative RSV PCR Negative Normal [facility] Comment on above: Performed By: #### L 3410.2400, L501.6710 #### [facility] [address] [place], [address] MCV (mean corpuscular volume ) determinationOrdered By: Shelia Bourne on 04-05-2024 MCV (RBC) [Entitic vol] 95.1 fL 81-99 [facility] Mean corpuscular hemoglobin (MCH) determinationOrdered By: Shelia Bourne on 04-05-2024 MCH (RBC) [Entitic mass] 31.8 pg 27.0-32.0 [facility] Mean corpuscular hemoglobin concentration (MCHC) determinationOrdered By: Shelia Bourne on 04-05-2024 MCHC (RBC) [Mass/Vol] 33.4 g/dL 32-36 [facility] Mean platelet volume determi nationOrdered By: Shelia Bourne on 04-05-2024 Platelet mean volume (Bld) [Entitic vol] 9.7 fL 6.2-12.0 [facility] Monocyte percentageOrdered B y: Shelia Bourne on 04-05-2024 Monocytes/100 WBC (Bld) 6.9 % 0-10 [facility] Neutrophil percentageOrdered By: Shelia Bourne on 04-05-2024 Neutrophils/100 WBC (Bld) 85.1 % High 47-70 [facility] Nucleated red blood cell per centageOrdered By: Shelia Bourne on 04-05-2024 Nucleated RBC/100 WBC (Bld) [Ratio] 0 % 0-5 [facility] Platelet countOrdered By: Regis Bourne on 04-05-2024 Platelets (Bld) [#/Vol] 225 10*3/uL 150-450 [facility] Potassium measurementOrdered By: Shelia Bourne on 04-05-2024 Potassium [Moles/Vol] 3.8 mmol/L 3.5-5.1 [facility] RBC Auto (Bld) [#/Vol]Ordere d By: Shelia Bourne on 04-05-2024 RBC (Bld) [#/Vol] 4.06 10*6/uL Low 4.2-5.4 [facility] Serum anion gap measurementO rdered By: Shelia Bourne on 04-05-2024 Anion gap [Moles/Vol] 5 mmol/L 5-15 [facility] Serum globulin measurementOr dered By: Shelia Bourne on 04-05-2024 Globulin (S) [Mass/Vol] 3.1 g/dL 2.2-4.2 [facility] Serum or plasma alanine chance otransferase (ALT) measurementOrdered By: Shelia Bourne on 04-05-2024 ALT [Catalytic activity/Vol] 25 U/L 13-56 [facility] Serum or plasma albumin pedro urement (mass/volume)Ordered By: Shelia Bourne on 04-05-2024 Albumin [Mass/Vol] 3.2 g/dL 3.2-5.0 [facility] Serum or plasma alkaline isaac sphatase measurementOrdered By: Shelia Bourne on 04-05-2024 ALP [Catalytic activity/Vol] 41 U/L Low 45-117 [facility] Serum or plasma calcium pedro urement (mass/volume)Ordered By: Shelia Bourne on 04-05-2024 Calcium [Mass/Vol] 8.1 mg/dL Low 8.5-10.1 [facility] Serum or plasma creatinine m easurement (mass/volume)Ordered By: Shelia Bourne on 04-05-2024 Creatinine [Mass/Vol] 0.62 mg/dL 0.55-1.02 [facility] Comment on above: The validity of the calculated GFR & GFRAA in patients over 70 years has not been determined. Clinical correlation is essential. Serum or plasma urea nitroge n measurement (mass/volume)Ordered By: Shelia Bourne on 04-05-2024 Urea nitrogen [Mass/Vol] 15 mg/dL 7-18 [facility] Sodium levelOrdered By: Jaron Bourne on 04-05-2024 Sodium [Moles/Vol] 139 mmol/L 136-145 [facility] Total proteinOrdered By: Eva Bourne on 04-05-2024 Protein [Mass/Vol] 6.3 g/dL Low 6.4-8.2 [facility] Troponin IOrdered By: Shelia Bourne on 04-05-2024 Troponin I High Sensitivity 6 pg/mL 3.0-54.0 [facility] Comment on above: Please Note: New Anabel t Units and Gender Specific Reference Ranges. For more information see Policy Stat Procedure [place] High Sensitivity Troponin (TNIH) and attachments. White blood cell (WBC) count Ordered By: Shelia Bourne on 04-05-2024 WBC (Bld) [#/Vol] 6.8 10*3/uL 4.4-11.0 [facility] Orthopedic Visit Reporton Orthopedic Visit Report [facility] [address] [place] [address] [address] [place] [address] OFFICE VISIT Date of Service: 01/02/24 MR#: [id number] Acct: [id number] Name: JEN DEMARCO Rep #: [id number] : 1955 Provider: Dr. Heladio ford MD Age/Sex: 68/F Location: [facility] Status: Signed Intake Vital Signs 11/28/23 13:30 [...] subcut Q2W 09/19/22 01/02/24 History pen injector (Dupixent) oxyquinoline 0.025 %-sodium [...] Still painful, worse at night. Going to [facility] in a couple weeks to visit family. [...] Performing Provider: Heladio Swanson MD Performing Location: [facility] Administered by: Heladio Swanson MD on 01/02/24 10:28 Dose Route Admin Location Dispensed Lot Number Expiration Date [place] Man ufacturer 80 mg intra-articular Right Shoulder 2 mL [id number] 06/30/25 5105-6471-[address] [facility] Supplemental Info [facility] Imaging Services [address] [place] [address] Upper Ext Joint Only(Routine) MR#: [id number] Acct: [id number] Name: JEN DEMARCO Rep #: [id number] : 1955 F 68 From: Chad Caba MD PCP: Dr. Helena Brantley MD Status: REG CLI Study: Upper Ext Joint Only(Routine) Date of Exam: 12/24/23 Exam# [id number] Ordering Dr: Heladio Swanson MD [id number] STUDY: MRI RIGHT SHOULDER REASON FOR EXAM: [...] is i (more content not included)... Normal [facility] Upper Ext Joint Only(Routine )on 12-24-2023 Upper Ext Joint Only(Routine) [facility] Imaging Services [address] [place] [address] Upper Ext Joint Only(Routine) MR#: [id number] Acct: [id number] Name: JEN DEMARCO Rep #: [id number] : 1955 F 68 From: Chad Caba MD PCP: Dr. Helena Brantley MD Status: REG CLI Study: Upper Ext Joint Only(Routine) Date of Exam: 0 12/24/23 Exam# [id number] Ordering Dr: Heladio Swanson MD [id number] STUDY: MRI RIGHT SHOULDER REASON FOR EXAM: [...] Signed: Chad Caba MD at 14:11 EDT Reading Location ID and State: [address] [place] [address] , Service support , CC: Dr. Helena Brantley MD; Dr. Heladio Swanson MD Wheel Adjuster: Signed Normal [facility] Urine Cultureon 12-08-2023 [facility] Presumptive E. coli [place] Count >100,000 Presumptive E. coli: REACTION Ampicillin [...] TMP SMX Islt EDD <=20 S Normal [facility] Comment on above: Performed By: #### L 3410.2400, L501.6710 #### [facility] Laboratory [address] [place], [place], [address] Urgent Care Visit Reporton 0 12-06-2023 Urgent Care Visit Report [facility] [address], [address] [place] [address] OFFICE VISIT Date of Service: 12/06/23 MR#: [id number] Acct: [id number] Name: JEN DEMARCO Rep #: [id number] : 1955 Provider: BUBBA Brock Age/Sex: 68/F Location: 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 Normal [facility] Orthopedic Visit Reporton Orthopedic Visit Report [facility] [address] [place] [address] OFFICE VISIT Date of Service: 11/28/23 MR#: [id number] Acct: [id number] Name: JEN DEMARCO Rep #: [id number] : 1955 Provider: Dr. Heladio ford MD Age/Sex: 68/F Location: [facility] Status: Signed Intake Vital Signs 09/23/23 09:09 [...] long time ago. [place] - PT at [facility] july and august. ice. taking meloxicam. no cortisone injection or surgery. Supplemental Info [facility] Imaging Services [address] [place] [address] Shoulder min 2 Views MR#: [id number] Acct: [id number] Name: JEN DEMARCO Rep #: [id number] : 1955 F 67 From: Ted Saavedra MD PCP: Dr. Helena Brantley MD Status: REG CLI Study: Shoulder min 2 Views Date of Exam: 07/08/23 Exam# [id number] Ordering Dr: Helena Brantley MD [id number] EXAM: XR RIGHT SHOULDER COMPLETE, 2 OR [...] Service russo (more content not included)... Normal [facility] Kidney and Bladderon 024 Kidney and Bladder [facility] Imaging Services [address] [place] [address] Kidney and Bladder MR#: [id number] Acct: [id number] Name: JEN DEMARCO Rep #: [id number] : 1955 F 68 From: Eli blum MD PCP: Dr. Helena Brantley MD Status: [facility] Study: Kidney and Bladder Date of Exam: 11/08/23 Exam# [id number] Ordering Dr: Tracy Lopez MD [id number] HISTORY: Urinary tract infection. TECHNIQUE: Vasquez scale [...] Helena Brantley MD; Dr. Tracy Lopez MD Wheel Adjuster: Signed Normal [facility] Calprotectin, Stoolon [address] 39 ug/g Normal 0-120 [facility] Comment on above: Result Comment: Conc entration Interpretation Follow-Up < 5 - 50 ug/g Normal None >50 -120 ug/g Borderline Re-evaluate in 4-6 weeks >120 ug/g Abnormal Repeat as clinically indicated Performed at: - [facility] [id number] [employer]cher: Alex Martinez MD, Phone: [phone] Performed By: #### L 7000.0700 #### [facility] [address] [place], [address] Celiac Disease Profileon ENDOMYSIAL IGA Negative Normal Negative [facility] Comment on above: Performed By: #### L 3410.2400, L598.6710 #### [facility] [address] [place], [place], [id number] IMMUNOGLOB A QN 77 mg/dL Low 87-352 [facility] Comment on above: Performed By: #### L 3410.2400, L532.6734 #### [facility] [address] [place], [place], [id number] tTG IGA <2 Normal 0-3 [facility] Comment on above: Result Comment: Nega tive 0 - 3 Weak Positive 4 - 10 Positive >10 Tissue Transglutaminase (tTG) has been identified as the endomysial antigen. Studies have demonstr- ated that endomysial IgA antibodies have over 99% specificity for gluten sensitive enteropathy. Performed By: #### L 3410.2400, L501.6710 #### [facility] [address] [place], [place], [address] tTG IGG 2 U/mL Normal 0-5 [facility] Comment on above: Result Comment: Nega tive 0 - 5 Weak Positive 6 - 9 Positive >9 Performed at: [address] [id number] [employer]cher: Patrick Heaton PhD, Phone: [phone] Performed By: #### L 3410.2400, L501.6710 #### [facility] [address] [facility] [place], [place], [id number] CRPon 10-23-2023 C-REACTIVE PROT < 2.90 Normal 0.0-3.0 [facility] Comment on above: Result Comment: C-Re active Protein (CRP) provides useful information for the diagnosis, therapy and monitoring of inflammatory processes and associated diseases. For the evaluation of Relative Risk for Cardiovascular Disease, a High Sensitivity CRP (HSCRP) should be ordered. Performed By: #### L 3410.2400, L501.6710 #### [facility] [address] [facility] [place], [place], [address] Culture, urineOrdered By: St agapito Salgado on 07-31-2023 Bacteria identified Cx Nom (U) Escherichia coli [facility] Laboratory - Chemistry and C hemistry - challengeon 07-31-2023 Bilirubin Ql (U) Negative [facility] Glucose Ql (U) Negative [facility] Ketones Ql (U) Negative [facility] pH (U) 6.5 [pH] [facility] Specific gravity (U) [Rel density] 1.020 [facility] Urobilinogen (U) [Mass/Vol] Negative [facility] Laboratory - Hematology and Cell countson 07-31-2023 Hemoglobin Ql (U) Large [facility] Laboratory - Specimen inform ationon 07-31-2023 Clarity (U) Cloudy [facility] Color (U) Yellow [facility] Laboratory - Urinalysison Nitrite Ql (U) Negative [facility] Protein Ql (U) 2+ [facility] No Panel Informationon 07-30 Urine Leukocytes Positive [facility] Urine Non-Hemolyzed Blood [facility] Culture, urineOrdered By: Nely Arora on 03-01-2023 Bacteria identified Cx Nom (U) Presumptive E. coli [facility] Laboratory - Chemistry and C hemistry - challengeon 03-01-2023 Bilirubin Ql (U) Negative [facility] Glucose Ql (U) Negative [facility] Ketones Ql (U) Trace (5) [facility] pH (U) 6.0 [pH] [facility] Specific gravity (U) [Rel density] 1.030 [facility] Urobilinogen (U) [Mass/Vol] Negative [facility] Laboratory - Hematology and Cell countson 03-01-2023 Hemoglobin Ql (U) Large [facility] Laboratory - Specimen inform ationon 03-01-2023 Clarity (U) Cloudy [facility] Color (U) Red [facility] Laboratory - Urinalysison Nitrite Ql (U) Negative [facility] Protein Ql (U) Negative [facility] No Panel Informationon 03-01 Urine Leukocytes Positive [facility] Urine Non-Hemolyzed Blood [facility] Bilirubin Test strip Ql (U)O rdered By: Rey Manzano on 01-30-2023 Bilirubin Ql (U) 1 mg/dL Negative [facility] Comment on above: COLOR OF URINE MAY A FFECT DIPSTICK RESULTS. Ketones Test strip Ql (U)Ord ered By: Rey Manzano on 01-30-2023 Ketones Ql (U) 5 mg/dl Negative [facility] Nitrite Test strip Ql (U)Ord ered By: Rey Manzano on 01-30-2023 Nitrite Ql (U) Negative Negative [facility] Protein Test strip Ql (U)Ord ered By: Rey Manzano on 01-30-2023 Protein Ql (U) 30 mg/dl Negative [facility] Urine blood detectionOrdered By: Rey Manzano on 01-30-2023 RBC Ql (U) 10 /ul Negative [facility] Urine clarityOrdered By: Jeana Manzano on 01-30-2023 Clarity (U) Sl. Cloudy Clear [facility] Urine color determinationOrd ered By: Rey Manzano on 01-30-2023 Color (U) Yellow Yellow [facility] Urine glucose detectionOrder ed By: Rey Manzano on 01-30-2023 Glucose Ql (U) Normal mg/dl Normal [facility] Urine leukocyte esterase det ection by dipstickOrdered By: Rey Manzano on 01-30-2023 Leukocyte esterase Test strip Ql (U) 500 /ul Negative [facility] Urine pHOrdered By: Rey rivero on 01-30-2023 pH (U) 6.0 [pH] 5.0 - 8.0 [facility] Urine specific gravity measu rementOrdered By: Rey Manzano on 01-30-2023 Specific gravity (U) [Rel density] 1.015 1.002-1.030 [facility] Urobilinogen Auto test strip Ql (U)Ordered By: Rey Manzano on 01-30-2023 Urobilinogen Ql (U) 1 mg/dl Normal [facility] Absolute lymphocyte countOrd ered By: Helena Brantley on 12-28-2022 Lymphocytes Auto (Unsp spec) [#/Vol] 1.07 10*3/uL 0.83-4.51 [facility] Basophil percentageOrdered B y: Helena Brantley on 12-28-2022 Basophils/100 WBC (Bld) 1.1 % 0-1 [facility] Bilirubin [Mass/Vol] 0.80 mg/dL 0.20-1.00 [facility] Comment on above: For patients on eltr ombopag therapy, use of Dimension [place] TBIL is not recommended. Chloride [Moles/Vol] 110 mmol/L 98-107 [facility] Eosinophils/100 WBC (Bld) 1.7 % 0-5 [facility] Glucose [Mass/Vol] 95 mg/dL 74-106 [facility] Neutrophils (Bld) [#/Vol] 3.9 10*3/uL 2.0-7.7 [facility] Neutrophils/100 WBC (Bld) 72.3 % 47-70 [facility] Potassium [Moles/Vol] 4.0 mmol/L 3.5-5.1 [facility] Protein [Mass/Vol] 6.4 g/dL 6.4-8.2 [facility] Sodium [Moles/Vol] 141 mmol/L 136-145 [facility] WBC (Bld) [#/Vol] 5.4 10*3/uL 4.4-11.0 [facility] Blood erythrocytes count (nu mber/volume)Ordered By: Helena Brantley on 12-28-2022 RBC (Bld) [#/Vol] 4.22 10*6/uL 4.2-5.4 [facility] Blood hemoglobin measurement (mass/volume)Ordered By: Helena Brantley on 12-28-2022 Hemoglobin (Bld) [Mass/Vol] 13.5 g/dL 12.0-15.0 [facility] Blood lymphocytes/100 leukoc ytesOrdered By: Helena Brantley on 12-28-2022 Lymphocytes/100 WBC (Bld) 19.7 % 19-41 [facility] Blood monocytes/100 leukocyt esOrdered By: Helena Brantley on 12-28-2022 Monocytes/100 WBC (Bld) 5.0 % 0-10 [facility] Blood platelet mean volumeOr dered By: Helena Brantley on 12-28-2022 Platelet mean volume (Bld) [Entitic vol] 10.1 fL 6.2-12.0 [facility] Determination of erythrocyte mean corpuscular volume (MCV)Ordered By: Helena Brantley on 12-28-2022 MCV (RBC) [Entitic vol] 98.1 fL 81-99 [facility] Erythrocyte sedimentation ra teOrdered By: Helena Brantley on 12-28-2022 ESR (Bld) [Velocity] mm/h 0-30 [facility] Hematocrit Auto (Bld) [Volum e fraction]Ordered By: Helena Brantley on 12-28-2022 Hematocrit (Bld) [Volume fraction] 41.4 % 37-47 [facility] Laboratory - Chemistry and C hemistry - challengeOrdered By: Helena Brantley on 12-28-2022 ALP [Catalytic activity/Vol] 42 U/L 45-117 [facility] ALT [Catalytic activity/Vol] 23 U/L 13-56 [facility] CO2 [Moles/Vol] 26.0 mmol/L 21.0-32.0 [facility] Cobalamin (Vitamin B12) [Mass/Vol] 515 pg/mL 211-911 [facility] Globulin (S) [Mass/Vol] 2.8 g/dL 2.2-4.2 [facility] Urea nitrogen/Creatinine [Mass ratio] 21.3 mg/mg 10-20 [facility] Laboratory - Hematology and Cell countsOrdered By: Helena Brantley on 12-28-2022 Erythrocyte distribution width (RBC) [Entitic vol] 50.1 fL 35.1-43.9 [facility] Erythrocyte distribution width (RBC) [Ratio] 13.9 % 11.6-14.6 [facility] Immature granulocytes/100 WBC (Bld) 0.200 % 0.0-0.9 [facility] Comment on above: IG% - Immature Granu locytes (promyelocytes, myelocytes and metamyelocytes) > 1% indicates that a LEFT SHIFT is Present. MCH (RBC) [Entitic mass] 32.0 pg 27.0-32.0 [facility] Nucleated RBC/100 WBC (Bld) [Ratio] 0 % 0-5 [facility] MCHC Auto (RBC) [Mass/Vol]Or dered By: Helena Brantley on 12-28-2022 MCHC (RBC) [Mass/Vol] 32.6 g/dL 32-36 [facility] No Panel InformationOrdered By: Helena Brantley on 12-28-2022 Estimated GFR (MDRD) Amer 107 mL/min >60 [facility] Comment on above: GFR Calc Estimated GFR (MDRD) Non-Af Amer 89 mL/min >60 [facility] Comment on above: Non- GFR Calc Platelets bldOrdered By: Helena Brantley on 12-28-2022 Platelets (Bld) [#/Vol] 283 10*3/uL 150-450 [facility] Serum or plasma albumin pedro urement (mass/volume)Ordered By: Helena Brantley on 12-28-2022 Albumin [Mass/Vol] 3.6 g/dL 3.2-5.0 [facility] Serum or plasma albumin/glob ulin mass ratioOrdered By: Helena Brantley on 12-28-2022 Albumin/Globulin [Mass ratio] 1.3 {ratio} 0.9-2.4 [facility] Serum or plasma calcium pedro urement (mass/volume)Ordered By: Helena Brantley on 12-28-2022 Calcium [Mass/Vol] 8.5 mg/dL 8.5-10.1 [facility] Serum or plasma creatinine m easurement (mass/volume)Ordered By: Helena Brantley on 12-28-2022 Creatinine [Mass/Vol] 0.70 mg/dL 0.55-1.02 [facility] Comment on above: The validity of the calculated GFR & GFRAA in patients over 70 years has not been determined. Clinical correlation is essential. Serum or plasma urea nitroge n measurement (mass/volume)Ordered By: Helena Brantley on 12-28-2022 Urea nitrogen [Mass/Vol] 15 mg/dL 7-18 [facility] Thin prep Papanicolaou smear with manual screeningOrdered By: Helena Brantley on 12-28-2022 Thin prep Papanicolaou smear with manual screening 16 U/L 15-37 [facility] Thin prep Papanicolaou smear with manual screening 5 5-15 [facility] Laboratory - Chemistry and C hemistry - challengeOrdered By: Janine Chin on 12-20-2022 Free T4 [Mass/Vol] 0.70 ng/dL 0.76-1.46 [facility] No Panel InformationOrdered By: Janine Chin on 12-20-2022 Thyroid Stimulating Hormone (TSH) 1.29 uIU/mL 0.358-3.74 [facility] Gram stain for investigation of transfusion reactionOrdered By: Rey Manzano on 11-27-2022 Microscopic observation Gram stain Nom (Unsp spec) [facility] Microscopic observation Gram stain Nom (Unsp spec) [facility] Thin prep Papanicolaou smear with manual screeningOrdered By: Rey Manzano on 11-27-2022 Genital Culture Presumptive E. coli [facility] Genital Culture Yeast [facility] Genital Culture Presumptive E. coli [facility] Genital Culture Yeast [facility] Basophil percentageOrdered B y: Dr. Brantley on 08-01-2022 Cholesterol [Mass/Vol] 276 mg/dL <200 [facility] Comment on above: <200 mg/dL Desirable 200-240 mg/dL Borderline >240 mg/dL High Risk Triglyceride [Mass/Vol] 126 mg/dL <199 [facility] Comment on above: The drugs N-Acetylcy steine and Metamizole may falsely depress this assay.Serum Triglycerides Reference Interval Normal <150 mg/dL Borderline high 150 - 199 mg/dL High 200 - 499 mg/dL Very High > or = 500 mg/dL No Panel InformationOrdered By: Dr. Brantley on 08-01-2022 Vitamin D 25-Hydroxy 29.7 ng/mL [facility] Comment on above: Vitamin D 25(OH) Sta tus Range Deficiency <20 ng/mL (50nmol/L) Insufficiency 20 - 30 ng/mL (50 - 75 nmol/L) Sufficiency 30 - 100 ng/mL (75 - 250 nmol/L) Toxicity >100 ng/mL (>250 nmol/L) Serum or plasma cholesterol in HDL measurement (mass/volume)Ordered By: Dr. Brantley on 08-01-2022 Cholesterol in HDL [Mass/Vol] 118 mg/dL >40 [facility] Comment on above: The drugs N-Acetylcy steine and Metamizole may falsely depress this assay. Reference Range HDL <40 mg/dL Low HDL Cholesterol HDL >or= 60 mg/dL High HDL Cholesterol Serum or plasma cholesterol in VLDL measurement (mass/volume)Ordered By: Dr. Brantley on 08-01-2022 Cholesterol in VLDL [Mass/Vol] 25 mg/dL 5-40 [facility] Serum or plasma low density lipoprotein (LDL) cholesterol measurement (mass/volume)Ordered By: Dr. Brantley on 08-01-2022 Cholesterol in LDL [Mass/Vol] 133 mg/dL 0-130 [facility] Absolute lymphocyte counton 08-07-2021 Lymphocytes Auto (Unsp spec) [#/Vol] 0.83 10*3/uL 0.83-4.51 [facility] Work Phone: Basophil percentageon 2021 Basophils/100 WBC (Bld) 1.3 % 0-1 [facility] Work Phone: Bilirubin [Mass/Vol] 0.70 mg/dL 0.20-1.00 [facility] Work Phone: [phone] Comment on above: For patients on eltr ombopag therapy, use of Dimension [place] TBIL is not recommended. Eosinophils/100 WBC (Bld) 7.8 % 0-5 [facility] Work Phone: [phone] Neutrophils (Bld) [#/Vol] 3.0 10*3/uL 2.0-7.7 [facility] Work Phone: [phone] Neutrophils/100 WBC (Bld) 64.2 % 47-70 [facility] Work Phone: [phone] Protein [Mass/Vol] 6.6 g/dL 6.4-8.2 [facility] Work Phone: WBC (Bld) [#/Vol] 4.5 10*3/uL 4.4-11.0 [facility] Work Phone: [phone] Blood erythrocytes count (nu mber/volume)on 08-07-2021 RBC (Bld) [#/Vol] 4.08 10*6/uL 4.2-5.4 [facility] Work Phone: Blood hemoglobin measurement (mass/volume)on 08-07-2021 Hemoglobin (Bld) [Mass/Vol] 13.3 g/dL 12.0-15.0 [facility] Work Phone: [phone] Blood lymphocytes/100 leukoc yteson 08-07-2021 Lymphocytes/100 WBC (Bld) 17.9 % 19-41 [facility] Work Phone: Blood monocytes/100 leukocyt eson 08-07-2021 Monocytes/100 WBC (Bld) 8.6 % 0-10 [facility] Work Phone: Blood platelet mean volumeon 08-07-2021 Platelet mean volume (Bld) [Entitic vol] 9.7 fL 6.2-12.0 [facility] Work Phone: Determination of erythrocyte mean corpuscular volume (MCV)on 08-07-2021 MCV (RBC) [Entitic vol] 98.0 fL 81-99 [facility] Work Phone: Direct bilirubinon 2 Bilirubin.direct [Mass/Vol] 0.13 mg/dL 0.00-0.30 [facility] Work Phone: HIV 1 and HIV-2 antibody ass ay with HIV-1 p24 antigen detectionon 08-07-2021 HIV 1+2 Ab+HIV1 p24 Ag IA Ql Non-Reactive Nonreactive [facility] Work Phone: Hematocrit Auto (Bld) [Volum e fraction]on 08-07-2021 Hematocrit (Bld) [Volume fraction] 40.0 % 37-47 [facility] Work Phone: Laboratory - Chemistry and C hemistry - challengeon 08-07-2021 ALP [Catalytic activity/Vol] 36 U/L 45-117 [facility] Work Phone: ALT [Catalytic activity/Vol] 37 U/L 13-56 [facility] Work Phone: Globulin (S) [Mass/Vol] 2.9 g/dL 2.2-4.2 [facility] Work Phone: Laboratory - Hematology and Cell countson 08-07-2021 Erythrocyte distribution width (RBC) [Entitic vol] 50.9 fL 35.1-43.9 [facility] Work Phone: Erythrocyte distribution width (RBC) [Ratio] 14.0 % 11.6-14.6 [facility] Work Phone: Immature granulocytes/100 WBC (Bld) 0.200 % 0.0-0.9 [facility] Work Phone: Comment on above: IG% - Immature Granu locytes (promyelocytes, myelocytes and metamyelocytes) > 1% indicates that a LEFT SHIFT is Present. MCH (RBC) [Entitic mass] 32.6 pg 27.0-32.0 [facility] Work Phone: Nucleated RBC/100 WBC (Bld) [Ratio] 0 % 0-5 [facility] Work Phone: MCHC Auto (RBC) [Mass/Vol]on 08-07-2021 MCHC (RBC) [Mass/Vol] 33.3 g/dL 32-36 [facility] Work Phone: No Panel Informationon 08-07 Endomysial IgA Antibody Negative Negative [facility] Work Phone: Hepatitis B Surface Antigen Non-Reactive Nonreactive [facility] Work Phone: Hepatitis C Antibody Non-Reactive Nonreactive [facility] Work Phone: Comment on above: Non Reactive: < 0.8 Equivocal: >/= 0.8 to < 1.0 Reactive: >/= 1.0The CDC recommends that a reactive/equivocal HCV antibody result be followed up by the HCV Nucleic Acid Amplificationtest (627056) Platelets bldon 08-07-2021 Platelets (Bld) [#/Vol] 278 10*3/uL 150-450 [facility] Work Phone: Qualitative QuantiFERON-TB g old in tube teston 08-07-2021 M. tuberculosis tuberculin stim IFN-g Ql (Bld) 0 IU/mL [facility] Work Phone: Serum hepatitis B virus core antibody detectionon 08-07-2021 HBV core Ab Ql (S) Negative Negative [facility] Work Phone: Comment on above: Performed at: [facility] [address] [id number] Director: Patrick Heaton PhD, Phone: [phone] Serum hepatitis B virus surf curt antibody IgG detectionon 08-07-2021 HBV surface IgG Ql (S) Reactive [facility] Work Phone: Comment on above: Non Reactive: Incons istent with immunity less than <10 mIU/mL Reactive: Consistent with immunity greater than or equal to 10 mIU/mL Serum or plasma IgA measurem ent (mass/volume)on 08-07-2021 IgA [Mass/Vol] 74 mg/dL [facility] Work Phone: Serum or plasma albumin pedro urement (mass/volume)on 08-07-2021 Albumin [Mass/Vol] 3.7 g/dL 3.2-5.0 [facility] Work Phone: Serum tissue transglutaminas e IgA antibody assay (units/volume)on 08-07-2021 tTG IgA Qn (S) <2 U/mL [facility] Work Phone: Comment on above: Negative 0 - 3 Weak Positive 4 - 10 Positive >10 Tissue Transglutaminase (tTG) has been identified as the endomysial antigen. Studies have demonstr- ated that endomysial IgA antibodies have over 99% specificity for gluten sensitive enteropathy. Thin prep Papanicolaou smear with manual screeningon 08-07-2021 Thin prep Papanicolaou smear with manual screening 19 U/L 15-37 [facility] Work Phone: Thin prep Papanicolaou smear with manual screening Comment [facility] Work Phone: Comment on above: The QuantiFERON-TB G old Plus result is determined bysubtracting the Nil value from either TB antigen (Ag) tube.The mitogen tube serves as a control for the test. Thin prep Papanicolaou smear with manual screening 0.01 IU/mL [facility] Work Phone: Thin prep Papanicolaou smear with manual screening 0 IU/mL [facility] Work Phone: Thin prep Papanicolaou smear with manual screening > 10.00 IU/mL [facility] Work Phone: Thin prep Papanicolaou smear with manual screening Negative Negative [facility] Work Phone: Comment on above: The specimen [...] No signs of muscle strain. 2 Normal [facility] BONE DENSITY AXIAL (HIP, PEL VIS, SPINE)on 05-23-2020 BONE DENSITY AXIAL (HIP, PELVIS, SPINE) DEXA scan 05/23/2020 COMPARISON EXAMINATION: Baseline CLINICAL HISTORY: Postmenopausal EQUIPMENT: [employer]. RESULTS: LUMBAR SPINE: Average bone mineral density: [...] with osteoporosis. FOLLOWUP RECOMMENDED: Two years Normal [facility] MRI KNEE RIGHT WITHOUT CONTR Luis 11-21-2017 [...] Mild patellofemoral and lateral compartment arthrosis. Normal [facility] SURF MARKERS >15,PATH REVon 04-19-2017 PATH REV. >15 MARKERS SANDY Normal [facility] Comment on above: Result Comment: By h er/his signature above, the Pathologist listed as making the final interpretation certifies that she/he has personally reviewed this case. Performed By: #### U A ####[facility] [place] [address] SURFACE MARKERS ACUTE PANELo n 04-19-2017 CD19 11 % of Lymph Normal [facility] Comment on above: Result Comment: Poly clonalKappa/Lambda= 7:5 Performed By: #### U A ####[facility] [place] [address] COMMENT see below Normal [facility] Comment on above: Result Comment: No i mmunophenotypic abnormality was detected. Performed By: #### U A ####[facility] [place] [address] DIAGNOSIS SEE BELOW Normal [facility] Comment on above: Result Comment: No i mmunophenotypic evidence of a lymphoproliferative disorder.No increased or abnormal blast population identified.No abnormality of red cells, granulocytes or monocytes noted. Performed By: #### U A ####[facility] [place] [address] NOTE SEE BELOW Normal [facility] Comment on above: Result Comment: Clin ical and morphologic correlation is suggested. Performed By: #### U A ####[facility] [place] [address] SURFACE MARKERS ACUTE PANELo n 04-17-2017 CD4 35 % of Lymph Normal [facility] Comment on above: Performed By: #### U A ####[facility] [place] [address] CD8 30 % of Lymph Normal [facility] Comment on above: Performed By: #### U A ####[facility] [place] [address] CELL COUNT 14.09 x10E9/L Normal [facility] Comment on above: Performed By: #### U A ####[facility] [place] [address] Granulocytes/100 WBC (Bld) 64 % Normal [facility] Comment on above: Performed By: #### U A ####[facility] [place] [address] Lymphocytes/100 leukocytes 7 % Normal [facility] Comment on above: Performed By: #### U A ####[facility] [place] [address] Monocytes/100 leukocytes 4 % Normal [facility] Comment on above: Performed By: #### U A ####[facility] [place] [address] MYELOBLAST CD34+CD117+ % 0.70 % Normal [facility] Comment on above: Performed By: #### U A ####[facility] [place] [address] NK 23 % of Lymph Normal [facility] Comment on above: Performed By: #### U A ####[facility] [place] [address] NUMBER OF CELLS COLLECTED 100,000 per tube Normal [facility] Comment on above: Performed By: #### U A ####[facility] [place] [address] SPECIMEN SITE Bone Marrow Normal [facility] Comment on above: Result Comment: 1972 Performed By: #### U A ####[facility] [place] [address] SURFACE MARKERS ACUTE PANELo n 04-16-2017 METHOD SEE BELOW Normal [facility] Comment on above: Result Comment: This test is a multicolor, whole blood lysis assay. It wasdeveloped and its performance characteristics determined by theDepartment of Pathology, [facility], andhas not been cleared or approved by [...] CD13, CD5, CD2, CD177, CD163, CD11b, CD16, [place],Lambda, CD9, CD22.Additional Antibodies:Glycophorin-A, CD105, CD36 Performed By: #### U A ####[facility] [place] [address] SPECIMEN VIABILITY Acceptable Normal [facility] Comment on above: Performed By: #### U A ####[facility] [place] [address] [facility] Surgical Pathology Depar tmenton 04-16-2017 [facility] Surgical Pathology Department Name JEN DEMARCO Pathologist: LUPE JUARES MDDate of Procedure: 04/16/2017Date Received: 04/16/2017Date Reported 04/17/2017Submitting Physician: REY VILLAVICENCIO MDLocation: [facility] Other External # Addendum Present FINAL DIAGNOSISA [...] Exon3,EZH2: Exon18,JAK2: Exon12,ETV6:Exon7,KRAS: Exon4,SRSF2: Exon1,ASXL1: Exon12,U2AF1: Exon2,PHF6: [id number]: DNA is extracted from the peripheral blood or bone marrow sample, followingamplicon library preparation, is subjected to next-generation sequencing usingEdgeConneX sequencer with post-sequencing analysis of tumor-associatedmutation s using [employer] Variant Caller software.Performance characteristics of NGS Panel:Single base substitutions: accuracy >99%; reproducibility 98%; sensitivity 5%variant allele fraction with minimum depth of coverage of 300X.Insertion/deletion events: accuracy >99%; reproducibility >99%; sensitivity 10%variant allele fraction with minimum depth of coverage of 300X.Laboratory developed test: the assay performance characteristics were validatedby the [facility]. This test has not been cleared or approvedby the FDA; however, the FDA has determined that such approval is notnecessary. The [facility] is certified under the Clinical Laboratory [...] differential count reveals: polys 57%, bands 4%, rswqqhitsjw46%, monocytes 8%, eosinophils 5%, basophils 1%.PERIPHERAL SMEAR: [...] in one cassette following decalcification. AFMafm/04/16/2017 Normal [facility] Comment on above: Performed By: #### U A ####[facility] [place] [address] CBC AND DIFFERENTIALon 04-09 % AUTOMATED IMMATURE GRAN Canceled Normal 0.0 - 0.9 [facility] Comment on above: Order Comment: TEST CBC AND DIFFERENTIAL WAS CANCELLED, 04/09/2017 12:49 ?Cancel Reason:Cancelled. Result Comment: Perc ent differential counts (%) should be interpreted in the context of the absolute cell counts (cells/L). Performed By: #### U A ####[facility] [place] [address] % NEUTROPHIL Canceled Normal [facility] Comment on above: Order Comment: TEST CBC AND DIFFERENTIAL WAS CANCELLED, 04/09/2017 12:49 ?Cancel Reason:Cancelled. Performed By: #### U A ####[facility] [place] [address] AUTOMATED IMMATURE GRAN Canceled Normal 0.00 - 0.70 [facility] Comment on above: Order Comment: TEST CBC AND DIFFERENTIAL WAS CANCELLED, 04/09/2017 12:49 ?Cancel Reason:Cancelled. Performed By: #### U A ####[facility] [place] [address] Basophils/100 WBC Auto (Bld) Canceled Normal [facility] Comment on above: Order Comment: TEST CBC AND DIFFERENTIAL WAS CANCELLED, 04/09/2017 12:49 ?Cancel Reason:Cancelled. Performed By: #### U A ####[facility] [place] [address] DIFFERENTIAL Canceled Normal [facility] Comment on above: Order Comment: TEST CBC AND DIFFERENTIAL WAS CANCELLED, 04/09/2017 12:49 ?Cancel Reason:Cancelled. Performed By: #### U A ####[facility] [place] [address] Eosinophils Canceled Normal [facility] Comment on above: Order Comment: TEST CBC AND DIFFERENTIAL WAS CANCELLED, 04/09/2017 12:49 ?Cancel Reason:Cancelled. Performed By: #### U A ####[facility] [place] [address] Eosinophils/100 leukocytes Canceled Normal [facility] Comment on above: Order Comment: TEST CBC AND DIFFERENTIAL WAS CANCELLED, 04/09/2017 12:49 ?Cancel Reason:Cancelled. Performed By: #### U A ####[facility] [place] [address] Erythrocyte distribution width Auto Ratio (RBC) Canceled Normal [facility] Comment on above: Order Comment: TEST CBC AND DIFFERENTIAL WAS CANCELLED, 04/09/2017 12:49 ?Cancel Reason:Cancelled. Performed By: #### U A ####[facility] [place] [address] Erythrocytes (RBC) Canceled Normal [facility] Comment on above: Order Comment: TEST CBC AND DIFFERENTIAL WAS CANCELLED, 04/09/2017 12:49 ?Cancel Reason:Cancelled. Performed By: #### U A ####[facility] [place] [address] Hematocrit (HCT) Canceled Normal [facility] Comment on above: Order Comment: TEST CBC AND DIFFERENTIAL WAS CANCELLED, 04/09/2017 12:49 ?Cancel Reason:Cancelled. Performed By: #### U A ####[facility] [place] [address] Hemoglobin mass conc (Bld) Canceled Normal [facility] Comment on above: Order Comment: TEST CBC AND DIFFERENTIAL WAS CANCELLED, 04/09/2017 12:49 ?Cancel Reason:Cancelled. Performed By: #### U A ####[facility] [place] [address] Lymphocytes Canceled Normal [facility] Comment on above: Order Comment: TEST CBC AND DIFFERENTIAL WAS CANCELLED, 04/09/2017 12:49 ?Cancel Reason:Cancelled. Performed By: #### U A ####[facility] [place] [address] Lymphocytes/100 leukocytes Canceled Normal [facility] Comment on above: Order Comment: TEST CBC AND DIFFERENTIAL WAS CANCELLED, 04/09/2017 12:49 ?Cancel Reason:Cancelled. Performed By: #### U A ####[facility] [place] [address] MCHC mass conc (RBC) Canceled Normal [facility] Comment on above: Order Comment: TEST CBC AND DIFFERENTIAL WAS CANCELLED, 04/09/2017 12:49 ?Cancel Reason:Cancelled. Performed By: #### U A ####[facility] [place] [address] MCV Canceled Normal [facility] Comment on above: Order Comment: TEST CBC AND DIFFERENTIAL WAS CANCELLED, 04/09/2017 12:49 ?Cancel Reason:Cancelled. Performed By: #### U A ####[facility] [place] [address] Monocytes Canceled Normal [facility] Comment on above: Order Comment: TEST CBC AND DIFFERENTIAL WAS CANCELLED, 04/09/2017 12:49 ?Cancel Reason:Cancelled. Performed By: #### U A ####[facility] [place] [address] Neutrophils Canceled Normal [facility] Comment on above: Order Comment: TEST CBC AND DIFFERENTIAL WAS CANCELLED, 04/09/2017 12:49 ?Cancel Reason:Cancelled. Result Comment: Perc ent differential counts (%) should be interpreted in the context of the absolute cell counts (cells/L). Performed By: #### U A ####[facility] [place] [address] Platelets Canceled Normal [facility] Comment on above: Order Comment: TEST CBC AND DIFFERENTIAL WAS CANCELLED, 04/09/2017 12:49 ?Cancel Reason:Cancelled. Performed By: #### U A ####[facility] [place] [address] WBC (Leukocytes) Canceled Normal [facility] Comment on above: Order Comment: TEST CBC AND DIFFERENTIAL WAS CANCELLED, 04/09/2017 12:49 ?Cancel Reason:Cancelled. Performed By: #### U A ####[facility] [place] [address] COMPREHENSIVE PANELon 2017 Alanine aminotransferase (ALT) Canceled Normal [facility] Comment on above: Order Comment: TEST COMPREHENSIVE PANEL WAS CANCELLED, 04/09/2017 12:49 ?Cancel Reason:Cancelled. Result Comment: Lori ents treated with Sulfasalazine may generate falsely decreased results for ALT. Performed By: #### U A ####[facility] [place] [address] Albumin Canceled Normal [facility] Comment on above: Order Comment: TEST COMPREHENSIVE PANEL WAS CANCELLED, 04/09/2017 12:49 ?Cancel Reason:Cancelled. Performed By: #### U A ####[facility] [place] [address] Alkaline phosphatase (ALP) Canceled Normal [facility] Comment on above: Order Comment: TEST COMPREHENSIVE PANEL WAS CANCELLED, 04/09/2017 12:49 ?Cancel Reason:Cancelled. Performed By: #### U A ####[facility] [place] [address] Anion gap Canceled Normal [facility] Comment on above: Order Comment: TEST COMPREHENSIVE PANEL WAS CANCELLED, 04/09/2017 12:49 ?Cancel Reason:Cancelled. Performed By: #### U A ####[facility] [place] [address] Aspartate aminotransferase (AST) Canceled Normal [facility] Comment on above: Order Comment: TEST COMPREHENSIVE PANEL WAS CANCELLED, 04/09/2017 12:49 ?Cancel Reason:Cancelled. Performed By: #### U A ####[facility] [place] [address] Bicarbonate (HCO3) Canceled Normal [facility] Comment on above: Order Comment: TEST COMPREHENSIVE PANEL WAS CANCELLED, 04/09/2017 12:49 ?Cancel Reason:Cancelled. Performed By: #### U A ####[facility] [place] [address] Bilirubin (total) Canceled Normal [facility] Comment on above: Order Comment: TEST COMPREHENSIVE PANEL WAS CANCELLED, 04/09/2017 12:49 ?Cancel Reason:Cancelled. Performed By: #### U A ####[facility] [place] [address] Calcium Canceled Normal [facility] Comment on above: Order Comment: TEST COMPREHENSIVE PANEL WAS CANCELLED, 04/09/2017 12:49 ?Cancel Reason:Cancelled. Performed By: #### U A ####[facility] [place] [address] Chloride Canceled Normal [facility] Comment on above: Order Comment: TEST COMPREHENSIVE PANEL WAS CANCELLED, 04/09/2017 12:49 ?Cancel Reason:Cancelled. Performed By: #### U A ####[facility] [place] [address] Creatinine Canceled Normal [facility] Comment on above: Order Comment: TEST COMPREHENSIVE PANEL WAS CANCELLED, 04/09/2017 12:49 ?Cancel Reason:Cancelled. Performed By: #### U A ####[facility] [place] [address] eGFR (non-black) Canceled Normal [facility] Comment on above: Order Comment: TEST COMPREHENSIVE PANEL WAS CANCELLED, 04/09/2017 12:49 ?Cancel Reason:Cancelled. Performed By: #### U A ####[facility] [place] [address] Result Comment: CALC ULATIONS OF ESTIMATED GFR ARE PERFORMED USING THE MDRD STUDY EQUATION FOR THE IDMS-TRACEABLE CREATININE METHODS. CLIN CHEM 2007;53:766-72 Glucose mass conc Canceled Normal [facility] Comment on above: Order Comment: TEST COMPREHENSIVE PANEL WAS CANCELLED, 04/09/2017 12:49 ?Cancel Reason:Cancelled. Performed By: #### U A ####[facility] [place] [address] Potassium molar conc Canceled Normal [facility] Comment on above: Order Comment: TEST COMPREHENSIVE PANEL WAS CANCELLED, 04/09/2017 12:49 ?Cancel Reason:Cancelled. Performed By: #### U A ####[facility] [place] [address] Protein Canceled Normal [facility] Comment on above: Order Comment: TEST COMPREHENSIVE PANEL WAS CANCELLED, 04/09/2017 12:49 ?Cancel Reason:Cancelled. Performed By: #### U A ####[facility] [place] [address] Sodium Canceled Normal [facility] Comment on above: Order Comment: TEST COMPREHENSIVE PANEL WAS CANCELLED, 04/09/2017 12:49 ?Cancel Reason:Cancelled. Performed By: #### U A ####[facility] [place] [address] Urea nitrogen Canceled Normal [facility] Comment on above: Order Comment: TEST COMPREHENSIVE PANEL WAS CANCELLED, 04/09/2017 12:49 ?Cancel Reason:Cancelled. Performed By: #### U A ####[facility] [place] [address] IGEon 04-09-2017 IgE Canceled Normal [facility] Comment on above: Order Comment: TEST IGE WAS CANCELLED, 04/09/2017 12:49 ?Cancel Reason: Cancelled. Performed By: #### U A ####[facility] [place] [address] IGGon 04-09-2017 IgG Canceled Normal [facility] Comment on above: Order Comment: TEST IGG WAS CANCELLED, 04/09/2017 12:49 ?Cancel Reason: Cancelled. Result Comment: MONO CLONAL PROTEINS MAY CAUSE FALSELY LOWRESULTS IN THIS ASSAY. SERUM PROTEINELECTROPHORESIS SHOULD BE DONE THEFIRST TEST TO EVALUATE MONOCLONAL GAMMOPATHY. Performed By: #### U A ####[facility] [place] [address] TRYPTASEon 03-26-2017 TRYPTASE 3 ng/mL Normal <11 [facility] Comment on above: Result Comment: The Tryptase test, fluorescent enzyme immunoassay(FEIA), measures both the Alpha and Beta forms ofTryptase. Measuring both forms of Tryptase increasessensitivity for the diagnosis of mastocytosis, andmast cell degranulation as a cause of anaphylaxis. Performed By: #### C MP ####[facility] [place] [address] CBC AND DIFFERENTIALon 03-22 % AUTOMATED IMMATURE GRAN 0.8 % Normal 0.0 - 0.9 [facility] Comment on above: Result Comment: Perc ent differential counts (%) should be interpreted in the context of the absolute cell counts (cells/L). Performed By: #### C MP ####[facility] [place] [address] % NEUTROPHIL 58.0 % Normal 40.0 - 80.0 [facility] Comment on above: Performed By: #### C MP ####[facility] [place] [address] Basophils/100 WBC Auto (Bld) 0.11 x10E9/L High 0.00 - 0.10 [facility] Comment on above: Performed By: #### C MP ####[facility] [place] [address] Basophils/100 WBC Auto (Bld) 2.1 % High 0.0 - 2.0 [facility] Comment on above: Performed By: #### C MP ####[facility] [place] [address] Eosinophils 0.33 10*3/uL Normal 0.00 - 0.70 [facility] Comment on above: Performed By: #### C MP ####[facility] [place] [address] Eosinophils/100 leukocytes 6.2 % High 0.0 - 6.0 [facility] Comment on above: Performed By: #### C MP ####[facility] [place] [address] Erythrocyte distribution width Auto Ratio (RBC) 12.8 % Normal 11.5 - 14.5 [facility] Comment on above: Performed By: #### C MP ####[facility] [place] [address] Erythrocytes (RBC) 4.35 x10E12/L Normal 4.00 - 5.20 [facility] Comment on above: Performed By: #### C MP ####[facility] [place] [address] Hematocrit (HCT) 42.3 % Normal 36.0 - 46.0 [facility] Comment on above: Performed By: #### C MP ####[facility] [place] [address] Hemoglobin mass conc (Bld) 13.9 g/dL Normal 12.0 - 16.0 [facility] Comment on above: Performed By: #### C MP ####[facility] [place] [address] Lymphocytes 1.23 10*3/uL Normal 1.20 - 4.80 [facility] Comment on above: Performed By: #### C MP ####[facility] [place] [address] Lymphocytes/100 leukocytes 23.1 % Normal 13.0 - 44.0 [facility] Comment on above: Performed By: #### C MP ####[facility] [place] [address] MCHC mass conc (RBC) 32.9 g/dL Normal 32.0 - 36.0 [facility] Comment on above: Performed By: #### C MP ####[facility] [place] [address] MCV 97 fL Normal 80 - 100 [facility] Comment on above: Performed By: #### C MP ####[facility] [place] [address] Monocytes 0.52 10*3/uL Normal 0.10 - 1.00 [facility] Comment on above: Performed By: #### C MP ####[facility] [place] [address] Monocytes/100 leukocytes 9.8 % Normal 2.0 - 10.0 [facility] Comment on above: Performed By: #### C MP ####[facility] [place] [address] Neutrophils 3.10 10*3/uL Normal 1.20 - 7.70 [facility] Comment on above: Performed By: #### C MP ####[facility] [place] [address] Nucleated erythrocytes 0.0 /100 WBC Normal 0.0-0.0 [facility] Comment on above: Performed By: #### C MP ####[facility] [place] [address] Platelets 271 10*3/uL Normal 150 - 450 [facility] Comment on above: Performed By: #### C MP ####[facility] [place] [address] WBC (Leukocytes) 5.3 10*3/uL Normal 4.4 - 11.3 [facility] Comment on above: Performed By: #### C MP ####[facility] [place] [address] VITAMIN B12on 03-22-2017 Cobalamins (Vitamin B12) 625 pg/mL Normal 211 - 911 [facility] Comment on above: Performed By: #### C MP ####[facility] [place] [address] ANTINUCLEAR ANTIBODYon 03-11 ANTINUCLEAR ANTIBODY Negative Normal NEGATIVE [facility] Comment on above: Performed By: #### C MP ####[facility] [place] [address] KACI PANELon 03-11-2017 ANTI-CENTROMERE 0.2 AI Normal [facility] Comment on above: Result Comment: REF VALUES< 1.0 = NEGATIVE>=1.0 = POSITIVE Performed By: #### C MP ####[facility] [place] [address] ANTI-CHROMATIN <0.2 Normal [facility] Comment on above: Result Comment: REF VALUES< 1.0 = NEGATIVE>=1.0 = POSITIVE Performed By: #### C MP ####[facility] [place] [address] ANTI-DNA [DS] <1.0 Normal [facility] Comment on above: Result Comment: REF VALUESNEGATIVE: <= 4 IU/MLEQUIVOCAL: 5- 9 IU/MLPOSITIVE: >=10 IU/ML Performed By: #### C MP ####[facility] [place] [address] ANTI-MEL-1 <0.2 Normal [facility] Comment on above: Result Comment: REF VALUES< 1.0 = NEGATIVE>=1.0 = POSITIVE Performed By: #### C MP ####[facility] [place] [address] ANTI-RIBOSOMAL P <0.2 Normal [facility] Comment on above: Result Comment: REF VALUES< 1.0 = NEGATIVE>=1.0 = POSITIVE Performed By: #### C MP ####[facility] [place] [address] ANTI-MICRO PALEONTOLOGIST <0.2 Normal [facility] Comment on above: Result Comment: REF VALUES< 1.0 = NEGATIVE>=1.0 = POSITIVE Performed By: #### C MP ####[facility] [place] [address] ANTI-SCL-70 <0.2 Normal [facility] Comment on above: Result Comment: REF VALUES< 1.0 = NEGATIVE>=1.0 = POSITIVE Performed By: #### C MP ####[facility] [place] [address] ANTI-SM <0.2 Normal [facility] Comment on above: Result Comment: REF VALUES< 1.0 = NEGATIVE>=1.0 = POSITIVE Performed By: #### C MP ####[facility] [facility] [address] ANTI-SM/MICRO PALEONTOLOGIST <0.2 Normal [facility] Comment on above: Result Comment: REF VALUES< 1.0 = NEGATIVE>=1.0 = POSITIVE Performed By: #### C MP ####[facility] [place] [address] ANTI-SSA <0.2 Normal [facility] Comment on above: Result Comment: REF VALUES< 1.0 = NEGATIVE>=1.0 = POSITIVE Performed By: #### C MP ####[facility] [place] [address] ANTI-SSB <0.2 Normal [facility] Comment on above: Result Comment: REF VALUES< 1.0 = NEGATIVE>=1.0 = POSITIVE Performed By: #### C MP ####[facility] [place] [address] ESR-Mal 03-08-2017 ESR-WESTERGREN 3 mm/h Normal 0 - 30 [facility] Comment on above: Performed By: #### C MP ####[facility] [place] [address] Dermatopathologyon 7 Dermatopathology 90 Pathologist: LUCILA ALBERT, MDDate of Procedure: 02/15/2017Date Received: 02/18/2017Date Reported 02/19/2017Submitting Physician: OMAR AGRCIA MDLocation: ADERM Copy To/Referring/Attending:Demetra SHAW MD FINAL [...] and seborrheicdermatitis. Electronically Signed Out by LUCILA ALBERT M.D. Electronically SignedOut By LUCILA ALBERT MD/[facility] Clinical History:61 y/o female with pruritic scaly rash on the scalp and erythematous patches onthe upper extremities AND trunk. R/O dermatomyositis. Punch Biopsy. ([facility]) Specimens Submitted As:A: SKIN, RIGHT POSTERIOR PARIETAL SCALP Gross Description:Received in formalin is a can-yellow, cylindrical piece of skin [id number]. The specimen is inked and embedded in toto.ink/02/18/2017 Normal [facility] Comment on above: Performed By: #### C MP ####[facility] [place] [address] SURF MARKERS >15,PATH REVon 01-17-2017 PATH REV. >15 MARKERS CHANELLE Normal [facility] Comment on above: Result Comment: By h er/his signature above, the Pathologist listed as making the final interpretation certifies that she/he has personally reviewed this case. Performed By: #### C MP ####[facility] [place] [address] SURFACE MARKERS LOW GRADE PA NELon 01-17-2017 CD19 18 % of Lymph Normal [facility] Comment on above: Result Comment: The B-cells are polytypic. Performed By: #### C MP ####[facility] [place] [address] DIAGNOSIS SEE BELOW Normal [facility] Comment on above: Result Comment: - No immunophenotypic evidence of a monotypic B-cell or abnormal T-cellpopulation.- No discrete blast population identified. Performed By: #### C MP ####[facility] [place] [address] Granulocytes/100 WBC (Bld) 79 % Normal [facility] Comment on above: Performed By: #### C MP ####[facility] [place] [address] NOTE SEE BELOW Normal [facility] Comment on above: Result Comment: Thes e results should be correlated with the morphologic and other findings. Performed By: #### C MP ####[facility] [place] [address] FLOW CYTOMETRY TESTon 2016 FLOW TEST ORDERED LOW GRADE PANEL Normal [facility] Comment on above: Performed By: #### C MP ####[facility] [place] [address] SURFACE MARKERS LOW GRADE PA NELon 01-15-2017 CD4 45 % of Lymph Normal [facility] Comment on above: Performed By: #### C MP ####[facility] [place] [address] CD8 22 % of Lymph Normal [facility] Comment on above: Performed By: #### C MP ####[facility] [place] [address] CELL COUNT 10.2 x10E9/L Normal [facility] Comment on above: Performed By: #### C MP ####[facility] [place] [address] Lymphocytes/100 leukocytes 9 % Normal [facility] Comment on above: Performed By: #### C MP ####[facility] [place] [address] Monocytes/100 leukocytes 3 % Normal [facility] Comment on above: Performed By: #### C MP ####[facility] [place] [address] NK 13 % of Lymph Normal [facility] Comment on above: Performed By: #### C MP ####[facility] [place] [address] NUMBER OF CELLS COLLECTED 100,000 per tube Normal [facility] Comment on above: Performed By: #### C MP ####[facility] [place] [address] SPECIMEN SITE Peripheral Blood Normal [facility] Comment on above: Performed By: #### C MP ####[facility] [place] [address] CBC AND DIFFERENTIALon 01-11 % AUTOMATED IMMATURE GRAN 0.9 % Normal 0.0 - 0.9 [facility] Comment on above: Result Comment: Perc ent differential counts (%) should be interpreted in the context of the absolute cell counts (cells/L). Performed By: #### C BCDF ####[facility] [place] [address] % NEUTROPHIL 90.4 % Normal 40.0 - 80.0 [facility] Comment on above: Performed By: #### C BCDF ####[facility] [place] [address] Basophils/100 WBC Auto (Bld) 0.3 % Normal 0.0 - 2.0 [facility] Comment on above: Performed By: #### C BCDF ####[facility] [place] [address] Basophils/100 WBC Auto (Bld) 0.03 x10E9/L Normal 0.00 - 0.10 [facility] Comment on above: Performed By: #### C BCDF ####[facility] [place] [address] Eosinophils 0.07 10*3/uL Normal 0.00 - 0.70 [facility] Comment on above: Performed By: #### C BCDF ####[facility] [place] [address] Eosinophils/100 leukocytes 0.7 % Normal 0.0 - 6.0 [facility] Comment on above: Performed By: #### C BCDF ####[facility] [place] [address] Erythrocyte distribution width Auto Ratio (RBC) 14.3 % Normal 11.5 - 14.5 [facility] Comment on above: Performed By: #### C BCDF ####[facility] [place] [address] Erythrocytes (RBC) 4.34 x10E12/L Normal 4.00 - 5.20 [facility] Comment on above: Performed By: #### C BCDF ####[facility] [place] [address] Hematocrit (HCT) 44.1 % Normal 36.0 - 46.0 [facility] Comment on above: Performed By: #### C BCDF ####[facility] [place] [address] Hemoglobin mass conc (Bld) 14.3 g/dL Normal 12.0 - 16.0 [facility] Comment on above: Performed By: #### C BCDF ####[facility] [place] [address] Lymphocytes 0.47 10*3/uL Low 1.20 - 4.80 [facility] Comment on above: Performed By: #### C BCDF ####[facility] [place] [address] Lymphocytes/100 leukocytes 4.6 % Low 13.0 - 44.0 [facility] Comment on above: Performed By: #### C BCDF ####[facility] [place] [address] MCHC mass conc (RBC) 32.4 g/dL Normal 32.0 - 36.0 [facility] Comment on above: Performed By: #### C BCDF ####[facility] [place] [address] MCV 102 fL High 80 - 100 [facility] Comment on above: Performed By: #### C BCDF ####[facility] [place] [address] Monocytes 0.32 10*3/uL Normal 0.10 - 1.00 [facility] Comment on above: Performed By: #### C BCDF ####[facility] [place] [address] Monocytes/100 leukocytes 3.1 % Normal 2.0 - 10.0 [facility] Comment on above: Performed By: #### C BCDF ####[facility] [place] [address] Neutrophils 9.22 10*3/uL High 1.20 - 7.70 [facility] Comment on above: Performed By: #### C BCDF ####[facility] [place] [address] Nucleated erythrocytes 0.0 /100 WBC Normal 0.0-0.0 [facility] Comment on above: Performed By: #### C BCDF ####[facility] [place] [address] Platelets 256 10*3/uL Normal 150 - 450 [facility] Comment on above: Performed By: #### C BCDF ####[facility] [place] [address] WBC (Leukocytes) 10.2 10*3/uL Normal 4.4 - 11.3 [facility] Comment on above: Performed By: #### C BCDF ####[facility] [place] [address] CD4 AND CD8 (T4T8 SCREEN)on 01-11-2017 CD3+CD4+ % 34 % Normal 29 - 57 [facility] Comment on above: Performed By: #### C D4/8 ####[facility] [place] [address] CD3+CD4+ ABSOLUTE 0.160 X10E9/L Low 0.350 - 2.740 [facility] Comment on above: Performed By: #### C D4/8 ####[facility] [place] [address] CD3+CD8+ % 29 % Normal 7 - 31 [facility] Comment on above: Performed By: #### C D4/8 ####[facility] [place] [address] CD3+CD8+ ABSOLUTE 0.136 X10E9/L Normal 0.080 - 1.490 [facility] Comment on above: Performed By: #### C D4/8 ####[facility] [place] [address] CD4/CD8 RATIO 1.17 Normal 1.00 - 3.50 [facility] Comment on above: Performed By: #### C D4/8 ####[facility] [place] [address] CD45 % 100 % Normal [facility] Comment on above: Performed By: #### C D4/8 ####[facility] [place] [address] FLOW CYTOMETRY TESTon 2016 SOURCE WHOLE BLD-EDTA Normal [facility] Comment on above: Performed By: #### C MP ####[facility] [place] [address] FLOW TEST ORDERED Canceled Normal [facility] Comment on above: Order Comment: TEST FLOW CYTOMETRY TEST WAS CANCELLED, 01/11/2017 20:26 SURVEILLANCE SYSTEM MONITOR ERROR.. Performed By: #### F CTST ####[facility] [place] [address] SOURCE Canceled Normal [facility] Comment on above: Order Comment: TEST FLOW CYTOMETRY TEST WAS CANCELLED, 01/11/2017 20:26 SURVEILLANCE SYSTEM MONITOR ERROR.. Performed By: #### F CTST ####[facility] [place] [address] SURFACE MARKERS LOW GRADE PA NELon 01-11-2017 METHOD SEE BELOW Normal [facility] Comment on above: Result Comment: This test is a multicolor, whole blood lysis assay. It wasdeveloped and its performance characteristics determined by theDepartment of Pathology, [facility], andhas not been cleared or approved by [...] CD19, CD43,CD23, CD1c, CD25, CD180, CD11c, CD79b, [place], Lambda, IgD. Performed By: #### C MP ####[facility] [place] [address] SPECIMEN VIABILITY Acceptable Normal [facility] Comment on above: Performed By: #### C MP ####[facility] [place] [address] CD4 AND CD8 (T4T8 SCREEN)on 01-10-2017 METHOD SEE BELOW Normal [facility] Comment on above: Result Comment: This test is a multicolor, whole blood lysis assay. It wasdeveloped and its performance characteristics determined bythe Department of Pathology, [facility], and has not been cleared or approved by the U.S.Food and Drug Administration. The laboratory is regulatedunder CLIA as qualified to perform high complexity testing.This test is used for clinical purposes. It should not beregarded as investigational or for research. Performed By: #### C D4/8 ####[facility] [place] [address] SITE BLOOD Normal [facility] Comment on above: Performed By: #### C D4/8 ####[facility] [place] [address] FLOW CYTOMETRY TESTon 2016 Lab Specimen Source Normal [facility] Comment on above: Order Comment: TEST FLOW CYTOMETRY TEST WAS CANCELLED, 01/11/2017 20:26 SURVEILLANCE SYSTEM MONITOR ERROR.. Performed By: #### F CTST ####[facility] [place] [address] Performed By: #### C D4/8 ####[facility] [place] [address] CBC AND DIFFERENTIALon 12-19 % AUTOMATED IMMATURE GRAN 0.5 % Normal 0.0 - 0.9 [facility] Comment on above: Result Comment: Perc ent differential counts (%) should be interpreted in the context of the absolute cell counts (cells/L). Performed By: #### C BCDF ####[facility] [place] [address] % NEUTROPHIL 60.9 % Normal 40.0 - 80.0 [facility] Comment on above: Performed By: #### C BCDF ####[facility] [place] [address] Basophils/100 WBC Auto (Bld) 0.5 % Normal 0.0 - 2.0 [facility] Comment on above: Performed By: #### C BCDF ####[facility] [place] [address] Basophils/100 WBC Auto (Bld) 0.04 x10E9/L Normal 0.00 - 0.10 [facility] Comment on above: Performed By: #### C BCDF ####[facility] [place] [address] Eosinophils 1.91 10*3/uL High 0.00 - 0.70 [facility] Comment on above: Performed By: #### C BCDF ####[facility] [place] [address] Eosinophils/100 leukocytes 22.8 % High 0.0 - 6.0 [facility] Comment on above: Performed By: #### C BCDF ####[facility] [place] [address] Erythrocyte distribution width Auto Ratio (RBC) 14.2 % Normal 11.5 - 14.5 [facility] Comment on above: Performed By: #### C BCDF ####[facility] [place] [address] Erythrocytes (RBC) 4.19 x10E12/L Normal 4.00 - 5.20 [facility] Comment on above: Performed By: #### C BCDF ####[facility] [place] [address] Hematocrit (HCT) 41.3 % Normal 36.0 - 46.0 [facility] Comment on above: Performed By: #### C BCDF ####[id number] [place] [address] Hemoglobin mass conc (Bld) 13.6 g/dL Normal 12.0 - 16.0 [facility] Comment on above: Performed By: #### C BCDF ####[id number] [place] [address] Lymphocytes 0.68 10*3/uL Low 1.20 - 4.80 [facility] Comment on above: Performed By: #### C BCDF ####[facility] [place] [address] Lymphocytes/100 leukocytes 8.1 % Low 13.0 - 44.0 [facility] Comment on above: Performed By: #### C BCDF ####[facility] [place] [address] MCHC mass conc (RBC) 32.9 g/dL Normal 32.0 - 36.0 [facility] Comment on above: Performed By: #### C BCDF ####[facility] [place] [address] MCV 99 fL Normal 80 - 100 [facility] Comment on above: Performed By: #### C BCDF ####[facility] [place] [address] Monocytes 0.60 10*3/uL Normal 0.10 - 1.00 [facility] Comment on above: Performed By: #### C BCDF ####[facility] [place] [address] Monocytes/100 leukocytes 7.2 % Normal 2.0 - 10.0 [facility] Comment on above: Performed By: #### C BCDF ####[facility] [place] [address] Neutrophils 5.09 10*3/uL Normal 1.20 - 7.70 [facility] Comment on above: Performed By: #### C BCDF ####[facility] [place] [address] Nucleated erythrocytes 0.0 /100 WBC Normal 0.0-0.0 [facility] Comment on above: Performed By: #### C BCDF ####[facility] [place] [address] Platelets 253 10*3/uL Normal 150 - 450 [facility] Comment on above: Performed By: #### C BCDF ####[facility] [place] [address] WBC (Leukocytes) 8.4 10*3/uL Normal 4.4 - 11.3 [facility] Comment on above: Performed By: #### C BCDF ####[facility] [place] [address] COMPREHENSIVE PANELon 2016 Alanine aminotransferase (ALT) 22 U/L Normal 7 - 45 [facility] Comment on above: Result Comment: Lori ents treated with Sulfasalazine may generate falsely decreased results for ALT. Performed By: #### C MP ####[facility] [place] [address] Albumin 3.8 g/dL Normal 3.4 - 5.0 [facility] Comment on above: Performed By: #### C MP ####[facility] [place] [address] Alkaline phosphatase (ALP) 45 U/L Normal 33 - 110 [facility] Comment on above: Performed By: #### C MP ####[facility] [place] [address] Anion gap 10 mmol/L Normal 10 - 20 [facility] Comment on above: Performed By: #### C MP ####[facility] [place] [address] Aspartate aminotransferase (AST) 19 U/L Normal 9 - 39 [facility] Comment on above: Performed By: #### C MP ####[facility] [place] [address] Bicarbonate (HCO3) 29 mmol/L Normal 21 - 32 [facility] Comment on above: Performed By: #### C MP ####[facility] [place] [address] Bilirubin (total) 0.6 mg/dL Normal 0.0 - 1.2 [facility] Comment on above: Performed By: #### C MP ####[facility] [place] [address] Calcium 8.9 mg/dL Normal 8.6 - 10.6 [facility] Comment on above: Performed By: #### C MP ####[facility] [place] [address] Chloride 107 mmol/L Normal 98 - 107 [facility] Comment on above: Performed By: #### C MP ####[facility] [place] [address] Creatinine 0.56 mg/dL Normal 0.50 - 1.05 [facility] Comment on above: Performed By: #### C MP ####[facility] [place] [address] eGFR (non-black) mL/min/{1.73_m2} Normal >60 [facility] Comment on above: Result Comment: CALC ULATIONS OF ESTIMATED GFR ARE PERFORMED USING THE MDRD STUDY EQUATION FOR THE IDMS-TRACEABLE CREATININE METHODS. CLIN CHEM 2007;53:766-72 Performed By: #### C MP ####[facility] [place] [address] Result Comment: >60 Glucose mass conc 82 mg/dL Normal 74 - 99 [facility] Comment on above: Performed By: #### C MP ####[facility] [place] [address] Potassium molar conc 4.1 mmol/L Normal 3.5 - 5.3 [facility] Comment on above: Performed By: #### C MP ####[facility] [place] [address] Protein 6.0 g/dL Low 6.4 - 8.2 [facility] Comment on above: Performed By: #### C MP ####[facility] [place] [address] Sodium 142 mmol/L Normal 136 - 145 [facility] Comment on above: Performed By: #### C MP ####[facility] [place] [address] Urea nitrogen 14 mg/dL Normal 6 - 23 [facility] Comment on above: Performed By: #### C MP ####[facility] [place] [address] Dermatopathologyon 7 BMI (Body Mass Index) 5447 [...] SKIN, LT. ABDOMEN Gross Description:{Not Entered}ink/12/25/2016 Normal [facility] Comment on above: Performed By: #### D ####Dermatopathology Dermatopathology 70 Pathologist: LUCILA ALBERT, MDDate of Procedure: 12/19/2016Date Received: 12/20/2016Date Reported 12/21/2016Submitting [...] is recommended. Electronically Signed Out by LUCILA ALBERT M.D. Electronically SignedOut By LUCILA ALBERT MD/[facility] Clinical History:Vesicle w/ erythematous base. Contact Derm vs. BP (urticarial). Biopsy.([facility]). Specimens Submitted As:A: SKIN, R FOREARM Gross Description:Received in formalin is a can, cylindrical piece of skin measuring [id number]. Thespecimen is inked and embedded in toto.dcp/12/20/2016 Normal [facility] Comment on above: Performed By: #### D [...] Submitted As:A: BLOOD Gross Description:{Not Entered} Normal [facility] Comment on above: Performed By: #### D ####Dermatopathology UA MICROSCOPICon 12-19-2016 CA OXALATE CRYSTAL 1+ /HPF Normal [facility] Comment on above: Result Comment: 1+ Performed By: #### U AMIC ####[facility] [place] [address] Erythrocytes (RBC) 10*6/uL Normal 0-5 [facility] Comment on above: Result Comment: <1 Performed By: #### U AMIC ####[facility] [place] [address] SQUAMOUS EPITH. CELLS <1 Normal [facility] Comment on above: Result Comment: <1 Performed By: #### U AMIC ####[facility] [place] [address] TRANSITIONAL EPITH.CELLS <1 Normal [facility] Comment on above: Result Comment: <1 Performed By: #### U AMIC ####[facility] [place] [address] Urine, mucus presence in sediment 1+ /LPF Normal [facility] Comment on above: Result Comment: 1+ Performed By: #### U AMIC ####[facility] [place] [address] WBC (Leukocytes) 3 /HPF Normal 0-5 [facility] Comment on above: Performed By: #### U AMIC ####[facility] [place] [address] URINALYSISon 12-19-2016 Bilirubin (total) Negative Normal NEGATIVE [facility] Comment on above: Result Comment: NEGA TIVE Performed By: #### U A ####[facility] [place] [address] BLOOD Negative Normal NEGATIVE [facility] Comment on above: Result Comment: NEGA TIVE Performed By: #### U A ####[facility] [place] [address] Glucose mass conc Negative Normal NEGATIVE [facility] Comment on above: Result Comment: NEGA TIVE Performed By: #### U A ####[facility] [place] [address] pH of blood 5.0 [pH] Normal 5.0 - 8.0 [facility] Comment on above: Performed By: #### U A ####[facility] [place] [address] Protein Negative Normal NEGATIVE [facility] Comment on above: Result Comment: NEGA TIVE Performed By: #### U A ####[facility] [place] [address] Urine, appearance HAZY Normal CLEAR [facility] Comment on above: Result Comment: HAZY Performed By: #### U A ####[facility] [place] [address] Urine, color YELLOW Normal STRAW,YELLOW [facility] Comment on above: Result Comment: JANELLE DOUGLASS Performed By: #### U A ####[facility] [place] [address] Urine, ketones presence 5 (TRACE) Abnormal NEGATIVE [facility] Comment on above: Result Comment: 5 (T RACE) Performed By: #### U A ####[place] [id number] [place] [address] Urine, leukocyte esterase presence SMALL (1+) Abnormal NEGATIVE [facility] Comment on above: Result Comment: SMAL L (1+) Performed By: #### U A ####[place] [id number] [place] [address] Urine, nitrite presence Negative Normal NEGATIVE [facility] Comment on above: Result Comment: NEGA TIVE Performed By: #### U A ####[place] [id number] [place] [address] Urine, specific gravity 1.025 Normal 1.005 - 1.035 [facility] Comment on above: Performed By: #### U A ####[place] [id number] [place] [address] Urine, urobilinogen <2.0 Normal 0.0 - 1.9 [facility] Comment on above: Result Comment: <2.0 Performed By: #### U A ####[place] [address] [place] [address] Vital Signs Date Time Vital Sign Value Performing Clinician Facility 09-23-2024 09:19-0400 Body height 160.[address] Helena Brantley MD Work Phone: [facility] 09-23-2024 09:120400 Body mass index (BMI) [Ratio] 23.4 kg/m2 Dr. Helena Brantley MD Work Phone: [facility] 09-23-2024 09:120400 Body weight 59.[address] Helena Brantley MD Work Phone: [facility] 09-23-2024 09:12-0400 Diastolic blood pressure 82 mm[Hg] Dr. Helena Brantley MD Work Phone: [facility] 09-23-2024 09:12-0400 Systolic blood pressure 124 mm[Hg] Dr. Helena Brantley MD Work Phone: [facility] 09-10-2024 16:23-0400 Body temperature 98.2 [degF] Dr. Helena Brantley MD Work Phone: 5(344)667-639581 [place] [address] 09-10-2024 16:23-0400 Diastolic blood pressure 78 mm[Hg] Dr. Helena Brantley MD Work Phone: 5(967)038-437781 [place] [address] 09-10-2024 16:23-0400 Heart rate 84 /min Dr. Helena Brantley MD Work Phone: 4(286)471-054985 [place] [address] 09-10-2024 16:23-0400 Respiratory rate 16 /min Dr. Helena Brantley MD Work Phone: 0(327)502-746381 [place] [address] 09-10-2024 16:23-0400 SaO2% (BldA) [Mass fraction] 98 % Dr. Helena Brantley MD Work Phone: [facility] 09-10-2024 16:23-0400 Systolic blood pressure 150 mm[Hg] Dr. Helena Brantley MD Work Phone: 8(200)476-743781 [place] [address] 06-08-2024 11:42-0400 Body height 160.[address] Helena Brantley MD Work Phone: [facility] 06-08-2024 11:38-0400 Body mass index (BMI) [Ratio] 23.8 kg/m2 Dr. Helena Brantley MD Work Phone: 3(959)510-501181 [place] [address] 06-08-2024 11:38-0400 Body weight [address] Helena Brantley MD Work Phone: [facility] 06-08-2024 11:38-0400 Diastolic blood pressure 78 mm[Hg] Dr. Helena Brantley MD Work Phone: [facility] 06-08-2024 11:38-0400 Systolic blood pressure 130 mm[Hg] Dr. Helena Brantley MD Work Phone: [facility] 06-02-2024 11:44-0500 Body height 160.[address] Helena Brantley MD Work Phone: [facility] 06-02-2024 11:40-0500 Body mass index (BMI) [Ratio] 23.9 kg/m2 Dr. Helena Brantley MD Work Phone: [facility] 06-02-2024 11:40-0500 Body weight 61.[address] Helena Brantley MD Work Phone: 1(769)956-457781 [place] [address] 06-02-2024 11:40-0500 Diastolic blood pressure 82 mm[Hg] Dr. Helena Brantley MD Work Phone: 4(042)192-210581 [place] [address] 06-02-2024 11:40-0500 Systolic blood pressure 122 mm[Hg] Dr. Helena Brantley MD Work Phone: [facility] 05-24-2024 08:18-0500 Body temperature 98.9 [degF] Dr. Helena Brantley MD Work Phone: [facility] 05-24-2024 08:18-0500 Diastolic blood pressure 74 mm[Hg] Dr. Helena Brantley MD Work Phone: [facility] 05-24-2024 08:18-0500 Heart rate 89 /min Dr. Helena Brantley MD Work Phone: [facility] 05-24-2024 08:18-0500 Respiratory rate 15 /min Dr. Helena Brantley MD Work Phone: [facility] 05-24-2024 08:18-0500 SaO2% (BldA) [Mass fraction] 98 % Dr. Helena Brantley MD Work Phone: [facility] 05-24-2024 08:18-0500 Systolic blood pressure 124 mm[Hg] Dr. Helena Brantley MD Work Phone: [facility] 04-05-2024 11:30-0500 Body temperature 97.2 [degF] Dr. Helena Brantley MD Work Phone: [facility] 04-05-2024 11:30-0500 Diastolic blood pressure 85 mm[Hg] Dr. Helena Brantley MD Work Phone: 8(630)326-076481 [place] [address] 04-05-2024 11:30-0500 Heart rate 76 /min Dr. Helena Brantley MD Work Phone: [facility] 04-05-2024 11:30-0500 Respiratory rate 15 /min Dr. Helena Brantley MD Work Phone: 2(711)671-882981 [place] [address] 04-05-2024 11:30-0500 SaO2% (BldA) [Mass fraction] 99 % Dr. Helena Brantley MD Work Phone: 1(485)231-677081 [place] [address] 04-05-2024 11:30-0500 Systolic blood pressure 127 mm[Hg] Dr. Helena Brantley MD Work Phone: 0(550)997-437181 [place] [address] 04-05-2024 08:04-0500 Body mass index (BMI) [Ratio] 22.1 kg/m2 Dr. Helena Brantley MD Work Phone: [facility] 04-05-2024 08:04-0500 Body weight 56.[address] Helena Brantley MD Work Phone: [facility] 07-31-2023 13:20-0400 Body temperature 98.3 [degF] Dr. Helena Brantley Work Phone: [facility] 07-31-2023 13:20-0400 Diastolic blood pressure 80 mm[Hg] Dr. Helena Brantley Work Phone: [facility] 07-31-2023 13:20-0400 Heart rate 78 /min Dr. Helena Brantley Work Phone: [facility] 07-31-2023 13:20-0400 Respiratory rate 15 /min Dr. Helena Brantley Work Phone: [facility] 07-31-2023 13:20-0400 SaO2% (BldA) [Mass fraction] 98 % Dr. Helena Brantley Work Phone: [facility] 07-31-2023 13:20-0400 Systolic blood pressure 132 mm[Hg] Dr. Helena Brantley Work Phone: [facility] 03-06-2023 08:37-0500 Body height 160.[address] Helena Brantley Work Phone: 0(451)571-315423 [address] 03-06-2023 08:33-0500 Body mass index (BMI) [Ratio] 22.7 kg/m2 Dr. Helena Brantley Work Phone: 0(210)038-031023 [address] 03-06-2023 08:33-0500 Body weight 58.[address] Helena Brantley Work Phone: 4(834)845-937581 [place] [address] 03-06-2023 08:33-0500 Diastolic blood pressure 74 mm[Hg] Dr. Helena Brantley Work Phone: 2(550)674-213481 [place] [address] 03-06-2023 08:33-0500 Systolic blood pressure 122 mm[Hg] Dr. Helena Brantley Work Phone: 4(997)480-586223 [address] 03-01-2023 09:08-0500 Body mass index (BMI) [Ratio] 5 kg/m2 Dr. Helena Brantley Work Phone: [facility] 03-01-2023 09:08-0500 Body temperature 98 [degF] Dr. Helena Brantley Work Phone: [facility] 03-01-2023 09:08-0500 Body weight 12.[address] Helena Brantley Work Phone: 6(277)789-082081 [place] [address] 03-01-2023 09:08-0500 Diastolic blood pressure 75 mm[Hg] Dr. Helena Brantley Work Phone: 2(267)204-091781 [place] [address] 03-01-2023 09:08-0500 Heart rate 86 /min Dr. Helena Brantley Work Phone: [facility] 03-01-2023 09:08-0500 Respiratory rate 17 /min Dr. Helena Brantley Work Phone: [facility] 03-01-2023 09:08-0500 SaO2% (BldA) [Mass fraction] 97 % Dr. Helena Brantley Work Phone: [facility] 03-01-2023 09:08-0500 Systolic blood pressure 163 mm[Hg] Dr. Helena Brantley Work Phone: [facility] 11-27-2022 08:36-0400 Body height 160.[address] Helena Brantley Work Phone: [facility] 11-27-2022 08:29-0400 Body mass index (BMI) [Ratio] 22.7 kg/m2 Dr. Helena Brantley Work Phone: [facility] 11-27-2022 08:29-0400 Body weight 58.[address] Helena Brantley Work Phone: [facility] 11-27-2022 08:29-0400 Diastolic blood pressure 84 mm[Hg] Dr. Helena Brantley Work Phone: [facility] 11-27-2022 08:29-0400 Systolic blood pressure 126 mm[Hg] Dr. Helena Brantley Work Phone: [facility] 10-16-2022 10:22-0400 Body mass index (BMI) [Ratio] 22.7 kg/m2 Dr. Helena Brantley Work Phone: [facility] 10-16-2022 10:22-0400 Body weight 58.[address] Helena Brantley Work Phone: [facility] 10-16-2022 10:22-0400 Diastolic blood pressure 78 mm[Hg] Dr. Helena Brantley Work Phone: [facility] 10-16-2022 10:22-0400 Systolic blood pressure 132 mm[Hg] Dr. Helena Brantley Work Phone: [facility] 10-03-2022 09:18-0400 Body mass index (BMI) [Ratio] 22.8 kg/m2 Dr. Helena Brantley Work Phone: [facility] 10-03-2022 09:18-0400 Body weight 58.[address] Helena Brantley Work Phone: [facility] 10-03-2022 09:18-0400 Diastolic blood pressure 72 mm[Hg] Dr. Helena Brantley Work Phone: [facility] 10-03-2022 09:18-0400 Systolic blood pressure 120 mm[Hg] Dr. Helena Brantley Work Phone: 3(593)384-396923 [address] 09-19-2022 10:09-0400 Body height 160.[address] Helena Brantley Work Phone: 0(422)771-888581 [place] [address] 09-19-2022 10:02-0400 Body mass index (BMI) [Ratio] 22.7 kg/m2 Dr. Helena Brantley Work Phone: 2(280)934-219581 [place] [address] 09-19-2022 10:02-0400 Body weight 58.[address] Helena Brantley Work Phone: [facility] 09-19-2022 10:02-0400 Diastolic blood pressure 78 mm[Hg] Dr. Helena Brantley Work Phone: [facility] 09-19-2022 10:02-0400 Systolic blood pressure 140 mm[Hg] Dr. Helena Brantley Work Phone: 7(517)180-086081 [place] [address] 11-08-2020 13:22-0400 Body height 157.5 cm Elena Liao DO Work Phone: [facility] 11-08-2020 13:22-0400 Body mass index (BMI) [Ratio] 23.34 kg/m2 Elena Liao DO Work Phone: [facility] 11-08-2020 13:22-0400 Body temperature 98.49 [degF] Elena Liao DO Work Phone: [facility] 11-08-2020 13: Body weight 57.88 kg Elena Liao DO Work Phone: [facility] Comment on above: wearing CAM walking boot. Encounters Encounter Date Encounter Type Care Provider Facility Start: 09-23-2024 End: 09-23-2024 ambulatory Rey Manzano [employer] Facility:[facility] Start: 09-23-2024 End: 09-23-2024 Patient encounter procedure Rey Manzano RADIO ELECTRICIAN-C -[facility] Work Phone: Start: 09-23-2024 End: 09-23-2024 Patient encounter status Rey Manzano RADIO ELECTRICIAN-C [facility] Start: 09-10-2024 End: 09-10-2024 Patient encounter procedure Frankie Arora PA -[facility] Work Phone: Start: 09-10-2024 End: 09-10-[address] Helena Brantley MD Work Phone: [facility] Work Phone: Start: 09-10-2024 End: 09-10-2024 ambulatory Helena Brantley Facility:[facility] Start: 09-03-2024 ambulatory Rey Manzano NP Facil ity:[facility] Start: 09-03-2024 Registered Recurring Rey Manzano [employer]RICIAN-C -Physical Therapy Work Phone: Start: 08-20-2024 End: 08-20-[address] Helena Brantley MD Work Phone: [facility] Work Phone: Start: 08-20-2024 End: 08-20-2024 Patient encounter procedure Fabiano Reese RAD[employer] ELECTRICIAN-C -[facility] [place] Work Phone: Start: 08-20-2024 Registered Recurring Rey Manzano RADIO ELECTRICIAN-C -Physical Therapy Work Phone: Start: 08-20-2024 End: 08-20-2024 ambulatory Fabiano Hugh [employer]IAN Facility:[facility] Start: 06-22-2024 End: 06-22-[address] Heladio Swanson MD -[facility] Work Phone: Start: 06-22-2024 End: 06-22-2024 ambulatory Heladio Swanson Facility:[facility] Start: 06-08-2024 End: 06-08-2024 Patient encounter procedure Rey Manzano RADIO ELECTRICIAN-C -[facility] Work Phone: Start: 06-08-2024 End: 06-08-2024 ambulatory Helena Cuiiff Facility:[facility] Start: 06-02-2024 End: 06-02-2024 Patient encounter procedure Rey Manzano RADIO ELECTRICIAN-C -[facility] Work Phone: Start: 06-02-2024 End: 06-02-2024 ambulatory Helena Brantley Facility:[facility] Start: 05-25-2024 End: 05-25-[address] Helena Brantley MD Work Phone: [facility] Work Phone: Start: 05-25-2024 End: 05-25-2024 Patient encounter procedure Nando Granda NP-C -[facility] Work Phone: Start: 05-24-2024 End: 05-24-2024 Patient encounter procedure Nando Granda RADIO ELECTRICIAN-C -[facility] Work Phone: Start: 05-24-2024 End: 05-25-2024 ambulatory Helena Brantley Facility:[facility] Start: 04-05-2024 End: 04-05-2024 Emergency department patient visit Dr. Shelia Bourne DO -Emergency Department Work Phone: Start: 02-13-2024 Encounter for other preprocedural examination Tracy [facility] Start: 02-06[facility] Start: 01-02-2024 End: 01-02-2024 ambulatory Heladio Swanson Facility:[facility] Start: 12-24-2023 End: 12-24-2023 ambulatory Heladio Swanson Facility:[facility] Start: 12-06-2023 End: 12-06-2023 ambulatory Helena Brantley Facility:[facility] Start: 12-06-2023 End: 12-06-2023 ambulatory Frankie MAC Facility:[facility] Start: 11-28-2023 End: 11-28-2023 ambulatory Heladio Kalynison Facility:[facility] Start: 11-08-2023 End: 11-08-2023 ambulatory Tracyadam Lopez Facility:[facility] Start: 10-24-2023 End: 10-24-2023 ambulatory [facility] Facility:[facility] Start: 10-23-2023 End: 10-23-2023 ambulatory [facility] Facility:[facility] Start: 07-31-2023 End: 07-31-[address] Helena Brantley Work Phone: [facility] Work Phone: Start: 07-31-2023 End: 07-31-[address] Helena Brantley Work Phone: [facility] Work Phone: Start: 07-31-2023 End: 07-31-[address] Helena Brantley Work Phone: [facility] Work Phone: Start: 07-08-2023 End: 07-08-2023 ambulatory [facility] Work Phone: Start: 07-08-2023 End: 07-08-2023 Patient encounter procedure [facility] [place] Work Phone: Start: 03-06-2023 End: 03-06-[address] Helena Brantley Work Phone: [facility] Work Phone: Start: 03-01-2023 End: 03-01-[address] Helena Brantley Work Phone: [facility] Work Phone: Start: 03-01-2023 End: 03-01-[address] Hel[facility]ant[facility] Start: 03-01-2023 End: 03-01-[address] Helena Brantley Work Phone: [facility] Work Phone: Start: 01-30-2023 End: 01-30-[address] Heelna Brantley Work Phone: [facility] Work Phone: Start: 01-30-2023 End: 01-30-[address] Helena Brantley [facility] Start: 12-28-2022 End: 12-28-[address] Helena Brantley Work Phone: [facility] [place] Work Phone: Start: 12-20-2022 End: 12-20-[address] Helena Brantley Work Phone: [facility] Work Phone: Start: 12-20-2022 End: 12-20-[address] Helena Brantley [facility] Start: 11-27-2022 End: 11-27-[address] Helena Brantley Work Phone: [facility] Work Phone: Start: 11-27-2022 End: 11-27-[address] Helena Brantley [facility] Phone[facility] Work [facility] Start: 11-27-2022 End: 11-27-[address] Helena Brantley Work Phone: [facility] Work Phone: Start: 10-16-2022 End: 10-16-[address] Helena Brantley Work Phone: [facility] Work Phone: Start: 10-03-2022 End: 10-03-[address] Helena Brantley Work Phone: [facility] Work Phone: Start: 09-19-2022 End: 09-19-[address] Helena Brantley Work Phone: [facility] Start: 09-19-2022 End: 09-19-[address] Helena Brantley Work Phone: [facility] Work Phone: Start: 09-19-2022 End: 09-19-[address] Helena Brantley Work Phone: [facility] Start: 08-01-2022 End: 08-01-[address] Helena Brantley Work Phone: [facility] Start: 08-07-2021 End: 08-07-2021 Patient encounter procedure [facility] Start: 11-15-2020 End: 11-16-2020 ambulatory ELENA LIAO Facility:[facility] Start: 11-08-2020 End: 11-08-2020 Subsequent hospital visit by physician Elena Liao DO Work Phone: [facility] Start: 11-08-2020 End: 11-08-2020 Office outpatient visit 25 minutes Elena Liao DO Work Phone: [facility] Comment on above: Right leg pain (Prim phillip Dx) Start: 11-21-2017 Patient encounter ELENA LIAO [facility] [place] Start: 05-10-2017 Ambulatory Omar Quigleyrost Fac ility:[id number] Start: 05-07-2017 Ambulatory Rey Simpson Faci lity:[facility]rit[place] Start: 04-16-2017 Ambulatory Rey Simpson Faci lity:[facility] [place] Start: 04-09-2017 Ambulatory Rey Simpson Faci lity:[facility] Amrita Start: 03-22-2017 Ambulatory Omar Quigleyrost Fac ility:[id number] Start: 02-26-2017 Ambulatory Omar Quigleyrost Fac ility:[id number] Start: 02-15-2017 Ambulatory Omar Ramirezdorost Fac ility:[id number] Start: 02-15-2017 Ambulatory Lucila Bailey Honda Facili ty:[id number] Start: 02-12-2017 Ambulatory REFERRED *SELF Facility :[id number] Start: 02-08-2017 Ambulatory Omar Ramirezdorost Fac ility:[id number] Start: 01-25-2017 Ambulatory Omar Ramirezdorost Fac ility:[id number] Start: 01-10-2017 Ambulatory PROVIDER UNKNOWN Facili ty:[facility] Start: 12-19-2016 Ambulatory UNKNOWN Facility:U Start: 12-19-2016 Ambulatory Herve Boss Fac ility:[id number] Start: 12-19-2016 Ambulatory Lucila Riveroda Facili ty:[id number] Start: 11-09-2016 Ambulatory [facility] Procedures Date Procedure Procedure Detail Performing Clinician Start: 09-10-[address] Helena alvarado MD Work Phone: Start: 05-25-[address] Helena alvarado [...] Activity Detail Author Start: 06-02-[address] [facility] Work Phone: Start: 04-05-2024 [facility] Start: 09-19-[address] [facility] Work Phone: Start: 09-19-2022 Dual energy X-ray absorptiometry Dexa Bone Density Study [facility] Start: 12-20-2020 End: 12-20-2020 Patient encounter procedure 12/20/2020 Office Visit Orthopaedics Elena Liao, DO [address] [place] [address] [facility] Start: 11-30-2020 Influenza vaccination INFLUENZA VACC INE (#1) [facility] Start: 09-26-2007 Zoster vaccine hzv l falguni for subcutaneous use ZOSTER (SHINGLES) VACCINE (1 of 2) [facility] Start: 2002 Colonoscopy COLORECTAL CAN CER SCREENING DISCUSSION [facility] Start: 1997 Fasting lipid profile LIPID SCREENIN G [facility] Start: 1997 Screening mammography MAMMOGRA M SCREENING DISCUSSION [facility] Start: 1978 Screening for malign ant neoplasm of cervix CERVICAL CANCER SCREENING DISCUSSION [facility] Start: 1976 Third diphtheria, tetanus and acellular pertussis (DTaP) vaccination TDAP (ADULT) [facility] Start: 09-26-1975 Tetanus vaccination TETANUS [facility] Start: 1972 HIV screening HIV SCREENING DISCUSSION [facility] Start: 1955 Hepatitis C antibody , confirmatory test HEPATITIS C VIRUS SCREENING [facility] Patient referral [facility] Work Phone: End: 11-08-2020 Tibia and/or fibula X-ray [facility] Work Phone: Comment on above: 1 Occurrences starti ng 11/08/2020 until 11/08/2020 [facility] Immunizations Immunization Date Immunization Notes Care Provider Bibiana nagy 06-06-2020 SARS-COV-2 (COVID-19 ), AD26, 0.5 ML Dose SOFIYA Liao DO Work Phone: [facility] Payers Date Payer Category Payer Medicare [id number] 2023 Self-pay [id number] 2017 Unknown [id number] [address] [facility] ACCESS [id number] 2017-Present [address] [address] [place] [address] [id number] 2015 Unknown [id number] 1955 Unknown [id number] Medicare MEDICARE PART A B [id number] Unknown [id number] Unknown [id number] Unknown [id number] Unknown [id number] Unknown [id number] [id number] Unknown [id number] [id number] Unknown [id number] [id number] Unknown [id number] [id number] Unknown [id number] [id number] Unknown [id number] [id number] Unknown [id number] 2.840.1.434323.3.579.2.462 Unknown [id number] [id number] Unknown [id number] .[id number] Unknown [id number] 2.840.1.371879.3.579.2.462 Unknown [id number] [id number] Unknown [id number] [id number] Unknown [id number] 2.840.1.040153.3.579.2.462 Unknown [id number] [id number] Unknown [id number] [id number] Unknown [id number] [id number] Unknown [id number] Social History Date Type Detail Facility Start: 07-01-2017 End: 04-05-2024 Tobacco smoking status NHIS Never smoker [facility] Start: 07-01-2017 Tobacco use and exposure Never used [facility] Start: 11-08-2020 Alcohol intake Current drinke r of alcohol (finding) [facility] Start: 12-11-2017 Alcohol Comment wine and beer weekly [facility] Start: 1955 Sex Assigned At Not on file A [facility] Start: 09-13-2020 End: 03-06-2023 Tobacco smoking status MSIS Unknown if ever smoked [facility] Start: 1955 Sex Assigned At Female W [facility] Start: 06-04-2024 Sex Female (finding) [facility] Mental Status Date Assessment Result Facility 04-05-2024 Cognitive function Level Of Cons ciousness Awake;Alert;Appropriate;Follow s Commands [facility] Work Phone: Clinical Notes 11-08-2020 to 06-02-2024 Note Date & Type Note Facility 06-02-2024 Evaluation note Diagnosis Onset Date Resolution Atrophic vaginitis acute June 02, 2024 11:37am [...] of greater tuberosity of right humerus acute June 22, 2024 9:39am Right rotator cuff tear acute 2024 9:39am Right shoulder pain acute June 22, 2024 9:39am Cystitis acute September 10 4:16pm Encounter for routine gynecological examination noneactive September 23, 2024 9:09am [facility] Work Phone: 1(411) 560-913002-23-2025 Evaluation note* Diagnosis Onset Date Resolution Status Admit Date Urinary tract infection noneactive F ebruary 2024 8:07am Atrophic vaginitis acute June 02, 2024 11:37am Cystocele with rectocele acute June 02, 2024 11:37am Enterocele acute June 02 11:37am Pessary maintenance acute June 02, 2024 11:37am Recurrent UTI resolved June 02, 2024 11:37am Excoriation noneactive June 02 11:37am [facility] Work Phone: 1(483) 298-538502-23-2025 Evaluation note* Diagnosis Onset Date Resolution Status [...] 2024 9:39am Right rotator cuff tear acute arch 2024 9:39am Right shoulder pain acute June 22, 2024 9:39am [facility] Work Phone: 1(964) 961-376202-23-2025 Evaluation note* Diagnosis Onset Date Resolution Status [...] shoulder pain acute June 22, 2024 9:39am Cystitis acute September 10 4:16pm [facility] Work Phone: 1(357) 635-579608-10-2021 History of Present illness Narrative* Elena Liao [...] this note may have been created with [employer] or other software which leads to grammatical and typographical errors which are not novelties sales representative of the intent with my spoken words. Clinical assistant curator/AT/MA was acting as a scribe today for [...] this note may have been created with [employer] or other software which leads to grammatical and typographical errors which are not novelties sales representative of the intent with my spoken words. [facility] Diagnosis Right leg pain- Primary Pain in limb documented [facility] this encounter [facility] Diagnosis Right leg pain Pain in limb documented in this encounter [facility] noteNo assessment information availableWUC Health Work Phone: Evaluation note* Diagnosis Onset Date Resolution Status Atrophic vaginitis acute Cystocele with rectocele acu te Enterocele acute Encounter for routine gynecological examination noneactive [facility] Work Phone: Evaluation note* Diagnosis Onset Date [...] acu te Enterocele acute Pessary maintenance acute [facility] Work Phone: Evaluation note* Diagnosis Onset Date Resolution Status Atrophic vaginitis acute Cystocele with rectocele acu te Enterocele acute Pessary maintenance acute Atrophic vaginitis acute Cystocele with rectocele acu te Enterocele acute Pessary maintenance acute [facility] Work Phone: Evaluation note* Diagnosis Onset Date Resolution Status Atrophic vaginitis acute Cystocele with rectocele acu te Enterocele acute Pessary maintenance acute Urinary tract infection none active Atrophic vaginitis acute Cystocele with rectocele acu te Enterocele acute Pessary maintenance acute Recurrent UTI acute [facility] Work Phone: Hospital Discharge instructionsAmbulatory Orders* PT Referral Location: None Selected [facility] Work Phone: Reason for referral (narrative)No reason for referral information availableWUC Health Work Phone: Summary Purpose Family History Relationship Condition Age at Onset Recorded Date/T tatum mother Hypertension Unknown grandmother Aneurysm Unknown grandfather Aneurysm Unknown Advance Directives Advance Directive Response Recorded Date/ Time Living Will No April 05 5 8:19am Power of Platform Consultant No April 05 025 8:19am Chief Complaint and Reason for Visit Chief Complaint 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) Reason for Visit Atrophic vaginitis Cystocele with rectocele Enterocele Encounter for routine gynecological examination Chief Complaint 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) pessary fitting 2 WK PESSARY F/U PESSARY PROBLEMS Reason for Visit Atrophic vaginitis Cystocele with rectocele Enterocele Encounter for routine gynecological examination Atrophic vaginitis Cystocele with rectocele Enterocele Fitting and adjustment of pessary Atrophic vaginitis Cystocele with rectocele Enterocele Pessary maintenance Atrophic vaginitis Cystocele with rectocele Enterocele 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) pessary fitting 2 WK PESSARY F/U PESSARY PROBLEMS E-ORDER Reason for Visit Atrophic vaginitis Cystocele with rectocele Enterocele Encounter for routine gynecological examination Atrophic vaginitis Cystocele with rectocele Enterocele Fitting and adjustment of pessary Atrophic vaginitis Cystocele with rectocele Enterocele Pessary maintenance Atrophic vaginitis Cystocele with rectocele Enterocele 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 2 WK PESSARY F/U PESSARY PROBLEMS E-ORDER EORDER Reason for Visit Atrophic vaginitis Cystocele with rectocele Enterocele Pessary maintenance Atrophic vaginitis Cystocele with rectocele Enterocele 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 PESSARY PROBLEMS E-ORDER EORDER [...] Admit Date Urinary tract infection May 24, 025 8:07am Atrophic vaginitis June 02, 2024 11:3 7am Cystocele with rectocele June 02, 2024 11:37am Enterocele June 02, 2024 11:3 7am Pessary maintenance June 02, 2024 11:3 7am Recurrent UTI June 02, 2024 11:3 7am Excoriation June 02, 2024 11:3 7am Chief Complaint Admit Date Urinary tract infection May 24 025 8:07am recurrent UTI June 02, 2024 11:3 7am Pessary Check June 08, 2024 11: 34am RIGHT SHOULDER June 22, 2024 9:3 9am CYSTOCELE RX HERE August 20, 2024 9:30a m E-ORDER August 20, 2024 10:11 am Reason for Visit Admit Date Urinary tract infection May 24, 025 8:07am Atrophic vaginitis June 02, 2024 [...] Complaint Admit Date Urinary tract infection May 24 025 8:07am recurrent UTI June 02, 2024 11:3 7am Pessary Check June 08, 2024 11: 34am RIGHT SHOULDER June 22, 2024 9:3 9am E-ORDER August 20, 2024 10:11 am CYSTOCELE RX HERE September 03, 2024 8:30a m CONCERN FOR UTI September 10, 2024 4:16 pm Reason for Visit Admit Date Urinary tract infection May 24 025 8:07am Atrophic vaginitis June 02, 2024 [...] shoulder pain June 22, 2024 9:3 9am Cystitis September 10, 2024 4:16 pm Chief Complaint Admit Date recurrent UTI June 02, 2024 11:3 7am Pessary Check June 08, 2024 11: 34am RIGHT SHOULDER June 22, 2024 9:3 9am E-ORDER August 20, 2024 10:11 am CYSTOCELE RX HERE September 03, 2024 8:30a m CONCERN FOR UTI September 10, 2024 4:16 pm 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) September 23, 2024 9:09 am Reason for Visit Admit Date Atrophic vaginitis June 02, 2024 11:3 7am [...] shoulder pain June 22, 2024 9:3 9am Cystitis September 10, 2024 4:16 pm Encounter for routine gynecological exam ination September 23, 2024 9:09am Additional Source Comments INFORMATION SOURCE (unrecogn ized section and content) DATE CREATED AUTHOR 09/19/2017 [facility] DATE CREATED AUTHOR AUTHOR'S ORGANIZ ATION 2017 [facility] DATE CREATED AUTHOR AUTHOR'S ORGANIZ ATION 11/23/2017 [facility] DATE CREATED AUTHOR AUTHOR'S ORGANIZ ATION [facility]/19[facility] DATE CREATED AUTHOR AUTHOR'S ORGANIZ ATION 12/23/2020 [facility] DATE CREATED AUTHOR AUTHOR'S ORGANIZ ATION 09/22/2024 [facility] Reason for Visit (unrecogniz ed section and content) Reason Comments Pain Care Teams (unrecognized sec tion and content) Cook Fry Relationship Specialty Start Date End Date Helena Brantley MD [address] [place] [address] PCP - General Family Medicine 07/01/17 Cook Fry Relationship Specialty Start Date End Date Helena Brantley MD [address] [place] [address] PCP - General Family Medicine 07/01/17 Team Status: Active Member Role Status Dates Dr. Helena Brantley MD Family Provider Active Dr. Helena Brantley MD Primary Care Provider Active Team Status: Inactive Member Role Status Dates Dr. Helena Brantley MD Primary Care Provider, Referjanet reeves Provider Active Rey Manzano RADIO ELECTRICIAN, RADIO ELECTRICIAN-C Attending Provider Active Team Status: Inactive Member Role Status Dates Dr. Helena Brantley MD Primary Care Provider, Kristenin g Provider Active Team Status: Inactive Member Role Status Dates Dr. Helena Brantley MD Primary Care Provider Active Rey Manzano RADIO ELECTRICIAN, RADIO ELECTRICIAN-C Attending Provider, Referring Provider Active Team Status: [...] MD Primary Care Provider Active Rey Manzano RADIO ELECTRICIAN, RADIO ELECTRICIAN-C Attending Provider Active Team Status: Inactive Member Role Status Dates Dr. Helena Brantley MD Primary Care Provider, Referrin g Provider Active Frankie MAC PA Attending Provider Active Team Status: Inactive Member Role Status Dates Dr. Helena Brantley MD Primary Care Provider Active Frankie MAC PA Attending Provider, Referring Provi leelee Active Team Status: Inactive Member Role Status Dates Dr. Helena Brantley MD Primary Care Provider, Referrin g Provider Active Alex Salgado PA, PA Attending Provider Active Team Status: Inactive Member Role Status Dates Dr. Helena Brantley MD Primary Care Provider Active Alex MAC PA Attending Provider, Referring Pr ovider Active [...] 2024 End: May 24, 2024 Nando Granda RADIO ELECTRICIAN, RADIO ELECTRICIAN-C Attending Provider Active S tart: May 24, 2024 End: May 24, 2024 Team Status: Inactive Member Role Status Dates Dr. Helena Brantley MD Primary Care Provider Active Start: May 25, 2024 End: May 25, 2024 Nando Granda RADIO ELECTRICIAN, RADIO ELECTRICIAN-C Attending Provider Active S tart: May 25, 2024 End: May 25, 2024 Team Status: Inactive Member Role Status Dates Dr. Helena Brantley MD Primary Care Provider Active Start: June 02, 2024 End: June 02, 2024 Dr. Helena Brantley MD Referring Provider Active Start: June 02, 2024 End: June 02, 2024 Rey Manzano RADIO ELECTRICIAN, RADIO ELECTRICIAN-C Attending Provider Active Start: June 02, 2024 [...] 2024 End: June 08, 2024 Rey Manzano RADIO ELECTRICIAN, RADIO ELECTRICIAN-C Attending Provider Active Start: June 08, 2024 [...] Active Start: August 20, 2024 Rey Manzano RADIO ELECTRICIAN, RADIO ELECTRICIAN-C Attending Provider Active Start: August 20, 2024 Rey Manzano RADIO ELECTRICIAN, RADIO ELECTRICIAN-C Referring Provider Active Start: August 20, 2024 Team Status: Inactive Member Role Status Dates Dr. Helena Brantley MD Primary Care Provider Active Start: August 20, 2024 End: August 20, 2024 Fabiano Reese RADIO ELECTRICIAN, RADIO ELECTRICIAN-C Attending Provider Active Start: August 20, 2024 End: August 20, 2024 Fabiano Reese RADIO ELECTRICIAN, RADIO ELECTRICIAN-C Referring Provider Active Start: August 20, 2024 End: August 20, 2024 Team Status: Active Member Role Status Dates Dr. Helena Brantley MD Primary Care Provider Active Start: September 03, 2024 Rey Manzano RADIO ELECTRICIAN, RADIO ELECTRICIAN-C Attending Provider Active Start: September 03, 2024 Rey Manzano NP, RADIO ELECTRICIAN-C Referring Provider Active Start: September 03, 2024 Team Status: Inactive Member Role Status Dates Dr. Helena Brantley MD Primary Care Provider Active Start: September 10, 2024 End: September 10, 2024 Dr. Helena Brantley MD Referring Provider Active Start: September 10, 2024 End: September 10, 2024 BUBBA Finch Attending Provider Active Sta rt: September 10, 2024 End: September 10, 2024 Team Status: Inactive Member Role Status Dates Dr. Helena Brantley MD Primary Care Provider Active Start: September 10, 2024 End: September 10, 2024 BUBBA Finch Attending Provider Active Sta rt: September 10, 2024 End: September 10, 2024 Team Status: Inactive Member Role Status Dates Dr. Helena Brantley MD Primary Care Provider Active Start: September 23, 2024 End: September 23, 2024 Dr. Helena Brantley MD Referring Provider Active Start: September 23, 2024 End: September 23, 2024 Rey Manzano NP RADIO ELECTRICIAN-C Attending Provider Active Start: September 23, 2024 End: September 23, 2024 Goals (unrecognized section and content) Goals [...] BE BASED ON THE PRIMARY CLINICAL RECORDS. [facility] [employer] [facility]. provides no warranty or guarantee of the accuracy or completeness of information in this document.
== END | disposition home or self-care (01) ==
LOC: OPBI 09:49
PROVIDERS: PCP Family Medicine; Referring Provider Nurse Practitioner Women's Health; Visit Provider Nurse Practitioner Women's Health
DX: Z12.31 Encounter for screening mammogram for malignant neoplasm of breast (principal); Z78.0 Asymptomatic menopausal state
CPT/HCPCS: 77063; 77067; 77080

== ENCOUNTER 2024-10-06 12:00 | Outpatient (RCR) | payer MEDICARE, SELFPAY ==
--- NOTE | 2024-07-16 11:32 | HP.PTEVAL ---
Patient's Visit Information Visit Information Visit Information: JEN DEMARCO is a 68 year old F referred to Physical Therapy by CHIQUI Deleon with a diagnosis of Uterovaginal Prolapse, Unspecified. Date of Evaluation: 07/16/24 Physical Therapist: Aundrea Robbins Visit Plan Frequency: 1x/Week Duration: 2 Months Plan: Will continue pelvic floor releases another 1-2 sessions to address mild tightness, Add week 2 (she is currently doing quick flicks, holding kegel 5 seconds and working on breathing into her belly). Subjective Subjective: She is coming in for a prolapse. She has had this prolapse for 2 years this summer. She has used a pessary for a couple of years. She uses estrogen cream 3 x week. She has been doing kegels on the alicia provided by her insurance company. She is doing the exercises 4 x week. She saw Dr. Lopez and they did a lot of bladder testing. She had US on bladder and kidneys and everything was fine. She doesn't want to do surgery at this point as she is concerned that she won't be able to really limit her activities or lifestyle after with lifting especially. Pessary doesn't bother her. She never had UTIs before the pessary She had 3-4 UTIs this past year. Occasional bleeding. Her goal is to address the urine leakage and would be nice to not have to use the pessary. She feels ok for a while without the pessary. She gets bulgy and uncomfortable eventually though later in the day if she doesn't have it in. She has leaking more with urgency. Not as much leaking with a cough or sneeze. Song in the door, running water is a trigger. She hasn't had to wear pads much for leaking lately. At night she wakes up 1-2 x night to urinate. No low back pain or complaints. No pain with intercourse. No pelvic pain. Bike, hike for exercise. She is not working. 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 Objective Objective: Rectocele 2 Cystocele 1 LAYCOCK 06/04/2/3 Mild pelvic floor tightness layer 2-3 - especially left side Breathing not as much into her belly but more in her chest- clenches abdominals Incontinence impact questionnaire 4, Urogenital distress inventory 10 Did not evaluate low back today Goals Goal 1:: Jen will be able to delay using the restroom by 5 minutes when she experiences urgency to avoid any incontinence episodes. Goal Time Frame: 6-8 Weeks Goal 2:: Jen will be have her hands under running water with doing dishes without leaking/urgency. Goal Time Frame: 6-8 Weeks Goal 3:: Jen will only need to get up at most 1 x night to urinate. Goal Time Frame: 6-8 Weeks Goal 4:: Improve her urogenital distress inventory score to less than 5 to allow for less disruption during day to day activities regarding her leaking. Rehabilitation Potential Physical Therapy Diagnosis: Urge incontinence, Rectocele, Cystocele Rehabilitation Potential: Good Anticipated Interventions Patient/Client Instruction: Educate patient on: Condition and Plan of Care For the Purpose of:: To improve health and function Therapeutic Exercise to Include: Strength training, Coordination, Neuromotor development and Relaxation training For the Purpose of:: To improve health and function Manual Therapy Techniques to Include: Trigger point massage and Soft tissue mobilization For the Purpose of:: To improve muscle performance and motor function and To decrease soft tissue restriction Text: Thank you for the opportunity to evaluate your patient. For Medicare and Medicare HMO plans, please review the plan of care and approve it. It will need to be FAXED BACK to us at [phone] for Medicare purposes. For Medicare only, by signing this I certify the plan of care. Please let me know if there are questions or concerns regarding this plan of care. Physician Signature: Date:
--- NOTE | 2024-10-06 15:03 | HP.PTDCSUM ---
Discharge Summary D/C summary: It has been my pleasure to treat MIRYAM NORTON CALL referred by CHIQUI Deleon, with the diagnosis of Uterovaginal Prolapse, Unspecified for a total of 8 visit(s). Discharge Date: 10/06/24 Please see the following information for a summary of their discharge status. Subjective Subjective: She had another urinary infection a couple of weeks ago. Doctor changed the size of the pessary to a smaller size and hopes that will help. She hasn't tried the new size to date as she is giving herself a break for another few days before inserting another pessary due to the infection. She feels like the prolapse may be getting worse and she definitely can feel the difference not using the pessary this week. She admits she hasn't been the most compliant with the exercises. She also states she will change to inserting estradiol cream more internally which she has not been doing. Objective Objective/Function: Miryam admits her progress has been hard to track as she wears the pessary most of the time anyway. She is getting discouraged by her persistent UTI's and hopes the smaller pessary size will help. She will also modify how she is using the estradiol cream and insert more internally vs. just externally. Overall her prolapses have worsened slightly since eval but she also admits she hasn't had the pessary in for several days and that always makes things worse. Her pelvic floor strength and endurance has improved and her pelvic floor tightness has resolved. Goals Goal 1:: Miryam will be able to delay using the restroom by 5 minutes when she experiences urgency to avoid any incontinence episodes. Goal Progress: 20% improved. Goal 2:: Miryam will be have her hands under running water with doing dishes without leaking/urgency. Goal Progress: 20% improved Goal 3:: Miryam will only need to get up at most 1 x night to urinate. Goal Progress: 20% improved Goal 4:: Improve her urogenital distress inventory score to less than 5 to allow for less disruption during day to day activities regarding her leaking. Goal Progress: POPDI-6 11 CRAD-8 11 Plan Plan: D/C from PT. She will continue the pelvic floor strengthening exercises on her own. D/C Information Discharge Comments: Miryam plans to continue the pelvic floor strengthening program at home to manage her prolapses. She will discuss with Dr. Lopez surgical options. She is hesitant only because of the lifting restriction post operatively. d/c sentence: If there are questions or concerns regarding this patient's physical therapy, please feel free to call me at [phone]. Thank you for the referral of this patient. Sincerely, Aundrea Robbins
== END 2024-10-06 19:00 | disposition home or self-care (01) ==
LOC: PT 12:00
PROVIDERS: PCP Family Medicine; Referring Provider Nurse Practitioner Women's Health; Visit Provider Nurse Practitioner Women's Health
DX: N81.4 Uterovaginal prolapse, unspecified (principal)
CPT/HCPCS: 97110; 97112; 97140; 97162; 97530